=== PATIENT | male | born 1955 | race Caucasian/White ===

== ENCOUNTER → 2019-07-14 10:31 | Outpatient (BNVA) | payer BC, SELFPAY | PROVIDERS: Family Provider Nurse Practitioner Family; PCP Nurse Practitioner Family; Visit Provider Nurse Practitioner Family | DX: E11.9 Type 2 diabetes mellitus without complications (principal); Z79.4 Long term (current) use of insulin; E78.5 Hyperlipidemia, unspecified; Z78.9 Other specified health status; R22.43 Localized swelling, mass and lump, lower limb, bilateral; H61.23 Impacted cerumen, bilateral; J44.9 Chronic obstructive pulmonary disease, unspecified; K21.0 Gastro-esophageal reflux disease with esophagitis; F17.200 Nicotine dependence, unspecified, uncomplicated | CPT/HCPCS: 80053; 80061; 81003; 83036; 84443; 85025 ==

== ENCOUNTER → 2019-10-09 09:22 | Outpatient (BNVA) | payer BC, SELFPAY | PROVIDERS: Family Provider Nurse Practitioner Family; PCP Nurse Practitioner Family; Visit Provider Nurse Practitioner | DX: E11.9 Type 2 diabetes mellitus without complications (principal); Z79.4 Long term (current) use of insulin; E78.5 Hyperlipidemia, unspecified; I25.10 Atherosclerotic heart disease of native coronary artery without angina pectoris; Z78.9 Other specified health status; K21.9 Gastro-esophageal reflux disease without esophagitis; M79.2 Neuralgia and neuritis, unspecified; J44.9 Chronic obstructive pulmonary disease, unspecified; I10 Essential (primary) hypertension | CPT/HCPCS: 80053; 80061; 81000; 82044; 83036; 85025 ==

== ENCOUNTER → 2020-02-06 13:11 | Outpatient (BNVA) | payer BC, SELFPAY | PROVIDERS: Family Provider Nurse Practitioner Family; PCP Nurse Practitioner Family; Visit Provider Urology | DX: N40.1 Benign prostatic hyperplasia with lower urinary tract symptoms (principal); N13.8 Other obstructive and reflux uropathy | CPT/HCPCS: 81001 ==

== ENCOUNTER 2020-02-13 15:35 | Emergency (ER) | payer BC, SELFPAY ==
[2020-02-13 15:48] VITALS: BP 134/76; PULSE 109; RESP 18; O2SAT 95; BMI 21.2
--- NOTE | 2020-02-13 15:54 | XRR_ITS ---
PROCEDURE INFORMATION: Exam: XR Chest, 1 View Exam date and time: 02/13/2020 4:12 PM Age: 64 years old Clinical indication: Cough; Prior surgery; Surgery type: Stimulator; Patient HX: Covid precautions TECHNIQUE: Imaging protocol: XR of the chest Views: 1 view. COMPARISON: CT chest w con* [id number] 07/12/2018 3:42 PM FINDINGS: Lungs: Unchanged mild fibrosis. The pulmonary vascularity is within normal limits. No consolidation. The lungs are hyperinflated compatible severe COPD. Calcified granuloma right lung base is unchanged. There is also an unchanged 8 mm ground-glass nodule right lower lobe. Pleural space: Unremarkable. No pleural effusion. No pneumothorax. Heart/Mediastinum: Unremarkable. No cardiomegaly. Bones/joints: No acute abnormality. Neurostimulator wires are noted. XR/XR chest 1V portable [id number] IMPRESSION: No acute findings.
--- NOTE | 2020-02-13 15:54 | ECG_ITS ---
[facility] Test Date: 2020-02-13 Pat Name: Lawrence Carreon Department: Room: Gender: Male Installations Inspector: : 1955 Requested By: Lilia Velazquez Order Number: [id number] Walters MD: Radha Palomo M.D. Measurements Intervals [place] Rate: 95 P: 81 ND: 163 QRS: 83 QRSD: 96 T: 70 QT: 370 QTc: 465 Interpretive Statements SINUS RHYTHM No previous ECG available for comparison Electronically Signed On 02-13-2020 16:55:52 CDT by Radha Palomo M.D. [id number]
[2020-02-13 16:19] LABS: Arterial Blood Gas Hematocrit 43.8 % (42-52); Base Excess ABG -0.1 mmol/L (-2.0-2.0); Blood Gas Allen Test Pos; Blood Gas Operator Identificat CAK; Blood Gas Sample Site Radial, left; Blood Gas Sample Type Arterial; HCO3 ABG 24.7 mmol/L (22-26); Oxygen Device ROOM AIR; PO2 ABG 60.2 mmHg (80.0-100.0)
--- NOTE | 2020-02-13 16:36 | W.ED.SOB ---
HPI - SOB/Dyspnea General: Chief Complaint: Shortness of Breath/Dyspnea Stated Complaint: needs covid eval Time Seen by Provider: 02/13/20 15:49 Source: patient Mode of arrival: ambulatory Limitations: no limitations History of Present Illness: HPI Narrative: Mr. Apple is a nice 64-year-old male who comes in complaining of increased shortness of breath and a sore throat. His symptoms lasted approximately 2 hours but have now resolved. He is concerned about possible COVID-19 infection. He denies any loss of sense of taste or loss of smell. His cough has not changed from baseline. He has not had a fever. Patient denies any chest pain syncope or near syncope type symptoms. The patient did not try thing for this at home prior to coming in but states his symptoms have resolved on their own over time. Associated symptoms: Deny abdominal pain, chest congestion, chest pain, diaphoresis, dizziness, extremity pain, fever(s), hemoptysis, lightheadedness, nausea, orthopnea, palpitations, syncope or vomiting Review of Systems Const: Denies: fever(s), chills, body aches, fatigue, malaise or diaphoresis Eyes: Denies: change in vision, blurry vision, photophobia, eye discomfort, eye discharge or eye redness ENMT: Reports: throat pain; Denies: odynophagia, hoarseness, swelling of lips/tongue, ear or mastoid pain, ear discharge, change in hearing or nasal discharge Card: Denies: chest pain, palpitations, irregular heart rhythm, edema, lightheadedness, syncope, pre-syncope, dyspnea on exertion or orthopnea Resp: Reports: dyspnea; Denies: productive cough, non-productive cough, wheezing, hemoptysis or chest congestion GI: Denies: abdominal pain, nausea, vomiting, hematemesis, coffee ground emesis, heartburn, diarrhea, constipation, GI cramping, hematochezia or melena : Denies: flank pain, dysuria, urinary frequency, urinary urgency or hematuria Musc: Denies: neck pain, back pain, extremity pain, extremity swelling, joint pain, joint swelling, joint redness, joint warmth or joint stiffness Skin/Breast: Denies: rash, pruritus, erythema or skin tenderness Neuro: Denies: headache(s), numbness in extremities, weakness in extremities, sensory changes, lack of coordination, difficulty walking, dizziness, vertigo, confusion, Slurred speech present or seizure-like activity Arsenio/Lymph: Denies: easy bruising, easy bleeding, petechiae, purpura or enlarged lymph nodes All/Imm: Denies: urticaria, throat swelling, tongue swelling, facial swelling or acute wheezing PFSH ED PFSH: Medical History ASHD (arteriosclerotic heart disease) Chronic peripheral neuropathic pain Controlled diabetes mellitus with hyperglycemia, without long-term current use of insulin COPD (chronic obstructive pulmonary disease) Detrusor dysfunction Dyslipidemia GERD (gastroesophageal reflux disease) Incomplete bladder emptying Intermittent self-catheterization of bladder Localized swelling of both lower legs Low testosterone Lower urinary tract symptoms (LUTS) Osteoarthritis Personal history of nicotine dependence Sleep apnea Surgical History History of arthroscopy of both knees History of colon resection Due to cancer History of laminectomy Dr. Easton January 23, 2019. With thoracic spinal cord stimulator placement History of lumbar fusion Dr. Easton February 15, 2017 L4-S1 History of umbilical hernia repair History of vasectomy Family History Mother Diabetes Father Diabetes CAD (coronary artery disease) Hypertension Myocardial infarction Brother Cancer Gastroesophageal cancer Social History Smoking and tobacco status: current every day smoker cigarettes Packs smoked per day: 2 Years cigarettes smoked: 46 Second hand smoke exposure: Yes Smoking risk assessment/counseling performed?: Yes Alcohol intake: never Desire information about alcohol rehabilitation?: No Counseling given: No Desire information about substance/drug rehabilitation?: No Counseling given: No Lives independently: Yes Household members: spouse Housing: House Marital status: service: Yes branch: [employer] Current occupational status: employed Current occupational exposures/hazards: No History of recent travel: No Current gender identity: Male Special syeda needs: No Physical Exam Const: COMMON NORMALS: no acute distress, patient oriented x3, no limitations, healthy appearing and well nourished GENERAL APPEARANCE: cooperative, well kempt and well developed HENMT: COMMON NORMALS: normocephalic, atraumatic, external ears normal, EAC's normal and Normal external nose present HEAD & SCALP: normal to inspection, normocephalic and atraumatic FACE & SINUS: normal facial exam and face symmetric NOSE: Normal external nose present and Normal nares present EXTERNAL EAR: Yes external ears normal EXTERNAL AUDITORY CANAL: EAC's normal MOUTH: Normal oral and palatal mucosa present, lip normal and tongue normal Eye: COMMON NORMALS: Equal, round and reactive pupils present and conjunctivae normal GENERAL EYE: appearance normal, both eyes and all related structures ALIGNMENT: Yes alignment normal PERIORBITAL: periorbital findings normal EYELID: eyelids normal CONJUNCTIVA: Yes conjunctivae normal SCLERA: sclerae normal PUPIL: Yes Equal, round and reactive pupils present Neck/C-Spine: COMMON NORMALS: full ROM, no lymphadenopathy, supple, no meningeal signs and no JVD GENERAL: Yes normal visual inspection and Yes trachea midline Chest: COMMONS NORMALS: normal inspection of the chest and normal palpation of entire chest wall Resp: COMMON NORMALS: normal respiratory effort, No retractions, No use of accessory muscles and clear to auscultation bilaterally EFFORT & INSPECTION: Yes able to speak in complete sentences and Yes symmetric chest movement AUSCULTATION: clear to auscultation bilaterally, no crackles, no rales, no rhonchi and no wheezes Cardio: COMMON NORMALS: no JVD, regular rate, regular rhythm, S1 normal heart sound present and S2 normal heart sound present RATE: regular rate RHYTHM: regular rhythm HEART SOUNDS: S1 normal heart sound present, S2 normal heart sound present, no click, no gallops, no murmurs, no rubs and abnormal split S2 GI: COMMON NORMALS: Soft to palpation and No hepatosplenomegaly present PALPATION: Yes Soft to palpation, No Tenderness to palpation present (GI), No Guarding due to palpation present (GI), No Rigid due to palpation, Yes No hepatosplenomegaly present, No Hernia present, No Palpable mass present and No Pulsatile mass present : COMMON NORMALS: Yes no CVA tenderness BLADDER/KIDNEY EXAM: Yes no CVA tenderness Back/Pelvis: COMMON NORMALS: no CVA tenderness, thoracic and lumbar spine normal to inspection, no thoracic nor lumbar tenderness and thoraco-lumbar ROM normal Extremity: COMMON NORMALS: normal to inspection, full ROM, capillary refill normal, no joint enlargement, no clubbing, cyanosis or edema and no calf tenderness Neuro: COMMON NORMALS: patient oriented x3, CN's II-XII intact bilaterally, moves all extremities, no focal motor deficits and no sensory deficits noted MENINGEAL SIGNS: Yes no meningeal signs SPEECH: speech normal Psych: COMMON NORMALS: mental status grossly normal, Normal thought process present, cooperative, normal affect, speech normal and activity/motor behavior normal APPEARANCE: Yes well kempt SPEECH: Yes normal speech THOUGHT PROCESS: Normal thought process present Skin: COMMON NORMALS: no rashes or lesions noted, turgor normal, no jaundice, no petechiae and no mottling GENERAL SKIN EXAM: no rashes or lesions noted and turgor normal Course Vital Signs: Vital signs: Vital Signs Pulse Rate 107 H 02/13/20 16:43 Respiratory Rate 20 H 02/13/20 16:43 Blood Pressure 129/78 02/13/20 16:43 Pulse Oximetry 92 02/13/20 16:43 MDM - SOB/Dyspnea MDM Narrative: Medical decision making narrative: Mr. Fonseca is a nice 64-year-old male who comes in complaining of generalized weakness, shortness of breath and sore throat. He had no chest pain. He had no syncope or near syncopal type symptoms. Patient ultimately this time is feeling better wants to go home. Self to code infection or focal pneumonia. He does have some faint wheezing present. This is cleared with a breathing treatment. I will discharge him home on steroids, doxycycline and he agrees to follow-up with his regular doctor. Lab Data: Attestation: I reviewed the patient's lab results. Labs: Lab Results 02/13/20 02/13/20 02/13/20 Range/Units 16:08 16:31 16:32 WBC (4.0-10.0) 10^3/ uL RBC (4.1-5.3) 10^6/u L Hgb (11.7-16.6) g/dL Hct (42.0-52.0) % MCV (80-94) fL MCH (28.0-34.0) pg MCHC (30.0-36.0) g/dL RDW (12.1-15.1) % Plt Count (130-400) 10^3/c mm MPV (7.4-10.4) fL Neut % (Auto) % Lymph % (Auto) % Esmeralda % (Auto) % Eos % (Auto) % Baso % (Auto) % Neut # (Auto) (1.8-7.7) 10^3/u L Lymph # (Auto) (0.8-4.8) 10^3/u L Esmeralda # (Auto) (0.2-0.9) 10^3/u L Eos # (Auto) (0.0-0.8) 10^3/u L Baso # (Auto) (0.0-0.1) 10^3/u L Nucleated RBC % (a uto) % Nucleated RBCs # /100WBC PT (12.1-14.9) SECO NDS INR (0.8-1.2) Specimen Type Arterial Sample Site Radial, left ABG pH 7.40 (7.35-7.45) ABG pCO2 40.0 (35-45) mmHg ABG pO2 60.2 L (80.0-100.0) mmH g ABG HCO3 24.7 (22-26) mmol/L ABG Base Excess -0.1 (-2.0-2.0) mmol/ L Christopher Test Pos Hematocrit 43.8 (42-52) % O2 Delivery Device Room air FiO2 21.0 % Campground Caretaker ID Cak Sodium (136-145) mmol/L Potassium (3.5-5.1) mmol/L Chloride (98-107) mmol/L Carbon Dioxide (22-29) mmol/L Anion Gap (5-19) BUN (8-23) mg/dL Creatinine (0.7-1.2) mg/dL GFR Calculation (90-130) mL/min Glucose (65-115) mg/dL Calculated Osmolal ity (285-295) mOsm/k g Lactic Acid (0.5-2.2) mmol/L Calcium (8.5-10.5) mg/dL Magnesium (1.7-2.3) mg/dL Total Bilirubin (0.15-1.2) mg/dL AST (0-40) U/L ALT (0-41) U/L Alkaline Phosphata se (40-130) IU/L Troponin T Gen 5 n g/L 10 (0-15) ng/L Total Protein (6.6-8.7) g/dL Albumin (3.5-5.2) g/dL Globulin (1.3-4.6) g/dL Urine Color (Yellow) Urine Appearance (CLEAR) Urine pH (5-7) Ur Specific Gravit y (1.005-1.030) Urine Protein (Negative) Urine Glucose (UA) (Normal) Urine Ketones (Negative) Urine Blood (Negative) Urine Nitrate (Negative) Urine Bilirubin (NEGATIVE) Urine Urobilinogen (Negative) mg/dL Ur Leukocyte Tran ase (Negative) Influenza Type A A g Negative (Negative) Influenza Type B A g Negative (Negative) SARS-CoV-2 Ag (Rap id) (Negative) 02/13/20 02/13/20 02/13/20 Range/Units 16:32 16:32 16:32 WBC 9.0 (4.0-10.0) 10^3/ uL RBC 4.59 (4.1-5.3) 10^6/u L Hgb 14.5 (11.7-16.6) g/dL Hct 44.9 (42.0-52.0) % MCV 97.8 H (80-94) fL MCH 31.6 (28.0-34.0) pg MCHC 32.3 (30.0-36.0) g/dL RDW 12.7 (12.1-15.1) % Plt Count 210 (130-400) 10^3/c mm MPV 10.0 (7.4-10.4) fL Neut % (Auto) 78.9 % Lymph % (Auto) 10.3 % Esmeralda % (Auto) 9.7 % Eos % (Auto) 0.7 % Baso % (Auto) 0.2 % Neut # (Auto) 7.13 (1.8-7.7) 10^3/u L Lymph # (Auto) 0.9 (0.8-4.8) 10^3/u L Esmeralda # (Auto) 0.9 (0.2-0.9) 10^3/u L Eos # (Auto) 0.1 (0.0-0.8) 10^3/u L Baso # (Auto) 0.0 (0.0-0.1) 10^3/u L Nucleated RBC % (a uto) 0 % Nucleated RBCs # 0.0 /100WBC PT 12.40 (12.1-14.9) SECO NDS INR 0.90 (0.8-1.2) Specimen Type Sample Site ABG pH (7.35-7.45) ABG pCO2 (35-45) mmHg ABG pO2 (80.0-100.0) mmH g ABG HCO3 (22-26) mmol/L ABG Base Excess (-2.0-2.0) mmol/ L Christopher Test Hematocrit (42-52) % O2 Delivery Device FiO2 % Campground Caretaker ID Sodium 132 L (136-145) mmol/L Potassium 4.0 (3.5-5.1) mmol/L Chloride 93 L (98-107) mmol/L Carbon Dioxide 27 (22-29) mmol/L Anion Gap 16.0 (5-19) BUN 6 L (8-23) mg/dL Creatinine 0.7 (0.7-1.2) mg/dL GFR Calculation 112.8 (90-130) mL/min Glucose 82 (65-115) mg/dL Calculated Osmolal ity 269 L (285-295) mOsm/k g Lactic Acid (0.5-2.2) mmol/L Calcium 9.9 (8.5-10.5) mg/dL Magnesium 2.2 (1.7-2.3) mg/dL Total Bilirubin 0.5 (0.15-1.2) mg/dL AST 15 (0-40) U/L ALT 14 (0-41) U/L Alkaline Phosphata se 74 (40-130) IU/L Troponin T Gen 5 n g/L (0-15) ng/L Total Protein 7.6 (6.6-8.7) g/dL Albumin 4.5 (3.5-5.2) g/dL Globulin 3.1 (1.3-4.6) g/dL Urine Color (Yellow) Urine Appearance (CLEAR) Urine pH (5-7) Ur Specific Gravit y (1.005-1.030) Urine Protein (Negative) Urine Glucose (UA) (Normal) Urine Ketones (Negative) Urine Blood (Negative) Urine Nitrate (Negative) Urine Bilirubin (NEGATIVE) Urine Urobilinogen (Negative) mg/dL Ur Leukocyte Tran ase (Negative) Influenza Type A A g (Negative) Influenza Type B A g (Negative) SARS-CoV-2 Ag (Rap id) (Negative) 02/13/20 02/13/20 02/13/20 Range/Units 16:32 16:32 16:32 WBC (4.0-10.0) 10^3/ uL RBC (4.1-5.3) 10^6/u L Hgb (11.7-16.6) g/dL Hct (42.0-52.0) % MCV (80-94) fL MCH (28.0-34.0) pg MCHC (30.0-36.0) g/dL RDW (12.1-15.1) % Plt Count (130-400) 10^3/c mm MPV (7.4-10.4) fL Neut % (Auto) % Lymph % (Auto) % Esmeralda % (Auto) % Eos % (Auto) % Baso % (Auto) % Neut # (Auto) (1.8-7.7) 10^3/u L Lymph # (Auto) (0.8-4.8) 10^3/u L Esmeralda # (Auto) (0.2-0.9) 10^3/u L Eos # (Auto) (0.0-0.8) 10^3/u L Baso # (Auto) (0.0-0.1) 10^3/u L Nucleated RBC % (a uto) % Nucleated RBCs # /100WBC PT (12.1-14.9) SECO NDS INR (0.8-1.2) Specimen Type Sample Site ABG pH (7.35-7.45) ABG pCO2 (35-45) mmHg ABG pO2 (80.0-100.0) mmH g ABG HCO3 (22-26) mmol/L ABG Base Excess (-2.0-2.0) mmol/ L Christopher Test Hematocrit (42-52) % O2 Delivery Device FiO2 % Campground Caretaker ID Sodium (136-145) mmol/L Potassium (3.5-5.1) mmol/L Chloride (98-107) mmol/L Carbon Dioxide (22-29) mmol/L Anion Gap (5-19) BUN (8-23) mg/dL Creatinine (0.7-1.2) mg/dL GFR Calculation (90-130) mL/min Glucose (65-115) mg/dL Calculated Osmolal ity (285-295) mOsm/k g Lactic Acid 1.0 (0.5-2.2) mmol/L Calcium (8.5-10.5) mg/dL Magnesium (1.7-2.3) mg/dL Total Bilirubin (0.15-1.2) mg/dL AST (0-40) U/L ALT (0-41) U/L Alkaline Phosphata se (40-130) IU/L Troponin T Gen 5 n g/L (0-15) ng/L Total Protein (6.6-8.7) g/dL Albumin (3.5-5.2) g/dL Globulin (1.3-4.6) g/dL Urine Color Yellow (Yellow) Urine Appearance Clear (CLEAR) Urine pH 6.5 (5-7) Ur Specific Gravit y 1.005 (1.005-1.030) Urine Protein Neg (Negative) Urine Glucose (UA) Norm (Normal) Urine Ketones Negative (Negative) Urine Blood Neg (Negative) Urine Nitrate Negative (Negative) Urine Bilirubin Neg (NEGATIVE) Urine Urobilinogen Norm (Negative) mg/dL Ur Leukocyte Tran ase Negative (Negative) Influenza Type A A g (Negative) Influenza Type B A g (Negative) SARS-CoV-2 Ag (Rap id) Negative (Negative) Imaging Data^: CXR: Attestation: I personally reviewed and interpreted this imaging study as follows: My impression: COPD changes but no acute cardiopulmonary findings. EKG Data^: EKG 1: Attestation: I personally reviewed and interpreted this EKG as follows: EKG Interpretation Date: 02/13/20 EKG interpretation time: 16:21 Interpretation: Normal sinus rhythm at 95 beats a minute, no acute ST or T wave changes. No blocks, normal intervals. Discharge Plan Discharge Patient Disposition: Home Clinical Impression: Acute exacerbation of chronic obstructive airways disease Condition: Stable Prescriptions: New albuterol sulfate 90 mcg/actuation HFA aerosol inhaler 2 inh INHALATION Q4H PRN (Reason: shortness of breath or wheezing) Qty: 6.7 RF: 0 benzonatate [Tessalon Perles] 100 mg capsule 200 mg PO TID PRN (Reason: cough) Qty: 60 RF: 0 doxycycline hyclate 100 mg capsule 100 mg PO BID 10 Days Qty: 20 RF: 0 prednisone 10 mg tablet 20 mg PO BID 5 Days Qty: 10 RF: 0 No Action gabapentin 300 mg capsule 600 mg PO .FIVE TIMES A DAY RF: 0 tamsulosin 0.4 mg capsule 0.4 mg PO BEDTIME RF: 0 hydrocodone-acetaminophen 10-325 mg tablet 1 - 2 tab PO Q4H MDD 9 tabs PRN (Reason: Pain) RF: 0 duloxetine 60 mg capsule,delayed release(DR/EC) 60 mg PO DAILY RF: 0 testosterone cypionate [Depo-Testosterone] 200 mg/mL oil 200 mg IM .EVERY 10 DAYS RF: 0 cholecalciferol (vitamin D3) 125 mcg (5,000 unit) capsule 125 mcg PO QPM RF: 0 aspirin [Adult Low Dose Aspirin] 81 mg tablet,delayed release (DR/EC) 81 mg PO DAILY RF: 0 Caltrate 600 plus D 600 mg (1,500 mg)-800 unit tablet,chewable 1 tab PO DAILY RF: 0 carisoprodol 350 mg tablet 350 mg PO QID PRN (Reason: Spasms) RF: 0 cetirizine 10 mg tablet 10 mg PO DAILY RF: 0 metformin 500 mg tablet extended release 24 hr 500 mg PO BID Qty: 180 RF: 1 pantoprazole 40 mg tablet,delayed release (DR/EC) 40 mg PO BID Qty: 180 RF: 1 Incruse Ellipta 62.5 mcg/actuation blister with device 1 inh INHALATION DAILY Qty: 90 RF: 1 levofloxacin 500 mg tablet 500 mg PO DAILY Qty: 5 RF: 0 prednisone 20 mg tablet 40 mg PO DAILY Qty: 10 RF: 0 rosuvastatin 20 mg tablet 20 mg PO DAILY 90 Days Qty: 90 RF: 1 potassium chloride 10 mEq capsule, extended release 10 meq PO DAILY 90 Days Qty: 90 RF: 1 morphine 15 mg tablet 15 mg PO BID RF: 0 magnesium oxide 400 mg magnesium Tablet 400 mg PO DAILY RF: 0 hydrochlorothiazide 25 mg tablet 25 mg PO DAILY PRN (Reason: Edema) RF: 0 Discharge Orders: Discharge Order (Routine); Ordered 02/13/20 Ordered By: Lilia Vázquez Referrals: Deyanira Perdomo FNP-C [Primary Care Provider] - 1-3 days Discharge Diet: Advance as tolerated Discharge Activity: Increase activity as tolerated Patient Instructions: Chronic Obstructive Pulmonary Disease (ED) Activity Restrictions/Additional Instructions: Please return to the ER immediately for any of the signs or symptoms listed on your discharge instruction sheets, worsening/changing of your symptoms, you are not getting better as quickly as expected, or for ANY other cause or concerns. Coding Level of Care Code ED Smokehouse Operator for Chg Fwd Exam Comprehensive
[2020-02-13 16:43] VITALS: BP 129/78; PULSE 107; RESP 20; O2SAT 92
[2020-02-13 16:54] LABS: Add Urine Microscopic? NO
[2020-02-13 17:08] LABS: Basophils % 0.2 %; Eosinophils # 0.1 10^3/uL (0.0-0.8); Eosinophils % 0.7 %; Hematocrit 44.9 % (42.0-52.0); Hemoglobin 14.5 g/dL (11.7-16.6); Lymphocytes # 0.9 10^3/uL (0.8-4.8); Lymphocytes % 10.3 %; Mean Corpuscular HGB Conc 32.3 g/dL (30.0-36.0); Mean Corpuscular Hemoglobin 31.6 pg (28.0-34.0); Mean Corpuscular Volume 97.8 fL (80-94); Monocytes # 0.9 10^3/uL (0.2-0.9); Monocytes % 9.7 %; Neutrophils # 7.13 10^3/uL (1.8-7.7); Neutrophils % 78.9 %; Nucleated Red Blood Cells % 0 %; Platelet Count 210 10^3/cmm (130-400); Red Blood Count 4.59 10^6/uL (4.1-5.3); Red Cell Distribution Width 12.7 % (12.1-15.1)
[2020-02-13 17:10] LABS: Bilirubin Urine Neg (NEGATIVE); Blood Urine Neg (Negative); Glucose Urine UA Norm (Normal); Ketones Urine Negative (Negative); Leukocyte Esterase Urine Negative (Negative); Nitrate Urine Negative (Negative); Protein Urine Neg (Negative); Specific Gravity, Urine 1.005 (1.005-1.030); Urine Appearance Clear (CLEAR); Urine Color Yellow (Yellow); Urobilinogen Urine Norm (Negative); pH Urine 6.5 (5-7)
[2020-02-13 17:13] LABS: SARS Covid-2 Antigen Negative (Negative)
[2020-02-13 17:13] LABS: Influenza A by IFA Negative (Negative); Influenza B by IFA Negative (Negative)
[2020-02-13 17:17] LABS: Alanine Aminotransferase 14 U/L (0-41); Albumin Level 4.5 g/dL (3.5-5.2); Alkaline Phosphatase 74 IU/L (40-130); Aspartate Amino Transferase 15 U/L (0-40); Blood Urea Nitrogen 6 mg/dL (8-23); Calcium 9.9 mg/dL (8.5-10.5); Carbon Dioxide 27 mmol/L (22-29); Chloride 93 mmol/L (98-107); Creatinine Clr Calc Pharmacy 96.4128; Globulin 3.1 g/dL (1.3-4.6); Glomerular Filtration Rate 112.8 mL/min (90-130); Glucose 82 mg/dL (65-115); Magnesium 2.2 mg/dL (1.7-2.3); Osmolality Calculated 269 mOsm/kg (285-295); Sodium 132 mmol/L (136-145); Total Bilirubin 0.5 mg/dL (0.15-1.2); Total Protein 7.6 g/dL (6.6-8.7)
[2020-02-13 17:20] LABS: Troponin T (5th) Once 10 ng/L (0-15)
[2020-02-13] MEDS: sodium chloride 0.9% 1,000 ML 999 ML IV (17:27)
[2020-02-13 18:00] VITALS: BP 138/77; PULSE 108; RESP 20; O2SAT 92
--- NOTE | 2020-02-13 18:02 | PC.NURSE ---
Addendum entered by Cristi Thomson RN 02/13/20 18:17: pt also refused to wait for breathing tx. Original Note: pt offered to complete fluids verbalized that he wanted to leave. pt then assisted to wc and taken to pv.
--- NOTE | 2020-02-13 18:04 | PC.NURSE ---
informed dr. howe of 108 bpm and rr of 20 rr/min vo to to complete fluids and dc.
== END 2020-02-13 18:16 | disposition home or self-care (01) ==
PROVIDERS: Emergency Provider Emergency Medicine; PCP Nurse Practitioner Family
DX: J44.1 Chronic obstructive pulmonary disease with (acute) exacerbation (principal); Z79.82 Long term (current) use of aspirin; Z79.84 Long term (current) use of oral hypoglycemic drugs; E11.9 Type 2 diabetes mellitus without complications; J44.9 Chronic obstructive pulmonary disease, unspecified; E78.5 Hyperlipidemia, unspecified; F17.210 Nicotine dependence, cigarettes, uncomplicated
CPT/HCPCS: 12345; 36600; 71045; 80053; 81003; 82803; 83605; 83735; 84484; 85025; 85610; 87426; 87804; 93005; 96360; 99283; 99284; J7030

== ENCOUNTER → 2020-02-28 09:27 | Outpatient (BNVA) | payer BC, SELFPAY | PROVIDERS: PCP Nurse Practitioner Family; Visit Provider Nurse Practitioner Family | DX: E11.65 Type 2 diabetes mellitus with hyperglycemia (principal) | CPT/HCPCS: 80053; 80061; 83036; 84443; 85025 ==

== ENCOUNTER → 2020-03-05 12:33 | Outpatient (BNVA) | payer BC, SELFPAY | PROVIDERS: PCP Nurse Practitioner Family; Referring Provider Dermatology; Visit Provider Dermatology | DX: Z12.83 Encounter for screening for malignant neoplasm of skin (principal); L21.9 Seborrheic dermatitis, unspecified; R23.8 Other skin changes; L82.1 Other seborrheic keratosis; D18.01 Hemangioma of skin and subcutaneous tissue; L57.0 Actinic keratosis | CPT/HCPCS: 17000; 17003; 87635; 99203; 99204 ==

== ENCOUNTER → 2020-03-18 10:23 | Outpatient (BNVA) | payer BC, SELFPAY | PROVIDERS: PCP Nurse Practitioner Family; Visit Provider Internal Medicine Cardiovascular Disease | DX: Z11.59 Encounter for screening for other viral diseases (principal); Z20.828 Contact with and (suspected) exposure to other viral communicable diseases; Z01.812 Encounter for preprocedural laboratory examination | CPT/HCPCS: 87635 ==

== ENCOUNTER 2020-03-21 09:20 | Outpatient (CLI) | payer BC, SELFPAY ==
--- NOTE | 2020-03-21 09:29 | CT_ITS ---
WS: [id number] CT CHEST TECHNIQUE: Contrast enhanced CT of the chest with coronal and sagittal reformatted images. CLINICAL INFORMATION: RIGHT PULMONARY NODULE COMPARISON: CT 2 DLP: 741.[address] scans at [facility] use at least one of these dose optimization techniques: automat ed exposure control; mA and/or kV adjustment per patient size (includes targeted exams where dose is matched to clinical indication); or iterative reconstruction. FINDINGS: Moderate chronic emphysematous changes. Hazy ground glass pulmonary nodule in the left lower lobe kylah sures 6 mm unchanged and slightly less dense from previous. Additional hazy groundglass nodular opaci ty right lower lobe measures 10 x 9 mm is slightly more prominent today. Tiny subpleural nodule left lower lobe new from previous. No other suspicious pulmonary parenchymal opacities. Aortic calcification. Proximal main pulmonary ar teries are normal. Calcified granulomas. Thyroid gland is normal. No axillary lymphadenopathy. Adrenal glands are normal. Splenic granulomas. Normal thoracic spine. Dorsal spinal stimulator. CT/CT chest w con* [id number] IMPRESSION: 1. Stable left lower lobe hazy groundglass opacity measuring 5 mm unchanged in size and slightly less dense today. 2. Lobulated right lower lobe groundglass nodular density measuring 11 x 9 mm slightly increased in size from 2019. Recommend 6 month follow-up. 3. Tiny subpleural nodule left lower lobe measuring 3 mm. 4. No mediastinal or hilar lymphadenopathy. 5. Moderate chronic emphysematous changes. 6. Dorsal spinal stimulator.
[2020-03-21] MEDS: iohexol 300 mg/mL 100 mL Btl IV (09:55)
== END 2020-03-21 09:21 | disposition home or self-care (01) ==
LOC: RADWPI 09:26
PROVIDERS: Family Provider Nurse Practitioner Family; PCP Nurse Practitioner Family; Visit Provider Thoracic Surgery (Cardiothoracic Vascular Surgery)
DX: R91.8 Other nonspecific abnormal finding of lung field (principal); Z96.82 Presence of neurostimulator
CPT/HCPCS: 71260; Q9967

== ENCOUNTER 2020-03-21 10:18 | Outpatient (CLI) | payer BC, SELFPAY ==
--- NOTE | 2020-03-21 14:07 | PFTS_ITS ---
Date of Study:03/21/20 Date of Dictation: MECHANICS: Forced vital capacity (FVC) is reduced. Forced expiratory volume in one second (FEV1) is reduced. FEV1/FVC is reduced. FLOW VOLUME LOOP: Reduced flow at all lung volumes with significant. LUNG VOLUMES: Total lung capacity (TLC) is normal. Residual volume (RV) is increased. DIFFUSING CAPACITY FOR CARBON MONOXIDE: Moderately reduced. INTERPRETATION: The pulmonary function tests are consistent with severe obstruction. Lung volumes are consistent with air trapping. Gas exchange (DLCO) is moderately reduced. MTDD
== END 2020-03-21 10:19 | disposition home or self-care (01) ==
LOC: RT 10:22
PROVIDERS: PCP Nurse Practitioner Family; Visit Provider Internal Medicine Pulmonary Disease
DX: J44.9 Chronic obstructive pulmonary disease, unspecified (principal)
CPT/HCPCS: 94010; 94726; 94729

== ENCOUNTER 2020-04-11 16:05 | Outpatient (RCR) | payer BC, SELFPAY | END 2020-05-06 23:59 | disposition home or self-care (01) | LOC: PULRHB 16:05 | PROVIDERS: PCP Nurse Practitioner Family; Visit Provider Internal Medicine Pulmonary Disease | DX: J44.9 Chronic obstructive pulmonary disease, unspecified (principal) | CPT/HCPCS: 94618; G0424 ==

== ENCOUNTER 2020-05-07 06:00 | Outpatient (RCR) | payer BC, SELFPAY | END 2020-06-06 23:59 | disposition home or self-care (01) | LOC: PULRHB 06:00 | PROVIDERS: PCP Nurse Practitioner Family; Visit Provider Internal Medicine Pulmonary Disease | DX: J44.9 Chronic obstructive pulmonary disease, unspecified (principal) | CPT/HCPCS: G0424 ==

== ENCOUNTER → 2020-05-09 10:35 | Outpatient (BNVA) | payer BC, SELFPAY | PROVIDERS: PCP Nurse Practitioner Family; Visit Provider Family Medicine | DX: E11.65 Type 2 diabetes mellitus with hyperglycemia (principal) | CPT/HCPCS: 80053; 80061; 83036; 84443; 85025 ==

== ENCOUNTER 2020-07-08 06:00 | Outpatient (RCR) | payer BC, SELFPAY | END 2020-08-04 23:59 | disposition home or self-care (01) | LOC: PULRHB 06:00 | PROVIDERS: PCP Nurse Practitioner Family; Visit Provider Internal Medicine Pulmonary Disease | DX: J44.9 Chronic obstructive pulmonary disease, unspecified (principal) | CPT/HCPCS: G0424 ==

== ENCOUNTER 2020-08-05 06:00 | Outpatient (RCR) | payer BC, SELFPAY | END 2020-09-04 23:59 | disposition home or self-care (01) | LOC: PULRHB 06:00 | PROVIDERS: PCP Family Medicine; Visit Provider Internal Medicine Pulmonary Disease | DX: J44.9 Chronic obstructive pulmonary disease, unspecified (principal) | CPT/HCPCS: G0424 ==

== ENCOUNTER → 2020-08-06 14:19 | Outpatient (BNVA) | payer BC, SELFPAY | PROVIDERS: PCP Family Medicine; Visit Provider Nurse Practitioner Family | DX: R33.9 Retention of urine, unspecified (principal); R39.9 Unspecified symptoms and signs involving the genitourinary system; R82.81 Pyuria | CPT/HCPCS: 81003; 87077; 87086; 87184 ==

== ENCOUNTER → 2020-08-07 09:19 | Outpatient (BNVA) | payer BC, SELFPAY | PROVIDERS: PCP Family Medicine; Visit Provider Family Medicine | DX: E11.65 Type 2 diabetes mellitus with hyperglycemia (principal); E78.5 Hyperlipidemia, unspecified | CPT/HCPCS: 80053; 80061; 83036; 84443; 85025 ==

== ENCOUNTER → 2020-08-21 08:25 | Outpatient (BNVA) | payer BC, SELFPAY | PROVIDERS: PCP Family Medicine; Visit Provider Internal Medicine | DX: Z01.812 Encounter for preprocedural laboratory examination (principal); Z11.52 Encounter for screening for COVID-19 | CPT/HCPCS: 87635 ==

== ENCOUNTER → 2020-08-28 15:40 | Outpatient (BNVA) | payer BC, SELFPAY | PROVIDERS: PCP Family Medicine; Visit Provider Nurse Practitioner Family | DX: R82.81 Pyuria (principal) | CPT/HCPCS: 81003; 87077; 87086; 87184 ==

== ENCOUNTER 2020-09-23 08:15 | Outpatient (CLI) | payer BC, SELFPAY ==
--- NOTE | 2020-09-23 08:30 | FL_ITS ---
WS: [id number] ESOPHAGRAM WITH FLUOROSCOPY HISTORY: K44.9 - Diaphragmatic hernia without obstruction or gangrene COMPARISON: None available. FLUOROSCOPY TIME: 1.4 minutes. Esophagus and swallowing function: After the first few initial swallows of the barium patient started coughing. Lateral projection was performed and the patient was noted to have a least moderate aspira tion of the barium. Barium tablet was swallowed with minimal delay at the piriform sinuses. Esophagram was terminated due to the aspiration. Unable to evaluate hiatal hernia as the study was terminated due to moderate aspiration. No hernia wa s evident during the upright portion of this examination. FL/FL barium swallow 16921 IMPRESSION: 1. Study terminated due to moderate aspiration with the barium mixture. Consid er follow-up modified barium swallowing examination. 2. Although study was limited no hernia was identified on the upright portion of this examination.
== END 2020-09-23 08:16 | disposition home or self-care (01) ==
LOC: RADWPI 08:21
PROVIDERS: PCP Family Medicine; Visit Provider Surgery
DX: K44.9 Diaphragmatic hernia without obstruction or gangrene (principal)
CPT/HCPCS: 74220; 81003; 87086

== ENCOUNTER 2020-10-01 11:17 | Outpatient (CLI) | payer BC, SELFPAY ==
--- NOTE | 2020-10-01 11:30 | FL_ITS ---
WS: [id number] MODIFIED BARIUM SWALLOW HISTORY: K44.9 - Diaphragmatic hernia without obstruction or gangrene FLUOROSCOPY TIME: 2 minutes. Modified barium swallow was performed by the speech pathologist. Fluoroscopy was provided with the pa tient in a lateral projection. Multiple food consistencies were provided. No aspiration or laryngeal penetration. Food products collected at the vallecula. Additional liquids were necessary to clear the food products from the vallecula. Barium tablet was swallowed without dif ficulty. FL/FL barium swallow modifd 10301 IMPRESSION: 1. No aspiration or laryngeal penetration. 2. Food products were delayed at the vallecula. Additional liquids were necess brian to clear the food products. Please see speech therapist report also for recommendations.
== END 2020-10-01 11:18 | disposition home or self-care (01) ==
LOC: RAD 11:19
PROVIDERS: PCP Family Medicine; Visit Provider Surgery
DX: K44.9 Diaphragmatic hernia without obstruction or gangrene (principal)
CPT/HCPCS: 74230; 92611

== ENCOUNTER 2020-10-04 10:14 | Outpatient (CLI) | payer BC, SELFPAY ==
--- NOTE | 2020-10-04 10:15 | USCV_ITS ---
Lawrence Carreon Age: 64 Gender: M : 1955 Exam Date: 10/04/2020 10:45 Ordering Phys: Jeannie Polk MD ([email or web address]) Technologist: Kelley Rodriguez [place]am [place] [facility] [place]: SCREENING AAA HISTORY: Diameter (cm) AP x Transverse x Length Velocity (cm/s) Waveform Prox Aorta: 1.39 x 1.64 x 1.85 34.00 Mid Aorta: 2.06 x 1.56 x 2.15 40.20 Distal Aorta: 2.18 x 2.54 x 2.28 48.30 Right Iliac Prox: 0.85 x 0.85 x 0.66 56.60 Left Iliac Prox: 0.99 x 1.07 x 1.00 35.90 Stent Prox Landing x x Aneurysmal Sac Max x x Lt Lat Sac Dim Rt Lat Sac Dim Stent Dist Landing x x Right Iliac Stent x x Left Iliac Stent x x Right Renal Art Left Renal Art FINDINGS: Mild to moderate diffuse plaques in the abdominal aorta Normal abdominal aortic and proximal common iliac artery dimensions Normal Doppler flow velocities CONCLUSIONS Mild to moderate diffuse plaques in the abdominal aorta. Normal abdominal aortic and proximal common iliac artery dimensions, with no evidence of aneurysm Dr Jeannie Polk MD [facility] (Electronically Signed) Final Date: 07 Oct 2020 10:38 S
--- NOTE | 2020-10-04 10:34 | USCV_ITS ---
Lawrence Carreon Age: 64 Gender: M : 1955 Exam Date: 10/04/2020 11:02 Ordering Phys: Jeannie Polk MD ([email or web address]) Technologist: Kelley Rodriguez [place] [facility] [place]ication: NONISCHEMIC CM BP: / HR: 72 Rhythm: Sinus Technical Quality: Technically difficult study MEASUREMENTS (Male / Female) Normal Values 2D ECHO LV Diastolic Diameter PLAX 4.6 cm 4.2 - 5.9 / 3.9 - 5.3 cm LV Systolic Diameter PLAX 3.4 cm IVS Diastolic Thickness 0.8 cm 0.6 - 1.0 / 0.6 - 0.9 cm IVS Systolic Thickness 1.1 cm LVPW Diastolic Thickness 0.8 cm 0.6 - 1.0 / 0.6 - 0.9 cm LVPW Systolic Thickness 1.4 cm LVOT Diameter 2.1 cm LV Ejection Fraction 2D Teich 50.8 % LA Diameter 2.2 cm LA Width 3.0 cm LA Height 2.3 cm RA Width 2.4 cm RA Height 2.6 cm M-MODE LV Diastolic Diameter MM 5.4 cm 4.2 - 5.9 / 3.9 - 5.3 cm LV Systolic Diameter MM 4.1 cm LV Ejection Fraction MM Teich 47.0 % IVS Diastolic Thickness MM 0.6 cm 0.6 - 1.0 / 0.6 - 0.9 cm IVS Systolic Thickness MM 0.7 cm LVPW Diastolic Thickness MM 0.9 cm 0.6 - 1.0 / 0.6 - 0.9 cm LVPW Systolic Thickness MM 1.6 cm Aortic Annulus Diameter 3.2 cm LA Ao Ratio MM 0.8 MV E Point Septal Separation 1.7 cm DOPPLER AV Peak Velocity 84.0 cm/s LVOT Peak Velocity 68.0 cm/s AV Area Cont Eq vti 2.7 cm squared AV Area Cont Eq pk 2.9 cm squared MV Peak Velocity 84.0 cm/s MV Area PHT 4.2 cm squared Mitral E to A Ratio 0.7 MV E' Velocity 27.0 cm/s Mitral E to MV E' Ratio 7.5 Mitral E to LV E' Lateral Ratio 5.6 Mitral E to LV E' Septal Ratio 11.7 TR Peak Velocity 220.7 cm/s TR Peak Gradient 19.5 mmHg Right Atrial Pressure 3.0 mmHg Pulmonary Artery Systolic Pressu 22.5 mmHg PV Peak Velocity 81.0 cm/s RV Acceleration Time 0.2 s RV Ejection Time 0.4 s RV AcT/ET 0.5 FINDINGS Left Ventricle LV size with a slightly diminished ejection fraction of 50%.Grade I/IV diastolic dysfunction (abnormal relaxation filling pattern), normal to mildly elevated filling pressures. Mild diffuse hypokinesia of the septum Right Ventricle The right ventricle is normal in size and function. Right Atrium The right atrium is normal in size. Left Atrium The left atrium is normal in size. Mitral Valve Structurally normal mitral valve without significant stenosis or prolapse. There is no mitral regurgitation. Aortic Valve No gross abnormalities noted Tricuspid Valve No gross abnormalities noted.trace tricuspid valve regurgitation. Pulmonic Valve Trace pulmonary valve regurgitation. Pericardium Normal pericardium without effusion. Aorta Normal ascending aorta dimension. CONCLUSIONS LV size with a slightly diminished ejection fraction of 50%.Grade I/IV diastolic dysfunction (abnormal relaxation filling pattern), normal to mildly elevated filling pressures. Mild diffuse hypokinesia of the septum. Trace of tricuspid and pulmonic regurgitation. There is no pericardial effusion. There are no intracardiac masses. Compared to the study from 04/20/2018, there is improvement in the LV ejection fraction Dr Jeannie Polk MD [facility] (Electronically Signed) Final Date: 07 Oct 2020 10:06 S
--- NOTE | 2020-10-04 11:39 | CT_ITS ---
WS: [id number] CT CHEST WITH INTRAVENOUS CONTRAST HISTORY: PULMONARY NODULE TECHNIQUE: Contiguous 5 mm axial imaging performed on the thorax. Coronal and sagittal reformats are submitted. All CT scans at [facility] use at least one of these dose optimization techniq ues: automated exposure control; mA and/or kV adjustment per patient size (includes targeted exams wh ere dose is matched to clinical indication); or iterative reconstruction. CONTRAST: Omnipaque 300; 95 mL IV. DLP: 430.59 mGy.cm COMPARISON: 03/21/2020 and 07/12/2018 Lungs and central airway: Chronic emphysematous changes. Previously described subsolid nodule in the LEFT lower lobe is now more solid nodule measuring 6.7 mm, image 52 of series 3. There are smaller ad ditional satellite nodules which are better seen today. Additional pleural 4 mm nodule image 59 of se eve 3 LEFT lower lobe. The groundglass opacification in the periphery of the RIGHT lower lobe is act ually increasing consolidation in size since the prior study now measuring 21 x 8 mm. Previously desc ribed subpleural nodule measuring 3 mm in the posterior LEFT lower lobe is not identified today. Pleura: Normal. No pleural effusion. Heart and pericardium: Normal size heart with no pericardial effusion. Mediastinum and lulu: No mediastinum or hilar adenopathy. Vessels: Mild atherosclerosis of aorta. Normal size pulmonary artery. Chest wall and lower neck: No soft tissue masses. Upper abdomen: Negative. Osseous structures: Dorsal column stimulator electrodes in the midthoracic region. CT/CT chest w con* [id number] IMPRESSION: 1. Increase in size and consolidation of the previously described nodule in th e LEFT lower lobe suspicious for developing neoplasm. Nodule now measures 5 mm. Recommend follow-up chest CT in 3 months. 2. Increasing consolidation in the periphery of the RIGHT lower lobe since the prior study. Area of groundglass opacification now measures 21 x 8 mm. Possibi lity of adenocarcinoma variant should be considered. Follow-up chest CT in 3 mo nths. 3. Chronic emphysema. 4. No new or additional increasing nodules.
[2020-10-04 12:17] LABS: Blood Urea Nitrogen 8 mg/dL (8-23); Glomerular Filtration Rate 134.8 mL/min (90-130)
[2020-10-04] MEDS: iohexol 300 mg/mL 100 mL Btl IV (12:47)
== END 2020-10-04 10:15 | disposition home or self-care (01) ==
LOC: US 10:18
PROVIDERS: PCP Family Medicine; Visit Provider Internal Medicine Cardiovascular Disease
DX: I71.4 Abdominal aortic aneurysm, without rupture (principal); R91.1 Solitary pulmonary nodule; I42.8 Other cardiomyopathies; I07.1 Rheumatic tricuspid insufficiency; I37.1 Nonrheumatic pulmonary valve insufficiency; J43.9 Emphysema, unspecified
CPT/HCPCS: 36415; 71260; 82565; 84520; 93306; 93978

== ENCOUNTER → 2020-10-08 15:06 | Outpatient (BNVA) | payer BC, SELFPAY | PROVIDERS: PCP Family Medicine; Visit Provider Urology | DX: N39.0 Urinary tract infection, site not specified (principal); R79.89 Other specified abnormal findings of blood chemistry; Z12.5 Encounter for screening for malignant neoplasm of prostate; R33.9 Retention of urine, unspecified; F17.210 Nicotine dependence, cigarettes, uncomplicated | CPT/HCPCS: 84403; G0103 ==

== ENCOUNTER 2020-10-10 06:29 | Inpatient (IN) | payer BC, SELFPAY ==
[2020-10-10] VITALS (23 sets, daily range): BP systolic 99–141; BP diastolic 55–79; PULSE 91–138; RESP 7–20; TEMP 36.7–38.7; O2SAT 91–98; BMI 19.0
--- NOTE | 2020-10-10 06:34 | W.ED.GENADLT ---
HPI - General Adult General: Chief complaint: Fever Stated complaint: SEPTIC Time Seen by Provider: 10/10/20 06:34 History of Present Illness: HPI narrative: 64-year-old male [facility] emergency room via EMS with complaints of altered mental status. Additionally he has a fever and is tachycardic. He states has not felt well for the last couple of days he has had some intermittent flank pain below is not specific will but difficulty getting to answer some questions he just gets confused and is unable to provide an answer although he is aware that he is struggling with this. He states his blood pressure at home has been low. The family has been sick the last couple days he tells me he is seeing Dr. Tucker yesterday for BPH symptoms.According the old records he seen Dr. Tucker and Dr. Barragan 2 days ago. Fever documented at that time. Looking to the chart he has a history of abdominal aortic aneurysm COPD. Coronary artery disease.Recent echo done within the last week showed an EF of 50% with grade 1/6 diastolic dysfunction. Patient denies any abdominal pain he does have a little bit of a cough he usually uses 5 L at night of oxygen now he is requiring 1/2 to 2 L to maintain sats in the mid 90s. He denies any productive cough. He does states he has been having difficulty urinating and having flank pain. Patient states he is diabetic he is on Metformin. He states he previously lost a substantial amount of weight. He had weighed over 230 pounds. Onset (ago): day(s) Severity: moderate Relieving factors: none Exacerbating factors: none Associated symptoms: Reports confusion, cough, decreased appetite, dyspnea, fevers/chills, malaise, short of breath and weakness; Deny chest pain, diaphoresis, headache(s), nausea, rash, palpitations, seizures, syncope or vomiting Treatments prior to arrival: none Review of Systems Const: Reports: malaise; Denies: diaphoresis ENMT: Denies: throat pain, ear or mastoid pain, nasal discharge or nasal congestion Card: Denies: chest pain, palpitations or syncope Resp: Reports: dyspnea GI: Denies: nausea or vomiting : Denies: flank pain, dysuria, urinary frequency or urinary urgency Skin/Breast: Denies: rash Neuro: Reports: confusion; Denies: headache(s) PFS ED PFSH: Medical History (Updated 10/10/20 @ 09:36 by Long Morales DO) AAA (abdominal aortic aneurysm) without rupture ASHD (arteriosclerotic heart disease) Chronic back pain Chronic peripheral neuropathic pain Controlled diabetes mellitus with hyperglycemia, without long-term current use of insulin COPD (chronic obstructive pulmonary disease) Detrusor dysfunction Dyslipidemia Erectile dysfunction of organic origin GERD (gastroesophageal reflux disease) Hypertension Hyponatremia Incomplete bladder emptying Intermittent self-catheterization of bladder Intervertebral disc disorders with radiculopathy, lumbosacral region Lower urinary tract symptoms (LUTS) Non-ischemic cardiomyopathy Osteoarthritis Pulmonary nodule 1 cm or greater in diameter Recurrent UTI Sleep apnea Surgical History History of arthroscopy of both knees History of colon resection Due to cancer History of laminectomy Dr. Easton January 23, 2019. With thoracic spinal cord stimulator placement History of lumbar fusion Dr. Easton February 15, 2017 L4-S1 History of umbilical hernia repair History of vasectomy Family History Mother Diabetes Father Diabetes CAD (coronary artery disease) Hypertension Myocardial infarction Cancer Brother Cancer Gastroesophageal cancer CAD (coronary artery disease) Diabetes Sister Diabetes Denies family history of Clotting disorder Dementia Chronic kidney disease (CKD) Suicide Anesthesia complication Bleeding disorder Lung disease Stroke Social History Smoking and tobacco status: current every day smoker cigarettes Packs smoked per day: 2.0 Years cigarettes smoked: 46 Quit status (tobacco): considering quitting Second hand smoke exposure: Yes Smoking risk assessment/counseling performed?: Yes Alcohol intake: never Desire information about alcohol rehabilitation?: No Counseling given: No Desire information about substance/drug rehabilitation?: No Counseling given: No Lives independently: Yes Household members: spouse Housing: House Marital status: service: Yes branch: [employer] Current occupational status: employed Current occupational exposures/hazards: No Pets and animals: Yes History of recent travel: No Current gender identity: Male Special syeda needs: No Physical Exam Const: COMMON NORMALS: no acute distress GENERAL APPEARANCE: cooperative and comfortable ORIENTATION/CONSCIOUSNESS: Yes awake, Yes oriented to person, Yes oriented to place and Yes oriented to time HENMT: COMMON NORMALS: normocephalic, atraumatic and hearing grossly normal bilaterally HEAD & SCALP: normocephalic and atraumatic Eye: COMMON NORMALS: Equal, round and reactive pupils present, EOMs intact bilaterally, conjunctivae normal and no scleral icterus CONJUNCTIVA: Yes conjunctivae normal PUPIL: Yes Equal, round and reactive pupils present Neck/C-Spine: COMMON NORMALS: full ROM, no lymphadenopathy, supple and no JVD Lymph: LYMPHATIC: no lymphadenopathy noted and no lymphedema noted Resp: COMMON NORMALS: normal respiratory effort, No retractions, No use of accessory muscles and clear to auscultation bilaterally AUSCULTATION: clear to auscultation bilaterally Cardio: COMMON NORMALS: no JVD, regular rate, regular rhythm and No murmurs present (Cardio) RATE: regular rate RHYTHM: regular rhythm GI: COMMON NORMALS: Soft to palpation and No hepatosplenomegaly present AUSCULTATION: Yes normoactive bowel sounds PALPATION: Yes Soft to palpation, No Tenderness to palpation present (GI), No Guarding due to palpation present (GI) and Yes No hepatosplenomegaly present Extremity: COMMON NORMALS: normal to inspection, capillary refill normal, no clubbing, cyanosis or edema, no calf tenderness and no pedal edema Neuro: SENSORIUM/ORIENTATION: Yes oriented to person, Yes oriented to place and Yes oriented to time Skin: COMMON NORMALS: no rashes or lesions noted GENERAL SKIN EXAM: no rashes or lesions noted Course Vital Signs: Vital signs: Vital Signs Temperature 101.6 F H 10/10/20 06:32 Pulse Rate 108 H 10/10/20 09:18 Respiratory Rate 14 10/10/20 09:18 Blood Pressure 110/57 10/10/20 09:18 Pulse Oximetry 94 10/10/20 09:18 MDM - General Adult MDM Narrative: Medical decision making narrative: Patient self caths it appears he has a UTI driving his. Additionally he has hyponatremia. He was tested for Covid the rapid was negative he has had them in during a vaccine got his second vaccination approximately 2 months ago. I think at this point it is safe to remove him from isolation. He was initially tested because he had not increased oxygen need along with his fever and tachycardia. Tachycardia has responded well to fluids. He has been cultured and started on antibiotics will admit with hospitalist. Lab Data: Labs: Lab Results 10/10/20 10/10/20 10/10/20 Range/Units 06:45 06:45 06:45 WBC 9.8 (4.0-10.0) 10^3/ uL RBC 3.85 L (4.1-5.3) 10^6/u L Hgb 12.4 (11.7-16.6) g/dL Hct 37.4 L (42.0-52.0) % MCV 97.1 H (80-94) fL MCH 32.2 (28.0-34.0) pg MCHC 33.2 (30.0-36.0) g/dL RDW 14.4 (12.1-15.1) % Plt Count 90 L (130-400) 10^3/c mm MPV 11.7 H (7.4-10.4) fL Neut % (Auto) 90.2 % Lymph % (Auto) 1.7 % [place] % (Auto) 7.4 % Eos % (Auto) 0.0 % Baso % (Auto) 0.4 % Neut # (Auto) 8.80 H (1.8-7.7) 10^3/u L Lymph # (Auto) 0.2 L (0.8-4.8) 10^3/u L [place] # (Auto) 0.7 (0.2-0.9) 10^3/u L Eos # (Auto) 0.0 (0.0-0.8) 10^3/u L Baso # (Auto) 0.0 (0.0-0.1) 10^3/u L Nucleated RBC % (a uto) 0 % Nucleated RBCs # 0.0 /100WBC Sodium 125 L (136-145) mmol/L Potassium 4.4 (3.5-5.1) mmol/L Chloride 94 L (98-107) mmol/L Carbon Dioxide 20 L (22-29) mmol/L Anion Gap 15.4 (5-19) BUN 18 (8-23) mg/dL Creatinine 1.1 (0.7-1.2) mg/dL GFR Calculation 67.0 L (90-130) mL/min Glucose 112 (65-115) mg/dL Calculated Osmolal ity 263 L (285-295) mOsm/k g Lactic Acid 1.4 (0.5-2.2) mmol/L Calcium 8.0 L (8.5-10.5) mg/dL Total Bilirubin 0.4 (0.15-1.2) mg/dL AST 23 (0-40) U/L ALT 22 (0-41) U/L Alkaline Phosphata se 106 (40-130) IU/L Troponin T Baselin e (0-15) ng/L NT-Pro-B Natriuret Pep 2106 H (0-125) pg/mL Total Protein 6.2 L (6.6-8.7) g/dL Albumin 3.1 L (3.5-5.2) g/dL Globulin 3.1 (1.3-4.6) g/dL Procalcitonin 6.14 H (0-0.5) ng/mL Urine Color (Yellow) Urine Appearance (CLEAR) Urine pH (5-7) Ur Specific Gravit y (1.005-1.030) Urine Protein (Negative) Urine Glucose (UA) (Normal) Urine Ketones (Negative) Urine Blood (Negative) Urine Nitrate (Negative) Urine Bilirubin (Negative) Urine Urobilinogen (Negative) mg/dL Ur Leukocyte Tran ase (Negative) Urine RBC (0-2) /hpf Urine WBC (0-5) /hpf Ur Squamous Epith Cells (0-5) /hpf Amorphous Sediment Urine Bacteria (NONE) /hpf SARS-CoV-2 Ag (Rap id) (Negative) 10/10/20 10/10/20 10/10/20 Range/Units 06:45 07:11 07:14 WBC (4.0-10.0) 10^3/ uL RBC (4.1-5.3) 10^6/u L Hgb (11.7-16.6) g/dL Hct (42.0-52.0) % MCV (80-94) fL MCH (28.0-34.0) pg MCHC (30.0-36.0) g/dL RDW (12.1-15.1) % Plt Count (130-400) 10^3/c mm MPV (7.4-10.4) fL Neut % (Auto) % Lymph % (Auto) % [place] % (Auto) % Eos % (Auto) % Baso % (Auto) % Neut # (Auto) (1.8-7.7) 10^3/u L Lymph # (Auto) (0.8-4.8) 10^3/u L [place] # (Auto) (0.2-0.9) 10^3/u L Eos # (Auto) (0.0-0.8) 10^3/u L Baso # (Auto) (0.0-0.1) 10^3/u L Nucleated RBC % (a uto) % Nucleated RBCs # /100WBC Sodium (136-145) mmol/L Potassium (3.5-5.1) mmol/L Chloride (98-107) mmol/L Carbon Dioxide (22-29) mmol/L Anion Gap (5-19) BUN (8-23) mg/dL Creatinine (0.7-1.2) mg/dL GFR Calculation (90-130) mL/min Glucose (65-115) mg/dL Calculated Osmolal ity (285-295) mOsm/k g Lactic Acid (0.5-2.2) mmol/L Calcium (8.5-10.5) mg/dL Total Bilirubin (0.15-1.2) mg/dL AST (0-40) U/L ALT (0-41) U/L Alkaline Phosphata se (40-130) IU/L Troponin T Baselin e 28 H (0-15) ng/L NT-Pro-B Natriuret Pep (0-125) pg/mL Total Protein (6.6-8.7) g/dL Albumin (3.5-5.2) g/dL Globulin (1.3-4.6) g/dL Procalcitonin (0-0.5) ng/mL Urine Color Yellow (Yellow) Urine Appearance Clear (CLEAR) Urine pH 5 (5-7) Ur Specific Gravit y 1.000 L (1.005-1.030) Urine Protein 1+ H (Negative) Urine Glucose (UA) Norm (Normal) Urine Ketones Negative (Negative) Urine Blood 3+ H (Negative) Urine Nitrate Positive H (Negative) Urine Bilirubin Neg (Negative) Urine Urobilinogen Norm (Negative) mg/dL Ur Leukocyte Tran ase 2+ H (Negative) Urine RBC 5-10 H (0-2) /hpf Urine WBC 55-80 H (0-5) /hpf Ur Squamous Epith Cells 0-4 H (0-5) /hpf Amorphous Sediment Not Reportable Urine Bacteria 3+ H (NONE) /hpf SARS-CoV-2 Ag (Rap id) Negative (Negative) EKG Data^: EKG 1: EKG interpretation date: 10/10/20 EKG interpretation time: 06:40 Prior EKG tracings: available for review Interpretation: And his tachycardia with a rate of [address] changes. No significant changes from previous EKG. Normal NV interval. Computer generated interpretation: Chest X-Ray 10/10/20 06:42 IMPRESSION: 1. Pulmonary emphysema and fibrosis. 2. No acute chest abnormality. Abdomen/Pelvis CT 10/10/20 08:09 IMPRESSION: 1. Hepatomegaly with mild splenomegaly. 2. Mild intrahepatic biliary ductal dilatation. Fluid distended gallbladder. No visualized cholelithiasis. This could be followed up with ultrasound. 3. No hydronephrosis in either kidney. 4. Sigmoid diverticulosis. 5. No evidence of small or large bowel obstruction. Prior right hemicolectomy with ileocolic anastomosis. 6. Egan catheter. 7. Stable pulmonary nodule right lower lobe measuring 11 mm unchanged since the recent PET/CT. Recommend continued surveillance with 6-12 month month follow-up. Notified Long Morales DO at 10/10/2020 9:11 AM. Discharge Plan Discharge Patient Disposition: Admitted As Inpatient Admit Provider: Wander Burris Clinical Impression: Cystitis, Hyponatremia, Sepsis Condition: Stable Coding Level of Care Code ED Research And Evaluation Analyst for Chg Fwd Exam Comprehensive
--- NOTE | 2020-10-10 06:42 | XRR_ITS ---
PROCEDURE INFORMATION: Exam: XR Chest Exam date and time: 10/10/2020 6:46 AM Age: 64 years old Clinical indication: Cough and dyspnea; Additional info: Cough dyspnea TECHNIQUE: Imaging protocol: XR of the chest. Views: 1 view. COMPARISON: CT chest w con* [id number] 10/04/2020 12:55 PM FINDINGS: Tubes, catheters and devices: Neurostimulator wires project on the midthoracic spine. Lungs: There are pulmonary emphysematous changes with scattered fibrosis. No pneumonia is seen. Pleural spaces: Unremarkable. No pleural effusion. No pneumothorax. Heart/Mediastinum: Unremarkable. No cardiomegaly. Bones/joints: Unremarkable. XR/XR chest 1V portable [id number] IMPRESSION: 1. Pulmonary emphysema and fibrosis. 2. No acute chest abnormality.
--- NOTE | 2020-10-10 06:43 | ECG_ITS ---
[facility] Test Date: 2020-10-10 Pat Name: Lawrence Carreon Department: Room: [facility] Gender: Male Calciner Feeder: : 1955 Requested By: Long Tang Order Number: [id number] Selena MD: Jeannie Polk M.D. Measurements Intervals [place] Rate: 134 P: 83 RI: 136 QRS: 84 QRSD: 91 T: 73 QT: 278 QTc: 415 Interpretive Statements SINUS TACHYCARDIA ABNORMAL RHYTHM ECG Compared to ECG 02/13/2020 16:21:44 Sinus rhythm no longer present Electronically Signed On 10-10-2020 20:47:59 CDT by Jeannie Polk M.D. [id number] f
[2020-10-10] MEDS: cefTRIAXone 2,000 MG in sodium chloride 0.9% (plus) 50 ML 100 MG IV (06:57)
[2020-10-10 07:06] LABS: Basophils % 0.4 %; Hematocrit 37.4 % (42.0-52.0); Hemoglobin 12.4 g/dL (11.7-16.6); Lymphocytes # 0.2 10^3/uL (0.8-4.8); Lymphocytes % 1.7 %; Mean Corpuscular HGB Conc 33.2 g/dL (30.0-36.0); Mean Corpuscular Hemoglobin 32.2 pg (28.0-34.0); Mean Corpuscular Volume 97.1 fL (80-94); Mean Platelet Volume 11.7 fL (7.4-10.4); Monocytes # 0.7 10^3/uL (0.2-0.9); Monocytes % 7.4 %; Neutrophils % 90.2 %; Nucleated Red Blood Cells % 0 %; Platelet Count 90 10^3/cmm (130-400); Red Blood Count 3.85 10^6/uL (4.1-5.3); Red Cell Distribution Width 14.4 % (12.1-15.1); White Blood Count 9.8 10^3/uL (4.0-10.0)
[2020-10-10] MEDS: sodium chloride 0.9% 1,905.09 ML 1905.1 ML IV (07:08)
[2020-10-10 07:20] LABS: Lactic Sepsis W/Reflex 1.4 mmol/L (0.5-2.2); Troponin(5th) Baseline 28 ng/L (0-15)
[2020-10-10 07:24] LABS: Urine Color Yellow (Yellow)
[2020-10-10 07:25] LABS: Add Urine Microscopic? YES; Bilirubin Urine Neg (Negative); Blood Urine 3+ (Negative); Glucose Urine UA Norm (Normal); Ketones Urine Negative (Negative); Leukocyte Esterase Urine 2+ (Negative); Nitrate Urine Positive (Negative); Protein Urine 1+ (Negative); Urine Appearance Clear (CLEAR); Urobilinogen Urine Norm (Negative); pH Urine 5 (5-7)
[2020-10-10 07:28] LABS: NT Pro B Type Natriuretic Pept 2106 pg/mL (0-125); Procalcitonin 6.14 ng/mL (0-0.5)
[2020-10-10] MEDS: acetaminophen 325 mg Tablet 650 MG PO (07:33)
[2020-10-10 07:39] LABS: Alanine Aminotransferase 22 U/L (0-41); Albumin Level 3.1 g/dL (3.5-5.2); Alkaline Phosphatase 106 IU/L (40-130); Aspartate Amino Transferase 23 U/L (0-40); Blood Urea Nitrogen 18 mg/dL (8-23); Carbon Dioxide 20 mmol/L (22-29); Chloride 94 mmol/L (98-107); Globulin 3.1 g/dL (1.3-4.6); Glucose 112 mg/dL (65-115); Osmolality Calculated 263 mOsm/kg (285-295); Sodium 125 mmol/L (136-145); Total Bilirubin 0.4 mg/dL (0.15-1.2); Total Protein 6.2 g/dL (6.6-8.7)
[2020-10-10 07:40] LABS: Anion Gap 15.4 (5-19); Potassium 4.4 mmol/L (3.5-5.1)
[2020-10-10 07:51] LABS: Add Urine Culture? Yes; Bacteria Urine 3+ /hpf; Squamous Epithelial Cell Urine 0-4 /hpf (0-5); WBC Urine 55-80 /hpf (0-5)
[2020-10-10 08:07] LABS: SARS Covid-2 Antigen Negative (Negative)
--- NOTE | 2020-10-10 08:09 | CT_ITS ---
WS: [id number] CT ABDOMEN PELVIS TECHNIQUE: Contrast-enhanced CT of the abdomen and pelvis with coronal and sagittal reformatted image s. CLINICAL INFORMATION: abd pain COMPARISON: CT , PET/CT August 10, 2020 DLP: 1075.[address] scans at [facility] use at least one of these dose optimization techniques: automat ed exposure control; mA and/or kV adjustment per patient size (includes targeted exams where dose is matched to clinical indication); or iterative reconstruction. FINDINGS: Prior postoperative changes right hemicolectomy with ileocolic anastomosis. Slight atelectasis in the lung bases. Noncalcified pulmonary nodule right lower lobe measuring 11 mm is unchanged from the rec ent PET/CT. Hepatomegaly. Mild intrahepatic biliary ductal dilatation. Small hemangioma near the falciform ligame nt is unchanged. Normal gallbladder. Mild splenomegaly. Egan catheter. Sigmoid constipation. Diverticulosis. No evidence of acute diverticulitis. Adrenal glands are normal bilaterally. Normal renal parenchymal enhancement. No hydronephrosis. Prior postoperative changes ped icle screw fixation L4-5. Normal caliber abdominal aorta. Aortic calcification. Right renal cyst anat uring 3.[address]/CT abdomen pelvis w con* [id number] IMPRESSION: 1. Hepatomegaly with mild splenomegaly. 2. Mild intrahepatic biliary ductal dilatation. Fluid distended gallbladder. N o visualized cholelithiasis. This could be followed up with ultrasound. 3. No hydronephrosis in either kidney. 4. Sigmoid diverticulosis. 5. No evidence of small or large bowel obstruction. Prior right hemicolectomy with ileocolic anastomosis. 6. Egan catheter. 7. Stable pulmonary nodule right lower lobe measuring 11 mm unchanged since e recent PET/CT. Recommend continued surveillance with 6-12 month month follow- up. Notified Long Morales DO at 10/10/2020 9:11 AM.
[2020-10-10] MEDS: iohexol 300 mg/mL 100 mL Btl IV (08:28)
--- NOTE | 2020-10-10 08:43 | ECG_ITS ---
[facility] Test Date: 2020-10-10 Pat Name: Lawrence Carreon Department: Room: Gender: Male Coater Hand: : 1955 Requested By: Long Tang Order Number: [id number] Selena MD: Jeannie Polk M.D. Measurements Intervals [place] Rate: 108 P: 76 GA: 124 QRS: 77 QRSD: 92 T: 71 QT: 342 QTc: 460 Interpretive Statements SINUS TACHYCARDIA ABNORMAL RHYTHM ECG Compared to ECG 02/13/2020 16:21:44 Sinus rhythm no longer present Electronically Signed On 10-10-2020 20:52:00 CDT by Jeannie Polk M.D. [id number]
--- NOTE | 2020-10-10 08:53 | P.HP_ITS ---
Providers/Chief Complaint Primary Care Provider: Carolyn Ireland DO Chief Complaint: SEPTIC History of Present Illness Lawrence Carreon is a 64 year old male who presents to the emergency department with complaints of altered mental status. He reports he went to the bathroom early in the morning at an unknown time, and was very weak and may have passed out on the stool. His family found him on the stool, with hands on the ground. It did not appear that he had fallen. It was apparent he had been sitting there for quite a while. Patient remembers having difficulty urinating prior to this happening. He had felt some chills earlier in the day but no fever. He had had one episode of vomiting. He typically self caths but, but also urinates some on his own. He denies any shortness of breath, chest discomfort. He reports no nausea currently. He has a history of frequent UTIs, urinary retention. No Covid exposure. Was vaccinated with maternal with last shot on August 25. Review of Systems General: Reports: 10 or more systems reviewed and unremarkable except in HPI and below Const: Reports: chills and malaise; Denies: fever(s) Eyes: Denies: change in vision ENMT: Denies: throat pain Card: Denies: chest pain Resp: Denies: dyspnea GI: Reports: nausea and vomiting; Denies: abdominal pain, hematochezia or melena : Denies: flank pain Musc: Denies: neck pain Skin/Breast: Denies: rash Neuro: Denies: headache(s) Psych: Denies: anxiety or depression Endo: Denies: polyuria Arsenio/Lymph: Denies: easy bruising All/Imm: Denies: urticaria Medications/Allergies Home Medications Medication Instructions Recorded Confirmed Last Taken Type aspirin 81 mg tablet,delayed 81 mg PO DAILY 07/14/19 10/08/20 02/13/20 History release calcium carbonate 600 mg(1,500 1 tab PO DAILY 07/14/19 10/08/20 02/13/20 History mg)-vitamin D3 800 unit chewable tablet carisoprodol 350 mg tablet 350 mg PO QID PRN 07/14/19 10/08/20 02/13/20 History cholecalciferol (vitamin D3) 125 125 mcg PO QPM 02/06/20 10/08/20 02/12/20 Hi story mcg (5,000 unit) capsule hydrocodone 10 mg-acetaminophen 1 - 2 tab PO Q4H PRN MDD 9 tabs 02/06/20 10/08/20 02/13/20 13:00 History 325 mg tablet 1/2 tab morphine 15 mg PO BID 02/13/20 10/08/20 02/13/20 10:00 History albuterol sulfate 90 mcg/actuation 2 inh INHALATION Q4H PRN 90 Days 02/28/20 10/08/20 Unknown Rx aerosol inhaler #3 each duloxetine 60 mg capsule,delayed 60 mg PO DAILY 90 Days #90 cap 02/28/20 10/08/20 Unknown Rx release hydrochlorothiazide 25 mg tablet 25 mg PO DAILY PRN 90 Days #90 tab 02/28/20 10/08/20 Unknown Rx magnesium oxide 400 mg PO DAILY 90 Days #90 tab 02/28/20 10/08/20 Unknown Rx metformin 500 mg tablet,extended 500 mg PO BID 90 Days #180 tab 02/28/20 10/08/20 Unknown Rx release 24 hr pantoprazole 40 mg tablet,delayed 40 mg PO BID 90 Days #180 tab 02/28/20 10/08/20 Unknown Rx release potassium chloride 10 mEq 10 meq PO DAILY 90 Days #90 cap 02/28/20 10/08/20 Unknown Rx capsule,extended release rosuvastatin 20 mg tablet 20 mg PO DAILY 90 Days #90 tab 02/28/20 10/08/20 Unknown Rx testosterone cypionate 200 mg/mL 200 mg IM .EVERY 10 DAYS #5 ml 04/02/20 10/08/20 Unknown Rx intramuscular oil umeclidinium 62.5 mcg-vilanterol 1 inh INHALATION DAILY #60 each 04/11/20 10/08/20 Unknown Rx 25 mcg/actuation powdr for inhalation gabapentin 300 mg capsule 600 mg PO .FIVE TIMES A DAY #180 05/30/20 10/08/20 Unknown Rx cap guaifenesin 600 mg tablet, 600 mg PO BID 07/29/20 10/08/20 Unknown History extended release 12 hr methenamine hippurate 1 gram tablet 1 g PO BID #60 tab 10/01/20 10/08/20 Unknown Rx phenazopyridine 95 mg tablet 95 mg PO TID PRN 10/08/20 10/08/20 Unknown History silodosin 8 mg capsule 8 mg PO DAILY #30 cap 10/08/20 10/08/20 Unknown Rx Allergies Allergy/AdvReac Type Severity Reaction Status Date / Time adhesive Allergy ALGY-Bliste Verified 10/08/20 15:00 r azithromycin Allergy Unknown Verified 10/08/20 15:00 PFSH Acute PFSH: Medical History (Updated 10/10/20 @ 09:17 by Wander Burris MD) AAA (abdominal aortic aneurysm) without rupture ASHD (arteriosclerotic heart disease) Chronic back pain Chronic peripheral neuropathic pain Controlled diabetes mellitus with hyperglycemia, without long-term current use of insulin COPD (chronic obstructive pulmonary disease) Detrusor dysfunction Dyslipidemia Erectile dysfunction of organic origin GERD (gastroesophageal reflux disease) Hypertension Hyponatremia Incomplete bladder emptying Intermittent self-catheterization of bladder Intervertebral disc disorders with radiculopathy, lumbosacral region Lower urinary tract symptoms (LUTS) Non-ischemic cardiomyopathy Osteoarthritis Pulmonary nodule 1 cm or greater in diameter Recurrent UTI Sleep apnea Surgical History History of arthroscopy of both knees History of colon resection Due to cancer History of laminectomy Dr. Easton January 23, 2019. With thoracic spinal cord stimulator placement History of lumbar fusion Dr. Easton February 15, 2017 L4-S1 History of umbilical hernia repair History of vasectomy Family History Mother Diabetes Father Diabetes CAD (coronary artery disease) Hypertension Myocardial infarction Cancer Brother Cancer Gastroesophageal cancer CAD (coronary artery disease) Diabetes Sister Diabetes Denies family history of Clotting disorder Dementia Chronic kidney disease (CKD) Suicide Anesthesia complication Bleeding disorder Lung disease Stroke Social History Smoking and tobacco status: current every day smoker cigarettes Packs smoked per day: 2.0 Years cigarettes smoked: 46 Quit status (tobacco): considering quitting Second hand smoke exposure: Yes Smoking risk assessment/counseling performed?: Yes Alcohol intake: never Desire information about alcohol rehabilitation?: No Counseling given: No Desire information about substance/drug rehabilitation?: No Counseling given: No Lives independently: Yes Household members: spouse Housing: House Marital status: service: Yes branch: [employer] Current occupational status: employed Current occupational exposures/hazards: No Pets and animals: Yes History of recent travel: No Current gender identity: Male Special syeda needs: No Vitals/I&O/Wt Last Vital Signs Temp 101.6 F H 10/10/20 06:32 Pulse 124 H 10/10/20 07:25 Resp 17 10/10/20 07:25 BP 125/62 10/10/20 07:25 Pulse Ox 92 10/10/20 07:25 10/09/20 10/10/20 10/10/20 22:59 06:59 14:59 Intake Total Balance Weight last 48 hrs Weight 63.503 kg Physical Exam Narrative: EXAM NARRATIVE: General exam is a conversant white male in no appa rent distress. From my understanding he had some confusion when presenting. HEENT: Atraumatic, normocephalic. Pupils equally round. Oropharynx clear. Neck is supple no lymphadenopathy or thyromegaly Cardiovascular tachycardic, no murmur, regular rhythm Lungs clear, no wheezing or crackles Abdomen is soft with positive bowel sounds. No obvious organomegaly was deferred Extremities no cyanosis clubbing or edema, cap refill brisk Skin rash present back of both legs, likely from sitting on toilet for prolonged time. Some petechiae are noted there. Neuro no obvious focal deficits Urinary Catheter Management^: Egan: Cath Placed During This Visit: yes Urinary Catheter Date of Insertion: 10/10/20 Urinary Catheter Time of Insertion: 08:13 Sepsis: Is patient septic: Yes Focused sepsis exam performed: Yes Date exam was performed: 10/10/20 Time exam was performed: 09:31 Data : 10/10/20 06:45 10/10/20 06:45 Micro: Microbiology 10/10/20 06:45 Blood Culture - Preliminary Blood SPECIMEN COLLECTED 10/10/20 06:45 Blood Culture - Preliminary Blood SPECIMEN COLLECTED Other data: Lactic acid 1.4, calcium 8.0, bilirubin 0.4, AST ALT and alk phos normal Troponin XX 8, repeat pending BNP 2105 Albumin 3.1 Procalcitonin 6.1 Urinalysis 55-80 whites, 5-10 reds, positive leukocyte Estrace and positive bacteria Chest x-ray pulmonary emphysema and fibrosis, no acute infiltrate Previous echocardiogram September 2020 demonstrated EF of 50%, 1/4 diastolic dysfunction, diffuse hypokinesis Rapid Covid negative EKG demonstrated sinus tachycardia, normal axis, no acute changes A&P Assessment and plan (1) Sepsis: Appears to have severe sepsis. Heart rate greater than 90, temperature greater than 100.9, thrombocytopenia. Other systemic effects such as encephalopathy which is resolving and acute kidney injury demonstrated by crea tinine of 1.1 as his baseline is 0.6 Cultures IV antibiotics consisting of vancomycin and ceftriaxone Does not have septic shock, and large volumes of fluid are not needed considering he has history of nonischemic cardiomyopathy with slightly reduced EF. This could lead to significant volume overload. Further boluses only indicated if he becomes hypotensive. Status: Acute (2) Hyponatremia: Some element of chronic hyponatremia. Recheck BMP later this afternoon as he is receiving fluids. Will check TSH, cortisol level. Status: Acute (3) Acute encephalopathy: Resolving, secondary to sepsis Status: Acute (4) Acute kidney injury: Continue hydration. Secondary to sepsis Status: Acute (5) Thrombocytopenia: Secondary to sepsis. Continue to monitor. As platelet count greater than 50,000 not a contraindication to anticoagulation Status: Acute (6) Elevated brain natriuretic peptide (BNP) level: Secondary to sepsis. No clinical symptomatology for heart failure Status: Acute (7) UTI (urinary tract infection): Source of sepsis is UTI. Rocephin given in the emergency department. Add vancomycin. Past history of Enterococcus, E. coli. Will have to await cultures to narrow spectrum. Has had some resistant organisms in the past. Status: Acute Additional A&P Information COPD. Continue oxygen as needed. DuoNeb as needed. History of diabetes. Sliding scale insulin Neuropathy Chronic low back pain Hyperlipidemia Lung nodule, followed by PET/CT per pulmonary Multiple other medical problems as outlined in past medical history Full code Lovenox for DVT prophylaxis Attestations Medical Necessity Statement*: Will require greater than 2 midnight stay for evaluation and treatment of sepsis Time Spent in Patient Care: Greater than 35 minutes Coding Level of Care Code Acute Search Analyst for [facility] Fwd Diagnoses Sepsis A41.9 Hyponatremia E87.1 Acute encephalopathy G93.40 Acute kidney injury N17.9 Thrombocytopenia D69.6 Elevated brain natriuretic peptide (BNP) level R79.89 UTI (urinary tract infection) N39.0
[2020-10-10 09:39] LABS: Troponin 5 2HR 30.52 ng/L (0-15); Troponin 5 2HR Delta 2.52 ABS# (0-10)
[2020-10-10 10:05] LABS: Thyroid Stimulating Hormone 2.23 uIU/mL (0.27-4.20)
[2020-10-10] MEDS: sodium chloride 0.9% 1,000 ML 100 ML IV (10:20)
[2020-10-10] MEDS: enoxaparin 40 mg/0.4 mL Syringe SUBCUT (10:32)
[2020-10-10] MEDS: vancomycin 1,000 MG in sodium chloride 0.9% 250 ML 250 MG IV (10:36)
[2020-10-10 10:46] LABS: Cortisol Random 23.67 ug/dL (2.47-19.5)
--- NOTE | 2020-10-10 10:48 | PC.NURSE ---
ED TRANSFER TO ICU Patient transfer by ER nurse via stretcher to ICU room 2, this nurse at bedside. Pt denies pain, SOB, and N&V and is A&OX4 at this time. Skin appears to be normal, warm and dry. No edema noted to upper and lower extremities. Patient placed on bedside heart monitor, vital signs listed below. Pt lungs sound clear to accusation, pt noted to be on 3L NC- baseline per patient. Bowel sounds active, last bowel movement 10/07/2020 per patient. Pt stomach noted to be tender to the right upper quadrant. Egan placed in ER urine appears clear pale yellow, tubing free of kinks. Pt belongings placed at bedside, see pt belonging documentation. Current IV medications running listed below. VITAL SIGNS TEMP: 99.6 ORAL HR: 99 NSR BP:106/61 O2:96 ON 3LNC(BASELINE) RR:11 CURRENT IV MEDICATIONS NS@100ML/HR Vancomycin @ 250ML/HR
[2020-10-10 11:07] LABS: Glucose Point of Care 113 mg/dL (70-110)
[2020-10-10 13:14] LABS: Troponin 5 6HR 26.51 ng/L (0-15)
[2020-10-10 13:21] LABS: Troponin 5 6HR Delta -1.49 ng/L (0-12)
[2020-10-10 14:10] LABS: Anion Gap 10.9 (5-19); Blood Urea Nitrogen 16 mg/dL (8-23); Calcium 7.5 mg/dL (8.5-10.5); Carbon Dioxide 23 mmol/L (22-29); Chloride 103 mmol/L (98-107); Glomerular Filtration Rate 74.8 mL/min (90-130); Glucose 139 mg/dL (65-115); Osmolality Calculated 279 mOsm/kg (285-295); Potassium 3.9 mmol/L (3.5-5.1); Sodium 133 mmol/L (136-145)
[2020-10-10] MEDS: gabapentin 300 mg Capsule 600 MG PO ×3 (14:14→21:11)
[2020-10-10 15:11] LABS: Coronavirus Test Green County Not Detected
--- NOTE | 2020-10-10 15:28 | PC.PHAR ---
I TRIED 3 TIMES TODAY TO SPEAK WITH THIS PT. ONCE IN THE ER, ONCE THIS AM IN ICU, AND THIS AFTERNOON IN ICU. HE JUST COULD NOT STAY AWAKE TO TALK TO ME. I CALLED HIS TO SEE IF SHE HELPS HIM WITH HIS MEDICATION, BUT SHE SAID HE DID IT ALL HIMSELF AND SHE DIDN'T KNOW ANYTHING ABOUT IT. I FINALLY USED HIS MEDICATION HISTORY AND HIS PHARMACY LIST. SOME OF THEM HAVE NOT BEEN FILLED RECENTLY.
[2020-10-10 16:36] LABS: Glucose Point of Care 109 mg/dL (70-110)
--- NOTE | 2020-10-10 16:45 | PC.NURSE ---
Pt complaining of chills at this time requesting temperature taken, warm blanket, and fresh ice water. Pt temperature reading 98.1, patient appears to be shaking at this time and feeling cold. Mckeon catheter bag 3/4 full and patient's legs up in bed, making bladder difficult to drain into mckeon bag. Mckeon emptied, please see I&O documentation. Patient's legs lowered and mckeon noted to be draining properly into catheter bag. Pt reports feeling slightly better, Pt educated on mckeon care and monitoring.
[2020-10-10] MEDS: pantoprazole DR 40 mg Tablet PO (17:18)
[2020-10-10] MEDS: morphine IR 15 mg Tablet PO (17:18)
[2020-10-10] MEDS: sodium chloride 0.9% 1,000 ML 75 ML IV (21:12)
[2020-10-10] MEDS: HYDROcodone-acetaminophen 10-325 mg Tablet 1 TAB PO (21:12)
[2020-10-10 21:31] LABS: Glucose Point of Care 101 mg/dL (70-110)
[2020-10-11] VITALS (16 sets, daily range): BP systolic 110–130; BP diastolic 53–66; PULSE 82–101; RESP 11–23; TEMP 36.9–37.8; O2SAT 90–96
[2020-10-11] MEDS: vancomycin 1,000 MG in sodium chloride 0.9% 250 ML 250 MG IV (05:06)
[2020-10-11] MEDS: HYDROcodone-acetaminophen 10-325 mg Tablet 1 TAB PO ×2 (05:13→20:18)
[2020-10-11 05:46] LABS: Basophils % 0.3 %; Eosinophils % 0.2 %; Hematocrit 34.2 % (42.0-52.0); Lymphocytes # 0.3 10^3/uL (0.8-4.8); Lymphocytes % 4.7 %; Mean Corpuscular HGB Conc 32.2 g/dL (30.0-36.0); Mean Corpuscular Hemoglobin 31.5 pg (28.0-34.0); Mean Platelet Volume 10.7 fL (7.4-10.4); Monocytes # 0.6 10^3/uL (0.2-0.9); Monocytes % 9.5 %; Neutrophils # 5.38 10^3/uL (1.8-7.7); Neutrophils % 84.8 %; Nucleated Red Blood Cells % 0 %; Platelet Count 81 10^3/cmm (130-400); Red Blood Count 3.49 10^6/uL (4.1-5.3); Red Cell Distribution Width 15.3 % (12.1-15.1); White Blood Count 6.3 10^3/uL (4.0-10.0)
[2020-10-11 05:57] LABS: Alanine Aminotransferase 29 U/L (0-41); Albumin Level 2.4 g/dL (3.5-5.2); Alkaline Phosphatase 91 IU/L (40-130); Anion Gap 14.5 (5-19); Aspartate Amino Transferase 48 U/L (0-40); Blood Urea Nitrogen 14 mg/dL (8-23); Calcium 7.7 mg/dL (8.5-10.5); Carbon Dioxide 23 mmol/L (22-29); Chloride 103 mmol/L (98-107); Globulin 2.6 g/dL (1.3-4.6); Glomerular Filtration Rate 74.8 mL/min (90-130); Glucose 82 mg/dL (65-115); Osmolality Calculated 284 mOsm/kg (285-295); Potassium 3.5 mmol/L (3.5-5.1); Sodium 137 mmol/L (136-145); Total Bilirubin 0.3 mg/dL (0.15-1.2)
[2020-10-11 06:04] LABS: Slide Review Slide Review Perform
[2020-10-11] MEDS: cefTRIAXone 2,000 MG in sodium chloride 0.9% (plus) 50 ML 100 MG IV (06:21)
[2020-10-11 08:07] LABS: Glucose Point of Care 97 mg/dL (70-110)
[2020-10-11] MEDS: atorvastatin 40 mg Tablet 80 MG PO (08:54)
[2020-10-11] MEDS: duloxetine 60 mg Capsule PO (08:54)
[2020-10-11] MEDS: aspirin 81 mg EC Tablet PO (08:55)
[2020-10-11] MEDS: gabapentin 300 mg Capsule 600 MG PO ×2 (08:55→15:06)
[2020-10-11] MEDS: pantoprazole DR 40 mg Tablet PO ×2 (08:55→18:31)
[2020-10-11] MEDS: morphine IR 15 mg Tablet PO ×2 (08:55→18:31)
--- NOTE | 2020-10-11 10:25 | PM.PN ---
Subjective Subjective: Interval history: Lawrence reports he ffeels better today. Eating well. No chest or abdominal pain. Reports he is not short of breath. Normally uses 5 L of oxygen at night, none during day. Medications: Reviewed: Yes Vitals/I&O/Wt Last Vital Signs Temp 98.8 F 10/11/20 03:41 Pulse 82 10/11/20 08:00 Resp 13 10/11/20 08:00 BP 116/53 10/11/20 08:00 Pulse Ox 90 10/11/20 08:00 10/10/20 10/11/20 10/11/20 22:59 06:59 14:59 Intake Total 992.917 / 3318.007 250 / 3568.007 300 / 300 Output Total 2500 / 2500 800 / 3300 Balance -1507.083 / 818.007 -550 / 268.007 300 / 300 Weight last 48 hrs Weight 65.862 kg Weight 63.503 kg Physical Exam Narrative: EXAM NARRATIVE: General exam no apparent distress, alert and oriented Neck is supple no lymphadenopathy or thyromegaly Cardiovascular tachycardic, no murmur, regular rhythm Lungs clear, no wheezing or crackles Abdomen is soft with positive bowel sounds. No obvious organomegaly with Egan Extremities no cyanosis clubbing or edema, cap refill brisk Skin rash present back of both legs, likely from sitting on toilet for prolonged time. Some petechiae are noted there. Urinary Catheter Management^: Egan: Cath Placed During This Visit: yes Reason for Continuing Indwelling Catheter: Accurate Measurement of Urinary Output in Critically Ill Patients Urinary Catheter Date of Insertion: 10/10/20 Urinary Catheter Time of Insertion: 08:13 Data : 10/11/20 04:09 10/11/20 04:09 Micro: Microbiology 10/10/20 06:45 Blood Culture - Preliminary Blood Gram Negative Rods 10/10/20 06:45 Blood Culture - Preliminary Blood Gram Negative Rods A&P Assessment and plan (1) Sepsis: Appears to have severe sepsis. Heart rate greater than 90, temperature greater than 100.9, thrombocytopenia. Other systemic effects such as encephalopathy which is resolving and acute kidney injury demonstrated by creatinine of 1.1 as his baseline is 0.6 Today 10/11 all parameters are improving Blood cultures are growing gram-negative rods, urine culture pending Currently on vancomycin and ceftriaxone Discontinue IV fluids. He has been successfully resuscitated Status: Acute (2) Hyponatremia: Some element of chronic hyponatremia. This resolved with hydration Cortisol and TSH normal. Status: Acute (3) Acute encephalopathy: Resolved, secondary to sepsis Status: Acute (4) Acute kidney injury: Continue hydration. Secondary to sepsis Status: Acute (5) Thrombocytopenia: Still present. Secondary to sepsis. Continue to monitor. As platelet count greater than 50,000 not a contraindication to anticoagulation Status: Acute (6) Elevated brain natriuretic peptide (BNP) level: Secondary to sepsis. No clinical symptomatology for heart failure Status: Acute (7) UTI (urinary tract infection): Source of sepsis is UTI. Rocephin given in the emergency department. Add vancomycin. Past history of Enterococcus, E. coli. Awaiting urine culture. Status: Acute Additional A&P Information Some mild biliary duct dilation. Will order an ultrasound to correlate. COPD. Continue oxygen as needed. DuoNeb as needed. History of diabetes. Sliding scale insulin Neuropathy Chronic low back pain Hyperlipidemia Lung nodule, followed by PET/CT per pulmonary Multiple other medical problems as outlined in past medical history Full code Lovenox for DVT prophylaxis Attestations Medical Necessity Statement*: Needs continued hospital stay for IV antibiotics secondary to sepsis Coding Level of Care Code Acute Policy Service Coordinator for g Fwd Diagnoses Sepsis A41.9 Hyponatremia E87.1 Acute encephalopathy G93.40 Acute kidney injury N17.9 Thrombocytopenia D69.6 Elevated brain natriuretic peptide (BNP) level R79.89 UTI (urinary tract infection) N39.0
--- NOTE | 2020-10-11 10:31 | US_ITS ---
WS: [id number] RIGHT UPPER QUADRANT ULTRASOUND HISTORY: Evaluate gallbladder. Bile duct dilatation seen on recent CT. COMPARISON: 10/10/2020. Liver: 17.7 cm in length. Liver is enlarged. No intrahepatic mass. There is very mild central bile du ct dilatation. Gallbladder: Mildly hydropic gallbladder. The wall of the gallbladder is thin. No pericholecystic flu id. Common bile duct is mildly dilated measuring up to 9 mm. No mass at the pancreatic head. CBD: 0.9 cm Pancreas: Normal size pancreas. Pancreatic duct is dilated 3 mm. Right kidney: 12.3 cm in length. Normal size kidney. There is a cyst from the lower pole measuring 3. 3 x 3.6 x 3.3 cm. No solid mass or obstruction. Aorta and IVC: Unremarkable abdominal aorta and IVC. No ascites. US/US gall bladder 49299 IMPRESSION: 1. Mildly hydropic gallbladder with no wall thickening or evidence for choleli thiasis. May be dilated due to prolonged fasting state. 2. Mild diffuse common bile duct obstructing and minimal central bile duct dil atation. No stone in the distal CBD or pancreatic mass identified.
[2020-10-11 11:37] LABS: Glucose Point of Care 112 mg/dL (70-110)
[2020-10-11] MEDS: enoxaparin 40 mg/0.4 mL Syringe SUBCUT (11:41)
--- NOTE | 2020-10-11 12:25 | PC.RESP ---
SMOKING CESSATION AND PULMONARY REHAB INFORMATION SENT TO PATIENT.
--- NOTE | 2020-10-11 13:17 | PC.NURSE ---
for tranfer to floor at this time up in bed resting quietly
--- NOTE | 2020-10-11 13:45 | PC.NURSE ---
transfer to room 254 bed 1
[2020-10-11 20:26] LABS: Glucose Point of Care 130 mg/dL (70-110)
[2020-10-11 22:44] LABS: Vancomycin Trough 7.6 ug/mL (10-15)
[2020-10-12] VITALS (13 sets, daily range): BP systolic 108–138; BP diastolic 57–72; PULSE 71–98; RESP 16–20; TEMP 36.4–37.7; O2SAT 94–98
[2020-10-12] MEDS: vancomycin 1,000 MG in sodium chloride 0.9% 250 ML 250 MG IV ×2 (00:08→12:56)
[2020-10-12] MEDS: HYDROcodone-acetaminophen 10-325 mg Tablet 1 TAB PO ×3 (02:54→23:46)
[2020-10-12 05:54] LABS: Basophils % 0.2 %; Eosinophils % 0.3 %; Hematocrit 31.1 % (42.0-52.0); Hemoglobin 10.2 g/dL (11.7-16.6); Lymphocytes # 0.4 10^3/uL (0.8-4.8); Lymphocytes % 6.3 %; Mean Corpuscular HGB Conc 32.8 g/dL (30.0-36.0); Mean Corpuscular Hemoglobin 32.1 pg (28.0-34.0); Mean Corpuscular Volume 97.8 fL (80-94); Mean Platelet Volume 10.6 fL (7.4-10.4); Monocytes # 0.6 10^3/uL (0.2-0.9); Monocytes % 9.1 %; Neutrophils # 5.35 10^3/uL (1.8-7.7); Neutrophils % 83.8 %; Nucleated Red Blood Cells % 0 %; Platelet Count 104 10^3/cmm (130-400); Red Blood Count 3.18 10^6/uL (4.1-5.3); Red Cell Distribution Width 15.6 % (12.1-15.1); White Blood Count 6.4 10^3/uL (4.0-10.0)
[2020-10-12 06:14] LABS: Alanine Aminotransferase 28 U/L (0-41); Albumin Level 2.2 g/dL (3.5-5.2); Alkaline Phosphatase 107 IU/L (40-130); Anion Gap 11.2 (5-19); Aspartate Amino Transferase 45 U/L (0-40); Blood Urea Nitrogen 12 mg/dL (8-23); Calcium 7.4 mg/dL (8.5-10.5); Carbon Dioxide 23 mmol/L (22-29); Chloride 104 mmol/L (98-107); Globulin 2.5 g/dL (1.3-4.6); Glomerular Filtration Rate 96.7 mL/min (90-130); Glucose 101 mg/dL (65-115); Osmolality Calculated 280 mOsm/kg (285-295); Potassium 3.2 mmol/L (3.5-5.1); Sodium 135 mmol/L (136-145); Total Bilirubin 0.4 mg/dL (0.15-1.2); Total Protein 4.7 g/dL (6.6-8.7)
[2020-10-12 06:18] LABS: Glucose Point of Care 111 mg/dL (70-110)
[2020-10-12] MEDS: cefTRIAXone 2,000 MG in sodium chloride 0.9% (plus) 50 ML 100 MG IV (06:31)
[2020-10-12] MEDS: atorvastatin 40 mg Tablet 80 MG PO (09:48)
[2020-10-12] MEDS: duloxetine 60 mg Capsule PO (09:48)
[2020-10-12] MEDS: morphine IR 15 mg Tablet PO ×2 (09:48→18:19)
[2020-10-12] MEDS: aspirin 81 mg EC Tablet PO (09:48)
[2020-10-12] MEDS: pantoprazole DR 40 mg Tablet PO ×2 (09:48→18:20)
[2020-10-12] MEDS: enoxaparin 40 mg/0.4 mL Syringe SUBCUT ×2 (09:49→09:52)
[2020-10-12] MEDS: gabapentin 300 mg Capsule 600 MG PO ×3 (09:49→21:19)
--- NOTE | 2020-10-12 10:32 | PC.CHAP ---
Pastoral Care Encounter/Spiritual Assessment Type of Contact [] Declined political organizer visit [] Patient/Family/Request visit [] Outpatient visit [] Follow-up visit [] Physician referral [] Code/Alert [XX] Routine visit [] Staff referral [] Actively dying [] Patient sleeping [] Family support [] [] Out of room [] Palliative care [] [XX] Receiving care in room [] Pre-surgical visit [] Trauma [] Long length of stay [] ICU visit [XX] Other: on phone Relational/Emotional Strength [] Patient feels connected with others/family/visitors/staff [] Distress [] Loneliness/isolation [] Abandonment Spirituality of Patient [] Person of [place] [] Attends [facility] of their [place] [] Believes in Prayer [] Reads Bible or Rastafari materials [] There are Spiritual issues to be addressed Manager Human Capital Interventions [] Prayer [] Active listening [] Non-anxious presence [] Spiritual/emotional support [] Crisis/trauma care [] Spiritual counseling [] Bereavement support [] Provided bereavement packet [] Provided Bible/devotional materials [] Provided toy/stuffed animal, coloring book to patient or family member [] Provided Communion [] Anointing/[place] [] Salvation [] Completed spiritual assessment [] Other: Impact on Illness or Injury [] Angry [] Fearful [] Anxious [] Often cries [] Exhaustion [] Unable to work [] Unable to attend buddhism [] Unable to walk/stand [] Unable to read [] Unable to drive [] Unable to eat/drink [] Unable to sleep [] Unable to be with family [] Patient intubated [] Other: Summary: Two attempts were made to visit with patient but neither attempt was successful. Time spent with patient
[2020-10-12 11:56] LABS: Glucose Point of Care 106 mg/dL (70-110)
--- NOTE | 2020-10-12 16:15 | PM.PN ---
Subjective Subjective: Interval history: Blood culture positive for gram-negative rods pending identification, complains of cramping pain in bilateral lower extremities for which he usually takes Soma at home. Afebrile, hemodynamically stable Medications: Reviewed: Yes Vitals/I&O/Wt Last Vital Signs Temp 97.7 F 10/12/20 15:52 Pulse 73 10/12/20 15:52 Resp 20 H 10/12/20 15:52 BP 108/57 10/12/20 15:52 Pulse Ox 97 10/12/20 15:52 10/12/20 10/12/20 10/12/20 06:59 14:59 22:59 Intake Total 250 / 1910 500 / 500 Output Total 800 / 2000 900 / 900 Balance -550 / -90 -400 / -400 Weight last 48 hrs Weight 70.392 kg Weight 65.862 kg Physical Exam Narrative: EXAM NARRATIVE: GEN: Awake, alert and oriented, no acute distress CVS: S1S2 N RS: CTA B/L Abd: Soft, nt/nd , bs+ GAMBLING MONITOR: no focal neuro deficits Urinary Catheter Management^: Egan: Cath Placed During This Visit: yes Reason for Continuing Indwelling Catheter: Other Urinary Catheter Date of Insertion: 10/10/20 Urinary Catheter Time of Insertion: 08:13 Data : 10/12/20 05:12 10/12/20 05:12 Micro: Microbiology 10/10/20 07:14 Urine Culture - Final Urine,Clean Catch Escherichia coli 10/11/20 16:16 Blood Culture - Preliminary Blood SPECIMEN COLLECTED 10/11/20 16:11 Blood Culture - Preliminary Blood SPECIMEN COLLECTED 10/10/20 06:45 Blood Culture - Preliminary Blood Gram Negative Rods 10/10/20 06:45 Blood Culture - Preliminary Blood Gram Negative Rods A&P Assessment and plan (1) Sepsis: present on admission, now resolved. Blood cultures are growing gram-negative rods, pending idntification urine culture with E coli Currently on vancomycin and ceftriaxone, d/c vancomycin today encourage po inatake Status: Acute (2) Hyponatremia: Some element of chronic hyponatremia. This resolved with hydration Cortisol and TSH normal. Status: Acute (3) Acute encephalopathy: Resolved, secondary to sepsis Status: Acute (4) Acute kidney injury: Continue hydration. Secondary to sepsis Status: Acute (5) Thrombocytopenia: Still present. Secondary to sepsis. Continue to monitor. As platelet count greater than 50,000 not a contraindication to anticoagulation Status: Acute (6) Elevated brain natriuretic peptide (BNP) level: Secondary to sepsis. No clinical symptomatology for heart failure Status: Acute (7) UTI (urinary tract infection): Source of sepsis is UTI. Rocephin given in the emergency department. Add vancomycin. Past history of Enterococcus, E. coli. Awaiting urine culture. Status: Acute Additional A&P Information Some mild biliary duct dilation. no signs of cholecytsitis COPD. Continue oxygen as needed. DuoNeb as needed. History of diabetes. Sliding scale insulin Neuropathy Chronic low back pain, resume Soma from home medication s Hyperlipidemia Lung nodule, followed by PET/CT per pulmonary Multiple other medical problems as outlined in past medical history Full code Lovenox for DVT prophylaxis Attestations Medical Necessity Statement*: GNR on blood cx pending idenification, will determine final plan and duration of abx Coding Level of Care Code Acute Manager Business Systems for g Fwd Diagnoses Sepsis A41.9 Hyponatremia E87.1 Acute encephalopathy G93.40 Acute kidney injury N17.9 Thrombocytopenia D69.6 Elevated brain natriuretic peptide (BNP) level R79.89 UTI (urinary tract infection) N39.0
[2020-10-12 17:18] LABS: Glucose Point of Care 119 mg/dL (70-110)
[2020-10-12 20:47] LABS: Glucose Point of Care 118 mg/dL (70-110)
[2020-10-12] MEDS: polyethylene glycol 3350 Pkt 17 gm PO (23:46)
[2020-10-13] VITALS (11 sets, daily range): BP systolic 111–150; BP diastolic 62–71; PULSE 74–96; RESP 16–18; TEMP 36.4–37.2; O2SAT 94–98
[2020-10-13] MEDS: cefTRIAXone 2,000 MG in sodium chloride 0.9% (plus) 50 ML 100 MG IV (06:13)
[2020-10-13 06:35] LABS: Glucose Point of Care 104 mg/dL (70-110)
[2020-10-13] MEDS: gabapentin 300 mg Capsule 600 MG PO ×2 (08:25→15:55)
[2020-10-13] MEDS: aspirin 81 mg EC Tablet PO (08:25)
[2020-10-13] MEDS: pantoprazole DR 40 mg Tablet PO (08:25)
[2020-10-13] MEDS: duloxetine 60 mg Capsule PO (08:25)
[2020-10-13] MEDS: polyethylene glycol 3350 Pkt 17 gm PO (08:25)
[2020-10-13] MEDS: atorvastatin 40 mg Tablet 80 MG PO (08:25)
[2020-10-13] MEDS: morphine IR 15 mg Tablet PO (08:25)
[2020-10-13] MEDS: sennosides-docusate Tablet 1 TAB PO (08:25)
[2020-10-13 09:41] LABS: Vancomycin Trough 8.2 ug/mL (10-15)
[2020-10-13] MEDS: enoxaparin 40 mg/0.4 mL Syringe SUBCUT (10:45)
[2020-10-13] MEDS: HYDROcodone-acetaminophen 10-325 mg Tablet 1 TAB PO (10:47)
[2020-10-13 11:25] LABS: Glucose Point of Care 135 mg/dL (70-110)
[2020-10-13] MEDS: glycerin adult supp 1 EACH PR (11:46)
--- NOTE | 2020-10-13 15:55 | P.DS_ITS ---
Discharge Providers Date of Admission: 10/10/20 08:25 Date of Discharge: October 13, 2020 Attending Provider at Admission: Wander Burris MD Attending Provider at Discharge: Aracelis Mortensen MD Primary Care Provider: Carolyn Ireland DO Diagnoses at Discharge Discharge Diagnosis (1) Sepsis: Status: Acute (2) Hyponatremia: Status: Acute (3) Acute encephalopathy: Status: Acute (4) Acute kidney injury: Status: Acute (5) Thrombocytopenia: Status: Acute (6) Elevated brain natriuretic peptide (BNP) level: Status: Acute (7) UTI (urinary tract infection): Status: Acute Reason for Visit Reason for Visit: SEPTIC Hospital Course Hospital Course 64-year-old gentleman that came in to the emergency department with complaints of altered mental status. Patient remembers having difficulty urinating prior to this happening. He had felt some chills earlier in the day but no fever. He had had one episode of vomiting. He typically self caths but, but also urinates some on his own.He has a history of frequent UTIs, urinary retention. Work up was consitent with sepsis from a urinary source. Blood and urine culture resulted with growth of Growing gram-negative rods, identified as E.coli. Treated with Rocephin as an inpatient, changed to oral ciprofloxacin at discharge. Recommend total 14 days of abx from clearance of blood culture. Has history of significant urinary retention , had over a liter in his bladder on admission, this was relieved with placement of a Egan catheter. At discharge, encouraged to continue intermittent self cathterization. Thrombocytopenia, presumably secondary to sepsis, improving at discharge. Physical Exam Narrative: EXAM NARRATIVE: GEN: Awake, alert and oriented, no acute distress CVS: S1S2 N RS: CTA B/L Abd: Soft, nt/nd , bs+ [employer]: no focal neuro deficits Urinary Catheter Management^: Egan: Cath Placed During This Visit: yes, but has since been removed by the nurse Reason for Continuing Indwelling Catheter: Decision to DC Catheter Urinary Catheter Date of Insertion: 10/10/20 Urinary Catheter Time of Insertion: 08:13 Date Urinary Catheter Removed: 10/13/20 Time Urinary Catheter Discontinued: 14:41 Discharge Data Data Completed and Pending: Completed Studies During Hospitalization Category Date Time Status CT abdomen pelvis w con* [id number] Stat Cat Scan 10/10/20 08:09 Completed XR chest 1V keila ble [id number] Stat Exams 10/10/20 06:42 Completed US gall bladder 7 [id number] Routine Ultrasound 10/11/20 10:31 Completed Pending at discharge Category Date Time Status Blood Culture Sta t Lab 10/10/20 06:45 Results Blood Culture Sta t Lab 10/11/20 16:16 Results Labs from last 24 hours 10/13/20 10/13/20 10/13/20 11:08 09:15 06:30 POC Glucose 135 H 104 Vancomycin Trough 8.2 L 10/12/20 10/12/20 20:36 15:49 POC Glucose 118 H 119 H Vancomycin Trough Vitals: Last Vital Signs Temp 98.6 F 10/13/20 14:18 Pulse 84 10/13/20 14:18 Resp 17 10/13/20 14:18 BP 111/63 10/13/20 14:18 Pulse Ox 96 10/13/20 14:18 Discharge Plan Discharge Patient Disposition: Home Condition: Stable Prescriptions: New Cipro 500 mg tablet 500 mg PO BID 11 Days Qty: 22 RF: 0 Continued hydrocodone-acetaminophen 10-325 mg tablet 1 - 2 tab PO Q4H MDD 9 tabs PRN (Reason: Pain) RF: 0 cholecalciferol (vitamin D3) 125 mcg (5,000 unit) capsule 125 mcg PO BEDTIME RF: 0 aspirin [Adult Low Dose Aspirin] 81 mg tablet,delayed release (DR/EC) 81 mg PO DAILY RF: 0 Caltrate 600 plus D 600 mg (1,500 mg)-800 unit tablet,chewable 1 tab PO DAILY RF: 0 carisoprodol 350 mg tablet 350 mg PO QID PRN (Reason: Spasms) RF: 0 guaifenesin [Mucinex] 600 mg tablet extended release 12hr 600 mg PO BID RF: 0 metformin 500 mg tablet extended release 24 hr 500 mg PO BID 90 Days Qty: 180 RF: 1 potassium chloride 10 mEq capsule, extended release 10 meq PO DAILY 90 Days Qty: 90 RF: 1 magnesium oxide 400 mg magnesium tablet 400 mg PO DAILY 90 Days Qty: 90 RF: 0 hydrochlorothiazide 25 mg tablet 25 mg PO DAILY PRN (Reason: Edema) 90 Days Qty: 90 RF: 1 albuterol sulfate 90 mcg/actuation HFA aerosol inhaler 2 inh INHALATION Q4H PRN (Reason: shortness of breath or wheezing) 90 Days Qty: 3 RF: 1 Anoro Ellipta 62.5-25 mcg/actuation blister with device 1 inh INHALATION DAILY Qty: 60 RF: 3 phenazopyridine 95 mg tablet 95 mg PO TID PRN (Reason: UNKNOWN) RF: 0 gabapentin 300 mg capsule 600 mg PO .FIVE TIMES A DAY Qty: 180 RF: 0 morphine 15 mg tablet 15 mg PO BID RF: 0 tizanidine 4 mg tablet 4 mg PO TID PRN (Reason: MUSCLE SPASMS) RF: 0 pantoprazole 40 mg tablet,delayed release (DR/EC) 40 mg PO DAILY RF: 0 rosuvastatin 20 mg tablet 20 mg PO DAILY RF: 0 duloxetine 60 mg capsule,delayed release(DR/EC) 60 mg PO DAILY RF: 0 silodosin 8 mg capsule 8 mg PO DAILY RF: 0 Depo-Testosterone 200 mg/mL oil 200 mg IM Q10D RF: 0 Held methenamine hippurate 1 gram tablet 1 g PO BID Qty: 60 RF: 12 Hold Instructions: resume after completing course of ciprofloxacin Discharge Orders: Discharge Order (Routine); Ordered 10/13/20 Ordered By: Aracelis Mortensen Referrals: Carolyn Ireland DO [Primary Care Provider] - 4-7 days (CALL FIRST THING IN THE MORNING TO SCHEDULE A FOLLOW UP ) Trae Tucker MD [Physician] - 2 weeks Discharge Diet: Usual diet Discharge Activity: Resume usual activity Patient Instructions: Ciprofloxacin (By mouth), Urinary Tract Infection in Men (DC), Opioid Safety Discharge Attestations Time Spent in Discharge Care*: greater than 30 min Quality Metrics Clinical Quality Measures During this hospital stay, did patient experience: None Coding Level of Care Code Acute Chg FW DC note Diagnoses Sepsis A41.9 Hyponatremia E87.1 Acute encephalopathy G93.40 Acute kidney injury N17.9 Thrombocytopenia D69.6 Elevated brain natriuretic peptide (BNP) level R79.89 UTI (urinary tract infection) N39.0
== END 2020-10-13 16:15 | disposition home health service (06) | DRG 871 ==
LOC: ER 08:25 → ICU 09:27 → MEDSURG 10-11 13:26
PROVIDERS: Admitting Provider Internal Medicine; Emergency Provider Family Medicine; PCP Family Medicine; Visit Provider Student in an Organized Health Care Education/Training Program
DX: A41.51 Sepsis due to Escherichia coli [E. coli] (principal); G93.41 Metabolic encephalopathy; E87.1 Hypo-osmolality and hyponatremia; N17.9 Acute kidney failure, unspecified; N39.0 Urinary tract infection, site not specified; I42.8 Other cardiomyopathies; R65.20 Severe sepsis without septic shock; B96.20 Unspecified Escherichia coli [E. coli] as the cause of diseases classified elsewhere; I25.10 Atherosclerotic heart disease of native coronary artery without angina pectoris; I71.4 Abdominal aortic aneurysm, without rupture; E11.42 Type 2 diabetes mellitus with diabetic polyneuropathy; J44.9 Chronic obstructive pulmonary disease, unspecified; E78.5 Hyperlipidemia, unspecified; K21.9 Gastro-esophageal reflux disease without esophagitis; I10 Essential (primary) hypertension; M19.90 Unspecified osteoarthritis, unspecified site; G47.30 Sleep apnea, unspecified; R33.9 Retention of urine, unspecified; F17.210 Nicotine dependence, cigarettes, uncomplicated; G89.29 Other chronic pain; M54.5 Low back pain; Z87.440 Personal history of urinary (tract) infections; Z79.891 Long term (current) use of opiate analgesic; Z79.82 Long term (current) use of aspirin; Z79.84 Long term (current) use of oral hypoglycemic drugs
CPT/HCPCS: 36415; 36416; 51702; 71045; 74177; 76705; 80048; 80053; 80202; 81001; 82533; 82962; 83605; 83880; 84145; 84443; 84484; 85025; 87040; 87077; 87086; 87186; 87205; 87426; 87635; 93005; 96365; 96372; 99285; J0696; J1650; J3370; J7030; J7050; Q9967

== ENCOUNTER 2020-11-15 17:54 | Emergency (ER) | payer BC, SELFPAY ==
[2020-11-15 18:04] VITALS: BP 150/72; PULSE 101; RESP 20; TEMP 36.8; O2SAT 92; BMI 18.0
--- NOTE | 2020-11-15 18:08 | XRR_ITS ---
PROCEDURE INFORMATION: Exam: XR Chest Exam date and time: 11/15/2020 6:08 PM Age: 64 years old Clinical indication: Shortness of breath; Prior surgery; Surgery type: Spinal stem; Patient HX: HX of copd and chf; Additional info: Dyspnea TECHNIQUE: Imaging protocol: XR of the chest. Views: 1 view. Total images: 2 COMPARISON: CR XR chest 1V portable [id number] 10/10/2020 6:52 AM FINDINGS: Tubes, catheters and devices: Midline electronic stimulating device potential epidural TENS unit. Lungs: Right upper lobe subsegmental ground-glass interstitial lung disease with early consolidation of suspected active pneumonitis/pneumonia. Hyperinflation of COPD/chronic bronchitis. Pleural spaces: Unremarkable. No pleural effusion. No pneumothorax. Heart/Mediastinum: Evaluation of the cardiac structures and configuration with microcardia period Bones/joints: Unremarkable. XR/XR chest 1V portable [id number] IMPRESSION: Right upper lobe pneumonitis/pneumonia.
--- NOTE | 2020-11-15 18:14 | ECG_ITS ---
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 Measurements Intervals [place] Rate: 100 P: 83 PA: 132 QRS: 81 QRSD: 94 T: 54 QT: 369 QTc: 476 Interpretive Statements SINUS TACHYCARDIA WITH OCCASIONAL SUPRAVENTRICULAR PREMATURE COMPLEXES POSSIBLE LEFT ATRIAL ENLARGEMENT [-0.1mV P WAVE IN V1/V2] NONSPECIFIC ST & T-WAVE ABNORMALITY ABNORMAL RHYTHM ECG Compared to ECG 10/10/2020 09:14:59 T-wave abnormality now present Electronically Signed On 11-16-2020 22:59:31 CDT by Radha Palomo M.D. [id number]
[2020-11-15 18:27] LABS: Basophils % 0.1 %; Hematocrit 37.8 % (42.0-52.0); Hemoglobin 12.6 g/dL (11.7-16.6); Lymphocytes # 0.6 10^3/uL (0.8-4.8); Lymphocytes % 4.5 %; Mean Corpuscular HGB Conc 33.3 g/dL (30.0-36.0); Mean Corpuscular Hemoglobin 31.7 pg (28.0-34.0); Mean Corpuscular Volume 95.2 fL (80-94); Monocytes # 0.6 10^3/uL (0.2-0.9); Monocytes % 4.6 %; Neutrophils # 12.14 10^3/uL (1.8-7.7); Neutrophils % 90.5 %; Nucleated Red Blood Cells % 0 %; Platelet Count 134 10^3/cmm (130-400); Red Blood Count 3.97 10^6/uL (4.1-5.3); Red Cell Distribution Width 12.5 % (12.1-15.1); White Blood Count 13.4 10^3/uL (4.0-10.0)
--- NOTE | 2020-11-15 18:38 | W.ED.SOB ---
HPI - SOB/Dyspnea General: Chief Complaint: Shortness of Breath/Dyspnea Stated Complaint: SOB Time Seen by Provider: 11/15/20 17:57 History of Present Illness: HPI Narrative: The patient is a 64-year-old male with past medical history COPD, CHF, diabetes, hypertension who comes to the ER complaining of increasing shortness of breath for 1 week. He has had a increasing cough as well. He was seen by his primary care physician a few days ago and given a steroid pack and he says daily over the past 3 days he has slightly worsened. He checked his pulse ox at home and was getting 88% at the lowest.. EMS arrived and gave him a DuoNeb and Solu-Medrol with improvement of his shortness of breath. He wears oxygen at night to sleep. He is satting 92% on 2 L in the ED. MD elicited complaint: shortness of breath Pertinent past history: COPD Context: recent illness Severity: moderate Exacerbating factors: exertion Relieving factors: oxygen and bronchodilators Known history of: COPD Associated symptoms: Reports no associated symptoms; Deny abdominal pain, chest pain, dizziness, extremity pain, orthopnea, palpitations or polyuria Treatment prior to arrival: oxygen and bronchodilator Review of Systems General: Reports: 10 or more systems reviewed and unremarkable except in HPI and below Const: Denies: fatigue Eyes: Denies: change in vision, blurry vision or eye redness ENMT: Denies: throat pain, swelling of lips/tongue, ear or mastoid pain or nasal congestion Card: Denies: chest pain, palpitations, irregular heart rhythm, edema, dyspnea on exertion or orthopnea Resp: Reports: dyspnea; Denies: productive cough or non-productive cough GI: Denies: abdominal pain, diarrhea or GI cramping : Denies: flank pain, urinary frequency or urinary urgency Musc: Denies: neck pain, back pain, extremity pain, joint pain, joint redness, limited range of motion or muscle weakness Skin/Breast: Denies: rash, pruritus, erythema, skin pain or skin tenderness Neuro: Denies: headache(s), numbness in extremities, weakness in extremities, sensory changes, difficulty walking, dizziness, confusion or Slurred speech present Psych: Denies: anxiety or depression Endo: Denies: polyuria All/Imm: Denies: urticaria, throat swelling or tongue swelling PFSH ED PFSH: Medical History (Updated 11/15/20 @ 22:34 by Sherif Austin MD) AAA (abdominal aortic aneurysm) without rupture ASHD (arteriosclerotic heart disease) Chronic back pain Chronic peripheral neuropathic pain Controlled diabetes mellitus with hyperglycemia, without long-term current use of insulin COPD (chronic obstructive pulmonary disease) Detrusor dysfunction Dyslipidemia Elevated brain natriuretic peptide (BNP) level Erectile dysfunction of organic origin GERD (gastroesophageal reflux disease) Hypertension Hyponatremia Incomplete bladder emptying Intermittent self-catheterization of bladder Intervertebral disc disorders with radiculopathy, lumbosacral region Lower urinary tract symptoms (LUTS) Non-ischemic cardiomyopathy Osteoarthritis Pulmonary nodule 1 cm or greater in diameter Recurrent UTI Sleep apnea Surgical History History of arthroscopy of both knees History of colon resection Due to cancer History of laminectomy Dr. Easton January 23, 2019. With thoracic spinal cord stimulator placement History of lumbar fusion Dr. Easton February 15, 2017 L4-S1 History of umbilical hernia repair History of vasectomy Family History Mother Diabetes Father Diabetes CAD (coronary artery disease) Hypertension Myocardial infarction Cancer Brother Cancer Gastroesophageal cancer CAD (coronary artery disease) Diabetes Sister Diabetes Denies family history of Clotting disorder Dementia Chronic kidney disease (CKD) Suicide Anesthesia complication Bleeding disorder Lung disease Stroke Social History Smoking and tobacco status: current every day smoker cigarettes Packs smoked per day: 2.0 Years cigarettes smoked: 46 Quit status (tobacco): considering quitting Second hand smoke exposure: Yes Smoking risk assessment/counseling performed?: Yes Alcohol intake: never Desire information about alcohol rehabilitation?: No Counseling given: No Desire information about substance/drug rehabilitation?: No Counseling given: No Lives independently: Yes Household members: spouse Housing: House Marital status: service: Yes branch: [employer] Current occupational status: employed Current occupational exposures/hazards: No Pets and animals: Yes History of recent travel: No Current gender identity: Male Special syeda needs: No Physical Exam Const: COMMON NORMALS: no acute distress, average body habitus, patient oriented x3, no limitations, healthy appearing, alert and well nourished GENERAL APPEARANCE: cooperative, comfortable, well kempt and well developed ORIENTATION/CONSCIOUSNESS: Yes awake, Yes oriented to person, Yes oriented to place and Yes oriented to time HENMT: COMMON NORMALS: normocephalic, external ears normal and Normal external nose present HEAD & SCALP: normal to inspection and normocephalic NOSE: Normal external nose present EXTERNAL EAR: Yes external ears normal MOUTH: Normal oral and palatal mucosa present THROAT: posterior oropharynx normal Eye: COMMON NORMALS: Equal, round and reactive pupils present and EOMs intact bilaterally GENERAL EYE: appearance normal, both eyes and all related structures PUPIL: Yes Equal, round and reactive pupils present Neck/C-Spine: COMMON NORMALS: full ROM, no lymphadenopathy, no meningeal signs and no JVD GENERAL: Yes normal visual inspection Lymph: LYMPHATIC: no lymphadenopathy noted Chest: COMMONS NORMALS: normal inspection of the chest and normal palpation of entire chest wall Resp: COMMON NORMALS: normal respiratory effort, No retractions, No use of accessory muscles and percussion normal EFFORT & INSPECTION: Yes able to speak in complete sentences AUSCULTATION: wheezes expiratory wheezes and lower bilaterally PERCUSSION: percussion normal Cardio: COMMON NORMALS: no JVD, regular rate, regular rhythm, S1 normal heart sound present, S2 normal heart sound present and Peripheral pulses 2+ throughout RATE: regular rate RHYTHM: regular rhythm HEART SOUNDS: S1 normal heart sound present and S2 normal heart sound present PERIPHERAL PULSES: Peripheral pulses 2+ throughout GI: COMMON NORMALS: Normal to inspection, nondistended, normoactive bowel sounds present, Soft to palpation, non-tender and no masses INSPECTION: Yes normal to inspection PALPATION: Yes Soft to palpation : COMMON NORMALS: Yes no CVA tenderness BLADDER/KIDNEY EXAM: Yes no CVA tenderness Back/Pelvis: COMMON NORMALS: no CVA tenderness, thoracic and lumbar spine normal to inspection, no thoracic nor lumbar tenderness and thoraco-lumbar ROM normal Extremity: COMMON NORMALS: normal to inspection, full ROM, capillary refill normal, no joint enlargement and no pedal edema GENERAL: Yes normal exam except as noted Neuro: COMMON NORMALS: patient oriented x3, CN's II-XII intact bilaterally, moves all extremities, no focal motor deficits, no sensory deficits noted and gait normal SENSORIUM/ORIENTATION: Yes alert, Yes oriented to person, Yes oriented to place and Yes oriented to time MENINGEAL SIGNS: Yes no meningeal signs Psych: COMMON NORMALS: mental status grossly normal, Normal thought process present, cooperative, normal affect and speech normal APPEARANCE: Yes well kempt ATTITUDE: Yes calm SPEECH: Yes normal speech THOUGHT PROCESS: Normal thought process present Skin: COMMON NORMALS: no rashes or lesions noted GENERAL SKIN EXAM: no rashes or lesions noted Course Vital Signs: Vital signs: Vital Signs Temperature 97.9 F 11/15/20 21:18 Pulse Rate 96 11/15/20 21:31 Respiratory Rate 18 11/15/20 21:31 Blood Pressure 143/72 11/15/20 21:18 Pulse Oximetry 91 11/15/20 21:28 MDM - SOB/Dyspnea MDM Narrative: Medical decision making narrative: Patient came in for increasing shortness of breath over the past week. He had been on prednisone. Imaging reveals he has developed pneumonia. White count 13.4. Not in respiratory distress. Given IV levofloxacin, and albuterol with improvement of his shortness of breath. I recommended he take the antibiotics, Medrol Dosepak, and use albuterol to help with his shortness of breath at home and if he gets worsening shortness of breath to return to the ER at any time. Wear his oxygen [id number] until he feels better from his illness. Also discussed with him the possibility of lung cancer in his lower lobes on both sides. Placed a case management referral with pulmonology to help him get a possible biopsy in the future. Also follow-up with primary care physician in a few days to monitor improvement of his pneumonia and directed the referrals for potential biopsy. ER with worsening symptoms at any time Lab Data: Labs: Lab Results 11/15/20 11/15/20 11/15/20 Range/Units 18:18 18:18 18:18 WBC 13.4 H (4.0-10.0) 10^3/ uL RBC 3.97 L (4.1-5.3) 10^6/u L Hgb 12.6 (11.7-16.6) g/dL Hct 37.8 L (42.0-52.0) % MCV 95.2 H (80-94) fL MCH 31.7 (28.0-34.0) pg MCHC 33.3 (30.0-36.0) g/dL RDW 12.5 (12.1-15.1) % Plt Count 134 (130-400) 10^3/c mm MPV 11.0 H (7.4-10.4) fL Neut % (Auto) 90.5 % Lymph % (Auto) 4.5 % [place] % (Auto) 4.6 % Eos % (Auto) 0.0 % Baso % (Auto) 0.1 % Neut # (Auto) 12.14 H (1.8-7.7) 10^3/u L Lymph # (Auto) 0.6 L (0.8-4.8) 10^3/u L [place] # (Auto) 0.6 (0.2-0.9) 10^3/u L Eos # (Auto) 0.0 (0.0-0.8) 10^3/u L Baso # (Auto) 0.0 (0.0-0.1) 10^3/u L Nucleated RBC % (a uto) 0 % Nucleated RBCs # 0.0 /100WBC D-Dimer (0-0.59) ug/mIFE U Specimen Type Sample Site ABG pH (7.35-7.45) ABG pCO2 (35-45) mmHg ABG pO2 (80.0-100.0) mmH g ABG HCO3 (22-26) mmol/L ABG O2 Saturation ABG Base Excess (-2.0-2.0) mmol/ L Christopher Test A-a O2 Gradient (5-10) mmHg Hematocrit (42-52) % Hgb O2 Saturation (95-100) % Carboxyhemoglobin (0.4-20.1) %THgb Methemoglobin (0.4-1.5) % Total Hemoglobin (14-18) g/dL Ionized Calcium (1.1-1.4) mmol/L O2 Delivery Device FiO2 % Refrigeration Brazer/[place]derer ID Sodium 133 L (136-145) mmol/L Potassium 3.3 L (3.5-5.1) mmol/L Chloride 96 L (98-107) mmol/L Carbon Dioxide 26 (22-29) mmol/L Anion Gap 14.3 (5-19) BUN 7 L (8-23) mg/dL Creatinine 0.4 L (0.7-1.2) mg/dL GFR Calculation 215.2 H (90-130) mL/min Glucose 132 H (65-115) mg/dL Calculated Osmolal ity 276 L (285-295) mOsm/k g Lactate 0.9 (0.5-2.2) mmol/L Calcium 8.1 L (8.5-10.5) mg/dL Total Bilirubin 0.4 (0.15-1.2) mg/dL AST 10 (0-40) U/L ALT 13 (0-41) U/L Alkaline Phosphata se 70 (40-130) IU/L Troponin T Baselin e (0-15) ng/L Troponin T 120 Min [place] (0-15) ng/L Delta Troponin T (0-10) ABS# NT-Pro-B Natriuret Pep 572 H (0-125) pg/mL Total Protein 5.9 L (6.6-8.7) g/dL Albumin 3.7 (3.5-5.2) g/dL Globulin 2.2 (1.3-4.6) g/dL Urine Color (Yellow) Urine Appearance (CLEAR) Urine pH (5-7) Ur Specific Gravit y (1.005-1.030) Urine Protein (Negative) Urine Glucose (UA) (Normal) Urine Ketones (Negative) Urine Blood (Negative) Urine Nitrate (Negative) Urine Bilirubin (Negative) Urine Urobilinogen (Negative) mg/dL Ur Leukocyte Tran ase (Negative) Urine RBC (0-2) /hpf Urine WBC (0-5) /hpf Ur Squamous Epith Cells (0-5) /hpf Amorphous Sediment Urine Bacteria (NONE) /hpf 11/15/20 11/15/20 11/15/20 Range/Units 18:18 18:48 20:09 WBC (4.0-10.0) 10^3/ uL RBC (4.1-5.3) 10^6/u L Hgb (11.7-16.6) g/dL Hct (42.0-52.0) % MCV (80-94) fL MCH (28.0-34.0) pg MCHC (30.0-36.0) g/dL RDW (12.1-15.1) % Plt Count (130-400) 10^3/c mm MPV (7.4-10.4) fL Neut % (Auto) % Lymph % (Auto) % [place] % (Auto) % Eos % (Auto) % Baso % (Auto) % Neut # (Auto) (1.8-7.7) 10^3/u L Lymph # (Auto) (0.8-4.8) 10^3/u L [place] # (Auto) (0.2-0.9) 10^3/u L Eos # (Auto) (0.0-0.8) 10^3/u L Baso # (Auto) (0.0-0.1) 10^3/u L Nucleated RBC % (a uto) % Nucleated RBCs # /100WBC D-Dimer 0.92 H (0-0.59) ug/mIFE U Specimen Type Sample Site ABG pH (7.35-7.45) ABG pCO2 (35-45) mmHg ABG pO2 (80.0-100.0) mmH g ABG HCO3 (22-26) mmol/L ABG O2 Saturation ABG Base Excess (-2.0-2.0) mmol/ L Christopher Test A-a O2 Gradient (5-10) mmHg Hematocrit (42-52) % Hgb O2 Saturation (95-100) % Carboxyhemoglobin (0.4-20.1) %THgb Methemoglobin (0.4-1.5) % Total Hemoglobin (14-18) g/dL Ionized Calcium (1.1-1.4) mmol/L O2 Delivery Device FiO2 % Refrigeration [place]er/[place]derer ID Sodium (136-145) mmol/L Potassium (3.5-5.1) mmol/L Chloride (98-107) mmol/L Carbon Dioxide (22-29) mmol/L Anion Gap (5-19) BUN (8-23) mg/dL Creatinine (0.7-1.2) mg/dL GFR Calculation (90-130) mL/min Glucose (65-115) mg/dL Calculated Osmolal ity (285-295) mOsm/k g Lactate (0.5-2.2) mmol/L Calcium (8.5-10.5) mg/dL Total Bilirubin (0.15-1.2) mg/dL AST (0-40) U/L ALT (0-41) U/L Alkaline Phosphata se (40-130) IU/L Troponin T Baselin e 12 (0-15) ng/L Troponin T 120 Min [place] 11.34 (0-15) ng/L Delta Troponin T -0.66 L (0-10) ABS# NT-Pro-B Natriuret Pep (0-125) pg/mL Total Protein (6.6-8.7) g/dL Albumin (3.5-5.2) g/dL Globulin (1.3-4.6) g/dL Urine Color (Yellow) Urine Appearance (CLEAR) Urine pH (5-7) Ur Specific Gravit y (1.005-1.030) Urine Protein (Negative) Urine Glucose (UA) (Normal) Urine Ketones (Negative) Urine Blood (Negative) Urine Nitrate (Negative) Urine Bilirubin (Negative) Urine Urobilinogen (Negative) mg/dL Ur Leukocyte Tran ase (Negative) Urine RBC (0-2) /hpf Urine WBC (0-5) /hpf Ur Squamous Epith Cells (0-5) /hpf Amorphous Sediment Urine Bacteria (NONE) /hpf 11/15/20 11/15/20 Range/Units 20:17 21:15 WBC (4.0-10.0) 10^3/ uL RBC (4.1-5.3) 10^6/u L Hgb (11.7-16.6) g/dL Hct (42.0-52.0) % MCV (80-94) fL MCH (28.0-34.0) pg MCHC (30.0-36.0) g/dL RDW (12.1-15.1) % Plt Count (130-400) 10^3/c mm MPV (7.4-10.4) fL Neut % (Auto) % Lymph % (Auto) % [place] % (Auto) % Eos % (Auto) % Baso % (Auto) % Neut # (Auto) (1.8-7.7) 10^3/u L Lymph # (Auto) (0.8-4.8) 10^3/u L [place] # (Auto) (0.2-0.9) 10^3/u L Eos # (Auto) (0.0-0.8) 10^3/u L Baso # (Auto) (0.0-0.1) 10^3/u L Nucleated RBC % (a uto) % Nucleated RBCs # /100WBC D-Dimer (0-0.59) ug/mIFE U Specimen Type Arterial Sample Site Brachial, right ABG pH 7.47 H (7.35-7.45) ABG pCO2 36.6 (35-45) mmHg ABG pO2 58.9 L (80.0-100.0) mmH g ABG HCO3 26.5 H (22-26) mmol/L ABG O2 Saturation 90.6 ABG Base Excess 2.8 H (-2.0-2.0) mmol/ L Christopher Test N/a A-a O2 Gradient 5.8 (5-10) mmHg Hematocrit 40.3 L (42-52) % Hgb O2 Saturation 89.2 L (95-100) % Carboxyhemoglobin 0.7 (0.4-20.1) %THgb Methemoglobin 0.8 (0.4-1.5) % Total Hemoglobin 13.2 L (14-18) g/dL Ionized Calcium 1.2 (1.1-1.4) mmol/L O2 Delivery Device Room air FiO2 21.0 % Refrigeration [place]razer/[place]derer ID Amh Sodium 136.0 (136-145) mmol/L Potassium 3.4 L (3.5-5.1) mmol/L Chloride (98-107) mmol/L Carbon Dioxide (22-29) mmol/L Anion Gap (5-19) BUN (8-23) mg/dL Creatinine (0.7-1.2) mg/dL GFR Calculation (90-130) mL/min Glucose 152.0 H (65-115) mg/dL Calculated Osmolal ity (285-295) mOsm/k g Lactate (0.5-2.2) mmol/L Calcium (8.5-10.5) mg/dL Total Bilirubin (0.15-1.2) mg/dL AST (0-40) U/L ALT (0-41) U/L Alkaline Phosphata se (40-130) IU/L Troponin T Baselin e (0-15) ng/L Troponin T 120 Min [place] (0-15) ng/L Delta Troponin T (0-10) ABS# NT-Pro-B Natriuret Pep (0-125) pg/mL Total Protein (6.6-8.7) g/dL Albumin (3.5-5.2) g/dL Globulin (1.3-4.6) g/dL Urine Color Yellow (Yellow) Urine Appearance Clear (CLEAR) Urine pH 7 (5-7) Ur Specific Gravit y 1.005 (1.005-1.030) Urine Protein Trace (Negative) Urine Glucose (UA) Norm (Normal) Urine Ketones Trace H (Negative) Urine Blood Neg (Negative) Urine Nitrate Negative (Negative) Urine Bilirubin Neg (Negative) Urine Urobilinogen Norm (Negative) mg/dL Ur Leukocyte Tran ase Negative (Negative) Urine RBC 0-4 H (0-2) /hpf Urine WBC 0-4 H (0-5) /hpf Ur Squamous Epith Cells 0-4 H (0-5) /hpf Amorphous Sediment Not Reportable Urine Bacteria Trace (NONE) /hpf Discharge Plan Discharge Patient Disposition: Home Clinical Impression: Community acquired pneumonia, Lung mass Condition: Stable Prescriptions: New levofloxacin 750 mg tablet 750 mg PO DAILY 10 Days RF: 0 Medrol (Richard) 4 mg tablets,dose pack See Rx Instructions .ROUTE .COMPLEX Qty: 21 RF: 0 albuterol sulfate 90 mcg/actuation HFA aerosol inhaler 2 inh inhalation Q6H PRN (Reason: shortness of breath or wheezing) 30 Days RF: 0 No Action hydrocodone-acetaminophen 10-325 mg tablet 1 - 2 tab PO Q4H MDD 9 tabs PRN (Reason: Pain) RF: 0 cholecalciferol (vitamin D3) 125 mcg (5,000 unit) capsule 125 mcg PO BEDTIME RF: 0 aspirin [Adult Low Dose Aspirin] 81 mg tablet,delayed release (DR/EC) 81 mg PO DAILY RF: 0 Caltrate 600 plus D 600 mg (1,500 mg)-800 unit tablet,chewable 1 tab PO DAILY RF: 0 carisoprodol 350 mg tablet 350 mg PO QID PRN (Reason: Spasms) RF: 0 guaifenesin [Mucinex] 600 mg tablet extended release 12hr 600 mg PO BID RF: 0 metformin 500 mg tablet extended release 24 hr 500 mg PO BID 90 Days Qty: 180 RF: 1 potassium chloride 10 mEq capsule, extended release 10 meq PO DAILY 90 Days Qty: 90 RF: 1 magnesium oxide 400 mg magnesium tablet 400 mg PO DAILY 90 Days Qty: 90 RF: 0 hydrochlorothiazide 25 mg tablet 25 mg PO DAILY PRN (Reason: Edema) 90 Days Qty: 90 RF: 1 albuterol sulfate 90 mcg/actuation HFA aerosol inhaler 2 inh INHALATION Q4H PRN (Reason: shortness of breath or wheezing) 90 Days Qty: 3 RF: 1 Anoro Ellipta 62.5-25 mcg/actuation blister with device 1 inh INHALATION DAILY Qty: 60 RF: 3 phenazopyridine 95 mg tablet 95 mg PO TID PRN (Reason: UNKNOWN) RF: 0 gabapentin 300 mg capsule 600 mg PO .FIVE TIMES A DAY Qty: 180 RF: 0 cefuroxime axetil 500 mg tablet 500 mg PO BID Qty: 60 RF: 2 morphine 15 mg tablet 15 mg PO BID RF: 0 tizanidine 4 mg tablet 4 mg PO TID PRN (Reason: MUSCLE SPASMS) RF: 0 pantoprazole 40 mg tablet,delayed release (DR/EC) 40 mg PO DAILY RF: 0 rosuvastatin 20 mg tablet 20 mg PO DAILY RF: 0 duloxetine 60 mg capsule,delayed release(DR/EC) 60 mg PO DAILY RF: 0 silodosin 8 mg capsule 8 mg PO DAILY RF: 0 Depo-Testosterone 200 mg/mL oil 200 mg IM Q10D RF: 0 Discharge Orders: Discharge ED (Routine); Ordered 11/15/20 Ordered By: Sherif Austin Referrals: Carolyn Ireland DO [Primary Care Provider] - Patient Instructions: Opioid Safety Activity Restrictions/Additional Instructions: 1. You have an area of pneumonia in your right lung. Please take the antibiotics and use the steroids and albuterol inhaler to help with your symptoms as well. Stop quipil-uasm-ycz steroids and start with the new ones tomorrow. Return to the ER at anytime with worsening shortness of breath and wear your oxygen around the house until you feel better. Follow-up with your primary care physician in a few days to monitor improvement of your symptoms. 2. Also you have a concerning finding in your CAT scan of your chest. It reads enlarging area of consolidated alveolar airspace disease lateral basal segment right lower lobe with concern for potential neoplastic disease.Enlarging and new pulmonary nodules left lower lobe. Concern for potential hematogenous metastasis. I have placed a case management referral to help you get into a director of grants to discuss this further. It is important that you take the antibiotics and get better from your pneumonia before this can be addressed. Please be aware there is a possibility this could be a cancer and earlier diagnosis leads to better treatment and prognosis. Coding Level of Care Code ED Wood Stock Blank Handler for Chg Fwd Exam Comprehensive
[2020-11-15 18:55] LABS: Lactate (Lactic Acid level) 0.9 mmol/L (0.5-2.2)
[2020-11-15 18:58] LABS: Troponin(5th) Baseline 12 ng/L (0-15)
[2020-11-15 19:08] LABS: Alanine Aminotransferase 13 U/L (0-41); Albumin Level 3.7 g/dL (3.5-5.2); Alkaline Phosphatase 70 IU/L (40-130); Aspartate Amino Transferase 10 U/L (0-40); Blood Urea Nitrogen 7 mg/dL (8-23); Calcium 8.1 mg/dL (8.5-10.5); Carbon Dioxide 26 mmol/L (22-29); Chloride 96 mmol/L (98-107); Globulin 2.2 g/dL (1.3-4.6); Glomerular Filtration Rate 215.2 mL/min (90-130); Glucose 132 mg/dL (65-115); NT Pro B Type Natriuretic Pept 572 pg/mL (0-125); Osmolality Calculated 276 mOsm/kg (285-295); Sodium 133 mmol/L (136-145); Total Bilirubin 0.4 mg/dL (0.15-1.2); Total Protein 5.9 g/dL (6.6-8.7)
[2020-11-15 19:10] LABS: D Dimer 0.92 ug/mIFEU (0-0.59)
--- NOTE | 2020-11-15 19:11 | CTR_ITS ---
PROCEDURE INFORMATION: Exam: CTA Chest With Contrast Exam date and time: 11/15/2020 7:11 PM Age: 64 years old Clinical indication: Shortness of breath; Prior surgery; Surgery type: Stimulator; Patient HX: HX of colon cancer; Additional info: Dyspnea x 1 week with cough TECHNIQUE: Imaging protocol: Computed tomographic angiography of the chest with contrast. 3D rendering (Not supervised by radiologist): MIP and/or 3D reconstructed images were created by the technologist. Total images: [id number] Radiation optimization: All CT scans at this facility use at least one of these dose optimization techniques: automated exposure control; mA and/or kV adjustment per patient size (includes targeted exams where dose is matched to clinical indication); or iterative reconstruction. Contrast material: OMNI 350; Contrast volume: 86 ml; Contrast route: INTRAVENOUS (IV); COMPARISON: CT chest w con* [id number] 10/04/2020 12:55 PM RADIATION DOSE METRICS: Total DLP (mGy-cm): 518.5 FINDINGS: Pulmonary arteries: No visible evidence of pulmonary embolism/pulmonary arterial thrombus. Aorta: The thoracic aorta is nonaneurysmal. Mild arteriosclerosis. No visible intimal flap or dissection. Lungs: Advanced centrilobular emphysema. Posterior segment right upper lobe pneumonia. Evidence of new foci of tree in bud bronchiolar disease lateral segment right middle lobe, left lower lobe, and right lower lobe of active bronchiolar disease/bronchiolitis. Increased consolidation of a subpleural consolidated alveolar airspace disease process since 10/04/2020 lateral basal segment right lower lobe. This area measures 22 mm x 9 mm x 16 mm. Irregular margins. Concern for potential neoplasia. Several small pulmonary nodules are again identified left lower lobe that have demonstrated slight increase in size since last study of 10/04/2020 the largest measuring approximately 6 mm (series 3, image 51). Interval development of new pulmonary nodules left lower lobe all under 4 mm. Concern would be for metastatic lung carcinoma. Pleural spaces: No pneumothorax. No pleural effusion. Heart: Assessment of the cardiac structures with microcardia. Left ventricular prominence. No visible pericardial effusion. Moderate coronary artery disease. Lymph nodes: No visible evidence of active mediastinal or hilar lymphadenopathy. No significant overall change since 10/04/2020. Calcified complexes of antecedent granulomatous disease. Bones/joints: No visible active or acute osseous pathology. Soft tissues: Cachexia. Other findings: Epidural TENS unit. Calcified granulomas of antecedent disease. CT/CT angio chest PE protcl [id number] IMPRESSION: 1. No visible evidence of pulmonary embolism/pulmonary arterial thrombus. 2. Posterior segment right upper lobe pneumonia. 3. Evidence of new foci of bronchiolar disease/bronchiolitis as detailed in text. 4. Advanced centrilobular emphysema. 5. Enlarging area of consolidated alveolar airspace disease lateral basal segment right lower lobe with concern for potential neoplastic disease. 6. Enlarging and new pulmonary nodules left lower lobe. Concern for potential hematogenous metastasis. For patients at low risk (minimal or absent history of smoking and of other known risk factors), recommend CT Chest at 3-6 months, then consider CT Chest at 18-24 months. For patients at high risk (history of smoking or of other known risk factors), recommend CT Chest at 3-6 months, then CT Chest at 18-24 months. (Reference: Sandi). 7. Other nonurgent, nonemergent, chronic, and age related findings as detailed in text above. REFERENCES: Sandi Licea, et al. Guidelines for Management of Incidental Pulmonary Nodules Detected on CT Images: From the Fleischner Society 2017. Radiology. 2017;284(1):228-243. Radiation Dose CTDIVOL = (mGy): DLP = 518.5 (mGy-cm)
[2020-11-15 19:12] VITALS: BP 144/66; PULSE 95; RESP 15; TEMP 36.4; O2SAT 92
[2020-11-15 19:14] LABS: Potassium 3.3 mmol/L (3.5-5.1)
[2020-11-15 19:16] LABS: Anion Gap 14.3 (5-19)
[2020-11-15] MEDS: iohexol 350 mg/mL 100 mL Btl IV (19:35)
[2020-11-15 20:34] LABS: Troponin 5 2HR 11.34 ng/L (0-15)
[2020-11-15 20:35] LABS: Troponin 5 2HR Delta -0.66 ABS# (0-10)
[2020-11-15] MEDS: ipratropium-albuterol 3 mL Neb INHALATION (21:15)
[2020-11-15 21:18] VITALS: BP 143/72; PULSE 92; RESP 16; TEMP 36.6; O2SAT 92
[2020-11-15] MEDS: potassium chloride ER 20 mEq Tablet PO (21:21)
[2020-11-15] MEDS: levofloxacin-dextrose 5 % 750 MG/150 ML PREMIX 100 MG IV (21:21)
[2020-11-15 21:27] LABS: ABG PCO2 36.6 mmHg (35-45); ABG PH Result 7.47 (7.35-7.45); Alveolar-Arterial Oxygen Gradi 5.8 mmHg (5-10); Arterial Blood Gas Hematocrit 40.3 % (42-52); Base Excess ABG 2.8 mmol/L (-2.0-2.0); Blood Gas Operator Identificat AMH; Blood Gas Sample Site Brachial, right; Blood Gas Sample Type Arterial; Carboxyhemoglobin 0.7 %THgb (0.4-20.1); HCO3 ABG 26.5 mmol/L (22-26); HGB O2 Sat 89.2 % (95-100); Ionized Calcium Level - ABG 1.2 mmol/L (1.1-1.4); Methemoglobin 0.8 % (0.4-1.5); Oxygen Device ROOM AIR; Oxygen Saturation ABG 90.6; PO2 ABG 58.9 mmHg (80.0-100.0); Potassium Level - ABG 3.4 mmol/L (3.5-5.0); Total Hemoglobin 13.2 g/dL (14-18)
[2020-11-15 21:28] VITALS: PULSE 95; RESP 18; O2SAT 91
[2020-11-15 21:31] VITALS: PULSE 96; RESP 18
[2020-11-15 22:08] LABS: Add Urine Culture? No; Add Urine Microscopic? YES; Bacteria Urine TRACE /hpf; Bilirubin Urine Neg (Negative); Blood Urine Neg (Negative); Glucose Urine UA Norm (Normal); Ketones Urine Trace (Negative); Leukocyte Esterase Urine Negative (Negative); Nitrate Urine Negative (Negative); Protein Urine Trace (Negative); RBC Urine 0-4 /hpf (0-2); Specific Gravity, Urine 1.005 (1.005-1.030); Squamous Epithelial Cell Urine 0-4 /hpf (0-5); Urine Appearance Clear (CLEAR); Urine Color Yellow (Yellow); Urobilinogen Urine Norm (Negative); WBC Urine 0-4 /hpf (0-5); pH Urine 7 (5-7)
[2020-11-15 22:52] VITALS: BP 144/71; PULSE 92; RESP 18; O2SAT 95
--- NOTE | 2020-11-18 12:47 | DCPLANNER ---
lead generation marketing manager had message to schedule a follow up appointment for patient with pulmonolgy. lead generation marketing manager called [facility], spoke with Odette, gave clinic patients information. A follow up appointment was scheduled for , November 21, 2020 at 1:[address] Frazier. lead generation marketing manager called patient and gave patient the appointment information.
--- NOTE | 2020-12-30 07:39 | DCPLANNER ---
Patient had a follow up appointment scheduled with [facility] with Dr. Frazier, pulmonology - patient did attend appointment.
== END 2020-11-15 22:54 | disposition home or self-care (01) ==
PROVIDERS: Emergency Provider Family Medicine; PCP Family Medicine
DX: J18.8 Other pneumonia, unspecified organism (principal); R91.8 Other nonspecific abnormal finding of lung field; Z79.82 Long term (current) use of aspirin; E11.9 Type 2 diabetes mellitus without complications; J44.9 Chronic obstructive pulmonary disease, unspecified; E78.5 Hyperlipidemia, unspecified; I10 Essential (primary) hypertension; Z85.038 Personal history of other malignant neoplasm of large intestine; F17.210 Nicotine dependence, cigarettes, uncomplicated
CPT/HCPCS: 36415; 36600; 71045; 71275; 80051; 80053; 81001; 82330; 82805; 83605; 83880; 84484; 85025; 85378; 93005; 94640; 96365; 99284; J1956

== ENCOUNTER 2020-12-02 15:50 | Outpatient (CLI) | payer BC, SELFPAY ==
--- NOTE | 2020-12-02 16:10 | XRR_ITS ---
PROCEDURE INFORMATION: Exam: XR Chest Exam date and time: 12/02/2020 4:10 PM Age: 65 years old Clinical indication: Condition or disease; Lung condition and disease; Pneumonia; Additional info: Resolution of pneumonia TECHNIQUE: Imaging protocol: XR of the chest. Views: 2 views. COMPARISON: CR XR chest 1V portable [id number] 11/15/2020 6:16 PM FINDINGS: Tubes, catheters and devices: Stable stimulator lead over the midthoracic spine. Lungs: The previous opacity in the right upper lobe has improved significantly with a small residual opacity in the superior right upper lobe. Calcified granuloma in the right lung base. The lungs are otherwise clear. Hyperinflation of the lungs, most likely COPD. Pleural spaces: Unremarkable. No pleural effusion. No pneumothorax. Heart/Mediastinum: Unremarkable. No cardiomegaly. Bones/joints: Unremarkable. XR/XR chest 2V* [id number] IMPRESSION: 1. Significantly improved right upper lobe pneumonia. There is a focus of residual pneumonia versus developing fibrosis.
== END 2020-12-02 15:51 | disposition home or self-care (01) ==
PROVIDERS: PCP Family Medicine; Visit Provider Internal Medicine Pulmonary Disease
DX: J18.9 Pneumonia, unspecified organism (principal)
CPT/HCPCS: 71046

== ENCOUNTER → 2020-12-16 14:08 | Outpatient (BNVA) | payer BC, SELFPAY | PROVIDERS: PCP Family Medicine; Visit Provider Nurse Practitioner Family | DX: N39.0 Urinary tract infection, site not specified (principal); R33.9 Retention of urine, unspecified | CPT/HCPCS: 81003 ==

== ENCOUNTER → 2021-01-29 15:50 | Outpatient (BNVA) | payer BC, SELFPAY | PROVIDERS: PCP Family Medicine; Visit Provider Urology | DX: N39.0 Urinary tract infection, site not specified (principal); R79.89 Other specified abnormal findings of blood chemistry; R33.9 Retention of urine, unspecified; N31.8 Other neuromuscular dysfunction of bladder | CPT/HCPCS: 81003; 84403 ==

== ENCOUNTER 2021-01-30 07:06 | Outpatient (CLI) | payer BC, SELFPAY ==
--- NOTE | 2021-01-30 07:14 | US_ITS ---
WS: [id number] Complete ABDOMINAL ULTRASOUND HISTORY: ABNORMAL GALLBLADDER US COMPARISON: 10/11/2020 Liver: 18.8 cm in length. Liver is moderately enlarged. No mass or intrahepatic dilatation. No bile d uct dilatation. Gallbladder: Mildly hydropic gallbladder. No stones or wall thickening. Negative [place] sign. Gallbladder wall thickness: 0.2 cm. Pancreas: Normal size and echogenicity. CBD: 0.6 cm. Right kidney: 11.2 cm x 6.0 cm x 4.8 cm. Normal size kidney. Minimally complex cyst associated with the lower pole of the RIGHT kidney. Cyst measures 3.3 x 2.2 x 3.4 cm. Left kidney: 9.7 cm x 6.4 cm x 4.6 cm. LEFT kidney is difficult to visualize. There may be a cyst on the posterior cortex with a maximum diameter 1.9 cm. Spleen: Normal size spleen with granulomata. Abdominal aorta and IVC are within normal limits. No ascites. US/US abdomen complete* [id number] IMPRESSION: 1. Mildly hydropic gallbladder with no evidence for acute cholecystitis. No Mu rphy's sign or stones identified. 2. No bile duct dilatation. 3. Mildly complex stable LEFT renal cyst. Indeterminate for possible cyst LEFT kidney. LEFT kidney is not well visualized.
== END 2021-01-30 07:07 | disposition home or self-care (01) ==
LOC: RAD 07:10
PROVIDERS: PCP Family Medicine; Visit Provider Family Medicine
DX: R93.2 Abnormal findings on diagnostic imaging of liver and biliary tract (principal); N28.1 Cyst of kidney, acquired
CPT/HCPCS: 76700

== ENCOUNTER → 2021-02-07 08:06 | Outpatient (BNVA) | payer BC, SELFPAY | PROVIDERS: PCP Family Medicine; Visit Provider Family Medicine | DX: E11.65 Type 2 diabetes mellitus with hyperglycemia (principal) | CPT/HCPCS: 80053; 80061; 83036; 84443; 85025 ==

== ENCOUNTER 2021-04-21 11:45 | Outpatient (CLI) | payer BC, SELFPAY ==
--- NOTE | 2021-04-21 11:50 | USCV_ITS ---
Velma Lawrence Age: 65 Gender: M : 1955 Exam Date: 04/21/2021 12:40 Ordering Phys: Carolyn Ireland DO Technologist: Anni Mckinley Exam Location: [facility] [place] Indication: SCREENING FOR AAA HISTORY: SEE PREVIOUS Diameter (cm) AP x Transverse x Length Velocity (cm/s) Waveform Prox Aorta: 2.06 x 2.06 x 84.90 Mid Aorta: 2.40 x 2.62 x 51.20 Distal Aorta: 2.43 x 2.65 x 64.50 Right Iliac Prox: 0.91 x 1.08 x 65.30 Left Iliac Prox: 0.90 x 0.94 x 61.55 Stent Prox Landing x x Aneurysmal Sac Max x x Lt Lat Sac Dim Rt Lat Sac Dim Stent Dist Landing x x Right Iliac Stent x x Left Iliac Stent x x Right Renal Art Left Renal Art FINDINGS: Comparison 10/25 CONCLUSIONS No evidence of abdominal aortic or bilateral iliac aneurysm. Maximum Aorta diameter in distal aorta measures 2.4 x 2.6cm AP x Trans. Moderate atheromatous plaque within the abdominal aorta. Edwin Macias MD (Electronically Signed) Final Date: 21 April 2021 16:45 S
== END 2021-04-21 11:46 | disposition home or self-care (01) ==
LOC: RAD 11:47
PROVIDERS: PCP Family Medicine; Visit Provider Family Medicine
DX: I71.4 Abdominal aortic aneurysm, without rupture (principal)
CPT/HCPCS: 93978

== ENCOUNTER → 2021-04-25 12:17 | Outpatient (BNVA) | payer BC, SELFPAY | PROVIDERS: PCP Family Medicine; Visit Provider Nurse Practitioner Family | DX: N39.0 Urinary tract infection, site not specified (principal) | CPT/HCPCS: 81003; 87077; 87086; 87184 ==

== ENCOUNTER → 2021-07-15 16:24 | Outpatient (BNVA) | payer BC, SELFPAY | PROVIDERS: PCP Family Medicine; Visit Provider Nurse Practitioner Family | DX: N39.0 Urinary tract infection, site not specified (principal) | CPT/HCPCS: 81003; 87077; 87086; 87184 ==

== ENCOUNTER → 2021-08-08 10:41 | Outpatient (BNVA) | payer BC, SELFPAY | PROVIDERS: PCP Family Medicine; Visit Provider Family Medicine | DX: E11.65 Type 2 diabetes mellitus with hyperglycemia (principal); N40.1 Benign prostatic hyperplasia with lower urinary tract symptoms | CPT/HCPCS: 80053; 80061; 83036; 84153; 84443; 85025 ==

== ENCOUNTER 2021-12-04 14:36 | Outpatient (CLI) | payer BC, SELFPAY ==
[2021-12-04 18:43] LABS: Prostate Specific AG Urology 0.57 ng/mL (0-4)
== END 2021-12-04 14:37 | disposition home or self-care (01) ==
LOC: LAB 14:38
PROVIDERS: PCP Family Medicine; Visit Provider Urology
DX: Z12.5 Encounter for screening for malignant neoplasm of prostate (principal); R79.89 Other specified abnormal findings of blood chemistry
CPT/HCPCS: 84153; 84403

== ENCOUNTER → 2022-03-13 11:27 | Outpatient (BNVA) | payer BC, SELFPAY | PROVIDERS: Absent Provider Nurse Practitioner Family; PCP Family Medicine; Visit Provider Nurse Practitioner Family | DX: R30.0 Dysuria (principal) | CPT/HCPCS: 81003 ==

== ENCOUNTER 2022-05-18 09:55 | Outpatient (CLI) | payer BC, SELFPAY | END 2022-05-18 09:56 | disposition home or self-care (01) | PROVIDERS: PCP Family Medicine; Visit Provider Urology | DX: R79.89 Other specified abnormal findings of blood chemistry (principal) | CPT/HCPCS: 36415; 81003; 84403 ==

== ENCOUNTER 2022-06-04 14:59 | Outpatient (CLI) | payer BC, SELFPAY ==
--- NOTE | 2022-06-04 16:00 | CT_ITS ---
WS: [id number] CT CHEST TECHNIQUE: Noncontrast CT of the chest with coronal and sagittal reformatted images. CLINICAL INFORMATION: Lung COMPARISON: PET CT January 17, 2022 DLP: 552.[address] scans at [facility] use at least one of these dose optimization techniques: automated e xposure control; mA and/or kV adjustment per patient size (includes targeted exams where dose is matc hed to clinical indication); or iterative reconstruction. FINDINGS: Advanced chronic emphysematous changes. Mild aortic calcification. Normal caliber thoracic aorta. Oscar cified subcarinal lymph nodes. No axillary lymphadenopathy. Fibrosis in the lung apices. Partially visualized spinal stimulator in the mid thoracic canal. Spicul ated pulmonary lesion RIGHT lower lobe more solid appearance today compared to the prior chest CT Nov findings suspicious for neoplasm. Today this measures approximately 1.7 x 1.8 cm AP by tra nsverse. This appears slightly progressed compared to the prior PET/CT January 17, 2022. Slightly spiculated fibrotic appearing lesion in the RIGHT upper lobe appears stable since the prior PET/CT measuring 7.5 mm. Additional satellite nodule appears new since the prior PET/CT measuring 6.7 mm. Recommend [address] follow-up of this new lesion. Noncalcified nodule LEFT lower lobe is stable measuring 5 mm. Slight nodularity LEFT lower lobe is similar to previous. CT/CT chest wo con [id number] IMPRESSION: 1. Slightly progressed spiculated solid nodule RIGHT lower lobe suspicious for neoplasm. This has a slightly more solid appearance today and progressed since 2020. 2. New fibrotic slightly spiculated nodule RIGHT upper lobe measuring 6.7 mm. Recommend [address] follow-up. Adjacent stable 7.5 mm spiculated nodule. 3. Advanced chronic emphysematous changes. 4. Stable 5 mm noncalcified nodule LEFT lower lobe. 5. No mediastinal or hilar lymphadenopathy.
== END 2022-06-04 15:00 | disposition home or self-care (01) ==
PROVIDERS: PCP Family Medicine; Visit Provider Internal Medicine Pulmonary Disease
DX: R91.1 Solitary pulmonary nodule (principal); J43.9 Emphysema, unspecified
CPT/HCPCS: 71250

== ENCOUNTER 2022-06-18 15:00 | Outpatient (CLI) | payer BC, SELFPAY ==
[2022-06-18 15:19] LABS: Miscellaneous Test See Scanned Lab Rpt
== END 2022-06-18 15:01 | disposition home or self-care (01) ==
LOC: LAB 15:03
PROVIDERS: PCP Family Medicine; Visit Provider Internal Medicine Pulmonary Disease
DX: R91.8 Other nonspecific abnormal finding of lung field (principal)
CPT/HCPCS: 36415

== ENCOUNTER 2022-08-08 07:24 | Outpatient (CLI) | payer BC, SELFPAY ==
--- NOTE | 2022-08-08 07:30 | PETR_ITS ---
PROCEDURE INFORMATION: Exam: PET/CT Skull Base to Mid-thigh Exam date and time: 08/08/2022 8:13 AM Age: 66 years old Clinical indication: Abnormal findings; Non specific abnormal finding; Additional info: Spiculated solid nodule right lower lobe suspicious, 05/26/22 CT chest: LABS AND CLINICAL REPORTS: Glucose: 101 mg/dl Treatment strategy for malignancy (PET staging): Restaging (PS) TECHNIQUE: Imaging protocol: Following at least four-hour fasting and following the injection of F-18-FDG, low dose CT images were obtained. Then, PET images were obtained. Attenuation corrected images were constructed using the CT scan. Fused images of PET and CT were reviewed. The standardized uptake values (SUV) reported below are maximum values within a region of interest, expressed in gm/ml. Exam includes orbital meatal line to mid-thigh. Radiopharmaceutical: 12.76 mCi F-18 FDG (Fluorodeoxyglucose), IV. Time of imaging post radiopharmaceutical administration: 1 hour Injection site: Right antecubital COMPARISON: CT chest 06/04/2022, PT PET Scan 01/17/2022 7:56 AM FINDINGS: Tubes, catheters and devices: There is a nerve stimulator device in the subcutaneous fat of the posterior left flank region with leads extending along the dorsum of the thoracic canal. Brain: Visualized brain has normal physiologic uptake. Paranasal sinuses: Non radiotracer avid mild mucosal thickening of the right maxillary sinus is present consistent with benign chronic sinus disease. Pharynx: No abnormal uptake. Larynx: No abnormal uptake. Lungs, pleura and trachea: An ovoid spiculated solid appearing nodular density in the right lower lobe measuring 1.7 x 1.4 cm on series 3, image 83 is slightly increased in size since the prior PET-CT with new slightly irregular margins, SUV max 1.3 (previous SUV max 2.2). This nodule appears similar to slightly decreased in size compared with the CT chest of 06/04/2022 however assessment is limited by differences in slice thickness between the two exams. An ovoid region of ill-defined nodular density in the left lower lobe measuring 2.2 x 0.7 cm on series 3, image 82 is increased in prominence since the prior PET-CT and the CT chest of 06/04/2022 and is not radiotracer avid, SUV max 0.8 with new sub solid components. Mild biapical pleural scarring is present. Moderate bilateral centrilobular and paraseptal emphysematous changes are noted. A similar in size solid spiculated nodule in the right upper lobe compared to the prior PET-CT currently measures 7 mm on series 3, image 45 without elevated uptake, SUV max 1.0. An adjacent solid appearing nodule located more laterally measuring 4 mm on series 3, image 45 is similar to the CT chest of 06/04/2022 and appears new since the prior PET-CT without elevated uptake, SUV max 0.9. Heart: Normal physiologic uptake. Mediastinal space: No abnormal uptake. Liver: No abnormal uptake. Gallbladder and bile ducts: No abnormal uptake. Gallbladder is moderately distended. Pancreas: No abnormal uptake. Spleen: No abnormal uptake. Calcified granulomas in the spleen are present. Adrenal glands: No abnormal uptake. Kidneys and ureters: Normal physiologic uptake. A non radiotracer avid simple appearing cyst in the right kidney measures 4.2 x 3.1 cm. Stomach and bowel: No abnormal uptake. Urinary bladder: The urinary bladder is markedly distended. Vasculature: No abnormal uptake. There are diffuse atherosclerotic changes. Lymph nodes: No abnormal uptake. No lymphadenopathy in the head, neck, chest, abdomen, pelvis, and extremities. Non radiotracer avid calcified subcarinal lymph nodes are present. Bones/joints: No abnormal uptake in the visualized axial and appendicular skeleton. Degenerative spondylosis in the spine is noted. Posterior metallic fusion from L4 through S1 on the left is noted. Soft tissues: No abnormal uptake in the visualized head, neck, chest, abdomen, pelvis, and extremities. METRICS: Mediastinal blood pool: SUV max 1.6 [facility] SUB[facility] [id number] IMPRESSION: 1. No evidence of radiotracer avid malignancy. 2. A solid right lower lobe nodule appears increased in size compared with the prior PET-CT and may be slightly decreased in size compared with the CT chest of 06/04/2022. Assessment of changes in the size of the nodules limited by differences in slice thickness between the current and prior examinations. Uptake within this nodule has decreased and is is currently less than mediastinal blood pool uptake (SUV max 1.3, previously 2.2). 3. Small solid nodules in the right upper lobe are similar in size without elevated uptake. A previously noted region of nodularity in the left lower lobe is more prominent, now containing sub solid components without elevated uptake. While lack of uptake in these regions favors a benign etiology, assessment of small nodules and subsolid nodules is limited by PET-CT. 4. Old granulomatous changes. 5. Simple appearing right renal cyst. 6. Additional nonurgent fin. graf as detailed above
== END 2022-08-08 07:25 | disposition home or self-care (01) ==
LOC: RAD 08-10 06:12
PROVIDERS: PCP Family Medicine; Visit Provider Internal Medicine Pulmonary Disease
DX: R91.8 Other nonspecific abnormal finding of lung field (principal)
CPT/HCPCS: 78815; A9552

== ENCOUNTER → 2023-06-15 16:48 | Outpatient (BNVA) | payer BC, SELFPAY | PROVIDERS: PCP Family Medicine; Visit Provider Family Medicine | DX: M10.9 Gout, unspecified (principal) | CPT/HCPCS: 84550 ==

== ENCOUNTER → 2023-06-25 16:05 | Outpatient (BNVA) | payer BC, SELFPAY | PROVIDERS: PCP Family Medicine; Visit Provider Family Medicine | DX: M79.672 Pain in left foot (principal) | CPT/HCPCS: 73630 ==

== ENCOUNTER 2023-06-29 12:28 | Emergency (ER) | payer BC, SELFPAY ==
[2023-06-29 12:34] VITALS: BP 111/62; PULSE 92; RESP 16; TEMP 36.4; O2SAT 96; BMI 16.9
--- NOTE | 2023-06-29 12:43 | XRR_ITS ---
PROCEDURE INFORMATION: Exam: XR Left Foot Exam date and time: 06/29/2023 1:15 PM Age: 67 years old Clinical indication: Pain; Foot; Left; Patient HX: RT big toe red swollen TECHNIQUE: Imaging protocol: Radiologic exam of the left foot. Views: 1 or 2 views. COMPARISON: CR XR foot LT min 3V* [id number] 06/25/2023 4:09 PM FINDINGS: Bones/joints: Grossly similar juxta-articular erosion on the medial aspect base of the distal phalanx great toe with overlying nodular soft tissue swelling with intermixed densities/calcifications. No evidence of progression. Soft tissues: As above. XR/XR foot LT 2V [id number] IMPRESSION: No significant change from 4 days prior with differential considerations as previously discussed.
[2023-06-29 12:56] LABS: Basophils % 0.3 %; Eosinophils # 0.1 10^3/uL (0.0-0.8); Eosinophils % 0.6 %; Hematocrit 46.4 % (37-53); Lymphocytes # 1.5 10^3/uL (0.8-4.8); Lymphocytes % 14.9 %; Mean Corpuscular HGB Conc 32.5 g/dL (30-55); Mean Corpuscular Hemoglobin 32.3 pg (27-33); Mean Corpuscular Volume 99.4 fl (82-101); Mean Platelet Volume 9.8 fL (7.4-10.4); Monocytes # 0.8 10^3/uL (0.2-0.9); Monocytes % 7.6 %; Neutrophils # 7.64 10^3/uL (1.8-7.7); Neutrophils % 76.3 %; Nucleated Red Blood Cells % 0 %; Platelet Count 196 10^3/cmm (157-399); Red Blood Count 4.67 10^6/uL (3.85-5.65); Red Cell Distribution Width 13.6 % (12.1-15.1); White Blood Count 10.01 10^3/uL (3.29-11.43)
[2023-06-29 13:16] LABS: Alanine Aminotransferase 11 U/L (0-41); Alkaline Phosphatase 68 U/L (40-130); Anion Gap 13.8 (5-19); Aspartate Amino Transferase 14 U/L (0-40); Blood Urea Nitrogen 9 mg/dL (8-23); C Reactive Protein 5.8 mg/L (0.0-4.9); Carbon Dioxide 27 mmol/L (22-29); Chloride 97 mmol/L (98-107); Globulin 2.7 g/dL (1.3-4.6); Glomerular Filtration Rate 133.6 mL/min (90-130); Glucose 164 mg/dL (65-115); Osmolality Calculated 280 mOsm/kg (285-295); Potassium 3.8 mmol/L (3.5-5.1); Sodium 134 mmol/L (136-145); Total Bilirubin 0.3 mg/dL (0.15-1.2); Total Protein 6.7 g/dL (6.6-8.7)
--- NOTE | 2023-06-29 13:57 | ED_ITS ---
HPI - Extremity Problem 2 General: Chief complaint: Extremity Injury, Lower Stated complaint: sent by , left toe pain, swollen Time Seen by Provider: 06/29/23 13:49 Source: patient Mode of arrival: ambulatory History of Present Illness: 67-year-old male presents emergency room with a nodule on the left great toe medially that initially presented is red and inflamed broke open overnight she x-ray at her primary care doctor diverted her to the emergency room. He started on antibiotics yesterday. He has not had any fever sweats or chills. He is a smoker. No injury that he can recall. MD Complaint: extremity pain and extremity swelling Onset (ago): day(s) Pain Consistency: constant Location: left and toe Quality: sharp Radiation: none Relieving factors: nothing Exacerbating factors: range of motion, weight bearing, walking and palpation Associated symptoms: Deny no associated symptoms, arthralgias, chest pain, fever(s), myalgias, rash, short of breath or other Review of Systems 2 Const: Denies: fever(s) Card: Denies: chest pain Resp: Denies: dyspnea GI: Denies: abdominal pain : Denies: dysuria, urinary frequency or urinary urgency Musc: Denies: neck pain or back pain Skin/Breast: Denies: rash PFSH ED 2 PFSH: Medical History AAA (abdominal aortic aneurysm) without rupture ASHD (arteriosclerotic heart disease) Chronic back pain Chronic peripheral neuropathic pain Controlled diabetes mellitus with hyperglycemia, without long-term current use of insulin COPD (chronic obstructive pulmonary disease) Detrusor dysfunction Dyslipidemia Elevated brain natriuretic peptide (BNP) level Erectile dysfunction of organic origin GERD (gastroesophageal reflux disease) History of nonmelanoma skin cancer Hx MRSA infection Hypertension Hyponatremia Incomplete bladder emptying Intermittent self-catheterization of bladder Intervertebral disc disorders with radiculopathy, lumbosacral region Lower urinary tract symptoms (LUTS) Non-ischemic cardiomyopathy Osteoarthritis Pulmonary nodule 1 cm or greater in diameter Recurrent UTI Sleep apnea Surgical History History of arthroscopy of both knees History of colon resection Due to cancer History of laminectomy Dr. Easton January 23, 2019. With thoracic spinal cord stimulator placement History of lumbar fusion Dr. Easton February 15, 2017 L4-S1 History of umbilical hernia repair History of vasectomy Family History Mother Diabetes Father , AT AGE 87 Diabetes CAD (coronary artery disease) Hypertension Myocardial infarction Cancer Brother Cancer Gastroesophageal cancer CAD (coronary artery disease) Diabetes Sister Diabetes Denies family history of Clotting disorder Dementia Chronic kidney disease (CKD) Suicide Anesthesia complication Bleeding disorder Lung disease Stroke Social History Smoking and tobacco/nicotine status: current every day tobacco/nicotine user cigarettes Packs smoked per day: 2 Years cigarettes smoked: 53 [ Other cigarette details: Started 1969] Quit status (tobacco/nicotine): considering quitting Second hand smoke exposure: Yes Alcohol intake: never Substance/Drug Use: never Lives independently: Yes Household members: spouse Housing: House Marital status: service: Yes branch: [employer] Current occupational status: employed Current occupational exposures/hazards: No Pets and animals: Yes Do you think of yourself as: Straight/Heterosexual Current gender identity: Male Special syeda needs: No Physical Exam 2 Const: GENERAL APPEARANCE: cooperative and comfortable O RIENTATION/CONSCIOUSNESS: Yes awake, Yes oriented to person, Yes oriented to place and Yes oriented to time HENMT: COMMON NORMALS: normocephalic, atraumatic and hearing grossly normal bilaterally; not EAC's normal HEAD & SCALP: normocephalic and atraumatic EXTERNAL AUDITORY CANAL: EAC(s) not normal Resp: COMMON NORMALS: normal respiratory effort, No retractions, No use of accessory muscles and clear to auscultation bilaterally AUSCULTATION: clear to auscultation bilaterally Cardio: COMMON NORMALS: regular rate, regular rhythm and No murmurs present (Cardio) RATE: regular rate RHYTHM: regular rhythm GI: COMMON NORMALS: Soft to palpation and No hepatosplenomegaly present A USCULTATION: Yes normoactive bowel sounds PALPATION: Yes Soft to palpation, No Tenderness to palpation present (GI), No Guarding due to palpation present (GI) and Yes No hepatosplenomegaly present Extremity: NARRATIVE EXTREMITY EXAM: Left great toe medially there is a nodule with interrupted top with a wet mucousy eschar no active drainage no drainage with manipulation. Area is red and erythematous slight induration very tender to the touch Neuro: SENSORIUM/ORIENTATION: Yes oriented to person, Yes oriented to place and Yes oriented to time Course 2 Vital Signs: Vital signs: Vital Signs Temperature 97.5 F L 06/29/23 12:34 Pulse Rate 87 06/29/23 14:27 Respiratory Rate 18 06/29/23 14:27 Blood Pressure 111/62 06/29/23 12:34 Pulse Oximetry 98 06/29/23 14:27 Oxygen Delivery Me thod Room Air 06/29/23 12:34 MDM - Extremity (Nontraumatic) Medical Decision Making X-ray reviewed. Will start on steroid and oral antibiotics Good peripheral pulses normal sensation follow-up with podiatry tomorrow at this point does not require hospitalization or IV antibiotics may require further imaging and debridement Medical Records I reviewed the patient's medical records. Lab Data I reviewed the patient's lab results. 06/29/23 12:51 06/29/23 12:51 Radiology Impressions Foot X-Ray 06/29/23 12:43 IMPRESSION: No significant change from 4 days prior with differential considerations as previously discussed. Laboratory Results WBC 10.01 10^3/uL (3.29-11.43) 06/29/23 12:51 RBC 4.67 10^6/uL (3.85-5.65) 06/29/23 12:51 Hgb 15.10 g/dL (11.27-16.99) 06/29/23 12:51 Hct 46.4 % (37-53) 06/29/23 12:51 MCV 99.4 fl (82-101) 06/29/23 12:51 MCH 32.3 pg (27-33) 06/29/23 12:51 MCHC 32.5 g/dL (30-55) 06/29/23 12:51 RDW 13.6 % (12.1-15.1) 06/29/23 12:51 Plt Count 196 10^3/cmm (157-399) 06/29/23 12:51 MPV 9.8 fL (7.4-10.4) 06/29/23 12:51 Neut % (Auto) 76.3 % 06/29/23 12:51 Lymph % (Auto) 14.9 % 06/29/23 12:51 [place] % (Auto) 7.6 % 06/29/23 12:51 Eos % (Auto) 0.6 % 06/29/23 12:51 Baso % (Auto) 0.3 % 06/29/23 12:51 Neut # (Auto) 7.64 10^3/uL (1.8-7.7) 06/29/23 12:51 Lymph # (Auto) 1.5 10^3/uL (0.8-4.8) 06/29/23 12:51 [place] # (Auto) 0.8 10^3/uL (0.2-0.9) 06/29/23 12:51 Eos # (Auto) 0.1 10^3/uL (0.0-0.8) 06/29/23 12:51 Baso # (Auto) 0.0 10^3/uL (0.0-0.1) 06/29/23 12:51 Nucleated RBC % (auto) 0 % 06/29/23 12:51 Nucleated RBCs # 0.0 /100WBC 06/29/23 12:51 Sodium 134 mmol/L (136-145) L 06/29/23 12:51 Potassium 3.8 mmol/L (3.5-5.1) 06/29/23 12:51 Chloride 97 mmol/L (98-107) L 06/29/23 12:51 Carbon Dioxide 27 mmol/L (22-29) 06/29/23 12:51 Anion Gap 13.8 (5-19) 06/29/23 12:51 BUN 9 mg/dL (8-23) 06/29/23 12:51 Creatinine 0.6 mg/dL (0.7-1.2) L 06/29/23 12:51 GFR Calculation 133.6 mL/min (90-130) H 06/29/23 12:51 Glucose 164 mg/dL (65-115) H 06/29/23 12:51 Calculated Osmolality 280 mOsm/kg (285-295) L 06/29/23 12:51 Calcium 9.0 mg/dL (8.5-10.5) 06/29/23 12:51 Total Bilirubin 0.3 mg/dL (0.15-1.2) 06/29/23 12:51 AST 14 U/L (0-40) 06/29/23 12:51 ALT 11 U/L (0-41) 06/29/23 12:51 Alkaline Phosphatase 68 U/L (40-130) 06/29/23 12:51 C-Reactive Protein 5.8 mg/L (0.0-4.9) H 06/29/23 12:51 Total Protein 6.7 g/dL (6.6-8.7) 06/29/23 12:51 Albumin 4.0 g/dL (3.5-5.2) 06/29/23 12:51 Globulin 2.7 g/dL (1.3-4.6) 06/29/23 12:51 All radiology interpretation(s) finalized by discharge Discharge Plan Discharge Patient Disposition: Home Clinical Impression: Cellulitis, Gouty tophus of digit Gout Qualifiers: Gout site: toe Gout etiology: unspecified cause Chronicity: acute Laterality: l eft Qualified Code(s): M10.9 - Gout, unspecified Condition: Stable Prescriptions: New doxycycline hyclate 100 mg capsule 100 mg PO BID 10 Days Qty: 20 0RF prednisone 20 mg tablet 20 mg PO TID Qty: 15 0RF Rx Instructions: 1 p.o. 3 times daily x3 days, 1 p.o. twice daily x2 days, 1 p.o. daily x2 days No Action hydrocodone-acetaminophen 10-325 mg tablet 1 - 2 tab PO Q4H MDD 9 tabs PRN (Reason: Pain) cholecalciferol (vitamin D3) 125 mcg (5,000 unit) capsule 125 mcg PO BEDTIME aspirin [Adult Low Dose Aspirin] 81 mg tablet,delayed release (DR/EC) 81 mg PO DAILY Caltrate 600 plus D 600 mg (1,500 mg)-800 unit tablet,chewable 1 tab PO DAILY carisoprodol 350 mg tablet 350 mg PO QID PRN (Reason: Spasms) guaifenesin [Mucinex] 600 mg tablet extended release 12hr 1,200 mg PO BID potassium chloride 10 mEq capsule, extended release 10 meq PO DAILY 90 Days Qty: 90 1RF Rx Instructions: with Lasix magnesium oxide 400 mg magnesium tablet 400 mg PO DAILY 90 Days Qty: 90 0RF albuterol sulfate 90 mcg/actuation HFA aerosol inhaler 2 inh INHALATION Q4H PRN (Reason: shortness of breath or wheezing) 90 Days Qty: 3 1RF gabapentin 300 mg capsule 600 mg PO TID Rx Instructions: Need apt furosemide 20 mg tablet 20 mg PO DAILY Qty: 30 4RF ascorbic acid (vitamin C) 1,000 mg tablet 1 g PO BID testosterone cypionate [Depo-Testosterone] 200 mg/mL oil 200 mg IM .every 10 days Patient Comments: taking every 3 weeks nystatin-triamcinolone Ointment topical ketoconazole 2 % shampoo 1 applic topical .2 x weekly Qty: 120 3RF Rx Instructions: Lather into scalp 2 times weekly. Allow to sit on scalp for 5 minutes before rinsing. ketoconazole 2 % cream 1 applic topical BID Qty: 30 6RF Rx Instructions: Apply to red, scaly areas on face 1-2 times daily methenamine hippurate 1 gram tablet See Rx Instructions .ROUTE .COMPLEX Qty: 180 3RF Dose Instruction: TAKE ONE TABLET BY MOUTH TWICE DAILY - TAKE 1000 MG OF VITAMIN C WITH EACH DOSE OF METHENAMINE Rx Instructions: TAKE ONE TABLET BY MOUTH TWICE DAILY - TAKE 1000 MG OF VITAMIN C WITH EACH DOSE OF METHENAMINE Trelegy Ellipta 100-62.5-25 mcg blister with device 1 inh inhalation DAILY Qty: 60 6RF methylprednisolone [Medrol (Richard)] 4 mg tablets,dose pack See Rx Instructions PO PER PKG DIR Qty: 21 0RF Rx Instructions: PO PER PKG DIR indomethacin 75 mg capsule, extended release 75 mg PO DAILY Qty: 20 0RF morphine 15 mg tablet 15 mg PO BID rosuvastatin 20 mg tablet 20 mg PO DAILY duloxetine 60 mg capsule,delayed release(DR/EC) 60 mg PO DAILY pantoprazole 40 mg tablet,delayed release (DR/EC) 40 mg PO BID Discharge Orders: Discharge ED (Routine); Ordered 06/29/23 Ordered By: Long Morales Referrals: Susanne Brock MD [Primary Care Provider] - Discharge Diet: Usual diet Discharge Activity: Increase activity as tolerated Patient Instructions: Opioid Safety, Pain Management Activity Restrictions/Additional Instructions: Thank you for choosing [facility] for your healthcare needs today. Please realize this is an emergency room and that we are providing you with a medical screening exam and this may not be complete and all inclusive of all the testing and or work up that you may need to determine your ailment or severity of your illness. It is very important that you follow up as instructed or that you return to the Emergency Department should you have concerns or if your condition changes or worsens in any way. You were seen today for a lesion on the left great toe. It appears to be a gouty tophi that has erupted is also possibly a cellulitis although your white count is normal. Will start you on an oral antibiotic and additionally start you on prednisone taper will set up follow-up through case management with podiatry. 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
[2023-06-29 14:27] VITALS: PULSE 87; RESP 18; O2SAT 98
== END 2023-06-29 14:28 | disposition home or self-care (01) ==
PROVIDERS: Emergency Medicine; Emergency Provider Family Medicine; PCP Family Medicine
DX: M1A.9XX1 Chronic gout, unspecified, with tophus (tophi) (principal); L03.032 Cellulitis of left toe; Z79.82 Long term (current) use of aspirin; F17.210 Nicotine dependence, cigarettes, uncomplicated; J44.9 Chronic obstructive pulmonary disease, unspecified; E78.5 Hyperlipidemia, unspecified; I10 Essential (primary) hypertension; I42.8 Other cardiomyopathies
CPT/HCPCS: 36415; 73620; 80053; 85025; 86140; 99284

== ENCOUNTER → 2023-07-05 14:52 | Outpatient (BNVA) | payer BC, SELFPAY | PROVIDERS: PCP Family Medicine; Visit Provider Internal Medicine Cardiovascular Disease | DX: I42.8 Other cardiomyopathies (principal); E78.5 Hyperlipidemia, unspecified | CPT/HCPCS: 80048; 83880 ==

== ENCOUNTER → 2023-08-25 14:40 | Outpatient (BNVA) | payer BC, SELFPAY | PROVIDERS: PCP Family Medicine; Visit Provider Podiatrist Foot & Ankle Surgery | DX: M10.9 Gout, unspecified (principal) | CPT/HCPCS: 87070; 87075; 87205 ==

== ENCOUNTER → 2023-10-19 15:26 | Outpatient (BNVA) | payer BC, SELFPAY | PROVIDERS: PCP Family Medicine; Visit Provider Internal Medicine Cardiovascular Disease | DX: R06.02 Shortness of breath (principal); I10 Essential (primary) hypertension | CPT/HCPCS: 36415; 80048; 83880 ==

== ENCOUNTER 2023-10-29 15:30 | Outpatient (CLI) | payer BC, SELFPAY ==
[2023-10-29 16:19] LABS: Anion Gap 13.4 (5-19); Blood Urea Nitrogen 18 mg/dL (8-23); Calcium 8.3 mg/dL (8.5-10.5); Carbon Dioxide 27 mmol/L (22-29); Chloride 96 mmol/L (98-107); Glomerular Filtration Rate 111.8 mL/min (90-130); Glucose 132 mg/dL (65-115); NT Pro B Type Natriuretic Pept 175 pg/mL (0-125); Osmolality Calculated 278 mOsm/kg (285-295); Potassium 4.4 mmol/L (3.5-5.1); Sodium 132 mmol/L (136-145)
== END 2023-10-29 15:31 | disposition home or self-care (01) ==
LOC: LAB 15:34
PROVIDERS: Absent Provider Internal Medicine Pulmonary Disease; PCP Family Medicine; Visit Provider Internal Medicine Cardiovascular Disease
DX: R60.0 Localized edema (principal); J44.9 Chronic obstructive pulmonary disease, unspecified; I42.8 Other cardiomyopathies
CPT/HCPCS: 80048; 83880

== ENCOUNTER 2023-11-04 05:59 | Day surgery (SDC) | payer BC, SELFPAY ==
[2023-11-04] VITALS (7 sets, daily range): BP systolic 105–133; BP diastolic 60–76; PULSE 80–106; RESP 18–20; TEMP 36.2–36.7; O2SAT 93–100; BMI 16.2
--- NOTE | 2023-11-04 06:20 | W.PM.OPSUD ---
Surgery/Procedure H&P Update DATE OF PROCEDURE: November 04, 2023 DATE H&P PERFORMED: 10/26/23 H&P UPDATE INFORMATION: I have reviewed H&P completed within last 30 days, I have examined patient prior to procedure, No changes to prior documentation and H&P is in [facility] EMR on date indicated PREOP DIAGNOSIS: Soft tissue mass left great toe. Arthritis left great toe. PLANNED PROCEDURE: Operation Date: 11/04/23 07:00 Proposed Procedures p Excision Mass/Lesion/ excision of soft tissue mass left great toe(Left) - Moises Plata DPM s arthroplasty vs. Hallux Interphalangeal Joint Fusion(Left) - Moises Plata DPM
--- NOTE | 2023-11-04 06:21 | PM.OP ---
Operative Report Date of procedure: November 04, 2023 Pre-op diagnosis: Diagnosis with ICD10 code:Foot abscess, left L02.612 Hallux rigidus, left foot. M20.22 Post-op diagnosis: Diagnosis with ICD10 code:Foot abscess, left L02.612 Hallux rigidus, left foot. M20.22 Procedure done: 1) excision of soft tissue mass left great toe. CPT code 79730 Implants: 4-0 nylon Surgeon: Moises Plata DPM
[2023-11-04] MEDS: sodium chloride 0.9% 1,000 ML 30 ML IV (06:29)
--- NOTE | 2023-11-04 06:35 | ECG_ITS ---
[facility] Test Date: 2023-11-04 Pat Name: Lawrence Carreon Department: Room: Gender: Male Etl Analyst: : 1955 Requested By: Bethany Gutierrez Order Number: [id number] Selena MD: Greysno Mon M.D. Measurements Intervals [place] Rate: 93 P: 88 NE: 144 QRS: 89 QRSD: 97 T: 87 QT: 377 QTc: 470 Interpretive Statements SINUS RHYTHM Compared to ECG 11/15/2020 18:30:04 Sinus tachycardia no longer present T-wave abnormality no longer present Electronically Signed On 11-04-2023 15:53:45 CDT by Greyson Mon M.D. [id number]
--- NOTE | 2023-11-04 06:51 | ANES.PREANE2 ---
Pre-Anesthetic Assessment Height/Weight: Height 1.83 m Weight 54.431 kg Temp Pulse Resp BP Pulse Ox O2 Del Method 97.3 F L 106 H 18 105/67 96 Room Air 11/04/23 06:17 11/04/23 06:17 11/04/23 06:17 11/04/23 06:17 11/04/23 06:17 11/04/23 06:17 Preop Diagnosis: Soft tissue mass left great toe. Arthritis left great toe. Operation Date: 11/04/23 07:00 Proposed Procedures p Excision Mass/Lesion/ excision of soft tissue mass left great toe(Left) - Moises Plata DPM s arthroplasty vs. Hallux Interphalangeal Joint Fusion(Left) - Moises Plata DPM Familial anesthetic complications: None Was Beta Oral taken within 24 hours: N/A Was Clonidine taken within 24 hours: N/A Last intake: Intake Last Liquid Date 11/03/23 Last Liquid Time 23:45 Last Solid Date 11/03/23 Last Solid Time 23:45 Social No alcohol and No tobacco formers moker Exam alert, oriented x 3, clear to auscultation bilaterally and regular rate & rhythm Pulmonary Chronic Obstructive Pulmonary Disease and Sleep Apnea CV/HEM Hypertension NICM. AAA Metabolic Diabetes Mellitus and Hyperlipidemia Anesthetic Plan ASA status: 3 Anesthesia: MAC Risk of > 500 ml blood loss (7ml/kg in children): No Medications/Allergies Home Medications Medication Instructions Recorded Confirmed Last Taken Type aspirin 81 mg tablet,delayed 81 mg PO DAILY 07/14/19 11/03/23 11/03/23 History release (Adult Low Dose Aspirin) calcium carbonate 600 mg-vitamin 1 tab PO DAILY 07/14/19 11/03/23 11/03/23 History D3 20 mcg (800 unit) chewable tablet (Caltrate 600 plus D) carisoprodol 350 mg tablet 350 mg PO QID PRN Spasms 07/14/19 11/03/23 11/04/23 History cholecalciferol (vitamin D3) 125 125 mcg PO BEDTIME 02/06/20 11/03/23 11/03/23 History mcg (5,000 unit) capsule hydrocodone 10 mg-acetaminophen 1 - 2 tab PO Q4H PRN Pain 02/06/20 11/03/23 11/04/23 History 325 mg tablet morphine 15 mg immediate release 15 mg PO BID 02/13/20 11/03/23 11/03/23 History tablet albuterol sulfate 90 mcg/actuation 2 inh inhalation Q4H PRN shortness 02/28/20 11/03/23 11/03/23 Rx aerosol inhaler of breath or wheezing 90 days #3 ea magnesium oxide 400 mg PO DAILY 90 days #90 tabs 02/28/20 11/03/23 11/03/23 Rx potassium chloride 10 mEq 10 meq PO DAILY 90 days #90 caps 02/28/20 11/03/23 11/03/23 Rx capsule,extended release duloxetine 60 mg capsule,delayed 60 mg PO DAILY 10/10/20 11/03/23 11/03/23 History release rosuvastatin 20 mg tablet 20 mg PO DAILY 10/10/20 11/03/23 11/03/23 History pantoprazole 40 mg tablet,delayed 40 mg PO BID 03/20/21 11/03/23 11/03/23 History release guaifenesin 600 mg tablet, 1,200 mg PO BID 12/04/21 11/03/23 11/03/23 History extended release 12 hr (Mucinex) ascorbic acid (vitamin C) 1,000 mg 1 g PO BID 12/29/21 11/03/23 11/03/23 History tablet ketoconazole 2 % shampoo 1 applic topical .2 x weekly #120 02/13/22 11/03/23 11/03/23 Rx mL ketoconazole 2 % topical cream 1 applic topical BID #30 grams 02/20/22 11/03/23 11/03/23 Rx methenamine hippurate 1 gram tablet See Rx Instructions .Route 04/01/22 11/03/23 11/03/23 Rx .COMPLEX #180 tabs testosterone cypionate 200 mg/mL 200 mg IM .every 10 days 04/28/22 11/04/23 2 Months Ago History intramuscular oil ~09/04/23 (Depo-Testosterone) gabapentin 300 mg capsule 600 mg PO TID elbow neuralgia 04/19/23 11/03/23 11/03/23 History furosemide 20 mg tablet 20 mg PO DAILY #90 tabs 08/12/23 11/03/23 11/03/23 Rx mupirocin 2 % topical ointment 1 applic topical BID #15 grams 08/25/23 11/03/2324 Rx sucralfate 1 gram tablet 1 g PO QID 09/01/23 11/03/23 11/03/23 History fluticasone fur. 100 mcg-umeclid 1 inh inhalation DAILY #60 ea 10/05/23 11/03/23 11/03/23 Rx 62.5 mcg-vilant 25 mcg inhalat.powder (Trelegy Ellipta) sulfamethoxazole 800 1 tab PO BID 10 days #20 tabs 10/26/23 11/03/23 11/03/23 Rx mg-trimethoprim 160 mg tablet (Bactrim DS) Allergies Allergy/AdvReac Type Severity Reaction Status Date / Time adhesive Allergy ALGY-Bliste Verified 11/04/23 06:15 r azithromycin Allergy Unknown Verified 11/04/23 06:15 Current Medications Generic Name Dose Route Start Last Admin Trade Name Freq PRN Reason Stop Dose Admin Sodium Chloride 1,000 mls @ 30 mls/hr 11/04/23 06:15 11/04/23 06:29 Sodium Chloride 0.9% IV 11/05/23 06:14 30 mls/hr .Q24H TIAGO Administration PFSH Anesthesia Medical History History of nonmelanoma skin cancer Hx MRSA infection Elevated brain natriuretic peptide (BNP) level Chronic back pain Hypertension Hyponatremia Recurrent UTI AAA (abdominal aortic aneurysm) without rupture Non-ischemic cardiomyopathy Pulmonary nodule 1 cm or greater in diameter Intervertebral disc disorders with radiculopathy, 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 Easton January 23, 2019. With thoracic spinal cord stimulator placement History of lumbar fusion Dr. Easton February 15, 2017 L4-S1 History of umbilical hernia repair History of colon resection Due to cancer History of arthroscopy of both knees Family History Mother Diabetes Father , AT AGE 87 Diabetes CAD (coronary artery disease) Hypertension Myocardial infarction Cancer Brother Cancer Gastroesophageal cancer CAD (coronary artery disease) Diabetes Sister Diabetes Denies family history of Clotting disorder Dementia Chronic kidney disease (CKD) Suicide Anesthesia complication Bleeding disorder Lung disease Stroke Social History Smoking and tobacco/nicotine status: current every day tobacco/nicotine user cigarettes Packs smoked per day: 2 Years cigarettes smoked: 53 [ Other cigarette details: Started 1969] Quit status (tobacco/nicotine): considering quitting Second hand smoke exposure: Yes Alcohol intake: never Substance/Drug Use: never Lives independently: Yes Household members: spouse Housing: House Marital status: service: Yes branch: [employer] Current occupational status: employed Current occupational exposures/hazards: No Pets and animals: Yes Do you think of yourself as: Straight/Heterosexual Current gender identity: Male Special syeda needs: No Data Anesthesia Cardiac Studies: Echocardiogram Ultrasound 10/04/20
[2023-11-04] MEDS: ceFAZolin 2,000 MG in sodium chloride 0.9% (plus) 50 ML 100 MG IV (07:01)
[2023-11-04] MEDS: BUPivacaine 0.5% INJ 10 mL INJECTION (07:10)
[2023-11-04] MEDS: lidocaine 1% INJ 10 mL (per mL) XX (07:10)
--- NOTE | 2023-11-04 07:53 | W.PM.BPON ---
Date of Procedure: 08/20/23 Surgeon: Moises Plata DPM Spraying Machine Operator(s): Mervin Procedure(s) performed: Excision of soft tissue mass left great toe. Arthroplasty left hallux interphalangeal joint. Findings of the procedure(s): Soft tissue mass left great toe and arthrosis left hallux interphalangeal joint Estimated blood loss: 2 mL Specimen(s) removed: Soft tissue mass excised from left great toe at myofascial layer sent to pathology Post-operative diagnosis: Soft tissue mass left great toe. Arthritis left hallux interphalangeal joint Local MAC anesthesia, tourniquet time 18 minutes. No complications with surgery or anesthesia
--- NOTE | 2023-11-05 08:35 | ANE.PACU2 ---
Inpatient post-anesthesia follow up: Airway intact: Yes Vital signs: Temperature 97.2 F Pulse Rate 80 Respiratory Rate 18 Blood Pressure 133/70 Pulse Oximetry 93 Oxygen Delivery Me thod Room Air Oxygen Flow Rate Fraction of Inspir ed Oxygen Hydration adequate: Yes Nausea and vomiting: No Pain level: 1 Mental status: Baseline
== END 2023-11-04 08:37 | disposition home or self-care (01) ==
PROVIDERS: PCP Family Medicine; Visit Provider Podiatrist Foot & Ankle Surgery
PROC: (CPT 28150; principal; 2023-11-04 07:00)
PROC: (CPT 28755; 2023-11-04 07:00)
DX: L02.612 Cutaneous abscess of left foot (principal); M20.22 Hallux rigidus, left foot; I10 Essential (primary) hypertension; G47.30 Sleep apnea, unspecified; E11.9 Type 2 diabetes mellitus without complications; Z79.82 Long term (current) use of aspirin; Z86.14 Personal history of Methicillin resistant Staphylococcus aureus infection; M19.90 Unspecified osteoarthritis, unspecified site; F17.210 Nicotine dependence, cigarettes, uncomplicated
CPT/HCPCS: 28150; 88307; 93005; J0690; J2704; J3010; J3490; J7030

== ENCOUNTER 2023-11-12 13:28 | Outpatient (CLI) | payer BC, SELFPAY ==
--- NOTE | 2023-11-12 14:00 | USCV_ITS ---
Velma Lawrence Age: 67 Gender: M : 1955 Exam Date: 11/12/2023 13:46 Ordering Phys: Jeannie Polk MD ([email or web address]) Technologist: TRINIDAD Exam Location: [facility] [place] Indication: SHORTNESS OF BREATH BP: 138 / 65 HR: 92 Rhythm: Sinus Technical Quality: Poor secondary to COPD MEASUREMENTS (Male / Female) Normal Values 2D ECHO LV Diastolic Diameter PLAX 4.1 cm 4.2 - 5.9 / 3.9 - 5.3 cm IVS Diastolic Thickness 1.0 cm 0.6 - 1.0 / 0.6 - 0.9 cm IVS Systolic Thickness 1.0 cm LVPW Diastolic Thickness 1.3 cm 0.6 - 1.0 / 0.6 - 0.9 cm LVPW Systolic Thickness 1.9 cm LVOT Diameter 2.0 cm LV Ejection Fraction 2D Teich 59.6 % LV Ejection Fraction MOD 2C 50.9 % LV Ejection Fraction 2C AL 50.9 % LA Diameter 2.0 cm RA Systolic Volume 4C AL 8.4 ml RA Systolic Volume 4C MOD 7.3 ml Aorta at Sinotubular Diameter 1.7 cm IVC Diameter 1.2 cm M-MODE LA Ao Ratio MM 0.5 AV Cusp Separation MM 1.4 cm DOPPLER AV Peak Velocity 78.0 cm/s AV Area Cont Eq vti 2.8 cm squared AV Area Cont Eq pk 2.1 cm squared MV Peak Velocity 78.0 cm/s MV Area PHT 3.1 cm squared Mitral E to A Ratio 0.8 TR Peak Velocity 141.0 cm/s TR Peak Gradient 8.0 mmHg TR Mean Velocity 106.0 cm/s TR Mean Gradient 5.3 mmHg TR Velocity Time Integral 35.8 cm TV Peak E Velocity 52.0 cm/s Right Atrial Pressure 3.0 mmHg Pulmonary Artery Systolic Pressu 11.0 mmHg FINDINGS Left Ventricle Normal LV size with borderline low ejection fraction of 51%. Mild diffuse hypokinesia of the septum Right Ventricle The right ventricle is normal in size and function. Right Atrium The right atrium is normal in size. Left Atrium The left atrium is normal in size. Mitral Valve No gross abnormalities noted Aortic Valve No gross abnormalities noted Tricuspid Valve Trace to mild tricuspid valve regurgitation. Pulmonic Valve No gross abnormalities noted Pericardium Normal pericardium without effusion. Aorta Normal ascending aorta dimension. IVC Normal inferior vena cava. CONCLUSIONS Normal LV size with borderline low ejection fraction of 51%. Segmental wall motion analysis revealed mild diffuse hypokinesia of the septum. Trace to mild tricuspid valve regurgitation. Estimated pulmonary artery peak systolic pressure probably within normal limits There is no pericardial effusion. There are no intracardiac masses. Compared to the study from 10/04/2020, there may not be significant change. Dr Jeannie Polk MD [facility] (Electronically Signed) Final Date: 15 November 2023 09:38 S
== END 2023-11-12 13:29 | disposition home or self-care (01) ==
LOC: RAD 13:29
PROVIDERS: PCP Family Medicine; Visit Provider Internal Medicine Cardiovascular Disease
DX: R06.09 Other forms of dyspnea (principal); I07.1 Rheumatic tricuspid insufficiency
CPT/HCPCS: 93306

== ENCOUNTER 2023-12-14 07:28 | Inpatient (IN) | payer BC, MEDICARE, SELFPAY ==
[2023-12-14] VITALS (18 sets, daily range): BP systolic 108–120; BP diastolic 55–72; PULSE 20–123; RESP 16–98; TEMP 36.7–37; O2SAT 89–99; BMI 16.0
--- NOTE | 2023-12-14 07:30 | ECG_ITS ---
[facility] Test Date: 2023-12-14 Pat Name: Lawrence Carreon Department: Room: Gender: Male Minister Helper: : 1955 Requested By: Long Tang Order Number: [id number] Reading MD: Jeannie Polk M.D. Measurements Intervals [place] Rate: 123 P: 84 UT: 149 QRS: 91 QRSD: 89 T: 60 QT: 337 QTc: 482 Interpretive Statements Sinus tachycardia with a heart rate of 123 bpm with occasional supraventricular ectopics Diffuse nonspecific T wave changes Nonspecific ST changes in the inferior leads Possible left atrial enlargement Electronically Signed On 12-14-2023 23:29:15 CDT by Jeannie Polk M.D. [id number]
--- NOTE | 2023-12-14 07:30 | XRR_ITS ---
PROCEDURE INFORMATION: Exam: XR Chest Exam date and time: 12/14/2023 7:36 AM Age: 68 years old Clinical indication: Cough and dyspnea; Additional info: Dyspnea/cough TECHNIQUE: Imaging protocol: Radiologic exam of the chest. Views: 1 view. COMPARISON: CT chest con [id number] 06/04/2022 3:59 PM FINDINGS: Tubes, catheters and devices: Spinal stimulator leads overlie the midthoracic vertebral column. Lungs: The lungs are hyperinflated. There is linear scarring or atelectasis at the medial left lung base. No focal consolidation is appreciated. Pleural spaces: Unremarkable. No pleural effusion. No pneumothorax. Heart/Mediastinum: Heart size is normal. There is calcified plaque involving the aorta. Bones/joints: Unremarkable. XR/XR chest 1V portable [id number] IMPRESSION: 1. COPD/emphysema.
--- NOTE | 2023-12-14 07:31 | ED_ITS ---
HPI - SOB/Dyspnea 2 General: Chief Complaint: Shortness of Breath/Dyspnea Stated Complaint: SOB Time Seen by Provider: 12/14/23 07:29 Source: patient Mode of arrival: ambulatory History of Present Illness: HPI Narrative: 68-year-old male presents emergency room complaining of shortness of breath. He states that began over the last week he is chronically short of breath particularly last week its gotten worse he is not typically on oxygen except occasionally at night. He denies any chest pain any fevers sweats chills or productive cough he has orthopnea but this has been chronic and not changed recently. He denies any chest pain at this time he is not having productive cough or fever MD elicited complaint: shortness of breath and cough Pertinent past history: COPD Exacerbating factors: nothing Relieving factors: nothing Known history of: COPD Associated symptoms: Reports cough; Deny abdominal pain, chest congestion, chest pain, diaphoresis, dizziness, extremity pain, fever(s), hemoptysis, lightheadedness, myalgias, nausea, orthopnea, palpitations, paresthesias, polydipsia, polyuria, rash, sense of impending doom, syncope or vomiting Treatment prior to arrival: oxygen and bronchodilator Review of Systems 2 Const: Denies: fever(s), chills or diaphoresis Card: Denies: chest pain, palpitations, lightheadedness, syncope or orthopnea Resp: Reports: dyspnea, non-productive cough and wheezing; Denies: hemoptysis or chest congestion GI: Denies: abdominal pain, nausea or vomiting : Denies: dysuria, urinary frequency or urinary urgency Musc: Denies: neck pain, back pain or extremity pain Skin/Breast: Denies: rash Neuro: Denies: dizziness Endo: Denies: polyuria or polydipsia PFS ED 2 PFSH: Medical History History of nonmelanoma skin cancer Hx MRSA infection Elevated brain natriuretic peptide (BNP) level Chronic back pain Hypertension Hyponatremia Recurrent UTI AAA (abdominal aortic aneurysm) without rupture Non-ischemic cardiomyopathy Pulmonary nodule 1 cm or greater in diameter Intervertebral disc disorders with radiculopathy, 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 Easton January 23, 2019. With thoracic spinal cord stimulator placement History of lumbar fusion Dr. Easton February 15, 2017 L4-S1 History of umbilical hernia repair History of colon resection Due to cancer History of arthroscopy of both knees Family History Mother Diabetes Father , AT AGE 87 Diabetes CAD (coronary artery disease) Hypertension Myocardial infarction Cancer Brother Cancer Gastroesophageal cancer CAD (coronary artery disease) Diabetes Sister Diabetes Denies family history of Clotting disorder Dementia Chronic kidney disease (CKD) Suicide Anesthesia complication Bleeding disorder Lung disease Stroke Social History Smoking and tobacco/nicotine status: current every day tobacco/nicotine user cigarettes Packs smoked per day: 2 Years cigarettes smoked: 53 [ Other cigarette details: Started 1969] Quit status (tobacco/nicotine): considering quitting Second hand smoke exposure: Yes Alcohol intake: never Substance/Drug Use: never Lives independently: Yes Household members: spouse Housing: House Marital status: service: Yes branch: [employer] Current occupational status: employed Current occupational exposures/hazards: No Pets and animals: Yes Do you think of yourself as: Straight/Heterosexual Current gender identity: Male Special syeda needs: No Physical Exam 2 Const: COMMON NORMALS: no acute distress GENERAL APPEARANCE: cooperative and comfortable ORIENTATION/CONSCIOUSNESS: Yes awake, Yes oriented to person, Yes oriented to place and Yes oriented to time HENMT: COMMON NORMALS: normocephalic, atraumatic and hearing grossly normal bilaterally HEAD & SCALP: normocephalic and atraumatic Resp: COMMON NORMALS: normal respiratory effort, No retractions and No use of accessory muscles AUSCULTATION: wheezes Cardio: COMMON NORMALS: regular rate, regular rhythm and No murmurs present (Cardio) RATE: regular rate RHYTHM: regular rhythm GI: COMMON NORMALS: Soft to palpation and No hepatosplenomegaly present A USCULTATION: Yes normoactive bowel sounds PALPATION: Yes Soft to palpation, No Tenderness to palpation present (GI), No Guarding due to palpation present (GI) and Yes No hepatosplenomegaly present Extremity: COMMON NORMALS: normal to inspection, capillary refill normal, no clubbing, cyanosis or edema, no calf tenderness and no pedal edema Neuro: SENSORIUM/ORIENTATION: Yes oriented to person, Yes oriented to place and Yes oriented to time Skin: COMMON NORMALS: no rashes or lesions noted GENERAL SKIN EXAM: no rashes or lesions noted Course 2 Vital Signs: Vital signs: Vital Signs Temperature 98.6 F 12/14/23 07:35 Pulse Rate 109 H 12/14/23 11:29 Respiratory Rate 22 H 12/14/23 11:23 Blood Pressure 108/72 12/14/23 11:29 Pulse Oximetry 94 12/14/23 11:29 Oxygen Delivery Me thod Oxymask 12/14/23 11:29 Oxygen Flow Rate 8 12/14/23 08:13 MDM - SOB/Dyspnea Medical Decision Making COVID-positive. Patient did improve with steroids and nebulizers. We have titrated him down to 4 L from the 80 was on initially. His work of breathing is improved. Discussed with hospitalist orders written will admit for acute exacerbation COPD. After discussion with hospitalist respiratory panel came back positive for COVID Dr. Burris has started remdesivir. Medical Records I reviewed the patient's medical records. Lab Data I reviewed the patient's lab results. 12/14/23 07:54 12/14/23 07:54 Labs/Radiology: Radiology Impressions Chest X-Ray 12/14/23 07:30 IMPRESSION: 1. COPD/emphysema. Laboratory Results WBC 20.18 10^3/uL (3.29-11.43) H 12/14/23 07:54 RBC 5.06 10^6/uL (3.85-5.65) 12/14/23 07:54 Hgb 16.20 g/dL (11.27-16.99) 12/14/23 07:54 Hct 48.9 % (37-53) 12/14/23 07:54 MCV 96.6 fl (82-101) 12/14/23 07:54 MCH 32.0 pg (27-33) 12/14/23 07:54 MCHC 33.1 g/dL (30-55) 12/14/23 07:54 RDW 14.7 % (12.1-15.1) 12/14/23 07:54 Plt Count 231 10^3/cmm (157-399) 12/14/23 07:54 MPV 10.1 fL (7.4-10.4) 12/14/23 07:54 Neut % (Auto) 89.4 % 12/14/23 07:54 Lymph % (Auto) 4.1 % 12/14/23 07:54 Ponce % (Auto) 5.8 % 12/14/23 07:54 Eos % (Auto) 0.1 % 12/14/23 07:54 Baso % (Auto) 0.3 % 12/14/23 07:54 Neut # (Auto) 18.03 10^3/uL (1.8-7.7) H 12/14/23 07:54 Lymph # (Auto) 0.8 10^3/uL (0.8-4.8) 12/14/23 07:54 Ponce # (Auto) 1.2 10^3/uL (0.2-0.9) H 12/14/23 07:54 Eos # (Auto) 0.0 10^3/uL (0.0-0.8) 12/14/23 07:54 Baso # (Auto) 0.1 10^3/uL (0.0-0.1) 12/14/23 07:54 Nucleated RBC % (auto) 0 % 12/14/23 07:54 Nucleated RBCs # 0.0 /100WBC 12/14/23 07:54 D-Dimer 0.42 ug/mLFEU (0-0.59) 12/14/23 07:54 Specimen Type Arterial 12/14/23 07:35 Sample Site Radial, left 12/14/23 07:35 ABG pH 7.40 (7.35-7.45) 12/14/23 07:35 ABG pCO2 45.5 mmHg (35-45) H 12/14/23 07:35 ABG pO2 98.7 mmHg (80.0-100.0) 12/14/23 07:35 ABG HCO3 28.4 mmol/L (22-26) H 12/14/23 07:35 ABG O2 Saturation 96.3 12/14/23 07:35 ABG Base Excess 2.9 mmol/L (-2.0-2.0) H 12/14/23 07:35 Christopher Test Pos 12/14/23 07:35 A-a O2 Gradient Not Reportable 12/14/23 07:35 Hematocrit 47.3 % (42-52) 12/14/23 07:35 Hgb O2 Saturation 91.6 % (95-100) L 12/14/23 07:35 Carboxyhemoglobin 4.4 %THgb (0.4-20.1) 12/14/23 07:35 Methemoglobin 0.5 % (0.4-1.5) 12/14/23 07:35 Total Hemoglobin 15.4 g/dL (14-18) 12/14/23 07:35 Sodium 137.0 mmol/L (131-143) 12/14/23 07:35 Potassium 3.9 mmol/L (3.5-5.0) 12/14/23 07:35 Glucose 115.0 mg/dL (70-115) 12/14/23 07:35 Ionized Calcium 1.2 mmol/L (1.1-1.4) 12/14/23 07:35 O2 Delivery Device Nrb 12/14/23 07:35 O2 Liters/Min 15.0 % 12/14/23 07:35 Automatic Casting Machine Operator ID Walci 12/14/23 07:35 Sodium 138 mmol/L (136-145) 12/14/23 07:54 Potassium 3.9 mmol/L (3.5-5.1) 12/14/23 07:54 Chloride 96 mmol/L (98-107) L 12/14/23 07:54 Carbon Dioxide 30 mmol/L (22-29) H 12/14/23 07:54 Anion Gap 15.9 (5-19) 12/14/23 07:54 BUN 15 mg/dL (8-23) 12/14/23 07:54 Creatinine 0.6 mg/dL (0.7-1.2) L 12/14/23 07:54 GFR Calculation 133.2 mL/min (90-130) H 12/14/23 07:54 Glucose 120 mg/dL (65-115) H 12/14/23 07:54 Calculated Osmolality 288 mOsm/kg (285-295) 12/14/23 07:54 Lactic Acid 1.5 mmol/L (0.5-2.2) 12/14/23 07:54 Calcium 9.6 mg/dL (8.5-10.5) 12/14/23 07:54 Total Bilirubin 0.6 mg/dL (0.15-1.2) 12/14/23 07:54 AST 19 U/L (0-40) 12/14/23 07:54 ALT 24 U/L (0-41) 12/14/23 07:54 Alkaline Phosphatase 83 U/L (40-130) 12/14/23 07:54 Troponin T Baseline 15 ng/L (0-15) 12/14/23 07:54 Troponin T 120 Minute 13.92 ng/L (0-15) 12/14/23 10:07 Delta Troponin T -1.08 ABS# (0-10) L 12/14/23 10:07 C-Reactive Protein 6.1 mg/L (0.0-4.9) H 12/14/23 07:54 NT-Pro-B Natriuret Pep 375 pg/mL (0-125) H 12/14/23 07:54 Total Protein 7.6 g/dL (6.6-8.7) 12/14/23 07:54 Albumin 4.6 g/dL (3.5-5.2) 12/14/23 07:54 Globulin 3.0 g/dL (1.3-4.6) 12/14/23 07:54 Adenovirus (PCR) Not detected (NOT DETECT) 12/14/23 09:41 C. pneumoniae DNA (PCR) Not detected (NOT DETECT) 12/14/23 09:41 Coronavirus 229E (PCR) Not detected (NOT DETECT) 12/14/23 09:41 Human Metapneumovir PCR Not detected (NOT DETECT) 12/14/23 09:41 Influenza A (H1) PCR Not detected (NOT DETECT) 12/14/23 09:41 Influ A (H1/09) PCR Not detected (NOT DETECT) 12/14/23 09:41 Influenza A (H3) PCR Not detected (NOT DETECT) 12/14/23 09:41 Influenza Type A (PCR) Not detected (NOT DETECT) 12/14/23 09:41 Influenza Type B (PCR) Not detected (NOT DETECT) 12/14/23 09:41 M. pneumoniae (PCR) Not detected (NOT DETECT) 12/14/23 09:41 Parainfluenza 1 (PCR) Not detected (NOT DETECT) 12/14/23 09:41 Parainfluenza 2 (PCR) Not detected (NOT DETECT) 12/14/23 09:41 Parainfluenza 3 (PCR) Not detected (NOT DETECT) 12/14/23 09:41 Parainfluenza 4 (PCR) Not detected (NOT DETECT) 12/14/23 09:41 RSV Type A (PCR) Not detected (NOT DETECT) 12/14/23 09:41 RSV Type B (PCR) Not detected (NOT DETECT) 12/14/23 09:41 Entero/Rhino (PCR) Not detected (NOT DETECT) 12/14/23 09:41 SARS-CoV-2 (PCR) Detected (NOT DETECT) A 12/14/23 09:41 All radiology interpretation(s) finalized by discharge Discharge Plan Discharge Patient Disposition: Admitted As Inpatient Admit Provider: Wander Burris Clinical Impression: COVID-19, Acute hypoxic respiratory failure, COPD with acute exacerbation Condition: Stable Coding Level of Care Code ED Trapper Animal for Tru Reyez
[2023-12-14 07:46] LABS: ABG PCO2 45.5 mmHg (35-45); Arterial Blood Gas Hematocrit 47.3 % (42-52); Base Excess ABG 2.9 mmol/L (-2.0-2.0); Blood Gas Allen Test Pos; Blood Gas Operator Identificat WALCI; Blood Gas Sample Site Radial, left; Blood Gas Sample Type Arterial; Carboxyhemoglobin 4.4 %THgb (0.4-20.1); HCO3 ABG 28.4 mmol/L (22-26); HGB O2 Sat 91.6 % (95-100); Ionized Calcium Level - ABG 1.2 mmol/L (1.1-1.4); Methemoglobin 0.5 % (0.4-1.5); Oxygen Device NRB; Oxygen Saturation ABG 96.3; PO2 ABG 98.7 mmHg (80.0-100.0); Potassium Level - ABG 3.9 mmol/L (3.5-5.0); Total Hemoglobin 15.4 g/dL (14-18)
[2023-12-14 08:09] LABS: Basophils # 0.1 10^3/uL (0.0-0.1); Basophils % 0.3 %; Eosinophils % 0.1 %; Hematocrit 48.9 % (37-53); Lymphocytes # 0.8 10^3/uL (0.8-4.8); Lymphocytes % 4.1 %; Mean Corpuscular HGB Conc 33.1 g/dL (30-55); Mean Corpuscular Volume 96.6 fl (82-101); Mean Platelet Volume 10.1 fL (7.4-10.4); Monocytes # 1.2 10^3/uL (0.2-0.9); Monocytes % 5.8 %; Neutrophils # 18.03 10^3/uL (1.8-7.7); Neutrophils % 89.4 %; Nucleated Red Blood Cells % 0 %; Platelet Count 231 10^3/cmm (157-399); Red Blood Count 5.06 10^6/uL (3.85-5.65); Red Cell Distribution Width 14.7 % (12.1-15.1); White Blood Count 20.18 10^3/uL (3.29-11.43)
[2023-12-14] MEDS: ipratropium-albuterol 3 mL Neb INHALATION ×4 (08:12→23:57)
[2023-12-14] MEDS: dexamethasone 10 mg/mL INJ IM (08:18)
[2023-12-14 08:29] LABS: Lactic Sepsis W/Reflex 1.5 mmol/L (0.5-2.2); Troponin(5th) Baseline 15 ng/L (0-15)
[2023-12-14 08:36] LABS: Alanine Aminotransferase 24 U/L (0-41); Albumin Level 4.6 g/dL (3.5-5.2); Alkaline Phosphatase 83 U/L (40-130); Anion Gap 15.9 (5-19); Aspartate Amino Transferase 19 U/L (0-40); Blood Urea Nitrogen 15 mg/dL (8-23); Calcium 9.6 mg/dL (8.5-10.5); Carbon Dioxide 30 mmol/L (22-29); Chloride 96 mmol/L (98-107); Creatinine Clr Calc Pharmacy 65.0465; Glomerular Filtration Rate 133.2 mL/min (90-130); Glucose 120 mg/dL (65-115); NT Pro B Type Natriuretic Pept 375 pg/mL (0-125); Osmolality Calculated 288 mOsm/kg (285-295); Potassium 3.9 mmol/L (3.5-5.1); Sodium 138 mmol/L (136-145); Total Bilirubin 0.6 mg/dL (0.15-1.2); Total Protein 7.6 g/dL (6.6-8.7)
[2023-12-14 08:47] LABS: D Dimer 0.42 ug/mLFEU (0-0.59)
[2023-12-14 10:45] LABS: Troponin 5 2HR 13.92 ng/L (0-15); Troponin 5 2HR Delta -1.08 ABS# (0-10)
[2023-12-14] MEDS: levofloxacin-dextrose 5 % 750 MG/150 ML PREMIX 100 MG IV (10:47)
--- NOTE | 2023-12-14 11:01 | P.HP_ITS ---
Providers/Chief Complaint 2 Admitting Physician: Wander Burris MD Primary Care Provider: Carolyn Ireland DO Chief Complaint: SOB History of Present Illness Lawrence Carreon is a 68 year old male presenting to the emergency department with complaints of shortness of breath, wheezing, and some coughing over the last 2-1/2 weeks. Typically he is pretty short of breath with exertion, and only uses oxygen at night but has been more short of breath lately. No chest pain, fever, chills. No hemoptysis. Reports he is hurting all over currently as he has not yet taken his morning pain medication. Denies any vomiting. Occasionally has some coughing with swallowing. No diarrhea, blood in stool. No lower extremity swelling. Still smoking cigarettes. In the emergency department he received a breathing treatment, IV fluids, Levaquin, and dexamethasone. Review of Systems 2 General: Reports: 10 or more systems reviewed and unremarkable except in HPI and below Card: Denies: chest pain Resp: Reports: dyspnea and productive cough GI: Denies: abdominal pain Medications/Allergies Home Medications Medication Instructions Recorded Confirmed Last Taken Type aspirin 81 mg tablet,delayed 81 mg PO DAILY 07/14/19 12/14/23 12/13/23 History release (Adult Low Dose Aspirin) calcium carbonate 600 mg-vitamin 1 tab PO DAILY 07/14/19 12/14/23 12/13/23 History D3 20 mcg (800 unit) chewable tablet (Caltrate 600 plus D) carisoprodol 350 mg tablet 350 mg PO QID PRN Spasms 07/14/19 12/14/23 11/04/23 History cholecalciferol (vitamin D3) 125 125 mcg PO BEDTIME 02/06/20 11/22/23 11/03/23 History mcg (5,000 unit) capsule hydrocodone 10 mg-acetaminophen 1 - 2 tab PO Q4H PRN Pain 02/06/20 11/22/23 11/04/23 History 325 mg tablet morphine 15 mg immediate release 15 mg PO BID 02/13/20 11/22/23 11/03/23 History tablet magnesium oxide 400 mg PO DAILY 90 days #90 tabs 02/28/20 11/22/23 11/03/23 Rx potassium chloride 10 mEq 10 meq PO DAILY 90 days #90 caps 02/28/20 11/22/23 11/03/23 Rx capsule,extended release duloxetine 60 mg capsule,delayed 60 mg PO DAILY 10/10/20 11/22/23 11/03/23 History release rosuvastatin 20 mg tablet 20 mg PO DAILY 10/10/20 11/22/23 11/03/23 History pantoprazole 40 mg tablet,delayed 40 mg PO BID 03/20/21 11/22/23 11/03/23 History release guaifenesin 600 mg tablet, 1,200 mg PO BID 12/04/21 11/22/23 11/03/23 History extended release 12 hr (Mucinex) ascorbic acid (vitamin C) 1,000 mg 1 g PO BID 12/29/21 12/14/23 12/13/23 History tablet ketoconazole 2 % shampoo 1 applic topical .2 x weekly #120 02/13/22 11/22/23 11/03/23 Rx mL ketoconazole 2 % topical cream 1 applic topical BID #30 grams 02/20/22 11/22/23 11/03/23 Rx methenamine hippurate 1 gram tablet See Rx Instructions .Route 04/01/22 11/22/23 11/03/23 Rx .COMPLEX #180 tabs testosterone cypionate 200 mg/mL 200 mg IM .every 10 days 04/28/22 11/22/23 2 Months Ago History intramuscular oil ~09/04/23 (Depo-Testosterone) gabapentin 300 mg capsule 600 mg PO TID elbow neuralgia 04/19/23 11/22/23 11/03/23 History mupirocin 2 % topical ointment 1 applic topical BID #15 grams 08/25/23 11/22/23 11/03/23 Rx sucralfate 1 gram tablet 1 g PO QID 09/01/23 11/22/23 11/03/23 History fluticasone fur. 100 mcg-umeclid 1 inh inhalation DAILY #60 ea 10/05/23 11/22/23 11/03/23 Rx 62.5 mcg-vilant 25 mcg inhalat.powder (Trelegy Ellipta) sulfamethoxazole 800 1 tab PO BID 10 days #20 tabs 10/26/23 11/22/23 11/03/23 Rx mg-trimethoprim 160 mg tablet (Bactrim DS) furosemide 20 mg tablet 20 mg PO BID #90 tabs 11/05/23 11/22/23 Unknown Rx Allergies Allergy/AdvReac Type Severity Reaction Status Date / Time adhesive Allergy ALGY-Bliste Verified 11/22/23 10:12 r azithromycin Allergy Unknown Verified 11/22/23 10:12 PFSH Acute 2 PFSH: Medical History History of nonmelanoma skin cancer Hx MRSA infection Elevated brain natriuretic peptide (BNP) level Chronic back pain Hypertension Hyponatremia Recurrent UTI AAA (abdominal aortic aneurysm) without rupture Non-ischemic cardiomyopathy Pulmonary nodule 1 cm or greater in diameter Intervertebral disc disorders with radiculopathy, 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 Easton January 23, 2019. With thoracic spinal cord stimulator placement History of lumbar fusion Dr. Easton February 15, 2017 L4-S1 History of umbilical hernia repair History of colon resection Due to cancer History of arthroscopy of both knees Family History Mother Diabetes Father , AT AGE 87 Diabetes CAD (coronary artery disease) Hypertension Myocardial infarction Cancer Brother Cancer Gastroesophageal cancer CAD (coronary artery disease) Diabetes Sister Diabetes Denies family history of Clotting disorder Dementia Chronic kidney disease (CKD) Suicide Anesthesia complication Bleeding disorder Lung disease Stroke Social History Smoking and tobacco/nicotine status: current every day tobacco/nicotine user cigarettes Packs smoked per day: 2 Years cigarettes smoked: 53 [ Other cigarette details: Started 1969] Quit status (tobacco/nicotine): considering quitting Second hand smoke exposure: Yes Alcohol intake: never Substance/Drug Use: never Lives independently: Yes Household members: spouse Housing: House Marital status: service: Yes branch: [employer] Current occupational status: employed Current occupational exposures/hazards: No Pets and animals: Yes Do you think of yourself as: Straight/Heterosexual Current gender identity: Male Special syeda needs: No Vitals/I&O/Wt Last Vital Signs Temp 98.6 F 12/14/23 07:35 Pulse 105 H 12/14/23 09:50 Resp 18 12/14/23 08:13 BP 108/72 12/14/23 09:50 Pulse Ox 99 12/14/23 09:50 O2 Del Method Aerosol Mask 12/14/23 08:13 O2 Flow Rate 8 12/14/23 08:13 Weight last 48 hrs Weight 53.524 kg Physical Exam 2 Narrative: General exam is a white male, no distress HEENT: Atraumatic normocephalic. Oropharynx clear. Neck is supple no lymphadenopathy thyromegaly Cardiovascular tachycardic, no murmur Lungs bilateral expiratory wheezes. Diminished breath sounds bilaterally. No crackles. Abdomen is soft nontender with positive bowel sounds. No obvious organomegaly. exams deferred Extremities no sinus clubbing edema, cap refill brisk Skin no rash Neuro no focal deficits Back demonstrates nerve stimulator easily visible under the skin. Data 12/14/23 07:54 12/14/23 07:54 Other Labs: Dimer 0.42 ABG demonstrates pH 7.4, pCO2 45, pO2 100 on a 15 L nonrebreather LFTs are normal Lactic acid 1.5 Calcium and albumin are normal Troponin 15 with repeat of 14 Respiratory panel pending Chest x-ray by my evaluation demonstrates neurostimulator, atherosclerosis, no infiltrate and significant COPD. EKG demonstrates sinus tachycardia, borderline right axis deviation, nonspecific ST-T wave changes mainly inferiorly Last echo demonstrates EF 51%, improved from previous, with hypokinesia of this septum in November 2023 Micro: Microbiology 12/14/23 07:59 Blood Culture - Preliminary Blood SPECIMEN COLLECTED 12/14/23 07:56 Blood Culture - Preliminary Blood SPECIMEN COLLECTED A&P Assessment and plan (1) Acute hypoxic respiratory failure: Patient presents with acute hypoxic respiratory failure This appears to be secondary to significant acute COPD exacerbation He typically uses 2 to more liters at home at night. I suspect he needs oxygen during the day as well. He required a nonrebreather on arrival, and is still currently on approximately 8 L Budesonide twice daily DuoNeb every 4 hours He has received dexamethasone IV. Will continue Solu-Medrol 60 mg IV every 12 hours Chest x-ray does not clearly delineate a pneumonia, but his illness over 2 weeks time with productive sputum is concerning for acute bronchitis in this patient with severe COPD. Will proceed with continuing Levaquin already started in the emergency department. (2) COPD with acute exacerbation: See above (3) Non-ischemic cardiomyopathy: No evidence of decompensation currently. Last echo demonstrates an EF of around 50%. This was done in November. Continue chronic medicines, cardiac diet (4) Tobacco dependency: Encouraged tobacco cessation (5) Chronic pain: Resume his chronic pain medication Plan Multiple other medical problems as outlined in past medical history Full code Lovenox for DVT prophylaxis Attestations 2 Medical Necessity Statement*: Will require greater than 2 midnight stay for evaluation and treatment of acute COPD exacerbation with acute hypoxic failure requiring significant amounts of FiO2. Diagnoses Acute hypoxic respiratory failure J96.01 COPD with acute exacerbation J44.1 Non-ischemic cardiomyopathy I42.8 Tobacco dependency F17.200 Chronic pain G89.29 Time Spent (min) 55
--- NOTE | 2023-12-14 11:13 | ECG_ITS ---
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 Measurements Intervals [place] Rate: 110 P: 86 MT: 153 QRS: 91 QRSD: 97 T: -19 QT: 292 QTc: 396 Interpretive Statements SINUS TACHYCARDIA POSSIBLE LEFT ATRIAL ENLARGEMENT [-0.1mV P-WAVE IN V1/V2] BORDERLINE RIGHT AXIS DEVIATION [QRS AXIS > 90] PATTERN CONSISTENT WITH PULMONARY DISEASE NONSPECIFIC ST & T-WAVE ABNORMALITY Compared to ECG 12/14/2023 08:00:32 Possible ischemia no longer present T-wave abnormality still present Electronically Signed On 12-14-2023 23:45:51 CDT by Jeannie Polk M.D. [id number]
[2023-12-14] MEDS: morphine IR 15 mg Tablet PO ×2 (11:23→18:42)
[2023-12-14 11:48] LABS: Adenovirus Not Detected (NOT DETECT); Chlamydia Pneumoniae Not Detected (NOT DETECT); Coronavirus 229E,HKU1,NL63,OC4 Not Detected (NOT DETECT); Human Metapneumovirus Not Detected (NOT DETECT); Human Rhinovirus/Enterovirus Not Detected (NOT DETECT); Influenza A Not Detected (NOT DETECT); Influenza A H1 Not Detected (NOT DETECT); Influenza A H1-2009 Not Detected (NOT DETECT); Influenza A H3 Not Detected (NOT DETECT); Influenza B Not Detected (NOT DETECT); Mycoplasma Pneumoniae Not Detected (NOT DETECT); Parainfluenza Virus Type 1 Not Detected (NOT DETECT); Parainfluenza Virus Type 2 Not Detected (NOT DETECT); Parainfluenza Virus Type 3 Not Detected (NOT DETECT); Parainfluenza Virus Type 4 Not Detected (NOT DETECT); Respiratory Syncytial Virus A Not Detected (NOT DETECT); Respiratory Syncytial Virus B Not Detected (NOT DETECT)
[2023-12-14 11:51] LABS: SARS-COV-2 Detected (NOT DETECT)
[2023-12-14 12:22] LABS: C Reactive Protein 6.1 mg/L (0.0-4.9)
[2023-12-14] MEDS: enoxaparin 40 mg/0.4 mL Syringe SUBCUT (12:27)
[2023-12-14] MEDS: HYDROcodone-acetaminophen 10-325 mg Tablet 1 TAB PO ×3 (12:27→20:25)
--- NOTE | 2023-12-14 13:30 | ECG_ITS ---
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 Measurements Intervals [place] Rate: 96 P: 81 VT: 142 QRS: 91 QRSD: 101 T: 158 QT: 340 QTc: 431 Interpretive Statements SINUS RHYTHM BORDERLINE RIGHT AXIS DEVIATION [QRS AXIS > 90] NONSPECIFIC ST & T-WAVE ABNORMALITY Compared to ECG 12/14/2023 11:13:25 Sinus tachycardia no longer present T-wave abnormality still present Electronically Signed On 12-14-2023 23:47:32 CDT by Jenanie Polk M.D. [id number]
[2023-12-14] MEDS: remdesivir 200 MG in sodium chloride 0.9% (100 ml) 60 ML 100 MG IV (14:02)
[2023-12-14 14:28] LABS: Troponin 5 6HR 12.23 ng/L (0-15)
--- NOTE | 2023-12-14 14:28 | PC.NURSE ---
PER VERBAL ORDER FROM DR. REGALADO, PATIENT MAY RECEIVE HYDROCODONE 10/325MG AT 1428
[2023-12-14 14:34] LABS: Troponin 5 6HR Delta -2.77 ng/L (0-12)
[2023-12-14] MEDS: gabapentin 300 mg Capsule 600 MG PO ×2 (14:59→20:26)
[2023-12-14] MEDS: budesonide 0.5 mg/2 mL Neb INHALATION (20:46)
[2023-12-14] MEDS: pantoprazole DR 40 mg Tablet PO (22:49)
[2023-12-14] MEDS: atorvastatin 40 mg Tablet 80 MG PO (22:49)
[2023-12-14] MEDS: acetaminophen 325 mg Tablet 650 MG PO (22:50)
[2023-12-15] VITALS (14 sets, daily range): BP systolic 95–117; BP diastolic 52–64; PULSE 80–98; RESP 16–20; TEMP 36.4–37.1; O2SAT 92–99; BMI 16.0
[2023-12-15] MEDS: HYDROcodone-acetaminophen 10-325 mg Tablet 1 TAB PO ×5 (00:14→21:34)
[2023-12-15] MEDS: ipratropium-albuterol 3 mL Neb INHALATION ×5 (03:57→20:21)
[2023-12-15 06:42] LABS: Alanine Aminotransferase 13 U/L (0-41); Albumin Level 3.4 g/dL (3.5-5.2); Alkaline Phosphatase 61 U/L (40-130); Aspartate Amino Transferase 11 U/L (0-40); Blood Urea Nitrogen 12 mg/dL (8-23); Calcium 8.6 mg/dL (8.5-10.5); Carbon Dioxide 27 mmol/L (22-29); Chloride 103 mmol/L (98-107); Creatinine Clr Calc Pharmacy 65.0465; Globulin 2.3 g/dL (1.3-4.6); Glomerular Filtration Rate 164.4 mL/min (90-130); Glucose 105 mg/dL (65-115); Magnesium 1.9 mg/dL (1.7-2.3); Osmolality Calculated 288 mOsm/kg (285-295); Sodium 139 mmol/L (136-145); Total Bilirubin 0.6 mg/dL (0.15-1.2); Total Protein 5.7 g/dL (6.6-8.7)
[2023-12-15 06:55] LABS: C Reactive Protein 155.2 mg/L (0.0-4.9)
[2023-12-15] MEDS: magnesium oxide 400 mg tablet PO (07:43)
[2023-12-15] MEDS: pantoprazole DR 40 mg Tablet PO ×2 (07:44→17:08)
[2023-12-15] MEDS: dexamethasone 10 mg/mL INJ 6 MG IVP (07:44)
[2023-12-15] MEDS: duloxetine 60 mg Capsule PO (07:44)
[2023-12-15] MEDS: aspirin 81 mg EC Tablet PO (07:44)
[2023-12-15] MEDS: morphine IR 15 mg Tablet PO ×2 (07:44→17:09)
[2023-12-15] MEDS: gabapentin 300 mg Capsule 600 MG PO ×3 (07:45→21:35)
[2023-12-15] MEDS: budesonide 0.5 mg/2 mL Neb INHALATION ×2 (08:07→20:21)
[2023-12-15 08:35] LABS: Basophils % 0.1 %; Hematocrit 39.1 % (37-53); Mean Corpuscular HGB Conc 32.7 g/dL (30-55); Mean Corpuscular Hemoglobin 31.7 pg (27-33); Mean Corpuscular Volume 96.8 fl (82-101); Mean Platelet Volume 10.8 fL (7.4-10.4); Monocytes # 0.8 10^3/uL (0.2-0.9); Monocytes % 5.3 %; Neutrophils # 12.61 10^3/uL (1.8-7.7); Neutrophils % 87.2 %; Nucleated Red Blood Cells % 0 %; Platelet Count 145 10^3/cmm (157-399); Red Blood Count 4.04 10^6/uL (3.85-5.65); Red Cell Distribution Width 14.8 % (12.1-15.1); White Blood Count 14.46 10^3/uL (3.29-11.43)
--- NOTE | 2023-12-15 09:20 | P.PN_ITS ---
Subjective 2 Subjective: Lawrence reports he feels pretty rough today. Coughing some. Is short of breath. Certainly feels better than when he first came in. No fever noted overnight. Secondary to repeated cath as needed he would like to go ahead and have Egan while he is here. Medications: Reviewed: Yes Vitals/I&O/Wt Last Vital Signs Temp 98.3 F 12/15/23 08:00 Pulse 92 12/15/23 08:09 Resp 20 H 12/15/23 08:09 BP 115/61 12/15/23 08:00 Pulse Ox 93 12/15/23 08:09 O2 Del Method Nasal Cannula 12/15/23 08:09 O2 Flow Rate 3.5 12/15/23 08:09 12/14/23 12/15/23 12/15/23 22:59 06:59 14:59 Intake Total 340 / 2095.72 240 / 2335.72 Output Total 650 / 650 350 / 1000 Balance -310 / 1445.72 -110 / 1335.72 Weight last 48 hrs Weight 53.524 kg Weight 53.524 kg Weight 53.524 kg Physical Exam 2 Narrative: General exam is a white male, no distress Neck is supple no lymphadenopathy thyromegaly Cardiovascular tachycardic, no murmur Lungs bilateral expiratory wheezes. Diminished breath sounds bilaterally. No crackles. Does have improved aeration from yesterday Abdomen is soft nontender with positive bowel sounds. No obvious organomegaly. Extremities no sinus clubbing edema, cap refill brisk Data 12/15/23 05:51 12/15/23 05:51 Micro: Microbiology 12/14/23 07:59 Blood Culture - Preliminary Blood NEGATIVE TO DATE 12/14/23 07:56 Blood Culture - Preliminary Blood NEGATIVE TO DATE A&P Assessment and plan (1) Acute hypoxic respiratory failure: Patient presents with acute hypoxic respiratory failure This appears to be secondary to significant acute COPD exacerbation He typically uses 2 to more liters at home at night. I suspect he needs oxygen during the day as well. He has now weaned down to 3.5 L Budesonide twice daily DuoNeb every 4 hours Continue dexamethasone 6 mg IV every 24 hours Chest x-ray does not clearly delineate a pneumonia, but his illness over 2 weeks time with productive sputum is concerning for acute bronchitis in this patient with severe COPD. Continue Levaquin IV for acute bronchitis (2) COPD with acute exacerbation: See above (3) Non-ischemic cardiomyopathy: No evidence of decompensation currently. Last echo demonstrates an EF of around 50%. This was done in November. Continue chronic medicines, cardiac diet Resume his Lasix Close follow-up electrolytes tomorrow. (4) Tobacco dependency: Encouraged tobacco cessation (5) Chronic pain: Continue his chronic pain medication (6) COVID-19: COVID testing positive on admission Incentive spirometry See notations under acute hypoxic respiratory failure CRP daily If oxygen requirement improving continue remdesivir and dexamethasone which I started yesterday. Mobilize CBC, CMP daily Plan Multiple other medical problems as outlined in past medical history Full code Lovenox for DVT prophylaxis Attestations 2 Medical Necessity Statement*: Needs continued hospitalization secondary Covid 19 pneumonia with hypoxemic with significant elevation in CRP requiring IV remdesivir with close follow-up of liver function tests in this patient who is acutely ill and considering his underlying severe COPD and exacerbation is at risk for decompensation. Diagnoses Acute hypoxic respiratory failure J96.01 COPD with acute exacerbation J44.1 Non-ischemic cardiomyopathy I42.8 Tobacco dependency F17.200 Chronic pain G89.29 COVID-19 U07.1 Time Spent (min) 25
[2023-12-15] MEDS: FUROsemide 20 mg Tablet PO ×2 (13:15→21:35)
[2023-12-15] MEDS: enoxaparin 40 mg/0.4 mL Syringe SUBCUT (13:15)
[2023-12-15] MEDS: potassium chloride ER 10 mEq Tablet PO (13:16)
[2023-12-15] MEDS: levofloxacin-dextrose 5 % 750 MG/150 ML PREMIX 100 MG IV (13:16)
[2023-12-15] MEDS: atorvastatin 40 mg Tablet 80 MG PO (17:08)
[2023-12-15] MEDS: remdesivir 100 MG in sodium chloride 0.9% (100 ml) 80 ML IV (18:35)
[2023-12-15] MEDS: saline nasal spray 44mL Btl 1 SPRAY NASAL (21:10)
[2023-12-16] VITALS (13 sets, daily range): BP systolic 112–127; BP diastolic 54–67; PULSE 70–96; RESP 14–18; TEMP 36.7–36.8; O2SAT 86–96
[2023-12-16] MEDS: ipratropium-albuterol 3 mL Neb INHALATION ×4 (00:20→11:29)
[2023-12-16] MEDS: HYDROcodone-acetaminophen 10-325 mg Tablet 1 TAB PO ×4 (01:46→15:07)
[2023-12-16 05:42] LABS: Basophils % 0.1 %; Eosinophils % 0.1 %; Hematocrit 37.6 % (37-53); Lymphocytes # 1.4 10^3/uL (0.8-4.8); Lymphocytes % 12.5 %; Mean Corpuscular Hemoglobin 31.5 pg (27-33); Mean Corpuscular Volume 95.4 fl (82-101); Mean Platelet Volume 10.2 fL (7.4-10.4); Monocytes # 0.6 10^3/uL (0.2-0.9); Monocytes % 5.7 %; Neutrophils # 8.86 10^3/uL (1.8-7.7); Neutrophils % 81.1 %; Nucleated Red Blood Cells % 0 %; Platelet Count 141 10^3/cmm (157-399); Red Blood Count 3.94 10^6/uL (3.85-5.65); Red Cell Distribution Width 14.6 % (12.1-15.1); White Blood Count 10.92 10^3/uL (3.29-11.43)
[2023-12-16 05:58] LABS: Alanine Aminotransferase 21 U/L (0-41); Albumin Level 3.1 g/dL (3.5-5.2); Alkaline Phosphatase 52 U/L (40-130); Anion Gap 12.7 (5-19); Aspartate Amino Transferase 14 U/L (0-40); Blood Urea Nitrogen 16 mg/dL (8-23); C Reactive Protein 109.3 mg/L (0.0-4.9); Calcium 8.4 mg/dL (8.5-10.5); Carbon Dioxide 26 mmol/L (22-29); Chloride 101 mmol/L (98-107); Creatinine Clr Calc Pharmacy 60.6363; Globulin 2.7 g/dL (1.3-4.6); Glomerular Filtration Rate 164.4 mL/min (90-130); Glucose 98 mg/dL (65-115); Osmolality Calculated 283 mOsm/kg (285-295); Potassium 3.7 mmol/L (3.5-5.1); Sodium 136 mmol/L (136-145); Total Bilirubin 0.4 mg/dL (0.15-1.2); Total Protein 5.8 g/dL (6.6-8.7)
[2023-12-16] MEDS: dexamethasone 10 mg/mL INJ 6 MG IVP (06:08)
[2023-12-16] MEDS: duloxetine 60 mg Capsule PO (08:32)
[2023-12-16] MEDS: magnesium oxide 400 mg tablet PO (08:32)
[2023-12-16] MEDS: aspirin 81 mg EC Tablet PO (08:32)
[2023-12-16] MEDS: gabapentin 300 mg Capsule 600 MG PO ×2 (08:32→15:07)
[2023-12-16] MEDS: potassium chloride ER 10 mEq Tablet PO (08:32)
[2023-12-16] MEDS: morphine IR 15 mg Tablet PO (08:32)
[2023-12-16] MEDS: FUROsemide 20 mg Tablet PO (08:32)
[2023-12-16] MEDS: pantoprazole DR 40 mg Tablet PO (08:32)
[2023-12-16] MEDS: budesonide 0.5 mg/2 mL Neb INHALATION (08:56)
--- NOTE | 2023-12-16 09:29 | P.CONIM_ITS ---
Providers/Reason For Consult 2 Consulting Physician/Specialty*: Moises Plata D.P.M./podiatry Reason for Consult*: Surgical wound evaluation status post arthroplasty of left hallux interphalangeal joint Attending Physician: Wander Burris MD Primary Care Provider: Carolyn Ireland DO History of Present Illness History of Present Illness Lawrence Carreon is a 68 year old male who is status post left hallux interphalangeal joint arthroplasty and soft tissue mass excision date of operation 11/04/2023. Patient requesting evaluation of the surgical site, has a scab and wants to know if this is okay. Denies any redness or drainage. Review of Systems 2 General: Reports: 10 or more systems reviewed and unremarkable except in HPI and below Const: Denies: fever(s) or chills Eyes: Denies: change in vision Card: Denies: chest pain or palpitations Resp: Denies: dyspnea or productive cough GI: Denies: abdominal pain, nausea or vomiting : Denies: flank pain Musc: Reports: extremity pain, extremity swelling and deformity Skin/Breast: Reports: surgical incision; Denies: rash Neuro: Denies: numbness in extremities, sensory changes or frequent falls Psych: Denies: suicidal ideation Arsenio/Lymph: Denies: easy bruising Medications/Allergies Home Medications Medication Instructions Recorded Confirmed Last Taken Type aspirin 81 mg tablet,delayed 81 mg PO DAILY 07/14/19 12/14/23 12/13/23 History release (Adult Low Dose Aspirin) calcium carbonate 600 mg-vitamin 1 tab PO DAILY 07/14/19 12/14/23 12/13/23 History D3 20 mcg (800 unit) chewable tablet (Caltrate 600 plus D) carisoprodol 350 mg tablet 350 mg PO QID PRN Spasms 07/14/19 12/14/23 11/04/23 History cholecalciferol (vitamin D3) 125 125 mcg PO BEDTIME 02/06/20 12/14/23 12/13/23 History mcg (5,000 unit) capsule hydrocodone 10 mg-acetaminophen 1 - 2 tab PO Q4H PRN Pain 02/06/20 12/14/23 12/13/23 History 325 mg tablet morphine 15 mg immediate release 15 mg PO BID 02/13/20 12/14/23 12/13/23 History tablet magnesium oxide 400 mg PO DAILY 90 days #90 tabs 02/28/20 12/14/23 12/13/23 Rx duloxetine 60 mg capsule,delayed 60 mg PO DAILY 10/10/20 12/14/23 12/13/23 History release rosuvastatin 20 mg tablet 20 mg PO QPM 10/10/20 12/14/23 12/13/23 History pantoprazole 40 mg tablet,delayed 40 mg PO BID 03/20/21 12/14/23 12/13/23 History release guaifenesin 600 mg tablet, 1,200 mg PO BID 12/04/21 12/14/23 12/13/23 History extended release 12 hr (Mucinex) ascorbic acid (vitamin C) 1,000 mg 1 g PO BID 12/29/21 12/14/23 12/13/23 History tablet ketoconazole 2 % shampoo 1 applic topical .2 x weekly #120 02/13/22 12/14/23 11/03/23 Rx mL ketoconazole 2 % topical cream 1 applic topical BID #30 grams 02/20/22 12/14/23 12/13/23 Rx methenamine hippurate 1 gram tablet See Rx Instructions .Route 04/01/22 12/14/23 12/13/23 Rx .COMPLEX #180 tabs testosterone cypionate 200 mg/mL 200 mg IM .every 10 days 04/28/22 12/14/23 2 Months Ago History intramuscular oil ~09/04/23 (Depo-Testosterone) gabapentin 300 mg capsule 600 mg PO TID elbow neuralgia 04/19/23 12/14/23 12/13/23 History furosemide 20 mg tablet 20 mg PO BID #90 tabs 11/05/23 12/14/23 12/13/23 Rx fluticasone fur. 100 mcg-umeclid 1 inh inhalation QPM 12/14/23 12/14/23 12/13/23 History 62.5 mcg-vilant 25 mcg inhalat.powder (Trelegy Ellipta) mupirocin 2 % topical ointment 1 applic topical BID PRN Skin 12/14/23 12/14/23 Unknown History Irritation potassium gluconate 600 mg (99 mg) 600 mg PO DAILY 12/14/23 12/14/23 12/13/23 History tablet Allergies Allergy/AdvReac Type Severity Reaction Status Date / Time adhesive Allergy ALGY-Bliste Verified 11/22/23 10:12 r azithromycin Allergy Unknown Verified 11/22/23 10:12 Current Medications Generic Name Dose Route Start Last Admin Trade Name Freq PRN Reason Stop Dose Admin Acetaminophen 650 mg 12/14/23 11:35 12/14/23 22:50 Acetaminophen 325 Mg Tablet PO 650 mg Q6H PRN Administration Mild/Mod Pain Or Temp >/= 101 Hydrocodone Bitart/Acetaminophen 1 tab 12/14/23 11:01 12/16/23 06:09 Hydrocodone-Acetaminophen 10-325 Mg Tablet PO 1 tab Q4H PRN Administration MODERATE PAIN Albuterol/Ipratropium 3 ml 12/14/23 16:00 12/16/23 08:56 Ipratropium-Albuterol 3 Ml Neb INHALATION 3 ml Q4H.RESPIRATORY TIAGO Administration Aspirin 81 mg 12/15/23 09:00 12/16/23 08:32 Aspirin 81 Mg Ec Tablet PO 81 mg DAILY TIAGO Administration Atorvastatin Calcium 80 mg 12/14/23 18:00 12/15/23 17:08 Atorvastatin 40 Mg Tablet PO 80 mg QPM TIAGO Administration Budesonide 0.5 mg 12/14/23 20:00 12/16/23 08:56 Budesonide 0.5 Mg/2 Ml Neb INHALATION 0.5 mg BID.RESPIRATORY TIAGO Administration Carisoprodol 350 mg 12/14/23 11:53 12/14/23 20:24 Carisoprodol 350 Mg Tablet PO 350 mg QID PRN Administration Spasms Dexamethasone 6 mg 12/15/23 07:00 12/16/23 06:08 Dexamethasone 10 Mg/Ml Inj IVP 6 mg Q24H TIAGO Administration Duloxetine HCl 60 mg 12/15/23 09:00 12/16/23 08:32 Duloxetine 60 Mg Capsule PO 60 mg DAILY TIAGO Administration Enoxaparin Sodium 40 mg 12/14/23 12:00 12/15/23 13:15 Enoxaparin 40 Mg/0.4 Ml Syringe SUBCUT 40 mg Q24H TIAGO Administration Furosemide 20 mg 12/15/23 09:25 12/16/23 08:32 Furosemide 20 Mg Tablet PO 20 mg BID TIAGO Administration Gabapentin 600 mg 12/14/23 15:00 12/16/23 08:32 Gabapentin 300 Mg Capsule PO 600 mg TID TIAGO Administration Levofloxacin/Dextrose 750 mg in 150 mls @ 100 mls/hr 12/15/23 11:00 12/15/23 20:33 Levaquin-D5w IV Infused Q24H TIAGO Infusion Protocol Remdesivir 100 mg/ Sodium 100 mls @ 100 mls/hr 12/15/23 18:00 12/15/23 20:33 Chloride IV 12/18/23 18:59 Infused Q24H TIAGO Infusion Magnesium Oxide 400 mg 12/15/23 09:00 12/16/23 08:32 Magnesium Oxide 400 Mg Tablet PO 400 mg DAILY TIAGO Administration Morphine Sulfate 15 mg 12/14/23 11:00 12/16/23 08:32 Morphine Ir 15 Mg Tablet PO 15 mg BID TIAGO Administration Pantoprazole Sodium 40 mg 12/14/23 18:00 12/16/23 08:[address] 40 Mg Tablet PO 40 mg BID TIAGO Administration Potassium Chloride 10 meq 12/15/23 09:25 12/16/23 08:32 Potassium Chloride Er 10 Meq Tablet PO 10 meq DAILY TIAGO Administration Sodium Chloride 1 spray 12/15/23 20:33 12/15/23 21:10 Saline Nasal [place] 44ml Btl NASAL 1 spray PRN PRN Administration DRYNESS PFSH Acute 2 PFSH: Medical History History of nonmelanoma skin cancer Hx MRSA infection Elevated brain natriuretic peptide (BNP) level Chronic back pain Hypertension Hyponatremia Recurrent UTI AAA (abdominal aortic aneurysm) without rupture Non-ischemic cardiomyopathy Pulmonary nodule 1 cm or greater in diameter Intervertebral disc disorders with radiculopathy, 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 Easton January 23, 2019. With thoracic spinal cord stimulator placement History of lumbar fusion Dr. Easton February 15, 2017 L4-S1 History of umbilical hernia repair History of colon resection Due to cancer History of arthroscopy of both knees Family History Mother Diabetes Father , AT AGE 87 Diabetes CAD (coronary artery disease) Hypertension Myocardial infarction Cancer Brother Cancer Gastroesophageal cancer CAD (coronary artery disease) Diabetes Sister Diabetes Denies family history of Clotting disorder Dementia Chronic kidney disease (CKD) Suicide Anesthesia complication Bleeding disorder Lung disease Stroke Social History Smoking and tobacco/nicotine status: current every day tobacco/nicotine user cigarettes Packs smoked per day: 2 Years cigarettes smoked: 53 [ Other cigarette details: Started 1969] Quit status (tobacco/nicotine): considering quitting Second hand smoke exposure: Yes Alcohol intake: never Substance/Drug Use: never Lives independently: Yes Household members: spouse Housing: House Marital status: service: Yes branch: [employer] Current occupational status: employed Current occupational exposures/hazards: No Pets and animals: Yes Do you think of yourself as: Straight/Heterosexual Current gender identity: Male Special syeda needs: No Vitals/I&O/Wt Last Vital Signs Temp 98.0 F 12/16/23 07:33 Pulse 88 12/16/23 09:15 Resp 18 12/16/23 08:59 BP 112/54 12/16/23 07:33 Pulse Ox 86 L 12/16/23 09:13 O2 Del Method Nasal Cannula 12/16/23 08:59 O2 Flow Rate 3 12/16/23 09:13 12/15/23 12/16/23 12/16/23 22:59 06:59 14:59 Intake Total 1210 / 2050 240 / 2290 240 / 240 Output Total 1900 / 2400 1000 / 3400 Balance -690 / -350 -760 / -1110 240 / 240 Weight last 48 hrs Weight 110 lb Weight 118 lb Weight 118 lb Physical Exam 2 Narrative: GENERAL: Patient is alert and oriented ?3 and in no acute distress. The following is a focused left lower extremity exam. VASCULAR: Dorsalis pedis and posterior tibial arteries palpable +2. Capillary refill time less than 3 seconds to the distal hallux bilaterally. Calf is supple and nontender proximally and distally. Mild edema at the operative site consistent with postoperative course. NEUROLOGICAL: Protective sensation intact to light touch. DERMATOLOGICAL: Incision site left great toe is well-healing. There is a scab to the dorsal aspect of the left hallux interphalangeal joint, no fluctuance or bogginess, no erythema or drainage MUSCULOSKELETAL: No pain to palpation left great toe no pain with range of motion left hallux interphalangeal joint or metatarsophalangeal joint. No pain with posterior calf squeeze. Urinary Catheter Management: Egan: Cath Placed During This Visit: no Reason for Continuing Indwelling Catheter: Acute Urinary Retention or Obstruction Data 12/16/23 05:29 12/16/23 05:29 Micro: Microbiology 12/14/23 07:59 Blood Culture - Preliminary Blood NEGATIVE TO DATE 12/14/23 07:56 Blood Culture - Preliminary Blood NEGATIVE TO DATE A&P Assessment and plan (1) Status post foot joint surgery: Plan 68-year-old male status post left hallux interphalangeal joint arthroplasty and soft tissue mass excision date of operation 11/04/2023 Surgical site is well-healing without clinical signs of infection. Scab dressed with bacitracin and Band-Aid. No restrictions with weightbearing, no bathing restrictions. Will follow-up outpatient in podiatry clinic in 2 weeks. Coding Level of Care Code Acute Code for Chg Fwd Diagnoses Status post foot joint surgery Z98.890
[2023-12-16] MEDS: levofloxacin-dextrose 5 % 750 MG/150 ML PREMIX 100 MG IV (11:35)
--- NOTE | 2023-12-16 12:10 | PM.DCS ---
Discharge Providers Date of Admission: 12/14/23 10:46 Date of Discharge: December 16, 2023 Attending Provider at Admission: Wander Burris MD Attending Provider at Discharge: Wander Burris MD Primary Care Provider: Carolyn Ireland DO Diagnoses at Discharge Discharge Diagnosis (1) Status post foot joint surgery: Status: Acute Reason for Visit Reason for Visit: SOB Hospital Course Hospital Course Lawrence is a 68-year-old white male who presented to the emergency department with complaints of shortness of breath. There was concern for pneumonia initially, and respiratory panel demonstrated COVID. He was placed on IV antibiotics, dexamethasone, pulmonary treatments, remdesivir. CRP was noted to be elevated on day 2 of hospital stay. He required a fair amount of oxygen at first with a nonrebreather but this was quickly tapered. By December 15 he was doing much better. He was less short of breath. He had tapered down on his oxygen which he was using at home for severe COPD. CRP was decreased. It was thought he could be sent home with close follow-up with his primary care physician. He was instructed to finish medicines as prescribed, follow-up with his primary care provider 3 to 5 days, return for any concerns. He was given opportunity ask questions and agreed with the plan. Home oxygen evaluation was done prior to discharge. He was instructed to stop smoking. Physical Exam Narrative: General exam no distress Neck supple Cardiovascular regular rate and rhythm Lungs diminished breath sounds bilaterally but clear Abdomen is soft Extremities no cyanosis clubbing or edema Urinary Catheter Management: Egan: Cath Placed During This Visit: no Reason for Continuing Indwelling Catheter: Acute Urinary Retention or Obstruction Discharge Data Studies Completed and Pending Completed Studies During Hospitalization Category Date Time Status XR chest 1V portable [id number] Stat Exams 12/14/23 07:30 Completed Pending at discharge Category Date Time Status Blood Culture Stat Lab 12/14/23 07:59 Results Radiology Impressions Chest X-Ray 12/14/23 07:30 IMPRESSION: 1. COPD/emphysema. Laboratory Results WBC 10.92 10^3/uL (3.29-11.43) 12/16/23 05:29 RBC 3.94 10^6/uL (3.85-5.65) 12/16/23 05:29 Hgb 12.40 g/dL (11.27-16.99) 12/16/23 05:29 Hct 37.6 % (37-53) 12/16/23 05:29 MCV 95.4 fl (82-101) 12/16/23 05:29 MCH 31.5 pg (27-33) 12/16/23 05:29 MCHC 33.0 g/dL (30-55) 12/16/23 05:29 RDW 14.6 % (12.1-15.1) 12/16/23 05:29 Plt Count 141 10^3/cmm (157-399) L 12/16/23 05:29 MPV 10.2 fL (7.4-10.4) 12/16/23 05:29 Neut % (Auto) 81.1 % 12/16/23 05:29 Lymph % (Auto) 12.5 % 12/16/23 05:29 Hettinger % (Auto) 5.7 % 12/16/23 05:29 Eos % (Auto) 0.1 % 12/16/23 05:29 Baso % (Auto) 0.1 % 12/16/23 05:29 Neut # (Auto) 8.86 10^3/uL (1.8-7.7) H 12/16/23 05:29 Lymph # (Auto) 1.4 10^3/uL (0.8-4.8) 12/16/23 05:29 Hettinger # (Auto) 0.6 10^3/uL (0.2-0.9) 12/16/23 05:29 Eos # (Auto) 0.0 10^3/uL (0.0-0.8) 12/16/23 05:29 Baso # (Auto) 0.0 10^3/uL (0.0-0.1) 12/16/23 05:29 Nucleated RBC % (auto) 0 % 12/16/23 05:29 Nucleated RBCs # 0.0 /100WBC 12/16/23 05:29 D-Dimer 0.42 ug/mLFEU (0-0.59) 12/14/23 07:54 Specimen Type Arterial 12/14/23 07:35 Sample Site Radial, left 12/14/23 07:35 ABG pH 7.40 (7.35-7.45) 12/14/23 07:35 ABG pCO2 45.5 mmHg (35-45) H 12/14/23 07:35 ABG pO2 98.7 mmHg (80.0-100.0) 12/14/23 07:35 ABG HCO3 28.4 mmol/L (22-26) H 12/14/23 07:35 ABG O2 Saturation 96.3 12/14/23 07:35 ABG Base Excess 2.9 mmol/L (-2.0-2.0) H 12/14/23 07:35 Christopher Test Pos 12/14/23 07:35 A-a O2 Gradient Not Reportable 12/14/23 07:35 Hematocrit 47.3 % (42-52) 12/14/23 07:35 Hgb O2 Saturation 91.6 % (95-100) L 12/14/23 07:35 Carboxyhemoglobin 4.4 %THgb (0.4-20.1) 12/14/23 07:35 Methemoglobin 0.5 % (0.4-1.5) 12/14/23 07:35 Total Hemoglobin 15.4 g/dL (14-18) 12/14/23 07:35 Sodium 137.0 mmol/L (131-143) 12/14/23 07:35 Potassium 3.9 mmol/L (3.5-5.0) 12/14/23 07:35 Glucose 115.0 mg/dL (70-115) 12/14/23 07:35 Ionized Calcium 1.2 mmol/L (1.1-1.4) 12/14/23 07:35 O2 Delivery Device Nrb 12/14/23 07:35 O2 Liters/Min 15.0 % 12/14/23 07:35 Folding Rules Printing Machine Operator ID [place] 12/14/23 07:35 Sodium 136 mmol/L (136-145) 12/16/23 05:29 Potassium 3.7 mmol/L (3.5-5.1) 12/16/23 05:29 Chloride 101 mmol/L (98-107) 12/16/23 05:29 Carbon Dioxide 26 mmol/L (22-29) 12/16/23 05:29 Anion Gap 12.7 (5-19) 12/16/23 05:29 BUN 16 mg/dL (8-23) 12/16/23 05:29 Creatinine 0.5 mg/dL (0.7-1.2) L 12/16/23 05:29 GFR Calculation 164.4 mL/min (90-130) H 12/16/23 05:29 Glucose 98 mg/dL (65-115) 12/16/23 05:29 Calculated Osmolality 283 mOsm/kg (285-295) L 12/16/23 05:29 Lactic Acid 1.5 mmol/L (0.5-2.2) 12/14/23 07:54 Calcium 8.4 mg/dL (8.5-10.5) L 12/16/23 05:29 Magnesium 1.9 mg/dL (1.7-2.3) 12/15/23 05:51 Total Bilirubin 0.4 mg/dL (0.15-1.2) 12/16/23 05:29 AST 14 U/L (0-40) 12/16/23 05:29 ALT 21 U/L (0-41) 12/16/23 05:29 Alkaline Phosphatase 52 U/L (40-130) 12/16/23 05:29 Troponin T Baseline 15 ng/L (0-15) 12/14/23 07:54 Troponin T 120 Minute 13.92 ng/L (0-15) 12/14/23 10:07 Delta Troponin T -1.08 ABS# (0-10) L 12/14/23 10:07 Troponin T Hi Sens 6Hr 12.23 ng/L (0-15) 12/14/23 13:58 Troponin T Hi Sens 6Hr Delta -2.77 ng/L (0-12) L 12/14/23 13:58 C-Reactive Protein 109.3 mg/L (0.0-4.9) H 12/16/23 05:29 NT-Pro-B Natriuret Pep 375 pg/mL (0-125) H 12/14/23 07:54 Total Protein 5.8 g/dL (6.6-8.7) L 12/16/23 05:29 Albumin 3.1 g/dL (3.5-5.2) L 12/16/23 05:29 Globulin 2.7 g/dL (1.3-4.6) 12/16/23 05:29 Adenovirus (PCR) Not detected (NOT DETECT) 12/14/23 09:41 C. pneumoniae DNA (PCR) Not detected (NOT DETECT) 12/14/23 09:41 Coronavirus 229E (PCR) Not detected (NOT DETECT) 12/14/23 09:41 Human Metapneumovir PCR Not detected (NOT DETECT) 12/14/23 09:41 Influenza A (H1) PCR Not detected (NOT DETECT) 12/14/23 09:41 Influ A (H1/09) PCR Not detected (NOT DETECT) 12/14/23 09:41 Influenza A (H3) PCR Not detected (NOT DETECT) 12/14/23 09:41 Influenza Type A (PCR) Not detected (NOT DETECT) 12/14/23 09:41 Influenza Type B (PCR) Not detected (NOT DETECT) 12/14/23 09:41 M. pneumoniae (PCR) Not detected (NOT DETECT) 12/14/23 09:41 Parainfluenza 1 (PCR) Not detected (NOT DETECT) 12/14/23 09:41 Parainfluenza 2 (PCR) Not detected (NOT DETECT) 12/14/23 09:41 Parainfluenza 3 (PCR) Not detected (NOT DETECT) 12/14/23 09:41 Parainfluenza 4 (PCR) Not detected (NOT DETECT) 12/14/23 09:41 RSV Type A (PCR) Not detected (NOT DETECT) 12/14/23 09:41 RSV Type B (PCR) Not detected (NOT DETECT) 12/14/23 09:41 Entero/Rhino (PCR) Not detected (NOT DETECT) 12/14/23 09:41 SARS-CoV-2 (PCR) Detected (NOT DETECT) A 12/14/23 09:41 Vitals Last Vital Signs Temp 98.0 F 12/16/23 07:33 Pulse 93 12/16/23 11:35 Resp 18 12/16/23 11:25 BP 112/54 12/16/23 07:33 Pulse Ox 95 12/16/23 11:25 O2 Del Method Nasal Cannula 12/16/23 11:25 O2 Flow Rate 3 12/16/23 11:25 Discharge Plan Discharge Patient Disposition: Home Condition: Stable Prescriptions: New dexamethasone 6 mg tablet 6 mg PO DAILY Qty: 3 0RF albuterol sulfate 1.25 mg/3 mL solution for nebulization 1.25 mg inhalation Q6H PRN (Reason: shortness of breath or wheezing) Qty: 90 0RF levofloxacin 750 mg tablet 750 mg PO DAILY 5 Days Qty: 5 0RF Continued hydrocodone-acetaminophen 10-325 mg tablet 1 - 2 tab PO Q4H MDD 9 tabs PRN (Reason: Pain) cholecalciferol (vitamin D3) 125 mcg (5,000 unit) capsule 125 mcg PO BEDTIME aspirin [Adult Low Dose Aspirin] 81 mg tablet,delayed release (DR/EC) 81 mg PO DAILY Caltrate 600 plus D 600 mg (1,500 mg)-800 unit tablet,chewable 1 tab PO DAILY carisoprodol 350 mg tablet 350 mg PO QID PRN (Reason: Spasms) guaifenesin [Mucinex] 600 mg tablet extended release 12hr 1,200 mg PO BID magnesium oxide 400 mg magnesium tablet 400 mg PO DAILY 90 Days Qty: 90 0RF gabapentin 300 mg capsule 600 mg PO TID Rx Instructions: Need apt ascorbic acid (vitamin C) 1,000 mg tablet 1 g PO BID testosterone cypionate [Depo-Testosterone] 200 mg/mL oil 200 mg IM .every 10 days Patient Comments: taking every 3 weeks ketoconazole 2 % shampoo 1 applic topical .2 x weekly Qty: 120 3RF Rx Instructions: Lather into scalp 2 times weekly. Allow to sit on scalp for 5 minutes before rinsing. ketoconazole 2 % cream 1 applic topical BID Qty: 30 6RF Rx Instructions: Apply to red, scaly areas on face 1-2 times daily methenamine hippurate 1 gram tablet See Rx Instructions .ROUTE .COMPLEX Qty: 180 3RF Dose Instruction: TAKE ONE TABLET BY MOUTH TWICE DAILY - TAKE 1000 MG OF VITAMIN C WITH EACH DOSE OF METHENAMINE Rx Instructions: TAKE ONE TABLET BY MOUTH TWICE DAILY - TAKE 1000 MG OF VITAMIN C WITH EACH DOSE OF METHENAMINE furosemide 20 mg tablet 20 mg PO BID Qty: 90 1RF morphine 15 mg tablet 15 mg PO BID rosuvastatin 20 mg tablet 20 mg PO QPM duloxetine 60 mg capsule,delayed release(DR/EC) 60 mg PO DAILY pantoprazole 40 mg tablet,delayed release (DR/EC) 40 mg PO BID potassium gluconate 600 mg (99 mg) Tablet 600 mg PO DAILY mupirocin 2 % ointment 1 applic topical BID PRN (Reason: Skin Irritation) Trelegy Ellipta 100-62.5-25 mcg blister with device 1 inh inhalation QPM Discharge Orders: Discharge Order (Routine); Ordered 12/16/23 Ordered By: Wander Burris Other Ambulatory Orders: DME: Oxygen (Order) Location: None Selected Ordered By: Wander Burris Referrals: Carolyn Ireland DO [Primary Care Provider] - 12/20/23 2:30 pm Discharge Diet: Usual diet and Cardiac Discharge Activity: Increase activity as tolerated Patient Instructions: Albuterol (By breathing) (ProAir, AccuNeb, Proventil, Proventil..., Levofloxacin (By mouth), Dexamethasone (By mouth), SARS (Severe Acute Respiratory Syndrome) (DC), Opioid Safety Activity Restrictions/Additional Instructions: Arrange for home oxygen prior to discharge Follow-up with primary care provider in 3 to 5 days Return for any concerns Take all medicine as prescribed Discharge Attestations Time Spent in Discharge Care*: greater than 30 min Quality Metrics Clinical Quality Measures [ No reported AMI, CVA or VTE this stay] Coding Level of Care Code 92826 Total time (in minutes) for Discharge: 33 Diagnoses Status post foot joint surgery Z98.890
--- NOTE | 2023-12-16 13:54 | PC.NURSE ---
D/C pending ride home. Family expected to be here within the next hour.
== END 2023-12-16 15:51 | disposition home or self-care (01) | DRG 177 ==
LOC: ER 07:51 → ER IP 10:46 → MEDSURG 16:20
PROVIDERS: Admitting Provider Internal Medicine; Emergency Provider Family Medicine; PCP Family Medicine; Visit Provider Internal Medicine
DX: U07.1 COVID-19 (principal); J96.01 Acute respiratory failure with hypoxia; J44.0 Chronic obstructive pulmonary disease with (acute) lower respiratory infection; J44.1 Chronic obstructive pulmonary disease with (acute) exacerbation; I42.8 Other cardiomyopathies; Z79.82 Long term (current) use of aspirin; Z99.81 Dependence on supplemental oxygen; G89.29 Other chronic pain; I10 Essential (primary) hypertension; E11.9 Type 2 diabetes mellitus without complications; E78.5 Hyperlipidemia, unspecified; F17.210 Nicotine dependence, cigarettes, uncomplicated; Z98.890 Other specified postprocedural states
CPT/HCPCS: 36415; 36600; 51701; 51702; 51798; 71045; 80051; 80053; 82330; 82805; 83605; 83735; 83880; 84484; 85025; 85378; 86140; 87040; 87486; 87581; 87633; 93005; 94640; 94760; 96365; 96367; 96372; 99285; J0248; J1100; J1650; J1956; J7030; J7626

== ENCOUNTER 2023-12-27 12:29 | Outpatient (CLI) | payer BC, MEDICARE, SELFPAY ==
--- NOTE | 2023-12-27 12:32 | CT_ITS ---
WS: [id number] LDCT LUNG CANCER SCREENING TECHNIQUE: Noncontrast CT of the chest with coronal and sagittal reformatted images. CLINICAL INFORMATION: pulmonary nodule COMPARISON: CT chest 06/04/2022 and PET/CT 08/08/2022 DLP: 52.09 mGy.cm DIvol: Mean CTDIvol: 0.70 (mGy) All CT scans at [facility] use at least one of these dose optimization techniques: automat ed exposure control; mA and/or kV adjustment per patient size (includes targeted exams where dose is matched to clinical indication); or iterative reconstruction. FINDINGS: Advanced chronic emphysematous changes. Chronic calcified granulomas. Parenchymal fibrosis in the elissa g apices with nodularity. Subpleural opacity RIGHT lower lobe measuring 1.3 cm. This is decreased in size since the prior chest CT. Pleural parenchymal nodularity in the LEFT lower lobe similar in appearance to the PET/CT 08/08/2022. N odularity appears slightly progressed in this area. Recommend 6-month follow-up. Normal caliber thoracic aorta. Aortic calcification. Coronary calcification. No mediastinal or hilar lymphadenopathy. No axillary lymphadenopathy. Normal GE junction. Mild thoracic curve. Mild thoracic kyphosis. Dorsal spinal stimulator. CT/CT lung screening [id number] IMPRESSION: Subpleural nodules in the LEFT lower lobe appear slightly progressed compared t o the prior studies with a cluster of nodules in the LEFT lower lobe with pleur al thickening. Recommend 6-month follow-up. LUNG-RADS: 3-Probably Benign FOLLOW UP: 6 Month LDCT
== END 2023-12-27 12:30 | disposition home or self-care (01) ==
LOC: RAD 12:29
PROVIDERS: PCP Family Medicine; Visit Provider Family Medicine
DX: Z12.2 Encounter for screening for malignant neoplasm of respiratory organs (principal); Z87.891 Personal history of nicotine dependence; J43.8 Other emphysema; J84.10 Pulmonary fibrosis, unspecified; M40.204 Unspecified kyphosis, thoracic region
CPT/HCPCS: 71271

== ENCOUNTER → 2024-04-27 14:46 | Outpatient (BNVA) | payer BC, SELFPAY | PROVIDERS: PCP Family Medicine; Visit Provider Internal Medicine Cardiovascular Disease | DX: R06.02 Shortness of breath (principal) | CPT/HCPCS: 36415; 80048; 83880 ==

== ENCOUNTER → 2024-05-17 10:56 | Outpatient (BNVA) | payer BC, SELFPAY | PROVIDERS: PCP Family Medicine; Visit Provider Clinical Nurse Specialist Adult Health | DX: R05.9 Cough, unspecified (principal) | CPT/HCPCS: 87426 ==

== ENCOUNTER 2024-10-17 09:50 | Emergency (ER) | payer BC, SELFPAY ==
[2024-10-17 09:55] VITALS: BP 164/79; PULSE 82; RESP 18; TEMP 36.6; O2SAT 98
--- NOTE | 2024-10-17 10:21 | W.ED.ABDPA2 ---
HPI - Abdominal Pain General: Chief Complaint: Abdominal Pain Stated Complaint: SOB Time Seen by Provider: 10/17/24 09:52 Source: patient Mode of arrival: EMS Limitations: no limitations History of Present Illness: Patient is a 68-year-old male presenting to the emergency department with 8 days of lower abdominal pain. He states that at that time when he was eating he would have early satiety and pain/fullness. He also reports diarrhea for the last 5 days. He denies any recent antibiotic use. He is on chronic morphine for a back injury. He reports a past history of a ascending colon resection and urinary retention which he self caths at home. No fevers. Arrives with stable vital signs. MD elicited complaint: abdominal pain Onset (ago): day(s) Pain Consistency: intermittent Location: Diffuse Severity: mild Quality: aching and fullness Radiation: none Exacerbating factors: eating Relieving factors: nothing Associated Symptoms: Reports bloating and diarrhea; Denies chills, GI cramping, fever(s), hematemesis, fecal incontinence, nausea and vomiting Related Data Home Medications ?Medication ?Instructions ?Recorded ?Confirmed aspirin 81 mg tablet,delayed 81 mg PO DAILY 07/14/19 10/17/24 release (Adult Low Dose Aspirin) carisoprodol 350 mg tablet 350 mg PO QID PRN Spasms 07/14/19 10/17/24 hydrocodone 10 mg-acetaminophen 1 - 2 tab PO Q4H PRN Pain 02/06/20 10/17/24 325 mg tablet morphine 15 mg immediate release 15 mg PO BID 02/13/20 10/17/24 tablet rosuvastatin 20 mg tablet 20 mg PO QPM 10/10/20 10/17/24 pantoprazole 40 mg tablet,delayed 40 mg PO BID 03/20/21 10/17/24 release testosterone cypionate 200 mg/mL 200 mg IM .every 10 days 04/28/22 10/17/24 intramuscular oil (Depo-Testosterone) gabapentin 300 mg capsule 600 mg PO TID elbow neuralgia 04/19/23 10/17/24 fluticasone fur. 100 mcg-umeclid 1 inh inhalation QPM 12/14/23 10/17/24 62.5 mcg-vilant 25 mcg inhalat.powder (Trelegy Ellipta) metformin 500 mg tablet 500 mg PO DAILY 04/27/24 10/17/24 potassium chloride 10 mEq 10 meq PO DAILY 10/17/24 10/17/24 tablet,extended release Previous Rx's ?Medication ?Instructions ?Recorded methenamine hippurate 1 gram tablet See Rx Instructions .Route 04/01/22 .COMPLEX #180 tabs albuterol sulfate 1.25 mg/3 mL 1.25 mg (3 mL) inhalation Q6H PRN 12/16/23 solution for nebulization shortness of breath or wheezing #90 mL furosemide 20 mg tablet 20 mg PO BID #180 tabs 09/22/24 levofloxacin 500 mg tablet 500 mg PO DAILY 7 days #7 tabs 10/17/24 Allergies Allergy/AdvReac Type Severity Reaction Status Date / Time adhesive Allergy ALGY-Bliste Verified 06/19/24 13:10 r azithromycin Allergy Unknown Verified 06/19/24 13:10 Review of Systems Const: Reports: change in appetite; Denies: fever(s), chills, body aches, change in weight or night sweats Card: Denies: chest pain or palpitations Resp: Reports: dyspnea (chronically on 4L); Denies: chest congestion GI: Reports: abdominal pain, early satiety, diarrhea and bloating; Denies: nausea, vomiting, hematemesis, dysphagia, GI cramping or fecal incontinence : Reports: difficulty urinating (chronic issue; self caths at home) and other (chronic self cath); Denies: flank pain Musc: Denies: neck pain, back pain, extremity pain, extremity swelling or joint swelling Skin/Breast: Denies: rash Neuro: Denies: headache(s), numbness in extremities, weakness in extremities, sensory changes or dizziness [facility] ED PFSH: Medical History History of nonmelanoma skin cancer Hx MRSA infection Elevated brain natriuretic peptide (BNP) level Chronic back pain Hypertension Hyponatremia Recurrent UTI AAA (abdominal aortic aneurysm) without rupture Non-ischemic cardiomyopathy Pulmonary nodule 1 cm or greater in diameter Intervertebral disc disorders with radiculopathy, 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 Easton January 23, 2019. With thoracic spinal cord stimulator placement History of lumbar fusion Dr. Easton February 15, 2017 L4-S1 History of umbilical hernia repair History of colon resection Due to cancer History of arthroscopy of both knees Family History Mother Diabetes Father , AT AGE 87 Diabetes CAD (coronary artery disease) Hypertension Myocardial infarction Cancer Brother Cancer Gastroesophageal cancer CAD (coronary artery disease) Diabetes Sister Diabetes Denies family history of Clotting disorder Dementia Chronic kidney disease (CKD) Suicide Anesthesia complication Bleeding disorder Lung disease Stroke Social History Smoking and tobacco/nicotine status: current every day tobacco/nicotine user cigarettes Packs smoked per day: 2 Years cigarettes smoked: 53 [ Other cigarette details: Started 1969] Quit status (tobacco/nicotine): considering quitting Second hand smoke exposure: Yes Alcohol intake: never Substance/Drug Use: never Lives independently: Yes Household members: spouse Housing: House Marital status: service: Yes branch: [employer] Current occupational status: employed Current occupational exposures/hazards: No Pets and animals: Yes Do you think of yourself as: Straight/Heterosexual Current gender identity: Male Special syeda needs: No Physical Exam Const: COMMON NORMALS: no acute distress, patient oriented x3, no limitations, alert and well nourished NUTRITIONAL APPEARANCE: thin ORIENTATION/CONSCIOUSNESS: Yes awake, Yes oriented to person, Yes oriented to place and Yes oriented to time HENMT: COMMON NORMALS: normocephalic, atraumatic and hearing grossly normal bilaterally HEAD & SCALP: normal to inspection, normocephalic and atraumatic Eye: COMMON NORMALS: Equal, round and reactive pupils present, EOMs intact bilaterally and conjunctivae normal CONJUNCTIVA: Yes conjunctivae normal PUPIL: Yes Equal, round and reactive pupils present Neck/C-Spine: COMMON NORMALS: full ROM, no lymphadenopathy and no JVD Chest: COMMONS NORMALS: normal inspection of the chest and normal palpation of entire chest wall Resp: COMMON NORMALS: normal respiratory effort, No retractions, No use of accessory muscles and clear to auscultation bilaterally AUSCULTATION: clear to auscultation bilaterally Cardio: COMMON NORMALS: no JVD, regular rate, regular rhythm, S1 normal heart sound present and S2 normal heart sound present RATE: regular rate RHYTHM: regular rhythm HEART SOUNDS: S1 normal heart sound present and S2 normal heart sound present GI: COMMON NORMALS: Normal to inspection, nondistended, normoactive bowel sounds present, Soft to palpation, No hepatosplenomegaly present and no masses INSPECTION: Yes normal to inspection AUSCULTATION: Yes normoactive bowel sounds PALPATION: Yes Soft to palpation, Yes Tenderness to palpation present (GI) (periumbilical/suprapubic), No Guarding due to palpation present (GI), No Rigid due to palpation and Yes No hepatosplenomegaly present : COMMON NORMALS: Yes no CVA tenderness BLADDER/KIDNEY EXAM: Yes bladder normal to palpation and Yes no CVA tenderness Back/Pelvis: COMMON NORMALS: no CVA tenderness, thoracic and lumbar spine normal to inspection and no thoracic nor lumbar tenderness Extremity: GENERAL: Yes normal exam except as noted Neuro: COMMON NORMALS: patient oriented x3, moves all extremities, no focal motor deficits, no sensory deficits noted and gait normal SENSORIUM/ORIENTATION: Yes alert, Yes oriented to person, Yes oriented to place and Yes oriented to time Course Vital Signs: Vital signs: Vital Signs Temperature 97.8 F 10/17/24 09:55 Pulse Rate 74 10/17/24 12:47 Respiratory Rate 18 10/17/24 09:55 Blood Pressure 127/55 10/17/24 12:47 Pulse Oximetry 94 10/17/24 12:47 Oxygen Delivery Me thod Room Air 10/17/24 12:47 Oxygen Flow Rate 4 10/17/24 09:55 MDM - Abdominal Pain Medical Decision Making Patient appears in no acute distress. His vital signs are stable. Blood work overall is unremarkable. UA consistent with infection with cloudy appearance, 3+ leukocyte esterase and greater than 100 WBCs, 4+ bacteria. CT scan of his abdomen and pelvis showing endobronchial pneumonia. Remainder of abdomen was nonemergent/nonsurgical. Patient will be placed on Levaquin which should provide adequate pulmonary and urinary coverage. Recommend follow-up with primary care later this week/early next week for reevaluation. Return to ED precautions discussed. Medical Records I reviewed the patient's medical records. Lab Data I reviewed the patient's lab results. 10/17/24 10:26 10/17/24 10:26 Labs/Radiology: Radiology Impressions Abdomen/Pelvis CT 10/17/24 10:32 IMPRESSION: 1. Tree-in-bud airspace disease at the LEFT lung base. Consistent with endobronchial pneumonia. New since 10/10/2020. 2. No renal obstruction. 3. Very mild central hepatobiliary dilatation. Common bile duct is not dilated. 4. No GI tract obstruction. Colonic mucosa is difficult to evaluate due to lack of fat loops of bowel. 5. No ascites. 6. Soft tissue anasarca. 7. Mildly overly distended urinary bladder. 8. Ectatic atherosclerotic abdominal aorta. 9. Grade 2 spondylolisthesis L5 with bilateral pars defects. Laboratory Results WBC 10.45 10^3/uL (3.29-11.43) 10/17/24 10: RBC 4.30 10^6/uL (3.85-5.65) 10/17/24 10:26 Hgb 14.00 g/dL (11.27-16.99) 10/17/24 10:26 Hct 42.2 % (37-53) 10/17/24 10: MCV 98.1 fl (82-101) 10/17/24 10:26 MCH 32.6 pg (27-33) 10/17/24 10: MCHC 33.2 g/dL (30-55) 10/17/24 10: RDW 13.3 % (12.1-15.1) 10/17/24 10:26 Plt Count 200 10^3/cmm (157-399) 10/17/24 10:26 MPV 9.6 fL (7.4-10.4) 10/17/24 10:26 Neut % (Auto) 79.0 % 10/17/24 10:26 Lymph % (Auto) 12.1 % 10/17/24 10:26 [place] % (Auto) 8.3 % 10/17/24 10:26 Eos % (Auto) 0.2 % 10/17/24 10:26 Baso % (Auto) 0.1 % 10/17/24 10:26 Neut # (Auto) 8.26 10^3/uL (1.8-7.7) H 10/17/24 10:26 Lymph # (Auto) 1.3 10^3/uL (0.8-4.8) 10/17/24 10:26 [place] # (Auto) 0.9 10^3/uL (0.2-0.9) 10/17/24 10:26 Eos # (Auto) 0.0 10^3/uL (0.0-0.8) 10/17/24 10:26 Baso # (Auto) 0.0 10^3/uL (0.0-0.1) 10/17/24 10:26 Nucleated RBC % (auto) 0 % 10/17/24 10: Nucleated RBCs # 0.0 /100WBC 10/17/24 10:26 Sodium 134 mmol/L (136-145) L 10/17/24 10:26 Potassium 3.8 mmol/L (3.5-5.1) 10/17/24 10:26 Chloride 97 mmol/L (98-107) L 10/17/24 10:26 Carbon Dioxide 24 mmol/L (22-29) 10/17/24 10:26 Anion Gap 16.8 (5-19) 10/17/24 10:26 BUN 4 mg/dL (8-23) L 10/17/24 10:26 Creatinine 0.4 mg/dL (0.7-1.2) L 10/17/24 10:26 GFR Calculation 212.7 mL/min (90-130) H 10/17/24 10:26 Glucose 99 mg/dL (65-115) 10/17/24 10:26 Calculated Osmolality 275 mOsm/kg (285-295) L 10/17/24 10:26 Calcium 8.6 mg/dL (8.5-10.5) 10/17/24 10:26 Total Bilirubin 0.4 mg/dL (0.15-1.2) 10/17/24 10:26 AST 22 U/L (0-40) 10/17/24 10:26 ALT 27 U/L (0-41) 10/17/24 10:26 Alkaline Phosphatase 52 U/L (40-130) 10/17/24 10:26 Total Protein 6.1 g/dL (6.6-8.7) L 10/17/24 10:26 Albumin 3.7 g/dL (3.5-5.2) 10/17/24 10: Globulin 2.4 g/dL (1.3-4.6) 10/17/24 10: Lipase 33 U/L (13-60) 10/17/24 10:26 Urine Color Yellow (Yellow) 10/17/24 10:25 Urine Appearance Cloudy (CLEAR) A 10/17/24 10:25 Urine pH 6.5 (5-7) 10/17/24 10:25 Ur Specific [place] 1.008 (1.005-1.030) 10/17/24 10:25 Urine Protein Negative (Negative) 10/17/24 10:25 Urine Glucose (UA) Negative (Normal) 10/17/24 10: Urine Ketones Trace (Negative) 10/17/24 10:25 Urine Blood Trace (Negative) A 10/17/24 10:25 Urine Nitrate Negative (Negative) 10/17/24 10:25 Urine Bilirubin Negative (Negative) 10/17/24 10:25 Urine Urobilinogen 0.2 mg/dL (Negative) 10/17/24 10:25 Ur Leukocyte Esterase 3+ (Negative) A 10/17/24 10:25 Urine RBC 0-2 /hpf (0-2) 10/17/24 10:25 Urine WBC >100 /hpf (0-5) H 10/17/24 10:25 Ur Squamous Epith Cells 0-5 /hpf (0-5) 10/17/24 10:25 Amorphous Sediment Not Reportable 10/17/24 10:25 Urine Bacteria 4+ /hpf (NONE) H 10/17/24 10:25 Hyaline Casts 1.21 /lpf 10/17/24 10:25 All radiology interpretation(s) finalized by discharge Discharge Plan Discharge Patient Disposition: Home Clinical Impression: Acute UTI Pneumonia Qualifiers: Pneumonia type: due to unspecified organism Laterality: left Lung location: unspecified part of lung Qualified Code(s): J18.9 - Pneumonia, unspecified organism Condition: Stable Prescriptions: New levofloxacin 500 mg tablet 500 mg PO DAILY 7 Days Qty: 7 0RF No Action hydrocodone-acetaminophen 10-325 mg tablet 1 - 2 tab PO Q4H MDD 9 tabs PRN (Reason: Pain) aspirin [Adult Low Dose Aspirin] 81 mg tablet,delayed release (DR/EC) 81 mg PO DAILY carisoprodol 350 mg tablet 350 mg PO QID PRN (Reason: Spasms) gabapentin 300 mg capsule 600 mg PO TID Rx Instructions: Need apt metformin 500 mg tablet 500 mg PO DAILY testosterone cypionate [Depo-Testosterone] 200 mg/mL oil 200 mg IM .every 10 days Patient Comments: taking every 3 weeks methenamine hippurate 1 gram tablet See Rx Instructions .ROUTE .COMPLEX Qty: 180 3RF Dose Instruction: TAKE ONE TABLET BY MOUTH TWICE DAILY - TAKE 1000 MG OF VITAMIN C WITH EACH DOSE OF METHENAMINE Rx Instructions: TAKE ONE TABLET BY MOUTH TWICE DAILY - TAKE 1000 MG OF VITAMIN C WITH EACH DOSE OF METHENAMINE furosemide 20 mg tablet 20 mg PO BID Qty: 180 3RF morphine 15 mg tablet 15 mg PO BID rosuvastatin 20 mg tablet 20 mg PO QPM pantoprazole 40 mg tablet,delayed release (DR/EC) 40 mg PO BID Trelegy Ellipta 100-62.5-25 mcg blister with device 1 inh inhalation QPM albuterol sulfate 1.25 mg/3 mL solution for nebulization 1.25 mg inhalation Q6H PRN (Reason: shortness of breath or wheezing) Qty: 90 0RF potassium chloride 10 mEq tablet extended release 10 meq PO DAILY Discharge Orders: Discharge ED (Routine); Ordered 10/17/24 Ordered By: Noemy Barrera Referrals: Carolyn Ireland DO [Primary Care Provider, [facility]] Patient Instructions: Urinary Tract Infection in Men (DC), Community Acquired Pneumonia (DC) Activity Restrictions/Additional Instructions: As we discussed, please follow-up with your primary care provider later this week/next week for re-evaluation. You may return to the emergency department at anytime for any further concerns you may have. Hope you begin to feel better soon. 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
--- NOTE | 2024-10-17 10:32 | CT_ITS ---
WS: [id number] CT ABDOMEN AND PELVIS WITH CONTRAST HISTORY: abdominal pain TECHNIQUE: Imaging performed of the abdomen and pelvis with IV contrast. Single phase imaging of the abdomen. Coronal and sagittal reformats are submitted. All CT scans at [facility] use at least one of these dose optimization techniques: automated exposure control; mA and/or kV adjustment per patient size (includes targeted exams where dose is matched to clinical indication); or iterative reconstruction. IV CONTRAST: Omnipaque 350; 100 mL IV. Oral contrast: No DLP: 317.11 mGy.cm COMPARISON: 10/10/2020 Lower thorax: Mild tree-in-bud airspace disease at the LEFT lung base. There are few very small micronodules also present at the lung bases. Marked pulmonary hyperinflation. Heart is normal size. No hiatal hernia. Liver/biliary system: Normal size liver. There is very mild central biliary dilatation. Normal common bile duct of 5.8 mm. Gallbladder: Normal. No gallstones or wall thickening. No pericholecystic fluid. Pancreas: Atrophic pancreas. Pancreas is being slightly displaced to the LEFT of the aorta. The common bile duct is to the LEFT of the aorta. Spleen: Normal size spleen. No mass or infarct. Adrenal glands: Poorly visualized due to lack of visceral fat. Right kidney: No renal obstruction. Bilateral cysts. Left kidney: No obstruction. Normal size kidney. Nonobstructing calcification lower pole, 3 mm. Aorta: Mild atherosclerosis with no aneurysm. Ectatic aorta with maximum diameter 2.5 cm. Ectatic bilateral iliac arteries, slightly greater on the LEFT. Lymphadenopathy: None. Free fluid: None. GI tract: No GI tract obstruction. Mucosa is difficult to evaluate as there is very little fat the loops of GI tract. Abdominal wall: No hernia identified. Pelvis: Distended urinary bladder. Urinary bladder does appear to be slightly overly distended. Soft tissue anasarca. Calcifications in soft tissues over the gluteus muscles. Bones: Posterior lumbar fusion on the LEFT only from L4-S1. CT/CT abdomen pelvis w con* [id number] IMPRESSION: 1. Tree-in-bud airspace disease at the LEFT lung base. Consistent with endobro nchial pneumonia. New since 10/10/2020. 2. No renal obstruction. 3. Very mild central hepatobiliary dilatation. Common bile duct is not dilated . 4. No GI tract obstruction. Colonic mucosa is difficult to evaluate due to lac k of fat loops of bowel. 5. No ascites. 6. Soft tissue anasarca. 7. Mildly overly distended urinary bladder. 8. Ectatic atherosclerotic abdominal aorta. 9. Grade 2 spondylolisthesis L5 with bilateral pars defects.
[2024-10-17 10:39] LABS: Basophils % 0.1 %; Eosinophils % 0.2 %; Hematocrit 42.2 % (37-53); Lymphocytes # 1.3 10^3/uL (0.8-4.8); Lymphocytes % 12.1 %; Mean Corpuscular HGB Conc 33.2 g/dL (30-55); Mean Corpuscular Hemoglobin 32.6 pg (27-33); Mean Corpuscular Volume 98.1 fl (82-101); Mean Platelet Volume 9.6 fL (7.4-10.4); Monocytes # 0.9 10^3/uL (0.2-0.9); Monocytes % 8.3 %; Neutrophils # 8.26 10^3/uL (1.8-7.7); Nucleated Red Blood Cells % 0 %; Platelet Count 200 10^3/cmm (157-399); Red Cell Distribution Width 13.3 % (12.1-15.1); White Blood Count 10.45 10^3/uL (3.29-11.43)
[2024-10-17 10:50] LABS: Bilirubin Urine Negative (Negative); Blood Urine Trace (Negative); Glucose Urine UA Negative (Normal); Ketones Urine Trace (Negative); Leukocyte Esterase Urine 3+ (Negative); Nitrate Urine Negative (Negative); Protein Urine Negative (Negative); Specific Gravity, Urine 1.008 (1.005-1.030); Urine Appearance Cloudy (CLEAR); Urine Color Yellow (Yellow); Urobilinogen Urine 0.2 mg/dL (Negative); pH Urine 6.5 (5-7)
[2024-10-17 10:54] LABS: Add Urine Microscopic? YES; Bacteria Urine 4+ /hpf; Hyaline Casts Urine 1.21 /lpf; RBC Urine 0-2 /hpf (0-2); Squamous Epithelial Cell Urine 0-5 /hpf (0-5); WBC Urine >100 /hpf (0-5)
[2024-10-17 10:56] LABS: Add Urine Culture? Yes
[2024-10-17 11:03] LABS: Alanine Aminotransferase 27 U/L (0-41); Albumin Level 3.7 g/dL (3.5-5.2); Alkaline Phosphatase 52 U/L (40-130); Aspartate Amino Transferase 22 U/L (0-40); Blood Urea Nitrogen 4 mg/dL (8-23); Calcium 8.6 mg/dL (8.5-10.5); Carbon Dioxide 24 mmol/L (22-29); Chloride 97 mmol/L (98-107); Globulin 2.4 g/dL (1.3-4.6); Glomerular Filtration Rate 212.7 mL/min (90-130); Glucose 99 mg/dL (65-115); Lipase 33 U/L (13-60); Osmolality Calculated 275 mOsm/kg (285-295); Sodium 134 mmol/L (136-145); Total Bilirubin 0.4 mg/dL (0.15-1.2); Total Protein 6.1 g/dL (6.6-8.7)
[2024-10-17 11:05] LABS: Anion Gap 16.8 (5-19); Potassium 3.8 mmol/L (3.5-5.1)
[2024-10-17] MEDS: iohexol 350 mg/mL 500 mL Btl (per mL) IV (11:20)
[2024-10-17] MEDS: sodium chloride 0.9% 500 ML IV (12:02)
[2024-10-17 12:47] VITALS: BP 127/55; PULSE 74; O2SAT 94
--- NOTE | 2024-10-17 12:58 | ECG_ITS ---
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
[2024-10-17 14:04] VITALS: BP 131/75; PULSE 73; O2SAT 98
== END 2024-10-17 14:04 | disposition home or self-care (01) ==
PROVIDERS: Emergency Provider Physician Assistant; PCP Family Medicine
DX: N39.0 Urinary tract infection, site not specified (principal); J18.9 Pneumonia, unspecified organism; Z79.82 Long term (current) use of aspirin; Z79.84 Long term (current) use of oral hypoglycemic drugs; F17.210 Nicotine dependence, cigarettes, uncomplicated; E78.5 Hyperlipidemia, unspecified; J44.9 Chronic obstructive pulmonary disease, unspecified; I10 Essential (primary) hypertension
CPT/HCPCS: 36415; 74177; 80053; 81001; 83690; 85025; 87086; 93005; 99285; J7040

== ENCOUNTER 2025-01-24 11:17 | Inpatient (IN) | payer BC, MEDICARE, SELFPAY ==
--- OUTSIDE RECORDS SUMMARY | 2017-03-14 19:00 | XMS_ITS | Continuity of Care Document ---
Author Name [facility] Organization [facility] Care Team Providers Care Penal Officer Name Role Phone [facility] Unavailable Unavailable Immunizations Combined list of available immunizations from the Department of Defense and Veterans Affairs facilities. Immunization Series Date Given Administered By Site Reaction Lot Number CVX Code Drug Tax Credit Leasing Consultant Status Comments Source INFLUENZA, UNSPECIFIED FORMULATION 2016 88 [facility] Velazquez
[2025-01-24] VITALS (44 sets, daily range): BP systolic 102–141; BP diastolic 55–79; PULSE 81–112; RESP 13–25; TEMP 36.4–36.8; O2SAT 89–100; BMI 14.2; BMI 14.9
--- NOTE | 2025-01-24 11:27 | XRR_ITS ---
PROCEDURE INFORMATION: Exam: XR Chest Exam date and time: 01/24/2025 11:31 AM Age: 69 years old Clinical indication: Shortness of breath; Additional info: SOB TECHNIQUE: Imaging protocol: Radiologic exam of the chest. Views: 1 view. COMPARISON: CT lung screening [id number] 12/27/2023 12:48 PM FINDINGS: Tubes, catheters and devices: There are neurostimulator leads overlying the midthoracic spine. Lungs: The lungs are hyperinflated with COPD changes. No acute pulmonary infiltrates identified. Pleural spaces: There is a large right pneumothorax approaching 50%. No evidence of a left pneumothorax. Heart/Mediastinum: The heart is normal in size. No mediastinal shift appreciated. Bones/joints: Unremarkable. XR/XR chest 1V portable [id number] IMPRESSION: Large right pneumothorax approaching 50% on a background of significant COPD.
--- NOTE | 2025-01-24 11:28 | ED_ITS ---
HPI - SOB/Dyspnea 2 General: Chief Complaint: Shortness of Breath/Dyspnea Stated Complaint: Resp Distr Time Seen by Provider: 01/24/25 11:18 Source: patient Mode of arrival: ambulatory Limitations: no limitations History of Present Illness: HPI Narrative: 69-year-old male has a history of COPD s tates over the last 4 to 5 days has been having some increasing productive cough with shortness of breath. States that today is feeling increased short of breath he was given albuterol along with Solu-Medrol and route states he feels much improved. He is on 5 L of oxygen chronically and is currently on 5 L. 92 oxygen sat Associated symptoms: Deny abdominal pain, chest pain, fever(s), nausea or vomiting Related Data Home Medications ?Medication ?Instructions ?Recorded ?Confirmed aspirin 81 mg tablet,delayed 81 mg PO DAILY 07/14/19 0 10/17/24 release (Adult Low Dose Aspirin) carisoprodol 350 mg tablet 350 mg PO QID PRN Spasms 01/24/25 hydrocodone 10 mg-acetaminophen 1 - 2 tab PO Q4H PRN P ain 02/06/20 01/24/25 325 mg tablet morphine 15 mg immediate release 15 mg PO BID 02/13/20 10/17/24 tablet rosuvastatin 20 mg tablet 20 mg PO QPM 10/10/20 pantoprazole 40 mg tablet,delayed 40 mg PO BID 1 10/17/24 release testosterone cypionate 200 mg/mL 200 mg IM .every 10 d ays 04/28/22 10/17/24 intramuscular oil (Depo-Testosterone) gabapentin 300 mg capsule 600 mg PO TID elbow neuralgi a 04/19/23 01/24/25 fluticasone fur. 100 mcg-umeclid 1 inh inhalation QPM 12/14/23 10/17/24 62.5 mcg-vilant 25 mcg inhalat.powder (Trelegy Ellipta) metformin 500 mg tablet 500 mg PO DAILY 04/27/24 potassium chloride 10 mEq 10 meq PO DAILY 10/17/24 tablet,extended release Previous Rx's ?Medication ?Instructions ?Recorded methenamine hippurate 1 gram tablet See Rx Instruction s .Route 04/01/22 .COMPLEX #180 tabs albuterol sulfate 1.25 mg/3 mL 1.25 mg (3 mL) inhalati on Q6H PRN 12/16/23 solution for nebulization shortness of breath or wheez ing #90 mL furosemide 20 mg tablet 20 mg PO BID #180 tabs 09/22 Allergies Allergy/AdvReac Type Severity Reaction Status Date / Time adhesive Allergy ALGY-Bliste Verified 06/19/24 13:10 r azithromycin Allergy Unknown Verified 06/19/24 13:10 Review of Systems 2 Const: Denies: fever(s), chills, body aches or change in appetite ENMT: Denies: throat pain or dental pain Card: Denies: chest pain Resp: Reports: dyspnea and non-productive cough GI: Denies: abdominal pain, nausea, vomiting or diarrhea : Denies: dysuria Musc: Denies: neck pain or back pain Skin/Breast: Denies: rash Neuro: Denies: headache(s) PFSH ED 2 PFSH: Medical History History of nonmelanoma skin cancer Hx MRSA infection Elevated brain natriuretic peptide (BNP) level Chronic back pain Hypertension Hyponatremia Recurrent UTI AAA (abdominal aortic aneurysm) without rupture Non-ischemic cardiomyopathy Pulmonary nodule 1 cm or greater in diameter Intervertebral disc disorders with radiculopathy, 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 Easton January 23, 2019. With thoracic spinal cord stimulator placement History of lumbar fusion Dr. Easton February 15, 2017 L4-S1 History of umbilical hernia repair History of colon resection Due to cancer History of arthroscopy of both knees Family History Mother Diabetes Father , AT AGE 87 Diabetes CAD (coronary artery disease) Hypertension Myocardial infarction Cancer Brother Cancer Gastroesophageal cancer CAD (coronary artery disease) Diabetes Sister Diabetes Denies family history of Clotting disorder Dementia Chronic kidney disease (CKD) Suicide Anesthesia complication Bleeding disorder Lung disease Stroke Social History Smoking and tobacco/nicotine status: current every day tobacco/nicotine user cigarettes Packs smoked per day: 2 Years cigarettes smoked: 53 [ Other cigarette details: Started 1969] Quit status (tobacco/nicotine): considering quitting Second hand smoke exposure: Yes Alcohol intake: never Substance/Drug Use: never Lives independently: Yes Household members: spouse Housing: House Marital status: service: Yes branch: [employer] Current occupational status: employed Current occupational exposures/hazards: No Pets and animals: Yes Do you think of yourself as: Straight/Heterosexual Current gender identity: Male Special syeda needs: No Physical Exam 2 Const: COMMON NORMALS: patient oriented x3 HENMT: COMMON NORMALS: normocephalic and atraumatic HEAD & SCALP: n ormocephalic and atraumatic Eye: COMMON NORMALS: conjunctivae normal CONJUNCTIVA: Yes conjunctivae normal Neck/C-Spine: COMMON NORMALS: full ROM and supple Chest: COMMONS NORMALS: normal inspection of the chest Resp: COMMON NORMALS: No retractions, No use of accessory muscles and clear to auscultation bilaterally EFFORT & INSPECTION: Yes tachypneic AUSCULTATION: clear to auscultation bilaterally Cardio: COMMON NORMALS: regular rhythm and No murmurs present (Cardio) R ATE: tachycardic RHYTHM: regular rhythm GI: COMMON NORMALS: Normal to inspection, nondistended, normoactive bowel sounds present, Soft to palpation, non-tender and no masses PALPATION: Yes Soft to palpation Extremity: COMMON NORMALS: normal to inspection and full ROM Neuro: COMMON NORMALS: patient oriented x3, moves all extremities and no focal motor deficits Psych: COMMON NORMALS: mental status grossly normal, Normal thought process present and cooperative THOUGHT PROCESS: Normal thought process present Skin: COMMON NORMALS: no rashes or lesions noted and no wounds GENERAL SKIN EXAM: no rashes or lesions noted Procedures Chest Tube Chest Tube 1: Chest Tube Location: right, mid axillary line and fifth interspace Size of Tube (cm): 29 Chest Tube Prep: Yes betadine prep and sterile drapes applied Local Anesthetic: lidocaine 1% Amount of anesthesia used (mL): 5 Incision Made With: #11 blade Post Procedure: sutured to skin Tube Drainage: none Post Procedure CXR?: Yes Patient Tolerated Procedure: Yes Progress: pigtail catheter was placed successfully Course 2 Vital Signs: Vital signs: Vital Signs Temperature 97.6 F 01/24/25 11:18 Pulse Rate 93 01/24/25 12:34 Respiratory Rate 20 H 01/24/25 12:34 Blood Pressure 123/73 01/24/25 12:34 Pulse Oximetry 95 01/24/25 12:34 Oxygen Delivery Me thod Nasal Cannula 01/24/25 11:18 Oxygen Flow Rate 5 01/24/25 11:18 MDM - SOB/Dyspnea Medical Decision Making Patient presents here with shortness of breath he is found to have a pneumothorax likely causing his shortness of breath. Did place pigtail catheter on the right side with reexpansion of the lung I spoke to the hospitalist along with strategic account director will admit at this time. No signs of pneumonia. Medical Records I reviewed the patient's medical records. Lab Data I reviewed the patient's lab results. 01/24/25 11:47 01/24/25 11:47 Labs/Radiology: Radiology Impressions Chest X-Ray 01/24/25 12:45 Impression: 1. Insertion of right chest tube with partial expansion of right pneumothorax, 10% residual pneumothorax and right upper pleural space. 2. Hyperinflation and atherosclerosis. Laboratory Results WBC 5.93 10^3/uL (3.29-11.43) 01/24/25 11:47 RBC 4.68 10^6/uL (3.85-5.65) 01/24/25 11:47 Hgb 14.80 g/dL (11.27-16.99) 01/24/25 11:47 Hct 46.7 % (37-53) 01/24/25 11:47 MCV 99.8 fl (82-101) 01/24/25 11:47 MCH 31.6 pg (27-33) 01/24/25 11:47 MCHC 31.7 g/dL (30-55) 01/24/25 11:47 RDW 12.2 % (12.1-15.1) 01/24/25 11:47 Plt Count 223 10^3/cmm (157-399) 01/24/25 11:47 MPV 10.4 fL (7.4-10.4) 01/24/25 11:47 Neut % (Auto) 84.7 % 01/24/25 11:47 Lymph % (Auto) 9.9 % 01/24/25 11:47 Schuyler % (Auto) 4.2 % 01/24/25 11:47 Eos % (Auto) 0.8 % 01/24/25 11:47 Baso % (Auto) 0.2 % 01/24/25 11:47 Neut # (Auto) 5.02 10^3/uL (1.8-7.7) 01/24/25 11:47 Lymph # (Auto) 0.6 10^3/uL (0.8-4.8) L 01/24/25 11:47 Schuyler # (Auto) 0.3 10^3/uL (0.2-0.9) 01/24/25 11:47 Eos # (Auto) 0.1 10^3/uL (0.0-0.8) 01/24/25 11:47 Baso # (Auto) 0.0 10^3/uL (0.0-0.1) 01/24/25 11:47 Nucleated RBC % (auto) 0 % 01/24/25 11:47 Nucleated RBCs # 0.0 /100WBC 01/24/25 11:47 D-Dimer 0.87 ug/mLFEU (0-0.59) H 01/24/25 11:47 Sodium 135 mmol/L (136-145) L 01/24/25 11:47 Potassium 4.0 mmol/L (3.5-5.1) 01/24/25 11:47 Chloride 91 mmol/L (98-107) L 01/24/25 11:47 Carbon Dioxide 30 mmol/L (22-29) H 01/24/25 11:47 Anion Gap 18.0 (5-19) 01/24/25 11:47 BUN 8 mg/dL (8-23) 01/24/25 11:47 Creatinine 0.4 mg/dL (0.7-1.2) L 01/24/25 11:47 GFR Calculation Not Reportable 01/24/25 11:47 Glucose 136 mg/dL (65-115) H 01/24/25 11:47 Calculated Osmolality 280 mOsm/kg (285-295) L 01/24/25 11:47 Calcium 9.3 mg/dL (8.5-10.5) 01/24/25 11:47 Total Bilirubin 0.3 mg/dL (0.15-1.2) 01/24/25 11:47 AST 22 U/L (0-40) 01/24/25 11:47 ALT 19 U/L (0-41) 01/24/25 11:47 Alkaline Phosphatase 72 U/L (40-130) 01/24/25 11:47 NT-Pro-B Natriuret Pep 769 pg/mL (0-125) H 01/24/25 11:47 Total Protein 7.4 g/dL (6.6-8.7) 01/24/25 11:47 Albumin 4.4 g/dL (3.5-5.2) 01/24/25 11:47 Globulin 3.0 g/dL (1.3-4.6) 01/24/25 11:47 Lipase 14 U/L (13-60) 01/24/25 11:47 All radiology interpretation(s) finalized by discharge Critical Care Time 2 Critical Care Time: Critical Care Time: Yes Total Critical Care Time: 45 Attestation: The high probability of a clinically significant, sudden or life threatening deterioration of the patient's pulm system(s) required my full and direct attention, intervention and personal management. The critical care time is as shown. 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
--- OUTSIDE RECORDS SUMMARY | 2025-01-24 11:42 | XMS_ITS | Encounter Summary ---
Author Organization [facility] Address [address] [place] [address] Care Team Providers Care Mining Detail Draftsperson Name Role Phone Carolyn Ireland DO Primary Care Provider [phone] Reason for Visit * Reason Comments Medication Refill Encounter Details Date Type Department Care Team (Late st Contact Info) Description 01/17/2025 Refill [facility] [place] [address] [place] [address] Carolyn Ireland DO [address] [place] [address] Chronic midline low back pain with bilateral sciatica Social History Tobacco Use Types Packs/Day Years Used Date Smoking Tobacco: Every Day Cigarettes 2 40 Passive Smoke Exposure: Current Smokeless Tobacco: Never Alcohol Use Standard Drinks/Week Comments Never 0 (1 standard drink = 0.6 oz pur e alcohol) Sex and Gender Information Value Date Recorded Sex Assigned at Male 04/21/2023 1:23 PM PAN PULLER Legal Sex Male 9:46 AM PAN PULLER Gender Identity Male 04/21/2023 1:23 PM PAN PULLER Sexual Orientation Not on file documented as of this encounter Miscellaneous Notes * Telephone Encounter - Jacqueline Pearson LPN - 01/17/2025 11:29 AM CDT 11:29 AM 01/17/2025 Date of last visit addressing condition(s) being treated: 10/04/24 LFD Hydrocodone 12/22/24 Morphine 12/21/24 Soma 12/21/24 Date of next visit in this department: 02/07/2025 Correct Pharmacy: Yes Recent Visits Date Type Provider Dept 10/04/24 Office Visit Carolyn Ireland, DO [facility] 06/14/24 Office Visit Carolyn Ireland, DO [facility] 04/11/24 Office Visit September, [facility] [place] 02/25/24 Office Visit September, [facility] 01/14/24 Office Visit September, [facility] 01/11/24 Office Visit September, [facility] Showing recent visits within past 400 days with a meds authorizing provider and meeting all other requirements Future Appointments Date Type Provider Dept 02/07/25 Appointment Carolyn Ireland, DO [facility] Showing future appointments within next 400 days with a meds authorizing provider and meeting all other requirements Check and review of the [place] PDMP performed on 01/17/2025 at 11:30 AM.. No suspicious activity found. Jacqueline STAPLETON * Telephone Encounter - Josh Chaves - 01/17/2025 11:18 AM CDT Copied from [facility] #[id number]. Topic: Medication Request >> Jan 17, 2025 11:16 AM Josh Griffiths wrote: Caller Name: Lawrence Carreon Callback Number: Telephone Information: Medication (Ask patient/caregiver to spell if possible): hydrocodone, morphine, carisoprodol Note: All medication prescriptions can be requested using one [facility] Preferred [facility]acy: [facility] Call Notes: refill Did caller contact the correct clinic for prescribing provider? Yes Ask caller if the refill is for a controlled medication. Is this for a controlled Medication? Yes Is there an encounter open? No documented in this encounter Plan of Treatment Upcoming Encounters Date Type Department Care Team (Late st Contact Info) Description 02/07/2025 4:00 PM CDT Office Visit [facility] [address] [place] [id number] Carolyn Ireland DO [address] [place] [id number] documented as of this encounter Visit Diagnoses Diagnosis Chronic midline low back pain with bilateral sciatica documented in this encounter Care Teams Mining Detail Draftsperson Relationship Specialty Start Date End Date Carolyn Ireland DO [address] [place] [address] PCP - General Family Practice 10/18/23 documented as of this encounter
--- OUTSIDE RECORDS SUMMARY | 2025-01-24 11:42 | XMS_ITS | Clinical Summary ---
Author Organization [facility] de Address [address] [place] [address] Phone Care Team Providers Care Radio Interference Expert Name Role Phone Carolyn Ireland Primary Care Provider [phone] Allergies Active Allergy Reactions Criticality Noted Date Comments Adhesive Rash Low 11/22/2023 Medications guaiFENesin (Mucinex) Tablet Extended Release 12hrIndications :Chronic obstructive pulmonary disease, unspecified COPD type (CMS/HCC) Take 1 Tablet (1,200 mg) by mouth 2 times daily. 180 Tablet 4 021 Active blood sugar diagnostic Strip Active ketoconazole (NIZORAL) 2 % Shampoo daily. Active ketoconazole (NIZORAL) 2 % Cream Apply to affected area daily. Active cholecalciferol , vitamin D3, 5,000 unit Take 400 Units by mouth daily. Active calcium as carbonate (CALTRATE) 1,500 mg (600 mg elemental) Tablet Take by mouth. Active aspirin (ECOTRIN EC) 81 mg Tablet, Delayed Release (E.C.) Take 81 mg by mouth daily. Active albuterol sulfate 90 mcg/Actuation inhalerIndicati ons:Chronic obstructive pulmonary disease, unspecified COPD type (CMS/HCC) Take 2 Puffs by inhalation every 6 hours as needed for Shortness of Breath. 020 Active nystatin (MYCOSTATIN) 100,000 unit/gram Cream Apply to affected area 2 times daily. 60 Gram 2 023 Active furosemide (LASIX) 20 mg tablet Take 20 mg by mouth daily. Given by Dr Mon with OZH 023 Active rosuvastatin (CRESTOR) 20 mg tablet take 1 tablet daily 100 Tablet 3 024 Active potassium chloride (KLOR-CON) 10 mEq Extended Release tablet Take 1 Tablet (10 mEq) by mouth daily with breakfast. 90 Tablet 4 024 Active methenamine hippurate (HIPREX) 1 gram TabletIndicatio ns:Urinary tract infection, site not specified TAKE ONE TABLET BY MOUTH TWICE DAILY - TAKE 1000 MG OF VITAMIN C WITH EACH DOSE OF METHENAMINE 180 Tablet 3 024 Active sildenafiL (VIAGRA) 100 mg tabletIndicatio ns:Erectile dysfunction, unspecified erectile dysfunction type Take 1 Tablet (100 mg) by mouth 1 time daily as needed for Erectile Dysfunction. 10 Tablet 1 024 Active portable oxygenIndicatio ns:Chronic respiratory failure with hypoxia and hypercapnia (CMS/HCC) Face to Face completed within 30 days: yes Length of Need: 99 months By: Nasal Cannula Continuously at 2 L/min. 1 Each 024 Active magnesium oxide (MAG-OX) 400 mg (241.3 mg magnesium) tablet TAKE 1 TABLET DAILY 90 Tablet 3 024 Active metFORMIN (GLUCOPHAGE XR) 500 mg Extended Release 24 hour tabletIndicatio ns:Type 2 diabetes mellitus without complication, without long-term current use of insulin (CMS/HCC) Take 1 Tablet (500 mg) by mouth 2 times daily with meals. 200 Tablet 3 024 Active gabapentin (NEURONTIN) 600 mg tablet Take 1 Tablet (600 mg) by mouth 3 times daily. 270 Tablet 4 025 Active testosterone cypionate (DEPO-TESTOSTER ONE) 200 mg/mL OilIndications: Male hypogonadism INJECT 0.6 ML TO 1 ML EVERY 10 TO 12 DAYS 3 mL 4 025 Active fluticasone propionate (FLONASE) 50 mcg/spray Merrill, Suspension nasal inhaler Administer 2 Sprays in each nostril 2 times daily. 48 Gram 3 025 Active ascorbic acid, vitamin C, (VITAMIN C) 1,000 mg Tablet Take 1,000 mg by mouth 2 times daily. Active pantoprazole (PROTONIX) 40 mg Tablet, Delayed Release (E.C.)Indicatio ns:Gastroesopha geal reflux disease without esophagitis TAKE 1 TABLET TWICE A DAY 180 Tablet 3 025 Active Nebulizers (VixOne Nebulizer-Adult Mask) Please substitute with what insurance will cover and pharmacy has available 1 Each 025 Active fluticasone-ume clidinium-vilan terol (Trelegy Ellipta) 100-62.5-25 mcg Disk with DeviceIndicatio ns:Chronic obstructive pulmonary disease, unspecified COPD type (CMS/HCC) USE 1 INHALATION DAILY 180 Each 3 025 Active albuterol (PROVENTIL,VENT BALTA) 2.5 mg /3 mL (0.083 %) Solution for NebulizationInd ications:Chroni c obstructive pulmonary disease, unspecified COPD type (CMS/HCC) NEBULIZE 1 VIAL EVERY 6 HOURS NEEDED SHORTNESS OF BREATH 300 mL 6 025 Active Nebulizer Accessories KitIndications: Chronic respiratory failure with hypoxia and hypercapnia (CMS/HCC) To use as needed. 1 Each 025 Active carisoprodoL (SOMA) 350 mg tabletIndicatio ns:Chronic midline low back pain with bilateral sciatica TAKE ONE TABLET BY MOUTH EVERY 6 HOURS NEEDED FOR SPASMS Do not fill until 01/21/25 120 Tablet 2 025 Active HYDROcodone-marilee taminophen (NORCO) 10-325 mg TabletIndicatio ns:Chronic midline low back pain with bilateral sciatica Take 1-2 tabs every 6 hours prn pain. Max 7 per day. Do not fill until 01/22/2025 210 Tablet 025 Active morphine (MS IR) 15 mg tabletIndicatio ns:Chronic midline low back pain with bilateral sciatica Take one daily at bedtime. Do not fill until 01/21/2025 30 Tablet 025 Active Nebulizer Accessories KitIndications: Chronic respiratory failure with hypoxia and hypercapnia (CMS/HCC) To use as needed. 1 Each 024 2024 Discontinued(R eorder) HYDROcodone-marilee taminophen (NORCO) 10-325 mg TabletIndicatio ns:Chronic midline low back pain with bilateral sciatica Take 2 tabs every 6 hours prn pain. Max 8 per day. Do not fill until 10/21/2024 240 Tablet 025 2024 Discontinued HYDROcodone-marilee taminophen (NORCO) 10-325 mg TabletIndicatio ns:Chronic midline low back pain with bilateral sciatica Take 2 tabs every 6 hours prn pain. Max 8 per day. Do not fill until 11/21/2024 240 Tablet 025 2024 Discontinued(R eorder) HYDROcodone-marilee taminophen (NORCO) 10-325 mg TabletIndicatio ns:Chronic midline low back pain with bilateral sciatica Take 2 tabs every 6 hours prn pain. Max 8 per day. Do not fill until 12/21/2024 240 Tablet 025 2024 Discontinued morphine (MS IR) 15 mg tabletIndicatio ns:Chronic midline low back pain with bilateral sciatica Take one daily at bedtime. Do not fill until 10/21/2024 30 Tablet 025 2024 Discontinued morphine (MS IR) 15 mg tabletIndicatio ns:Chronic midline low back pain with bilateral sciatica Take one daily at bedtime. Do not fill until 11/21/2024 30 Tablet 025 2024 Discontinued(R eorder) morphine (MS IR) 15 mg tabletIndicatio ns:Chronic midline low back pain with bilateral sciatica Take one daily at bedtime. Do not fill until 12/21/2024 30 Tablet 025 2024 Discontinued carisoprodoL (SOMA) 350 mg tabletIndicatio ns:Chronic midline low back pain with bilateral sciatica TAKE ONE TABLET BY MOUTH EVERY 6 HOURS NEEDED FOR SPASMS 120 Tablet 2 025 2024 Discontinued(R eorder) amoxicillin-cla vulanate (AUGMENTIN) 500-125 mg tablet Take 1 Tablet by mouth every 12 hours for 7 days. 14 Tablet 025 2024 Active Problems Problem Noted Date Diagnosed Date Frail elderly 10/15/2024 Chronic respiratory failure with hypoxia and hyp ercapnia 10/15/2024 Lynn's esophagus without dysplasia 07/25/2023 Polyposis of colon 11/16/2021 Gastroesophageal reflux dise ase with esophagitis without hemorrhage 11/16/2021 Abdominal aortic aneurysm (AAA) without rupture 11/16/2021 Cigarette dependence 08/17/2021 Recurrent major depressive disorder, in full rem ission 04/21/2020 Mixed hyperlipidemia 04/21/2020 Male hypogonadism 04/21/2020 Type 2 diabetes mellitus wit hout complication, without long-term current use of insulin 04/21/2020 Chronic obstructive pulmonary disease 04/21/2020 Benign prostatic hyperplasia with urinary hesita ncy 04/21/2020 Chronic midline low back pain with bilateral sci atica 04/21/2020 Essential hypertension 04/21/2020 Gastroesophageal reflux disease without esophagi tis 04/21/2020 Seasonal allergic rhinitis due to pollen 020 Encounters Date Type Department Care Team Description 01/23/2025 External Device Data STL ABSTRACTION Provider, Abstract 01/18/2025 Telephone [facility] [address] [place] [phone] Carolyn Ireland, DO Medication Assistance 01/18/2025 Refill [facility] [address] [place] [phone] Carolyn Ireland, Chronic midline low back pain with bilateral sciatica 01/17/2025 Refill [facility] [address] [place] [phone] Carolyn Ireland, Chronic midline low back pain with bilateral sciatica 01/17/2025 Refill [facility] [address] [place] [phone] Carolyn Ireland, DO Chronic respiratory failure with hypoxia and hypercapnia (CMS/HCC) 01/11/2025 Refill [facility] [address] [place] [phone] Prasad, September, CYCLE ANALYST Chronic respiratory failure with hypoxia and hypercapnia (CMS/HCC) 01/02/2025 Telephone [facility] [address] [place] [address] Carolyn Ireland, Medication Refill; Medication Assistance 01/01/2025 Refill [facility] [address] [place] [address] Carolyn Ireland, 12/21/2024 Refill [facility] [address] [place] [address] Carolyn Ireland, Chronic midline low back pain with bilateral sciatica 12/20/2024 External Device Data STL ABSTRACTION Provider, Abstract 12/19/2024 External Device Data STL ABSTRACTION Provider, Abstract 12/13/2024 Refill [facility] [address] [place] [address] Prasad, September, CYCLE ANALYST Chronic obstructive pulmonary disease, unspecified COPD type ([facility]) 11/24/2024 Refill [facility] [address] [place] [address] Carolyn Ireland, Chronic midline low back pain with bilateral sciatica 11/22/2024 Orders Only [facility] [address] [place] [phone] Provider, Abstract 11/22/2024 Telephone [facility] [address] [place] [address] Carolyn Ireland, Question; Patient Communication; Provider Call; Patient Communication 11/21/2024 External Device Data STL ABSTRACTION Provider, Abstract 11/20/2024 Telephone [facility] [address] [place] [address] Carolyn Ireland DO Provider Call 11/15/2024 Refill [facility] [address] [place] [address] Carolyn Ireland DO Chronic obstructive pulmonary disease, unspecified COPD type ([facility]) [facility] [address] [place] [address] Prasadseptember, CYCLE ANALYST Chronic obstructive pulmonary disease, unspecified COPD type ([facility]) 10/26/2024 External Device Data STL ABSTRACTION Provider, Abstract 10/25/2024 External Device Data STL ABSTRACTION Provider, Abstract 10/25/2024 External Device Data STL ABSTRACTION Provider, Abstract 10/24/2024 External Device Data STL ABSTRACTION Provider, Abstract from Last 3 Months Immunizations Immunization Administration Dates Next Due (AREXVY)(60 YR UP) RSV, HARRISON MBINANT, PROTEIN SUBUNIT RSVPREF, ADJUVANT RECONSTITUTED, 0.5 ML, PF 06/21/2024 (M-M-R II/PRIORIX)(12 MO UP) MEASLES, MUMPS AND RUBELLA VIRUS VACCINE, 0.5 ML IM/SUBCUT 10/04/2024 (PREVNAR 20)(6 WKS UP) PNEUM OCOCCAL CONJUGATE VACCINE 20-VALENT (PCV20), POLYSACCHARIDE [id number] CONJUGATE, ADJUVANT 0.5 ML (PF) IM 06/21/2024 (SHINGRIX)(50 YRS UP) ZOSTER VACCINE RECOMBINANT, 0.5 ML, IM 08/27/2020,05/29/2020 (SPIKEVAX) (12 YRS UP PRIMAR Y SERIES) COVID-19 VACCINE - MRNA-1273(PF) 100 MCG/0.5 ML IM SUSP 06/03/2023,04/03/2021,08/09/2020,07/12 (TDVAX)(7 YRS UP) TETANUS AN D DIPHTHERIA TOXOIDS, ADSORBED (2 LF OF TETANUS TOXOID AND 2 LF OF DIPHTHERIA TOXOID), 0.5ML (PF), IM 08/08/2021,02/24/2010,02/10/2005 Hepatitis A Vaccine 02/13/2019,08/04/2018 INFLUENZA VACCINE HIGH DOSE QUADRIVALENT 65 YR UP PF IM 03/27/2024,03/17/2023,02/14/2021 Influenza Seasonal Unspecifi ed Formulation IM 02/20/2020 Influenza, Unspecified Formulation 03/15/2017 PNEUMOVAX (PPSV23) pneumococ itz polysaccharide 23-valent Vaccine 08/08/2021 PREVNAR (PCV13) pneumococcal 13-valent conjugate Vaccine 02/28/2015,02/15/2000 Family History Medical History Relation Name Comments Colon Cancer Father Garrett Diabetes Father Garrett Heart Disease Father Garrett High Cholesterol Father Garrett Hypertension Father Garrett Melanoma Father Garrett Skin Cancer Father Garrett Diabetes Mother Mebyl Heart Disease Mother Denys High Cholesterol Mother Denys Hypertension Mother Denys Kidney Disease Sister Pat Relation Name Status Comments Father Garrett Mother Denys Sister Pat Social History Tobacco Use Types Packs/Day Years Used Date Smoking Tobacco: Every Day Cigarettes 2 40 Passive Smoke Exposure: Current Smokeless Tobacco: Never Tobacco Cessation:Ready to Q uit: No; Counseling Given: Yes Alcohol Use Standard Drinks/Week Comments Never 0 (1 standard drink = 0.6 oz pur e alcohol) Sex and Gender Information Value Date Recorded Sex Assigned at Male 04/21/2023 1:23 PM GALLERY OR MUSEUM TECHNICIAN Legal Sex Male 9:46 AM GALLERY OR MUSEUM TECHNICIAN Gender Identity Male 04/21/2023 1:23 PM GALLERY OR MUSEUM TECHNICIAN Sexual Orientation Not on file Last Filed Vital Signs Vital Sign Reading Time Taken Comments Blood Pressure 120/60 10/04/2024 3:25 PM CDT Pulse 80 10/04/2024 3:25 PM CDT Temperature 36.6 C (97.9 F) 10/04/2024 3:25 PM CDT Respiratory Rate 18 04/11/2024 3:03 PM GALLERY OR MUSEUM TECHNICIAN Oxygen Saturation 97% 10/04/2024 3:25 PM CDT Inhaled Oxygen Concentration - - Weight 51.8 kg (114 lb 4 oz) 10/04/2024 3:25 PM CDT Height 182.9 cm (6') 10/04/2024 3:25 PM CDT stat ed Body Mass Index 15.5 10/04/2024 3:25 PM CDT Plan of Treatment Upcoming Encounters Date Type Department Care Team (Late st Contact Info) Description 02/07/2025 4:00 PM CDT Office Visit [facility] [address] [place] [phone] Carolyn Ireland Kitty, DO [address] [place] [phone] Health Maintenance Due Date Last Done Comments FIT-DNA Q 3 years 1998 FIT/FOBT Q 1 year 1998 Flex Sig/CT Colonography Q 5 years 1998 DTAP/TDAP/TD VACCINES (1 - Tdap) 08/09/2021 08/08/2021, 02/24/2010, 02/10/2005 DIABETES ANNUAL RETINAL EXAM 03/01/2024 03/01/2023, 06/20/2021 Preventative Visit- Commercial 06/07/2024 COVID-19 Vaccine (2023-2 5 season) 2024 03/27/2024, 06/03/2023, 04/10/2022, Additional history exists DIABETES HBA1C Q 6 MONTHS 12/12/20242024, 05/30/2024, 04/11/2024, Additional history exists Lung Cancer Screening 12/26/2024 12/27/2023 INFLUENZA VACCINE (#1) 2025 4, 03/17/2023, 02/14/2021, Additional history exists DIABETES ANNUAL FOOT EXAM 04/11/2025 04/11/2024, 11/2020 DIABETES MICROALBUMIN ANNUAL SCREEN 04/11/2025 04/11/2024, 02/14/2021 DIABETES: A1C (Auto Order) 06/14/202506/14, 05/30/2024, 04/11/2024, Additional history exists LDL CHOLESTEROL ANNUAL 06/14/2025 , 10/18/2023, 07/22/2023, Additional history exists COLORECTAL SCREENING 04/24/2034 04/24/2024, 01/25/2023, 10/23/2021, Additional history exists Colorectal Cancer Screening 04/24/2034 ZOSTER VACCINE Completed 08/27/2020, 05/29/2020 Abdominal Aortic Aneurysm (A AA) Screening Completed 04/21/2021, 01/30/2021 PNEUMOCOCCAL VACCINE 50+ YEARS Completed 0 06/21/2024, 08/08/2021, 02/28/2015, Additional history exists RSV VACCINE (60+ or ) Completed 06/21/2024 Procedures Procedure Name Priority Date/Time Associated Diagnosis Comments LIPID PANEL Routine 06/14/2024 2:45 PM GALLERY OR MUSEUM TECHNICIAN Type 2 diabetes mellitus without complication, without long-term current use of insulin (CMS/[facility]) HEMOGLOBIN A1C Routine 06/14/2024 2:45 PM GALLERY OR MUSEUM TECHNICIAN Type 2 diabetes mellitus without complication, without long-term current use of insulin (CMS/[facility]) MICROALBUMIN/CREATIN INE RATIO, RANDOM UR Routine 04/11/2024 4:17 PM GALLERY OR MUSEUM TECHNICIAN Type 2 diabetes mellitus without complication, without long-term current use of insulin ([facility]) CT LUNG SCREENING (LDCT BASELINE OR ANNUAL) Routine 12/27/2023 Screening for lung cancer HM DIABETES EYE EXAM Routine 03/01/2023 12:25 PM CDT ENDOSCOPY, COLON, SCREENING Routine 01/25/2023 12:15 PM CDT US AORTA Routine 04/21/2021 Abdominal aortic aneurysm (AAA) without rupture from Last 3 Months or Most Recently Relevant to Health Maintenance Results * (ABNORMAL) HEMOGLOBIN A1C (06/14/2024 2:45 PM GALLERY OR MUSEUM TECHNICIAN) HEMOGLOBIN A1C 6.2(H) <5.7 % of total Hgb [facility] Comment: For someone without known diabetes, a hemoglobin A1c value between 5.7% and 6.4% is consistent with prediabetes and should be confirmed with a follow-up test. For someone with known diabetes, a value <7% indicates that their diabetes is well controlled. A1c targets should be individualized based on duration of diabetes, age, comorbid conditions, and other considerations. This assay result is consistent with an increased risk of diabetes. Currently, no consensus exists regarding use of hemoglobin A1c for diagnosis of diabetes for children. ESTIMATED AVERAGE GLUCOSE (MG/DL) 131 mg/dL [facility] ESTIMATED AVERAGE GLUCOSE (MMOL/L) 7.3 mmol/L [facility] Comment: FASTING:UNKNOWN FASTING: UNKNOWN Test Performed at: [facility] [address] [facility] [place] [address] Bhavik Venegas MD Blood 06/14/2024 2:45 PM GALLERY OR MUSEUM TECHNICIAN 06/14/2024 2:45 PM GALLERY OR MUSEUM TECHNICIAN Carolyn Ireland DO CHEMISTRY ORDERABLES Final Result [facility] [phone] [facility] [place] [id number] [place] [address] * LIPID PANEL (06/14/2024 2:45 PM GALLERY OR MUSEUM TECHNICIAN) CHOLESTEROL 139 <200 mg/dL [facility] HDL 51 > OR = 40 mg/dL [facility] TRIGLYCERIDE 93 <150 mg/dL [facility] LDL CALCULATED 70 mg/dL (calc) [facility] Comment: Reference range: <100 Desirable range <100 mg/dL for primary prevention; <70 mg/dL for patients with CHD or diabetic patients with > or = 2 CHD risk factors. LDL-C is now calculated using the Arpan-Younger calculation, which is a validated novel method providing better accuracy than the Friedewald equation in the estimation of LDL-C. Arpan SS et al. RAZIA. 2013;310(19): 4326-1318 (http://education.[employer].Cashsquare/faq/XHQ354) CHOL/HDL RATIO 2.7 <5.0 (calc) [facility] NON-HDL CHOLESTEROL 88 <130 mg/dL (calc) [facility] Comment: For patients with diabetes plus 1 major ASCVD risk factor, treating to a non-HDL-C goal of <100 mg/dL (LDL-C of <70 mg/dL) is considered a therapeutic option. Test Performed at: [facility] [place] [address] Bhavik Venegas MD Blood 06/14/2024 2:45 PM GALLERY OR MUSEUM TECHNICIAN 06/14/2024 2:45 PM GALLERY OR MUSEUM TECHNICIAN Carolyn Ireland DO CHEMISTRY ORDERABLES Final Result Performing Organization Address City/[facility]/ZIP Co de Phone Number [facility] [phone] [address] * MICROALBUMIN/CREATININE RATIO, RANDOM UR (04/11/2024 4:17 PM GALLERY OR MUSEUM TECHNICIAN) Creatinine, Urine 60 20 - 320 mg/dL [facility] MICROALBUMIN, URINE 0.3 See Note: mg/dL [facility] Comment: Reference Range: Reference Range Not established MICROALBUMIN/CREAT RATIO, UR 5 <30 mg/g creat [facility] Comment: The ADA defines abnormalities in albumin excretion as follows: Albuminuria Category Result (mg/g creatinine) Normal to Mildly increased <30 Moderately increased 30-299 Severely increased > OR = 300 The ADA recommends that at least two of three specimens collected within a 3-6 month period be abnormal before considering a patient to be within a diagnostic category. Test Performed at: [facility] [address] [place] [address] Bhavik Venegas MD Urine URINE SPECIMEN OBTAINED BY CLEAN CATCH PROCEDURE / Unknown 04/11/2024 4:17 PM GALLERY OR MUSEUM TECHNICIAN 04/12/2024 2:51 AM GALLERY OR MUSEUM TECHNICIAN September Prasad CYCLE ANALYST URINE ORDERABLES Final Result Performing Organization Address [facility] Co de Phone Number [facility] [phone] [facility] [employer] [address] * CT LUNG SCREENING (LDCT BASELINE OR ANNUAL) (12/27/2023) Anatomical Region Laterality Modality Chest Computed Tomogra phy Carolyn Ireland DO CT ORDERABLES Final Resul t * HM DIABETES EYE EXAM (03/01/2023 12:25 PM CDT) Abstract Provider HEALTH MAINTENANCE Final Resul t * ENDOSCOPY, COLON, SCREENING (01/25/2023 12:15 PM CDT) us Abstract Provider GI PROCEDURE ORDERABLES Final Result * US AORTA (04/21/2021) Anatomical Region Laterality Modality Abdomen Ultrasound us Carolyn Ireland DO US ORDERABLES Final Resul t from Last 3 Months or Most Recently Relevant to Health Maintenance Insurance [employer] BLUE ACCESS CHOICE Care Teams Radio Interference Expert Relationship Specialty Start Date End Date Carolyn Ireland DO [address] [facility] [place] [address] PCP - General Family Practice 10/18/23
--- OUTSIDE RECORDS SUMMARY | 2025-01-24 11:42 | XMS_ITS | Encounter Summary ---
Author Organization [facility] Address [address] [place] [address] Care Team Providers Care Sql Server Architect Name Role Phone Carolyn Ireland DO Primary Care Provider [phone] Reason for Visit * Reason Comments Medication Assistance Encounter Details Date Type Department Care Team (Late st Contact Info) Description 01/18/2025 Telephone [facility] Medicine [place] [address] [place] [address] Carolyn Ireland DO [address] [place] [address] Medication Assistance Social History Tobacco Use Types Packs/Day Years Used Date Smoking Tobacco: Every Day Cigarettes 2 40 Passive Smoke Exposure: Current Smokeless Tobacco: Never Alcohol Use Standard Drinks/Week Comments Never 0 (1 standard drink = 0.6 oz pur e alcohol) Sex and Gender Information Value Date Recorded Sex Assigned at Male 04/21/2023 1:23 PM TUBE BUFFER Legal Sex Male 9:46 AM TUBE BUFFER Gender Identity Male 04/21/2023 1:23 PM TUBE BUFFER Sexual Orientation Not on file documented as of this encounter Miscellaneous Notes * Telephone Encounter - Carolyn Ireland DO - 01/18/2025 4:27 PM CDT She faxed a form for me to fill out. * Telephone Encounter - Renetta Tavarez RN - 01/18/2025 2:50 PM CDT 01/18/2025 2:50 PM I returned a call to [facility] pharmacist but they said they need to have a direct conversation with the physician due to medications that she is on. They said that her Sherburn had been reduced but then the Soma was added on. She also stated that with hydrocodone, Soma and then having a prescription for gabapentin that this poses for some increased negative effects. The pharmacist needs to hav e a direct conversation with Dr. Ireland in order to dispense medications. Renetta RN * Telephone Encounter - Cynthia Humphreys - 01/18/2025 1:16 PM CDT Copied from [facility] #[id number]. Topic: Medication Request >> Jan 18, 2025 1:14 PM Cynthia Bridges wrote: Pharmacy Calling: [facility] - [address] Pharmacy Contact Name: David [facility]acy Number: [phone] Medication: 1) HYDROcodone-acetaminophen (NORCO) 10-325 mg Tablet 2) morphine (MS IR) 15 mg tablet Call Notes: they have some clinical concerns about these medications - reference [id number] Is the patient there at the pharmacy waiting to fill a prescription? No Is there an encounter open? No documented in this encounter Plan of Treatment Upcoming Encounters Date Type Department Care Team (Late st Contact Info) Description 02/07/2025 4:00 PM CDT Office Visit [facility] Medicine [place] [address] [place] [facility] [place] [address] Carolyn Ireland DO [address] [place] [facility] [facility] [place] [phone] documented as of this encounter Visit Diagnoses Not on filedocumented in this encounter Care Teams Sql Server Architect Relationship Specialty Start Date End Date Carolyn Ireland DO [address] [place] [address] PCP - General Family Practice 10/18/23 documented as of this encounter
--- OUTSIDE RECORDS SUMMARY | 2025-01-24 11:42 | XMS_ITS | Encounter Summary ---
Author Organization [facility] Address [address] [place] [address] Care Team Providers Care Enrolled Nurse Name Role Phone Carolyn Ireland DO Primary Care Provider [phone] Reason for Visit * Reason Comments Med Refill Medication Refill Encounter Details Date Type Department Care Team (Late st Contact Info) Description 01/18/2025 Refill [facility] Family Medicine [place] [address] [place] [address] Carolyn Ireland DO [address] [place] [address] Chronic midline low back pain with bilateral sciatica Social History Tobacco Use Types Packs/Day Years Used Date Smoking Tobacco: Every Day Cigarettes 2 40 Passive Smoke Exposure: Current Smokeless Tobacco: Never Alcohol Use Standard Drinks/Week Comments Never 0 (1 standard drink = 0.6 oz pur e alcohol) Sex and Gender Information Value Date Recorded Sex Assigned at Male 04/21/2023 1:23 PM CREDIT CHARGE AUTHORIZER Legal Sex Male 9:46 AM CREDIT CHARGE AUTHORIZER Gender Identity Male 04/21/2023 1:23 PM CREDIT CHARGE AUTHORIZER Sexual Orientation Not on file documented as of this encounter Miscellaneous Notes * Telephone Encounter - Renetta Tavarez RN - 01/19/2025 11:15 AM CDT 01/19/2025 11:15 AM Returned call and spoke with patient. Discussed his medications were sent into [facility] instead of to his local pharmacy. He is asking that the start dates get corrected as he says that these are not correct as he needs to pick these up on January 20. Renetta RN * Telephone Encounter - Nikia Vergara - 01/19/2025 9:45 AM CDT Copied from [facility] #[id number]. Topic: Medication Request >> Jan 19, 2025 9:39 AM Nikia Montes wrote: Caller Name: Lawrence Carreon Callback Number: Telephone Information: Medication (Ask patient/caregiver to spell if possible): HYDROcodone-acetaminophen (NORCO) 10-325 mg Tablet carisoprodoL (SOMA) 350 mg tablet morphine (MS IR) 15 mg tablet Note: All medication prescriptions can be requested using one [facility] Preferred Pharmacy: [facility] - [facility] [address] Call Notes: Patient is needing the above medication sent to the pharmacy to be refilled. He states he is needing this refilled tomorrow and they get messed up with his visit frequency and only being able to get 3 refills on these at a time. His is asking to speak to a nurse to get this lined out asit gets messed up. Did caller contact the correct clinic for prescribing provider? Yes Ask caller if the refill is for a controlled medication. Is this for a controlled Medication? Yes Is there an encounter open? Yes documented in this encounter Plan of Treatment Upcoming Encounters Date Type Department Care Team (Late st Contact Info) Description 02/07/2025 4:00 PM CDT Office Visit [facility] [place] [address] [facility] [phone] Carolyn Ireland DO [address] [place] [phone] documented as of this encounter Visit Diagnoses Diagnosis Chronic midline low back pain with bilateral sciatica documented in this encounter Care Teams Enrolled Nurse Relationship Specialty Start Date End Date Carolyn Ireland DO [address] [place] [address] PCP - General Family Practice 10/18/23 documented as of this encounter
--- OUTSIDE RECORDS SUMMARY | 2025-01-24 11:42 | XMS_ITS | Encounter Summary ---
Author Organization [facility] Address [address] [place] [address] Care Team Providers Care Ocular Care Aide Name Role Phone Carolyn Ireland DO Primary Care Provider [phone] Reason for Visit * Reason Comments Medication Refill Encounter Details Date Type Department Care Team (Late st Contact Info) Description 01/17/2025 Refill [facility] Medicine [place] [address] [place] [address] Carolyn Ireland DO [address] [place] [address] Chronic respiratory failure with hypoxia and hypercapnia (CMS/HCC) Social History Tobacco Use Types Packs/Day Years Used Date Smoking Tobacco: Every Day Cigarettes 2 40 Passive Smoke Exposure: Current Smokeless Tobacco: Never Alcohol Use Standard Drinks/Week Comments Never 0 (1 standard drink = 0.6 oz pur e alcohol) Sex and Gender Information Value Date Recorded Sex Assigned at Male 04/21/2023 1:23 PM VASCULAR RADIOLOGIST Legal Sex Male 9:46 AM VASCULAR RADIOLOGIST Gender Identity Male 04/21/2023 1:23 PM VASCULAR RADIOLOGIST Sexual Orientation Not on file documented as of this encounter Miscellaneous Notes * Telephone Encounter - Jacqueline Pearson LPN - 01/17/2025 9:50 AM CDT Refill for nebulizer kit sent in to preferred pharmacy. Jacqueline Pearson LPN, 01/17/2025 9:50 AM * Telephone Encounter - Carter Radford - 01/17/2025 9:35 AM CDT Copied from [facility] #[id number]. Topic: Medication Request >> Jan 17, 2025 9:33 AM Carter Prasad wrote: Caller Name: Namita from [employer] Callback Number: [phone] Medication (Ask patient/caregiver to spell if possible): Nebulizer Accessories Kit Note: All medication prescriptions can be requested using one [facility] Preferred Pharmacy: [facility] - [facility] [address] Call Notes: Patient is needing more supplies Did caller contact the correct clinic for prescribing provider? Yes Ask caller if the refill is for a controlled medication. Is this for a controlled Medication? Unsure Is there an encounter open? No documented in this encounter Plan of Treatment Upcoming Encounters Date Type Department Care Team (Late st Contact Info) Description 02/07/2025 4:00 PM CDT Office Visit [facility] [place] [address] [place] [facility] [place] [phone] Carolyn Ireland DO [address] [facility] [place] [phone] documented as of this encounter Visit Diagnoses Diagnosis Chronic respiratory failure with hypoxia and hypercapnia (CMS/HCC) documented in this encounter Care Teams Ocular Care Aide Relationship Specialty Start Date End Date Carolyn Ireland DO [address] [facility] [place] [phone] PCP - General Family Practice 10/18/23 documented as of this encounter
--- OUTSIDE RECORDS SUMMARY | 2025-01-24 11:42 | XMS_ITS | Encounter Summary ---
Author Organization [facility] Address [address] [place] [address] Care Team Providers Care Residential Installer Name Role Phone Carolyn Ireland DO Primary Care Provider Encounter Details Date Type Department Care Team (Late st Contact Info) Description 01/23/2025 External Device Data [place] ABSTRACTION Provider, Abstract NO ADDRESS ON FILE Social History Tobacco Use Types Packs/Day Years Used Date Smoking Tobacco: Every Day Cigarettes 2 40 Passive Smoke Exposure: Current Smokeless Tobacco: Never Alcohol Use Standard Drinks/Week Comments Never 0 (1 standard drink = 0.6 oz pur e alcohol) Sex and Gender Information Value Date Recorded Sex Assigned at Male 04/21/2023 1:23 PM TELECOMMUNICATIONS ADMINISTRATOR Legal Sex Male 9:46 AM TELECOMMUNICATIONS ADMINISTRATOR Gender Identity Male 04/21/2023 1:23 PM TELECOMMUNICATIONS ADMINISTRATOR Sexual Orientation Not on file documented as of this encounter Plan of Treatment Upcoming Encounters Date Type Department Care Team (Late st Contact Info) Description 02/07/2025 4:00 PM CDT Office Visit [facility] Medicine [place] [address] [place] [address] Carolyn Ireland DO [address] [place] [address] documented as of this encounter Visit Diagnoses Not on filedocumented in this encounter Care Teams Residential Installer Relationship Specialty Start Date End Date Carolyn Ireland DO [address] [place] [address] PCP - General Family Practice 10/18/23 documented as of this encounter
--- OUTSIDE RECORDS SUMMARY | 2025-01-24 11:42 | XMS_ITS | Clinical Summary ---
Author Organization [facility] Address [address] [place] [address] Phone Care Team Providers Care Pharmacy Picking Tech Name Role Phone Unavailable Primary Care Provider Unavailabl e Allergies No known active allergies Medications hydroCHLOROthiazid e 25 mg tabletIndications: Essential hypertension Take 25 mg by mouth daily. Active rosuvastatin (CRESTOR) 20 mg tabletIndications: Mixed hyperlipidemia Take 20 mg by mouth daily. Active albuterol HFA 90 mcg inhalerIndications :Chronic obstructive pulmonary disease, unspecified COPD type (CMS/HCC) Take 2 Puffs by inhalation every 6 hours as needed for Shortness of Breath. Active testosterone cypionate (DEPO-TESTOSTERONE ) 200 mg/mL OilIndications:Mal e hypogonadism Inject 200 mg by intramuscular injection one time only. EVERY 10-12 DAYS Active aspirin (ECOTRIN EC) 81 mg Tablet, Delayed Release (E.C.) Take 81 mg by mouth daily. Active calcium as carbonate (CALTRATE) 1,500 mg (600 mg elemental) Tablet Take by mouth. Active cetirizine (ZyrTEC) 10 mg tabletIndications: Seasonal allergic rhinitis due to pollen Take 10 mg by mouth daily. Active Cholecalciferol, Vitamin D3, (Vitamin D3) 50 mcg (2,000 unit) Capsule Take by mouth. Activ e umeclidinium-vilan teroL (Anoro Ellipta) 62.5-25 mcg/actuation Disk with DeviceIndications: Chronic obstructive pulmonary disease, unspecified COPD type (CMS/HCC) Take 1 Puff by inhalation daily. 90 Each 05/13/20 20 Active potassium chloride (KLOR-CON) 10 mEq Extended Release tablet Take 1 Tablet (10 mEq) by mouth daily. 90 Tablet 3 05/13/20 20 Active magnesium oxide (MAG-OX) 400 mg (241.3 mg magnesium) tablet Take 1 Tablet (400 mg) by mouth daily. 90 Tablet 3 05/13/20 20 Active propranoloL (INDERAL) 10 mg tablet Take 1 Tablet (10 mg) by mouth 3 times daily. 30 Tablet 3 05/17/20 20 Active gabapentin (NEURONTIN) 300 mg capsuleIndications :Chronic midline low back pain with bilateral sciatica Take 2 Capsules (600 mg) by mouth 5 times daily. TWO TABS FIVE TIMES DAILY 300 Capsule 6 07/10/19 21 Active carisoprodoL (SOMA) 350 mg tabletIndications: Chronic midline low back pain with bilateral sciatica Take 1 Tablet (350 mg) by mouth 4 times daily. 120 Tablet 3 08/13/19 21 Active metFORMIN (GLUCOPHAGE XR) 500 mg Extended Release 24 hour tablet Take 2 Tablets (1,000 mg) by mouth daily with breakfast. 180 Tablet 4 08/16/19 21 Active promethazine (PHENERGAN) 25 mg tablet TAKE ONE TABLET BY MOUTH THREE TIMES DAILY NEEDED FOR NAUSEA/EMESIS 30 Tablet 2 08/29/19 21 Active tiZANidine (ZANAFLEX) 4 mg Tablet TAKE ONE TABLET BY MOUTH THREE TIMES DAILY NEEDED FOR SPASM 90 Tablet 2 10/24/19 21 Active guaiFENesin (Mucinex) Tablet Extended Release 12hrIndications:Ch ronic obstructive pulmonary disease, unspecified COPD type (CMS/HCC) Take 1 Tablet (1,200 mg) by mouth 2 times daily. 180 Tablet 4 11/13/19 21 Active morphine (MS IR) 15 mg tabletIndications: Chronic midline low back pain with bilateral sciatica Take 1 Tablet (15 mg) by mouth 2 times daily as needed for Pain. Max Daily Amount: 30 mg 60 Tablet 11/13/19 21 Active morphine (MS IR) 15 mg tabletIndications: Chronic midline low back pain with bilateral sciatica Take 1 Tablet (15 mg) by mouth 2 times daily as needed for Pain. Do not fill until 12/12/2020 Max Daily Amount: 30 mg 60 Tablet 11/13/19 21 Active morphine (MS IR) 15 mg tabletIndications: Chronic midline low back pain with bilateral sciatica Take 1 Tablet (15 mg) by mouth 2 times daily as needed for Pain. Do not fill until 01/12/2021 Max Daily Amount: 30 mg 60 Tablet 11/13/19 21 Active HYDROcodone-acetam inophen (NORCO) 10-325 mg TabletIndications: Chronic midline low back pain with bilateral sciatica Take 1-2 Tablets by mouth every 4 hours as needed for Pain, Moderate. Max 9 per day. Max Daily Amount: 9 Tablets 270 Tablet 11/13/19 21 Active HYDROcodone-acetam inophen (NORCO) 10-325 mg TabletIndications: Chronic midline low back pain with bilateral sciatica Take 1-2 Tablets by mouth every 4 hours as needed for Pain, Moderate. Max 9 per day. Do not fill until 12/12/2020 Max Daily Amount: 9 Tablets 270 Tablet 11/13/19 21 Active HYDROcodone-acetam inophen (NORCO) 10-325 mg TabletIndications: Chronic midline low back pain with bilateral sciatica Take 1-2 Tablets by mouth every 4 hours as needed for Pain, Moderate. Max 9 per day. Do not fill until 01/12/2021 Max Daily Amount: 9 Tablets 270 Tablet 11/13/19 21 Active predniSONE (DELTASONE) 10 mg tabletIndications: Chronic obstructive pulmonary disease, unspecified COPD type (CMS/[facility]) Clarify: take 3 tabs daily for 3 days, then 2 tabs daily for 3 days then 1 tab daily for 3 days then DC 18 Tablet 11/13/19 21 Active pantoprazole (PROTONIX) 40 mg Tablet, Delayed Release (E.C.)Indications: Gastroesophageal reflux disease without esophagitis Take 1 Tablet (40 mg) by mouth 2 times daily. 180 Tablet 4 11/24/19 21 Active DULoxetine (CYMBALTA) 60 mg Capsule, Delayed Release(E.C.) Take 1 Capsule (60 mg) by mouth daily. 90 Capsule 4 11/24/19 21 Active Active Problems Problem Noted Date Diagnosed Date Chronic midline low back pain with bilateral sci atica 04/21/2020 Type 2 diabetes mellitus wit hout complication, without long-term current use of insulin 04/21/2020 Recurrent major depressive disorder, in full rem ission 04/21/2020 Essential hypertension 04/21/2020 Chronic obstructive pulmonary disease 04/21/2020 Mixed hyperlipidemia 04/21/2020 Gastroesophageal reflux disease without esophagi tis 04/21/2020 Benign prostatic hyperplasia with urinary hesita ncy 04/21/2020 Male hypogonadism 04/21/2020 Seasonal allergic rhinitis due to pollen 020 Immunizations Immunization Administration Dates Next Due (SPIKEVAX) (12 YRS UP PRIMAR Y SERIES) COVID-19 VACCINE - MRNA-1273(PF) 100 MCG/0.5 ML IM SUSP 08/09/2020,07/12/2020 Influenza Seasonal Unspecified Formulation IM Social History Tobacco Use Types Packs/Day Years Used Date Smoking Tobacco: Every Day Smokeless Tobacco: Never Alcohol Use Standard Drinks/Week Comments Never 0 (1 standard drink = 0.6 oz pur e alcohol) Sex and Gender Information Value Date Recorded Sex Assigned at Not on file Legal Sex Male 10:23 AM CDT Gender Identity Not on file Sexual Orientation Not on file Last Filed Vital Signs Vital Sign Reading Time Taken Comments Blood Pressure 138/68 11/12/2020 4:15 PM CDT Pulse 113 11/12/2020 4:15 PM CDT Temperature 36.7 C (98.1 F) 11/12/2020 4:15 PM CDT Respiratory Rate 20 11/12/2020 4:15 PM CDT Oxygen Saturation 90% 11/12/2020 4:15 PM CDT Inhaled Oxygen Concentration - - Weight 60.3 kg (133 lb) 11/12/2020 4:15 PM CDT Height 182.9 cm (6') 11/12/2020 4:15 PM CDT Body Mass Index 18.04 11/12/2020 4:15 PM CDT Plan of Treatment Health Maintenance Due Date Last Done Comments DIABETES ANNUAL FOOT EXAM 11/27/1971 DIABETES ANNUAL RETINAL EXAM 11/27/1971 DIABETES MICROALBUMIN ANNUAL SCREEN 11/27/1971 DTAP/TDAP/TD VACCINES (1 - Tdap) 1972 PNEUMOCOCCAL VACCINE 50+ YEA RS (1 of 2 - PCV) 1972 FIT-DNA Q 3 years 1998 FIT/FOBT Q 1 year 1998 Flex Sig/CT Colonography Q 5 years 1998 ZOSTER VACCINE (1 of 2) 11/27/2003 RSV VACCINE (60+ or ) (1 - Risk 60-74 years 1-dose series) 2013 DIABETES HBA1C Q 6 MONTHS 02/07/2021 08/07/2020 LDL CHOLESTEROL ANNUAL 08/07/2021 , 05/09/2020, 10/09/2019, Additional history exists COVID-19 Vaccine (2023-2 5 season) 2024 08/09/2020, 07/12/2020 INFLUENZA VACCINE (#1) 2025 02/20/2020 COLORECTAL SCREENING 08/26/2030 08/26/2020, 07/10/19 20 Colorectal Cancer Screening 08/26/2030 Procedures Procedure Name Priority Date/Time Associated Diagnosis Comments ENDOSCOPY, COLON, SCREENING Routine 08/26/2020 History of colon polyps LIPID PANEL Routine 08/07/2020 9:19 AM AUTOMOTIVE LOT ATTENDANT Type 2 diabetes mellitus without complication, without long-term current use of insulin ([facility]) from Last 3 Months or Most Recently Relevant to Health Maintenance Results * ENDOSCOPY, COLON, SCREENING (08/26/2020) Carolyn Ireland DO GI PROCEDURE ORDERABLES Fin al Result * LIPID PANEL (08/07/2020 9:19 AM AUTOMOTIVE LOT ATTENDANT) ABSTRACTED CHOLESTEROL 81 EXTERNAL LAB ABSTRACTED TRIGLYCERIDE 60 EXTERNAL LAB ABSTRACTED HDL 33 EXTERNAL LAB ABSTRACTED LDL CALCULATED 36 EXTERNAL LAB CHOLESTEROL EXTERNAL LAB TRIGLYCERIDE EXTERNAL LAB HDL EXTERNAL LAB LDL CALCULATED EXTERNAL LAB Blood 08/07/2020 9:19 AM AUTOMOTIVE LOT ATTENDANT Carolyn Ireland DO CHEMISTRY ORDERABLES Final Result EXTERNAL LAB from Last 3 Months or Most Recently Relevant to Health Maintenance Insurance [facility]
--- NOTE | 2025-01-24 12:01 | ECG_ITS ---
[employer] Test Date: 2025-01-24 Pat Name: Lawrence Carreon Department: Room: Gender: Male Chief Analytics Officer: : 1955 Requested By: Gabriel Garner Order Number: [id number] Selena MD: Patrick Cueva M.D. Measurements Intervals [place] Rate: 96 P: 99 NV: 146 QRS: 97 QRSD: 93 T: 110 QT: 367 QTc: 464 Interpretive Statements SINUS RHYTHM ARM LEADS REVERSED [INVERTED P AND QRS IN I] Compared to ECG 10/17/2024 09:52:35 No significant changes Electronically Signed On 01-27-2025 08:53:01 CDT by Patrick Cueva M.D. [email or web address]
[2025-01-24 12:06] LABS: Hematocrit 46.7 % (37-53); Hemoglobin 14.80 g/dL (11.27-16.99); Mean Corpuscular HGB Conc 31.7 g/dL (30-55); Mean Corpuscular Hemoglobin 31.6 pg (27-33); Mean Corpuscular Volume 99.8 fl (82-101); Nucleated Red Blood Cells % 0 %; Platelet Count 223 10^3/cmm (157-399); Red Blood Count 4.68 10^6/uL (3.85-5.65); White Blood Count 5.93 10^3/uL (3.29-11.43)
[2025-01-24 12:35] LABS: Alanine Aminotransferase 19 U/L (0-41); Albumin Level 4.4 g/dL (3.5-5.2); Alkaline Phosphatase 72 U/L (40-130); Anion Gap 18.0 (5-19); Aspartate Amino Transferase 22 U/L (0-40); Blood Urea Nitrogen 8 mg/dL (8-23); Calcium 9.3 mg/dL (8.5-10.5); Carbon Dioxide 30 mmol/L (22-29); Chloride 91 mmol/L (98-107); Creatinine Clr Calc Pharmacy 57.0532; Globulin 3.0 g/dL (1.3-4.6); Glucose 136 mg/dL (65-115); Lipase 14 U/L (13-60); NT Pro B Type Natriuretic Pept 769 pg/mL (0-125); Osmolality Calculated 280 mOsm/kg (285-295); Potassium 4.0 mmol/L (3.5-5.1); Slide Review Slide Review Perform; Sodium 135 mmol/L (136-145); Total Protein 7.4 g/dL (6.6-8.7)
--- NOTE | 2025-01-24 12:45 | XR_ITS ---
WS: [id number] Portable AP semiupright chest, 01/24/2025, 1254 hours Clinical Data: post chest tube Comparison: Portable chest, 01/24/2025, 11:32 hours Findings: There is a small right chest tube in the right midlung. The pneumothorax has partly reexpanded. There is a 10% residual pneumothorax in the right upper pleural space. No nodules, masses or effusions are seen. The heart is normal. The pulmonary vascularity is not increased. No pneumonia or pne umothorax is seen. The diaphragms are flattened. The aortic arch shows mild tortuosity. Epidural stimulator leads end in the mid thoracic region. Monitor leads are on the chest wall. XR/XR chest 1V portable [id number] Impression: 1. Insertion of right chest tube with partial expansion of right pneumothorax, 10% residual pneumothorax and right upper pleural space. 2. Hyperinflation and atherosclerosis.
[2025-01-24] MEDS: ondansetron 2 mg/ML SDV 2 mL 4 MG IVP (13:07)
[2025-01-24] MEDS: morphine 4 mg/mL SDV 1 mL IVP (13:13)
--- NOTE | 2025-01-24 14:24 | XR_ITS ---
WS: [id number] Portable AP upright chest, 01/24/2025, 1427 hours Clinical Data: sob Comparison: Portable chest, 01/24/2025, 1254 hours Findings: The small right chest tube in the right midlung remains the same position. Again the apical right pneumothorax is still visible, perhaps 10% residual. The remainder of the chest shows no change. XR/XR chest 1V portable [id number] Impression: Right chest tube partially reexpanding right lung with 10% apical residual pneu mothorax.
--- NOTE | 2025-01-24 15:13 | PM.HP ---
Providers/Chief Complaint Admitting Physician: Aracelis Mortensen MD Primary Care Provider: Carolyn Ireland DO Chief Complaint: Resp Distr History of Present Illness Lawrence Carreon is a 69 year old male with past medical history of COPD, chronically on home oxygen 5 L/min via high flow nasal cannula, systolic CHF, peripheral neuropathy, diabetes mellitus, GERD, dyslipidemia who presented to the emergency room today with worsening shortness of breath over the past 3 weeks. Patient states that dyspnea has been worsening progressively to the point where he was unable to carry on his ADLs within the house yesterday. He was unable to walk even a short distance in his house. He denies any chest pain. states he has been bringing up more phlegm than usual, however states chronic cough is about the same.. Subjective fever reported over the past 3 to 4 weeks. He denies any trauma to the chest wall. Chest x-ray was taken in the ER which showed right-sided pneumothorax approaching 50% and background changes of significant COPD. No acute pulmonary infiltrates were encountered. No mediastinal shift was noted.. A pigtail catheter has been placed on the right side by the ER physician with noted reexpansion of the lung. Post chest tube insertion images are showing partially reexpanded lung with 10% apical residual pneumothorax. At this time patient is on 6 L/min high flow nasal cannula, has pain at the chest tube insertion site. Review of Systems General: Reports: 10 or more systems reviewed and unremarkable except in HPI and below Const: Denies: fever(s), chills or body aches Eyes: Denies: change in vision, blurry vision or photophobia ENMT: Reports: hoarseness; Denies: throat pain, enlarged tonsils, odynophagia or nasal congestion Card: Denies: chest pain, palpitations, irregular heart rhythm, edema, swelling of feet/ankles, lightheadedness, pre-syncope, dyspnea on exertion or orthopnea Resp: Denies: dyspnea, productive cough, non-productive cough, wheezing, stridor, pain on inspiration, change in phlegm color, hemoptysis or chest congestion GI: Denies: abdominal pain, nausea, vomiting, hematemesis, coffee ground emesis, dysphagia, heartburn, diarrhea, constipation, GI cramping, change in stool character, hematochezia or melena : Denies: flank pain, dysuria, urinary frequency, urinary urgency, urinary hesitancy or hematuria Musc: Denies: neck pain, back pain, extremity pain, joint swelling, joint warmth or deformity Neuro: Denies: headache(s), numbness in extremities, weakness in extremities, sensory changes, difficulty walking, frequent falls, dizziness, vertigo, behavioral changes, Slurred speech present or seizure-like activity Psych: Denies: anxiety, depression, suicidal ideation or homicidal ideation Endo: Denies: polyuria, polydipsia, tired all the time, cold intolerance or hot flashes Arsenio/Lymph: Denies: easy bruising or easy bleeding Medications/Allergies Home Medications ?Medication ?Instructions ?Recorded ?Confirmed ?Last Taken ?Type aspirin 81 mg tablet,delayed 81 mg PO DAILY 07/14/19 01/24/25 01/23/25 20:00 History release (Adult Low Dose Aspirin) carisoprodol 350 mg tablet 350 mg PO QID PRN Spasms 07/14/19 01/24/25 10/13/24 History hydrocodone 10 mg-acetaminophen 1 - 2 tab PO Q4H PRN Pain 02/06/20 01/24/25 01/24/25 10:00 History 325 mg tablet morphine 15 mg immediate release 15 mg PO BID 02/13/20 01/24/25 01/23/25 History tablet rosuvastatin 20 mg tablet 20 mg PO QPM 10/10/20 01/24/25 01/23/25 History pantoprazole 40 mg tablet,delayed 40 mg PO BID 03/20/21 01/24/25 01/22/25 History release methenamine hippurate 1 gram tablet See Rx Instructions .Route 04/01/22 01/24/25 01/22/25 Rx .COMPLEX #180 tabs testosterone cypionate 200 mg/mL 200 mg IM .every 10 days 04/28/22 01/24/25 2 Months Ago History intramuscular oil ~09/04/23 (Depo-Testosterone) gabapentin 300 mg capsule 600 mg PO TID elbow neuralgia 04/19/23 01/24/25 01/22/25 History fluticasone fur. 100 mcg-umeclid 1 inh inhalation QPM 12/14/23 01/24/25 01/22/25 History 62.5 mcg-vilant 25 mcg inhalat.powder (Trelegy Ellipta) albuterol sulfate 1.25 mg/3 mL 1.25 mg (3 mL) inhalation Q6H PRN 12/16/23 01/24/25 01/24/25 Rx solution for nebulization shortness of breath or wheezing #90 mL metformin 500 mg tablet 500 mg PO DAILY 04/27/24 01/24/25 01/22/25 History furosemide 20 mg tablet 20 mg PO BID #180 tabs 09/22/24 01/24/25 01/22/25 Rx potassium chloride 10 mEq 10 meq PO DAILY 10/17/24 01/24/25 01/22/25 History tablet,extended release ascorbic acid (vitamin C) 1,000 mg 1,000 mg PO BID 01/24/25 01/24/25 01/22/25 History tablet (Vitamin C) calcium 600 mg (as carbonate)-vit 1 tab PO DAILY 01/24/25 01/24/25 01/22/25 History D3 20 mcg (800 unit) chewable tablet (Caltrate plus D) cholecalciferol (vitamin D3) 125 125 mcg PO DAILY 01/24/25 01/24/25 01/22/25 History mcg (5,000 unit) tablet (Vitamin D3) fluticasone propionate 50 50 mcg intranasal DAILY PRN 01/24/25 01/24/25 Unknown History mcg/actuation nasal allergies spray,suspension guaifenesin 1,200 mg tablet, 1,200 - 2,400 mg PO Q12H 01/24/25 01/24/25 01/22/25 History extended release 12 hr (Mucinex) ketoconazole 2 % shampoo See Rx Instructions .Route .COMPLEX 01/24/25 01/24/25 Unknown History sodium chloride 0.65 % nasal spray 2 spray intranasal Q4H PRN 01/24/25 01/24/25 Unknown History aerosol (Saline Nasal) allergies Allergies Allergy/AdvReac Type Severity Reaction Status Date / Time adhesive Allergy ALGY-Bliste Verified 06/19/24 13:10 r azithromycin Allergy Unknown Verified 06/19/24 13:10 PFSH Acute PFSH: Medical History History of nonmelanoma skin cancer Hx MRSA infection Elevated brain natriuretic peptide (BNP) level Chronic back pain Hypertension Hyponatremia Recurrent UTI AAA (abdominal aortic aneurysm) without rupture Non-ischemic cardiomyopathy Pulmonary nodule 1 cm or greater in diameter Intervertebral disc disorders with radiculopathy, 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 Easton January 23, 2019. With thoracic spinal cord stimulator placement History of lumbar fusion Dr. Easton February 15, 2017 L4-S1 History of umbilical hernia repair History of colon resection Due to cancer History of arthroscopy of both knees Family History Mother Diabetes Father , AT AGE 87 Diabetes CAD (coronary artery disease) Hypertension Myocardial infarction Cancer Brother Cancer Gastroesophageal cancer CAD (coronary artery disease) Diabetes Sister Diabetes Denies family history of Clotting disorder Dementia Chronic kidney disease (CKD) Suicide Anesthesia complication Bleeding disorder Lung disease Stroke Social History Smoking and tobacco/nicotine status: current every day tobacco/nicotine user cigarettes Packs smoked per day: 2 Years cigarettes smoked: 53 [ Other cigarette details: Started 1969] Quit status (tobacco/nicotine): considering quitting Second hand smoke exposure: Yes Alcohol intake: never Substance/Drug Use: never Lives independently: Yes Household members: spouse Housing: House Marital status: service: Yes branch: [employer] Current occupational status: employed Current occupational exposures/hazards: No Pets and animals: Yes Do you think of yourself as: Straight/Heterosexual Current gender identity: Male Special syeda needs: No Vitals/I&O/Wt Last Vital Signs Temp 97.6 F 01/24/25 11:18 Pulse 89 01/24/25 15:00 Resp 16 01/24/25 15:00 BP 120/62 01/24/25 15:00 Pulse Ox 89 L 01/24/25 15:00 O2 Del Method Nasal Cannula 01/24/25 15:00 O2 Flow Rate 6 01/24/25 15:00 01/24/25 01/24/25 01/24/25 06:59 14:59 22:59 Intake Total 0 / 0 Balance 0 / 0 Weight last 48 hrs Weight 47.627 kg Physical Exam Narrative: General: Chronically ill-appearing male, BMI 14 HEENT: PERRLA, pupils bilaterally equal and reactive, pallors not present Chest: Bilateral coarse breath sounds, no wheezing or crackles CVS: S1-S2 regular, no murmurs, no tachycardia, no gallops, no rubs Abdomen: Soft, nontender, no organomegaly, bowel sounds present Neuro: No focal deficits, no facial deformity, AO x3, power 5/5 in all limbs Extremities: No edema or cyanosis Data 01/25/25 04:04 01/25/25 04:04 Other data: Radiology Impressions Chest X-Ray 01/24/25 14:24 Impression: Right chest tube partially reexpanding right lung with 10% apical residual pneumothorax. Date of Service: 01/24/25 Procedure(s): XR chest 1V portable [id number] XR/XR chest 1V portable [id number] IMPRESSION: Large right pneumothorax approaching 50% on a background of significant COPD. Laboratory Results WBC 5.93 10^3/uL (3.29-11.43) 01/24/25 11:47 RBC 4.68 10^6/uL (3.85-5.65) 01/24/25 11:47 Hgb 14.80 g/dL (11.27-16.99) 01/24/25 11:47 Hct 46.7 % (37-53) 01/24/25 11:47 MCV 99.8 fl (82-101) 01/24/25 11:47 MCH 31.6 pg (27-33) 01/24/25 11:47 MCHC 31.7 g/dL (30-55) 01/24/25 11:47 RDW 12.2 % (12.1-15.1) 01/24/25 11:47 Plt Count 223 10^3/cmm (157-399) 01/24/25 11:47 MPV 10.4 fL (7.4-10.4) 01/24/25 11:47 Neut % (Auto) 84.7 % 01/24/25 11:47 Lymph % (Auto) 9.9 % 01/24/25 11:47 Pike % (Auto) 4.2 % 01/24/25 11:47 Eos % (Auto) 0.8 % 01/24/25 11:47 Baso % (Auto) 0.2 % 01/24/25 11:47 Neut # (Auto) 5.02 10^3/uL (1.8-7.7) 01/24/25 11:47 Lymph # (Auto) 0.6 10^3/uL (0.8-4.8) L 01/24/25 11:47 Pike # (Auto) 0.3 10^3/uL (0.2-0.9) 01/24/25 11:47 Eos # (Auto) 0.1 10^3/uL (0.0-0.8) 01/24/25 11:47 Baso # (Auto) 0.0 10^3/uL (0.0-0.1) 01/24/25 11:47 Nucleated RBC % (auto) 0 % 01/24/25 11:47 Nucleated RBCs # 0.0 /100WBC 01/24/25 11:47 D-Dimer 0.87 ug/mLFEU (0-0.59) H 01/24/25 11:47 Specimen Type Arterial 01/24/25 15:27 Sample Site Brachial, right 01/24/25 15:27 ABG pH 7.37 (7.35-7.45) 01/24/25 15:27 ABG pCO2 61.9 mmHg (35-45) H* 01/24/25 15:27 ABG pO2 95.6 mmHg (80.0-100.0) 01/24/25 15:27 ABG HCO3 35.6 mmol/L (22-26) H 01/24/25 15:27 ABG Base Excess 8.1 mmol/L (-2.0-2.0) H 01/24/25 15:27 Christopher Test N/a 01/24/25 15:27 Hematocrit 41.3 % (42-52) L 01/24/25 15:27 O2 Delivery Device Nc 01/24/25 15:27 O2 Liters/Min 7.0 % 01/24/25 15:27 Pants Closer ID Amh 01/24/25 15:27 Sodium 135 mmol/L (136-145) L 01/24/25 11:47 Potassium 4.0 mmol/L (3.5-5.1) 01/24/25 11:47 Chloride 91 mmol/L (98-107) L 01/24/25 11:47 Carbon Dioxide 30 mmol/L (22-29) H 01/24/25 11:47 Anion Gap 18.0 (5-19) 01/24/25 11:47 BUN 8 mg/dL (8-23) 01/24/25 11:47 Creatinine 0.4 mg/dL (0.7-1.2) L 01/24/25 11:47 GFR Calculation Not Reportable 01/24/25 11:47 Glucose 136 mg/dL (65-115) H 01/24/25 11:47 Calculated Osmolality 280 mOsm/kg (285-295) L 01/24/25 11:47 Calcium 9.3 mg/dL (8.5-10.5) 01/24/25 11:47 Total Bilirubin 0.3 mg/dL (0.15-1.2) 01/24/25 11:47 AST 22 U/L (0-40) 01/24/25 11:47 ALT 19 U/L (0-41) 01/24/25 11:47 Alkaline Phosphatase 72 U/L (40-130) 01/24/25 11:47 NT-Pro-B Natriuret Pep 769 pg/mL (0-125) H 01/24/25 11:47 Total Protein 7.4 g/dL (6.6-8.7) 01/24/25 11:47 Albumin 4.4 g/dL (3.5-5.2) 01/24/25 11:47 Globulin 3.0 g/dL (1.3-4.6) 01/24/25 11:47 Lipase 14 U/L (13-60) 01/24/25 11:47 A&P Assessment and plan 1. Spontaneous pneumothorax: 69M with COPD chronically on home 02 presenting with weeks of worsening dyspnea, found to have a right spontaneous pneumothorax. S/p placement of a right pigtail in ER with re expansion of lung. residual PTX at 10% pulmonology service has been consulted from the ER for pigtail management repeat CXR in am 2. COPD (chronic obstructive pulmonary disease): Scheduled nebulization with Duoneb q6h and budesonide 0.5 mg BID to continue during hospital stay no current indication for systemic steroids supplemental 02 to keep sat 88-92% 3. Non-ischemic cardiomyopathy: last known EF 51% from 2023 Currently clinically euvolemic 4. Chronic respiratory failure with hypoxia and hypercapnia: related to COPD ABG reveiwed with compensated resp acidosis 01/24/25 15:27 ABG pH 7.37 ABG pCO2 61.9 H* ABG pO2 95.6 ABG HCO3 35.6 H ABG Base Excess 8.1 H 5. Epistaxis: patient reports one episode of epistaxis this morning no active bleeding dried crusted blood noted around B/L nares L > R prn Afrin and saline nasal spray Plan: dvt ppx: SCDs only, no a/c today given epistaxis DNR/DNI. States he would want comfort measures if clinically deteriorates. PDMP PDMP Reviewed: Not Reviewed Attestations Medical Necessity Statement*: > 2 midnight stay is anticipated Coding Level of Care Code Acute Code for Chg Fwd Diagnoses Spontaneous pneumothorax J93.83 COPD (chronic obstructive pulmonary disease) J44.9 Non-ischemic cardiomyopathy I42.8 Chronic respiratory failure with hypoxia and hypercapnia J96.11; J96.12 Epistaxis R04.0
[2025-01-24 15:38] LABS: ABG PH Result 7.37 (7.35-7.45); Arterial Blood Gas Hematocrit 41.3 % (42-52); Blood Gas LPM 7.0 %; Blood Gas Operator Identificat AMH; Blood Gas Sample Site Brachial, right; Blood Gas Sample Type Arterial; HCO3 ABG 35.6 mmol/L (22-26); PO2 ABG 95.6 mmHg (80.0-100.0)
[2025-01-24 15:39] LABS: ABG PCO2 61.9 mmHg (35-45)
--- NOTE | 2025-01-24 16:57 | PC.NURSE ---
!630: Pt arrives from [facility] with Chest tube in chest lateral chest clamped for transport. Chest tube to low wall suction. Pt reports pain. NO orders available. Dr Mortensen notified pt has arrived to ICU.
--- NOTE | 2025-01-24 17:00 | PC.NURSE ---
Chest tube to water seal only as ordered by DR Gonzalez.
--- NOTE | 2025-01-24 18:00 | CTR_ITS ---
PROCEDURE INFORMATION: Exam: CT Chest Without Contrast; Diagnostic Exam date and time: 01/24/2025 7:40 PM Age: 69 years old Clinical indication: Shortness of breath and other: Pneumothorax; Additional info: Pneumothorax and chest tube TECHNIQUE: Imaging protocol: Diagnostic computed tomography of the chest without contrast. Radiation optimization: All CT scans at this facility use at least one of these dose optimization techniques: automated exposure control; mA and/or kV adjustment per patient size (includes targeted exams where dose is matched to clinical indication); or iterative reconstruction. COMPARISON: CT lung screening [id number] 12/27/2023 12:48 PM RADIATION DOSE METRICS: Total DLP (mGy-cm): 249.14 FINDINGS: Tubes, catheters and devices: Midthoracic spinal stimulator. Lungs: Profound underlying emphysematous change. Profound diffuse emphysema. Profound areas of mid to lower lung scarring. Hazy areas of bilateral mid to lower lung reticulonodular opacity. Pleural spaces: Small right pneumothorax. Right anterior chest tube is in place. Small residual right apical pneumothorax. Bilateral apical scarring. Trace right pleural effusion. No left pleural effusion. Heart: The heart is normal size. No pericardial effusion. Coronary arteries: Advanced coronary atherosclerotic calcifications are present. Lymph nodes: No bulky mediastinal or hilar lymphadenopathy noted. Vasculature: The abdominal aorta measures up to about 27 mm. Advanced diffuse vascular calcification noted. Bones/joints: No acute fracture. Soft tissues: No acute finding. CT/CT chest wo con [id number] IMPRESSION: 1. Right-sided chest tube is in place with small residual right pneumothorax. 2. Profound emphysematous change. Areas of lung scarring and reticulonodular infiltrate. Follow with pulmonology. For these nodular densities, recommend 3 to 6-month reassessment. 3. A few other chronic/incidental findings above. Overall, similar to the same-day chest x-ray. COMMENTS: The presence of pulmonary emphysema on CT is an independent risk factor for lung cancer. In the absence of a history or active diagnosis of lung cancer, it is recommended that this patient with emphysema be evaluated for enrollment in a low dose CT lung cancer screening program.
[2025-01-24] MEDS: acetaminophen 1,000 MG/100 ML PIGGYBACK 400 MG IV (18:01)
[2025-01-24] MEDS: ATORVASTATIN 10 MG TABLET 20 MG PO (18:01)
[2025-01-24] MEDS: HYDROmorphone 0.5 MG/0.5 ML INJ 1 MG IVP (19:02)
--- NOTE | 2025-01-24 19:10 | PC.NURSE ---
Pt resting in bed. Pt remains medsurg admit. He is utilizing 7lp/HFNC at tis time,no changes. Sinus rhythm with PAC noted on monitor. Pt afebrile. He does report pain in right chest. Chest tube patent with no bleeding or air leak at site [place] to water seal as ordered. Still waiting on follow up CT. He is guarding some. Acetaminophen IV admin, He said it provided some relief took the edge off. He has been up to [facility], clear yellow urine noted, 300ml.
--- NOTE | 2025-01-24 19:49 | PM.CONSULT ---
Providers/Reason For Consult Consulting Physician/Specialty*: Emergency department Reason for Consult*: Right pneumothorax Attending Physician: Aracelis Mortensen MD Primary Care Provider: Carolyn Ireland DO History of Present Illness History of Present Illness Lawrence Carreon is a 69-year-old gentleman with chronic hypoxemic respiratory failure on 5 L of oxygen, end-stage COPD, congestive heart failure, diabetes mellitus, GERD, dyslipidemia, chronic peripheral neuropathy, and active smoking. He presented to the emergency department today with shortness of breath and was found to have a secondary right pneumothorax. A 14 Czech pigtail catheter was placed by the ED team with subsequent resolution of the pneumothorax. He was admitted to the hospitalist service for further management. I evaluated the patient in the ICU in the presence of his son and daughter. He reported that he continued smoking until yesterday, with a cumulative history of 90?100 pack-years. He has not undergone a CT scan during this admission. He stated that his baseline had been relatively stable until 2?3 weeks ago, when he developed worsening dyspnea limiting ambulation and ADLs. On interview, he was receiving 5?6 L oxygen by nasal cannula, and the chest tube was on suction without evidence of air leak. Review of Systems General: Reports: 10 or more systems reviewed and unremarkable except in HPI and below Medications/Allergies Home Medications ?Medication ?Instructions ?Recorded ?Confirmed ?Last Taken ?Type aspirin 81 mg tablet,delayed 81 mg PO DAILY 07/14/19 01/24/25 01/23/25 20:00 History release (Adult Low Dose Aspirin) carisoprodol 350 mg tablet 350 mg PO QID PRN Spasms 07/14/19 01/24/25 10/13/24 History hydrocodone 10 mg-acetaminophen 1 - 2 tab PO Q4H PRN Pain 02/06/20 01/24/25 01/24/25 10:00 History 325 mg tablet morphine 15 mg immediate release 15 mg PO BID 02/13/20 01/24/25 01/23/25 History tablet rosuvastatin 20 mg tablet 20 mg PO QPM 10/10/20 01/24/25 01/23/25 History pantoprazole 40 mg tablet,delayed 40 mg PO BID 03/20/21 01/24/25 01/22/25 History release methenamine hippurate 1 gram tablet See Rx Instructions .Route 1001/24/25 01/22/25 Rx .COMPLEX #180 tabs testosterone cypionate 200 mg/mL 200 mg IM .every 10 days 04/28/22 01/24/25 2 Months Ago History intramuscular oil ~09/04/23 (Depo-Testosterone) gabapentin 300 mg capsule 600 mg PO TID elbow neuralgia 04/19/23 01/24/25 01/22/25 History fluticasone fur. 100 mcg-umeclid 1 inh inhalation QPM 12/14/23 01/24/25 01/22/25 History 62.5 mcg-vilant 25 mcg inhalat.powder (Trelegy Ellipta) albuterol sulfate 1.25 mg/3 mL 1.25 mg (3 mL) inhalation Q6H PRN 12/16/23 01/24/25 01/24/25 Rx solution for nebulization shortness of breath or wheezing #90 mL metformin 500 mg tablet 500 mg PO DAILY 04/27/24 01/24/25 01/22/25 History furosemide 20 mg tablet 20 mg PO BID #180 tabs 09/22/24 01/24/25 01/22/25 Rx potassium chloride 10 mEq 10 meq PO DAILY 10/17/24 01/24/25 01/22/25 History tablet,extended release ascorbic acid (vitamin C) 1,000 mg 1,000 mg PO BID 01/24/25 01/24/25 01/22/25 History tablet (Vitamin C) calcium 600 mg (as carbonate)-vit 1 tab PO DAILY 01/24/25 01/24/25 01/22/25 History D3 20 mcg (800 unit) chewable tablet (Caltrate plus D) cholecalciferol (vitamin D3) 125 125 mcg PO DAILY 01/24/25 01/24/25 01/22/25 History mcg (5,000 unit) tablet (Vitamin D3) fluticasone propionate 50 50 mcg intranasal DAILY PRN 01/24/25 01/24/25 Unknown History mcg/actuation nasal allergies spray,suspension guaifenesin 1,200 mg tablet, 1,200 - 2,400 mg PO Q12H 01/24/25 01/24/25 01/22/25 History extended release 12 hr (Mucinex) ketoconazole 2 % shampoo See Rx Instructions .Route .COMPLEX 01/24/25 01/24/25 Unknown History sodium chloride 0.65 % nasal spray 2 spray intranasal Q4H PRN 01/24/25 01/24/25 Unknown History aerosol (Saline Nasal) allergies Allergies Allergy/AdvReac Type Severity Reaction Status Date / Time adhesive Allergy ALGY-Bliste Verified 06/19/24 13:10 r azithromycin Allergy Unknown Verified 06/19/24 13:10 Current Medications Generic Name Dose Route Start Last Admin Trade Name Freq PRN Reason Stop Dose Admin Albuterol Sulfate 2.5 mg 01/24/25 17:18 01/24/25 17:57 Albuterol 2.5 Mg/0.5 Ml Neb INHALATION 2.5 mg Q4H.RESPIRATORY PRN Administration WHEEZING Atorvastatin Calcium 20 mg 01/24/25 18:00 01/24/25 18:01 Atorvastatin 10 Mg Tablet PO 20 mg QPM TIAGO Administration Hydromorphone HCl 1 mg 01/24/25 17:22 01/24/25 19:02 Hydromorphone 0.5 Mg/0.5 Ml Inj IVP 1 mg Q6H PRN Administration PAIN Acetaminophen 1,000 mg in 100 mls @ 400 mls/hr 01/24/25 17:30 01/24/25 18:49 Acetaminophen IV 01/25/25 09:44 Infused Q8H TIAGO Infusion Pantoprazole Sodium 40 mg 01/24/25 18:00 01/24/25 18:[address] 40 Mg Tablet PO 40 mg BID TIAGO Administration PFSH Acute PFSH: Medical History (Updated 01/24/25 @ 19:53 by Huey Gonzalez MD) History of nonmelanoma skin cancer Hx MRSA infection Elevated brain natriuretic peptide (BNP) level Chronic back pain Hypertension Hyponatremia Recurrent UTI AAA (abdominal aortic aneurysm) without rupture Non-ischemic cardiomyopathy Pulmonary nodule 1 cm or greater in diameter Intervertebral disc disorders with radiculopathy, 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 Easton January 23, 2019. With thoracic spinal cord stimulator placement History of lumbar fusion Dr. Easton February 15, 2017 L4-S1 History of umbilical hernia repair History of colon resection Due to cancer History of arthroscopy of both knees Family History Mother Diabetes Father , AT AGE 87 Diabetes CAD (coronary artery disease) Hypertension Myocardial infarction Cancer Brother Cancer Gastroesophageal cancer CAD (coronary artery disease) Diabetes Sister Diabetes Denies family history of Clotting disorder Dementia Chronic kidney disease (CKD) Suicide Anesthesia complication Bleeding disorder Lung disease Stroke Social History Smoking and tobacco/nicotine status: current every day tobacco/nicotine user cigarettes Packs smoked per day: 2 Years cigarettes smoked: 53 [ Other cigarette details: Started 1969] Quit status (tobacco/nicotine): considering quitting Second hand smoke exposure: Yes Alcohol intake: never Substance/Drug Use: never Lives independently: Yes Household members: spouse Housing: House Marital status: service: Yes branch: [employer] Current occupational status: employed Current occupational exposures/hazards: No Pets and animals: Yes Do you think of yourself as: Straight/Heterosexual Current gender identity: Male Special syeda needs: No Vitals/I&O/Wt Last Vital Signs Temp 98.3 F 01/24/25 17:00 Pulse 99 01/24/25 19:00 Resp 13 01/24/25 19:00 BP 139/70 01/24/25 19:00 Pulse Ox 93 01/24/25 18:30 O2 Del Method High Flow Nasal Cannula 01/24/25 19:00 O2 Flow Rate 7 01/24/25 18:45 01/24/25 01/24/25 01/24/25 06:59 14:59 22:59 Intake Total 0 / 0 100 / 100 Output Total 300 / 300 Balance 0 / 0 -200 / -200 Weight last 48 hrs Weight 110 lb 3.698 oz Weight 105 lb Physical Exam Narrative: General: Alert, oriented, and in mild acute distress. Appears well-nourished and well-developed. Head: Normocephalic and atraumatic. Eyes: Pupils equal, round, and reactive to light. Ears/Nose/Throat: Nasal mucosa is moist without discharge. Oropharynx is clear without erythema or exudate. Dentition intact. No lesions or thrush. Neck: Supple. Cardiovascular: Regular rate and rhythm. Normal S1 and S2. No peripheral edema. Respiratory: Severely decreased air entry bilaterally. Scattered expiratory wheezes. Minimal use of accessory muscles. Abdomen: Soft, non-tender, non-distended. Normoactive bowel sounds. Extremities: No cyanosis, clubbing, or edema. Full range of motion. Peripheral pulses palpable and symmetric. Skin: Warm and dry. No rashes, lesions, or ulcers. Neurology: Alert and oriented to person, place, and time. Grossly intact with no focal deficit. Psychiatry: Good mood with Appropriate affect. Data 01/24/25 11:47 01/24/25 11:47 A&P Assessment and plan 1. Chronic hypoxemic respiratory failure: 2. COPD (chronic obstructive pulmonary disease): 3. Tobacco dependency: 4. Pneumothorax, right: Plan: 69-year-old man with end-stage COPD, chronic hypoxemic respiratory failure on 5 L oxygen, CHF, diabetes, GERD, dyslipidemia, neuropathy, and active smoking (~90?100 pack-years) who presented with a secondary right pneumothorax. He underwent successful placement of a 14F pigtail catheter with resolution. He is currently admitted under the hospitalist service, on 5?6 L oxygen via nasal cannula, chest tube to suction without evidence of air leak, reporting progressive dyspnea over the past 2?3 weeks limiting ADLs. 1. Right secondary spontaneous pneumothorax ? Likely related to severe emphysema and end-stage COPD in the setting of active smoking. No active air leak noted. Plan to transition chest tube to water seal and obtain chest imaging in 1?2 hours. If no recurrent or significant pneumothorax, continue on water seal overnight with repeat chest X-ray in the morning. If imaging is favorable, proceed with clamp trial and consider chest tube removal. 2. Chronic hypoxemic respiratory failure ? On 5?[address] chest without contrast to evaluate for additional interstitial or parenchymal disease. 3. End-stage COPD ? Last PFTs (2019) showed FEV1 34%, RV 147%, TLC 99%, DLCO 40%. Recommend scheduled Duoneb every 6 hours and budesonide nebulizer 0.5 mg BID while inpatient. On discharge, continue Trelegy Ellipta daily, albuterol inhaler PRN, and Duoneb PRN. Patient would benefit from outpatient pulmonary referral for optimization of COPD and pulmonary rehabilitation. If he achieves smoking cessation, repeat PFTs and evaluate for candidacy for endobronchial valves for bronchoscopic lung volume reduction. 4. Active smoking ? Counseled extensively (>15 minutes) on smoking cessation. Patient expressed interest. Recommend nicotine patch, gum, or lozenges as needed, with primary care follow-up for cessation support. 5. Congestive heart failure ? Last echocardiogram (November 2023) showed EF 51%. Management per primary hospitalist team. I also discussed the patient?s clinical status and management plan with his family at the bedside. Huey Gonzalez MD, FACP, FASN Interventional Pulmonary PDMP PDMP Reviewed: Not Reviewed Coding Level of Care Code Acute Code for Chg Fwd Diagnoses Chronic hypoxemic respiratory failure J96.11 COPD (chronic obstructive pulmonary disease) J44.9 Tobacco dependency F17.200 Pneumothorax, right J93.9 Time Spent (min) 65
[2025-01-24] MEDS: HYDROcodone-acetaminophen 10-325 mg Tablet 1 TAB PO (21:55)
[2025-01-25] VITALS (42 sets, daily range): BP systolic 101–140; BP diastolic 63–84; PULSE 68–116; RESP 13–26; TEMP 36.4–36.7; O2SAT 88–97
[2025-01-25] MEDS: HYDROmorphone 0.5 MG/0.5 ML INJ 1 MG IVP ×4 (01:35→22:35)
[2025-01-25] MEDS: HYDROcodone-acetaminophen 10-325 mg Tablet 1 TAB PO ×3 (04:22→14:12)
[2025-01-25 04:52] LABS: Hematocrit 42.3 % (37-53); Hemoglobin 13.80 g/dL (11.27-16.99); Mean Corpuscular HGB Conc 32.6 g/dL (30-55); Mean Corpuscular Hemoglobin 32.0 pg (27-33); Mean Corpuscular Volume 98.1 fl (82-101); Nucleated Red Blood Cells % 0 %; Platelet Count 249 10^3/cmm (157-399); Red Blood Count 4.31 10^6/uL (3.85-5.65); White Blood Count 11.44 10^3/uL (3.29-11.43)
[2025-01-25 05:20] LABS: Alanine Aminotransferase 15 U/L (0-41); Albumin Level 4.0 g/dL (3.5-5.2); Alkaline Phosphatase 62 U/L (40-130); Anion Gap 13.0 (5-19); Aspartate Amino Transferase 17 U/L (0-40); Blood Urea Nitrogen 8 mg/dL (8-23); Calcium 9.0 mg/dL (8.5-10.5); Carbon Dioxide 33 mmol/L (22-29); Chloride 94 mmol/L (98-107); Creatinine Clr Calc Pharmacy 59.8958; Globulin 2.3 g/dL (1.3-4.6); Glucose 85 mg/dL (65-115); Magnesium 2.1 mg/dL (1.7-2.3); Osmolality Calculated 280 mOsm/kg (285-295); Potassium 4.0 mmol/L (3.5-5.1); Sodium 136 mmol/L (136-145); Total Protein 6.3 g/dL (6.6-8.7)
--- NOTE | 2025-01-25 06:00 | XR_ITS ---
WS: [id number] Exam: XR chest 1V portable [id number] Date/Time of Exam: 01/25/2025 7:01 AM Reason For Exam: follow up pneumothorax Comparison 01/24/2025. Increasing pneumothorax of the RIGHT upper and lower lobes since prior study. Pneumothorax estimated at 20%. No midline shift or tension. Small bore RIGHT chest tube unchanged in location. Pulmonary hyperinflation. LEFT lung is clear. Normal cardiomediastinal silhouette. Bony structures are intact. IMPRESSION1. Increasing pneumothorax of the RIGHT upper and lower lobes estimated at 20%. No tension. 2. Pulmonary hyperinflation probably indicating obstructive lung disease. 3. Small bore RIGHT chest tube unchanged in location.
[2025-01-25 06:17] LABS: Coronavirus 229E,HKU1,NL63,OC4 Not Detected (NOT DETECT); Parainfluenza Virus Type 1 Not Detected (NOT DETECT); Parainfluenza Virus Type 2 Not Detected (NOT DETECT); Parainfluenza Virus Type 3 Not Detected (NOT DETECT); Parainfluenza Virus Type 4 Not Detected (NOT DETECT); SARS-COV-2 Not Detected (NOT DETECT)
[2025-01-25] MEDS: acetaminophen 1,000 MG/100 ML PIGGYBACK 400 MG IV (10:02)
--- NOTE | 2025-01-25 11:50 | P.PN_ITS ---
Subjective 2 Subjective: The patient was seen and examined this morning. He was noted to have an air leak but is tolerating water seal. The air leak is approximately grade 1?2. He remains short of breath at rest and requires 8 L of supplemental oxygen. Otherwise, he is hemodynamically stable. Vitals/I&O/Wt Last Vital Signs Temp 97.6 F 01/25/25 14:00 Pulse 87 01/25/25 20:25 Resp 16 01/25/25 20:25 BP 140/69 01/25/25 20:00 Pulse Ox 97 01/25/25 20:25 O2 Del Method High Flow Nasal Cannula 01/25/25 20:25 O2 Flow Rate 8 01/25/25 20:25 01/25/25 01/25/25 01/25/25 06:59 14:59 22:59 Intake Total 240 / 580 1250 / 1250 300 / 1550 Output Total 750 / 1050 300 / 300 657 / 957 Balance -510 / -470 950 / 950 -357 / 593 Weight last 48 hrs Weight 106 lb Weight 110 lb 3.698 oz Weight 105 lb Physical Exam 2 Narrative: General: Alert, oriented, and in mild acute distress. Appears well-nourished and well-developed. Head: Normocephalic and atraumatic. Eyes: Pupils equal, round, and reactive to light. Ears/Nose/Throat: Nasal mucosa is moist without discharge. Oropharynx is clear without erythema or exudate. Dentition intact. No lesions or thrush. Neck: Supple. Cardiovascular: Regular rate and rhythm. Normal S1 and S2. No peripheral edema. Respiratory: Severely decreased air entry bilaterally. Scattered expiratory wheezes. Minimal use of accessory muscles. Abdomen: Soft, non-tender, non-distended. Normoactive bowel sounds. Extremities: No cyanosis, clubbing, or edema. Full range of motion. Peripheral pulses palpable and symmetric. Skin: Warm and dry. No rashes, lesions, or ulcers. Neurology: Alert and oriented to person, place, and time. Grossly intact with no focal deficit. Psychiatry: Good mood with Appropriate affect. Data 01/26/25 03:35 01/26/25 03:35 A&P Assessment and plan 1. Pneumothorax, right: 2. Chronic respiratory failure with hypoxia and hypercapnia: 3. Acute hypoxemic respiratory failure: 4. Persistent air leak: Plan: The patient was seen and examined today. He has evidence of an air leak from the Pleur-evac, approximately grade 2 (columns 1?2). He tolerated water seal this morning, and we will repeat a chest X-ray if there is any worsening of the pneumothorax. For now, we will continue on water seal and monitor closely until the air leak resolves. If the air leak disappears, we will proceed with a clamp trial. At this point, he is not a candidate for clamp trial due to a continuous air leak. I had an extensive discussion with the patient, his family, and the primary hospitalist physician regarding his condition and management options in case his leak persistent beyond 4-5 days. Unfortunately, the patient remains an active smoker, is cachectic, and has end-stage respiratory failure. He continues to require a high level of supplemental oxygen (8?9 L). Management options were reviewed: in case of PAL Thoracic surgery ? not available at this facility. Endobronchial valve placement ? would be considered if the air leak persists. Pleurodesis or autologous blood patch ? could be explored if endobronchial valve placement is unsuccessful. I explained that we will continue to monitor conservatively for now, as there is a reasonable chance the air leak may close spontaneously. If the leak does not resolve by early next week, this would be classified as a persistent air leak requiring further intervention, either by thoracic surgery or interventional pulmonology. I also explained that I am uncertain whether he would be considered a surgical candidate given his overall poor condition, but this determination would ultimately be made by a thoracic surgeon if transfer is pursued. The patient and his family expressed a preference to remain local and attempt conservative management initially. If the leak persists, they would like to consider endobronchial valve placement. If that fails, pleurodesis/blood patch or transfer for surgical evaluation would be the next steps. Both the patient and the hospitalist team voiced understanding. The patient understands that I will be out of town for the weekend but will be available by phone, and I will return on Wednesday to reassess and guide management. Huey Gonzalez MD, FACP, [facility] Interventional Pulmonary PDMP PDMP Reviewed: Not Reviewed Attestations 2 Medical Necessity Statement*: Patient needs chest tube management. Coding Level of Care Code Acute Code for Chg Fwd Diagnoses Pneumothorax, right J93.9 Chronic respiratory failure with hypoxia and hypercapnia J96.11; J96.12 Acute hypoxemic respiratory failure J96.01 Persistent air leak
--- NOTE | 2025-01-25 12:35 | XRR_ITS ---
PROCEDURE INFORMATION: Exam: XR Chest Exam date and time: 01/25/2025 12:55 PM Age: 69 years old Clinical indication: Condition or disease; Lung condition and disease; Pneumothorax; Prior surgery; Surgery date: <1 month; Surgery type: Chest tube; Additional info: Reassess ptx TECHNIQUE: Imaging protocol: Radiologic exam of the chest. Views: 1 view. Other contrast: pna; COMPARISON: CR XR chest 1V portable [id number] 01/25/2025 7:02 AM FINDINGS: Tubes, catheters and devices: Unchanged right thoracostomy tube. Stable midthoracic neural stimulator. Lungs: Emphysematous COPD. Pleural spaces: Stable small right pneumothorax. Heart/Mediastinum: Unremarkable. No cardiomegaly. Bones/joints: Unremarkable. Soft tissues: Increasing subcutaneous emphysema along the right chest wall and neck. XR/XR chest 1V portable [id number] IMPRESSION: 1. Stable pneumothorax. 2. Increasing subcutaneous emphysema.
[2025-01-25] MEDS: cefTRIAXone 1,000 mg SDV 1000 MG IVP (13:13)
[2025-01-25] MEDS: methylPREDNISolone sod succ 40 mg/mL INJ IVP (13:20)
--- NOTE | 2025-01-25 14:16 | P.PN_ITS ---
Subjective 2 Subjective: Patient noted to have air leak and subcutaneous emphysema. Complaining of uncontrolled pain with current treatment regimen. Medications: Reviewed: Yes Vitals/I&O/Wt Last Vital Signs Temp 97.6 F 01/25/25 14:00 Pulse 87 01/25/25 20:25 Resp 16 01/25/25 20:25 BP 140/69 01/25/25 20:00 Pulse Ox 97 01/25/25 20:25 O2 Del Method High Flow Nasal Cannula 01/25/25 20: O2 Flow Rate 8 01/25/25 20:25 01/25/25 01/25/25 01/26/25 14:59 22:59 06:59 Intake Total 1250 / 1250 1102 / 2352 Output Total 300 / 300 657 / 957 Balance 950 / 950 445 / 1395 Weight last 48 hrs Weight 48.081 kg Weight 50 kg Weight 47.627 kg Physical Exam 2 Narrative: General: Chronically ill-appearing male, BMI 14 cachectic HEENT: PERRLA, pupils bilaterally equal and reactive, pallors not present Chest: Bilateral coarse breath sounds, no wheezing or crackles CVS: S1-S2 regular, no murmurs, no tachycardia, no gallops, no rubs Abdomen: Soft, nontender, no organomegaly, bowel sounds present Neuro: No focal deficits, no facial deformity, AO x3, power 5/5 in all limbs Extremities: No edema or cyanosis Data 01/26/25 03:35 01/26/25 03:35 A&P Assessment and plan 1. Spontaneous pneumothorax: 69M with COPD chronically on home 02 presenting with weeks of worsening dyspnea, found to have a right spontaneous pneumothorax. S/p placement of a right pigtail in ER with re expansion of lung. residual PTX at 10% pulmonology service has been consulted from the ER for pigtail management repeat CXR in am 2. Chronic obstructive pulmonary disease, unspecified COPD type: Scheduled nebulization with Duoneb q6h and budesonide 0.5 mg BID to continue during hospital stay no current indication for systemic steroids supplemental 02 to keep sat 88-92% 3. Non-ischemic cardiomyopathy: last known EF 51% from 2023 Currently clinically euvolemic 4. Chronic respiratory failure with hypoxia and hypercapnia: related to COPD ABG reveiwed with compensated resp acidosis 01/24/25 15:27 ABG pH 7.37 ABG pCO2 61.9 H* ABG pO2 95.6 ABG HCO3 35.6 H ABG Base Excess 8.1 H 5. Epistaxis: patient reports one episode of epistaxis this morning no active bleeding dried crusted blood noted around B/L nares L > R prn Afrin and saline nasal spray Plan: dvt ppx: SCDs only, no a/c today given epistaxis DNR/DNI. States he would want comfort measures if clinically deteriorates. January 25, 2025 Noted to have air leak and interval development of subcutaneous emphysema on the right chest wall. States that pain is currently not adequately controlled. Will increase frequency of Dilaudid to 1 mg IV every 3 hours as needed. Additionally increase frequency of hydrocodone APAP to every 3 hours as needed. Patient is currently on Toradol for pain management. Additionally will add prednisone 40 mg IV every 24 hours for anti-inflammatory effect. Noted to have expectoration today. Crackles to auscultation on the right side. Favor this to be reexpansion edema. Mild lower extremity swelling, will resume home dose of Lasix 20 mg p.o. twice daily and closely monitor for improvement. Ordered for sputum culture. Chest tube management per pulmonary service, appreciate recommendations. Closely monitor for improvement of airleak. If fails to improve over the next 4 to 5 days, may need endobronchial valve placement. PDMP PDMP Reviewed: Not Reviewed Attestations 2 Medical Necessity Statement*: Continued management for right pneumothorax. Coding Level of Care Code Acute Code for Chg Fwd High MDM includes number and complexity of problems actively addressed during encounter, amount and/or complexity of data reviewed/ordered and described risk of complication, morbidity or mortality of management as documented Diagnoses Spontaneous pneumothorax J93.83 Chronic obstructive pulmonary disease, unspecified COPD type J44.9 COPD type: unspecified COPD Non-ischemic cardiomyopathy I42.8 Chronic respiratory failure with hypoxia and hypercapnia J96.11; J96.12 Epistaxis R04.0
--- NOTE | 2025-01-25 15:59 | PC.NURSE ---
Biopatch used on the chest tube site, per Dr Gonzalez preference
[2025-01-25] MEDS: ATORVASTATIN 10 MG TABLET 20 MG PO (17:52)
--- NOTE | 2025-01-25 19:41 | PC.NURSE ---
Shift summary: Pt was OOB to chair this am until about 1300. Sinus to sinus tachy rhythm noted on monitor. He has a productive cough with green sputum. ABX started today. His lung sounds remain very diminished. He utilized 8lpm/HFNC throughout shift. He was active using his [place] and IS. Chest tube patent and draining, slight air leak still noted, Scant amount of serosangiouness drainage noted. Slight drainage noted at insertion site. Pain medication times adjusted. Pt stated his pain is now better controlled. He calls frequently for Diet Cokes, room temperature, and blanket adjustments. He is trying to increase his food consumption amount. He has ate his meals meal well. He has had a boost as well as some fast food. He has been up to BSC twice this shift. Pale yellow urine noted. He tried to have Bm today but only passed flatus this far.
[2025-01-25] MEDS: saline nasal spray 44mL Btl 2 SPRAY NASAL (19:52)
--- NOTE | 2025-01-25 21:54 | PC.NURSE ---
Addendum entered by Bebe Hong RN 01/26/25 03:00: Suction increased to -[address] Gonzalez who gave order to increase suction if subcutaneous emphysema did not improve. Suction indicator expansion noted. Original Note: Suction Dr Gonzalez called to inquire about patient's status. Received order to put chest tube back to suction at -10. Chest tube placed to suction and suction regulator set to -10, confirmed that suction indicator was expanded.
--- NOTE | 2025-01-25 21:59 | XRR_ITS ---
PROCEDURE INFORMATION: Exam: XR Chest Exam date and time: 01/25/2025 10:36 PM Age: 69 years old Clinical indication: Condition or disease; Other: Emphysema; Additional info: Increasing subcutaneous emphysema TECHNIQUE: Imaging protocol: Radiologic exam of the chest. Views: 1 view. COMPARISON: CR (CHEST, ) 01/25/2025 12:55 PM FINDINGS: Lungs: Stable diffuse interstitial prominence. Pulmonary hyperinflation. Pleural spaces: Mild decreased size of small left pneumothorax. Right pleural pigtail catheter remains in place. No left pneumothorax. No pleural effusion. Heart/Mediastinum: Heart size is within normal limits. Vasculature: Atherosclerotic calcifications of the aorta are noted. Bones/joints: No acute osseous abnormalities are seen. Soft tissues: Apparent increasing subcutaneous gas in the right chest wall and newly apparent subcutaneous gas in the left supraclavicular region. XR/XR chest 1V portable [id number] IMPRESSION: 1. Mild decreased size of small left pneumothorax. Right pleural pigtail catheter remains in place. 2. Apparent increasing subcutaneous gas in the right chest wall and newly apparent subcutaneous gas in the left supraclavicular region.
[2025-01-26] VITALS (19 sets, daily range): BP systolic 110–143; BP diastolic 59–108; PULSE 75–99; RESP 16–18; O2SAT 92–98
[2025-01-26] MEDS: HYDROcodone-acetaminophen 10-325 mg Tablet 1 TAB PO ×4 (01:39→19:32)
[2025-01-26] MEDS: HYDROmorphone 0.5 MG/0.5 ML INJ 1 MG IVP ×3 (04:02→20:30)
[2025-01-26 04:05] LABS: Hematocrit 36.1 % (37-53); Hemoglobin 12.00 g/dL (11.27-16.99); Mean Corpuscular HGB Conc 33.2 g/dL (30-55); Mean Corpuscular Hemoglobin 32.7 pg (27-33); Mean Corpuscular Volume 98.4 fl (82-101); Nucleated Red Blood Cells % 0 %; Platelet Count 207 10^3/cmm (157-399); Red Blood Count 3.67 10^6/uL (3.85-5.65); White Blood Count 10.08 10^3/uL (3.29-11.43)
[2025-01-26 04:33] LABS: Alanine Aminotransferase 13 U/L (0-41); Albumin Level 3.4 g/dL (3.5-5.2); Alkaline Phosphatase 52 U/L (40-130); Anion Gap 9.7 (5-19); Aspartate Amino Transferase 15 U/L (0-40); Blood Urea Nitrogen 13 mg/dL (8-23); Calcium 8.5 mg/dL (8.5-10.5); Carbon Dioxide 34 mmol/L (22-29); Chloride 95 mmol/L (98-107); Creatinine Clr Calc Pharmacy 57.5970; Globulin 2.1 g/dL (1.3-4.6); Glucose 132 mg/dL (65-115); Osmolality Calculated 282 mOsm/kg (285-295); Potassium 3.7 mmol/L (3.5-5.1); Sodium 135 mmol/L (136-145); Total Protein 5.5 g/dL (6.6-8.7)
--- NOTE | 2025-01-26 06:00 | XRR_ITS ---
PROCEDURE INFORMATION: Exam: XR Chest Exam date and time: 01/26/2025 7:03 AM Age: 69 years old Clinical indication: Device placement; Chest tube; Additional info: Pneumothorax, chest tube TECHNIQUE: Imaging protocol: Radiologic exam of the chest. Views: 1 view. COMPARISON: CR (CHEST, ) 01/25/2025 10:36 PM FINDINGS: Lungs: Unremarkable. No consolidation. Pleural spaces: Right apical pneumothorax is not significantly changed. Previously noted small amount of pleural air at the lateral right lung base is no longer identified. Heart/Mediastinum: Unremarkable. No cardiomegaly. Bones/joints: Unremarkable. XR/XR chest 1V portable [id number] IMPRESSION: Right apical pneumothorax is not significantly changed. Previously noted small amount of pleural air at the lateral right lung base is no longer identified. Extensive subcutaneous emphysema is not significantly changed.
[2025-01-26] MEDS: cefTRIAXone 1,000 mg SDV 1000 MG IVP (12:03)
[2025-01-26] MEDS: lactulose oral liq 20 gm/30 mL UDC 10 GM PO (12:03)
[2025-01-26] MEDS: methylPREDNISolone sod succ 40 mg/mL INJ IVP ×2 (12:04→18:33)
--- NOTE | 2025-01-26 12:30 | PC.SOCIAL ---
IMM Update pg 2 of IMM Updated and reviewed w/ patient. Copy provided and copy dated, initialed and placed in chart.
[2025-01-26] MEDS: ATORVASTATIN 10 MG TABLET 20 MG PO (17:12)
--- NOTE | 2025-01-26 17:52 | P.PN_ITS ---
Subjective 2 Subjective: States pain is better controlled compared to yesterday but still not adequate. Medications: Reviewed: Yes Vitals/I&O/Wt Last Vital Signs Temp 97.6 F 01/25/25 14:00 Pulse 76 01/26/25 16:00 Resp 18 01/26/25 14:33 BP 129/66 01/26/25 16:00 Pulse Ox 97 01/26/25 16:00 O2 Del Method High Flow Nasal Cannula 01/26/25 14:33 O2 Flow Rate 10 01/26/25 14:33 01/26/25 01/26/25 01/26/25 06:59 14:59 22:59 Intake Total 444 / 2796 700 / 700 Output Total 1099 / 2056 Balance -656 / 739 700 / 700 Weight last 48 hrs Weight 50.984 kg Weight 48.081 kg Physical Exam 2 Narrative: General: Chronically ill-appearing male, BMI 14 cachectic HEENT: PERRLA, pupils bilaterally equal and reactive, pallors not present Chest: Bilateral coarse breath sounds, no wheezing or crackles CVS: S1-S2 regular, no murmurs, no tachycardia, no gallops, no rubs Abdomen: Soft, nontender, no organomegaly, bowel sounds present Neuro: No focal deficits, no facial deformity, AO x3, power 5/5 in all limbs Extremities: No edema or cyanosis Urinary Catheter Management: Egan: Cath Placed During This Visit: yes Reason for Continuing Indwelling Catheter: Accurate Measurement of Urinary Output in Critically Ill Patients Urinary Catheter Date of Insertion: 01/26/25 Urinary Catheter Time of Insertion: 01:00 Data 01/26/25 03:35 01/26/25 03:35 A&P Assessment and plan 1. Spontaneous pneumothorax: 69M with COPD chronically on home 02 presenting with weeks of worsening dyspnea, found to have a right spontaneous pneumothorax. S/p placement of a right pigtail in ER with re expansion of lung. residual PTX at 10% pulmonology service has been consulted from the ER for pigtail management repeat CXR in am 2. Chronic obstructive pulmonary disease, unspecified COPD type: Scheduled nebulization with Duoneb q6h and budesonide 0.5 mg BID to continue during hospital stay no current indication for systemic steroids supplemental 02 to keep sat 88-92% 3. Non-ischemic cardiomyopathy: last known EF 51% from 2023 Currently clinically euvolemic 4. Chronic respiratory failure with hypoxia and hypercapnia: related to COPD ABG reveiwed with compensated resp acidosis 01/24/25 15:27 ABG pH 7.37 ABG pCO2 61.9 H* ABG pO2 95.6 ABG HCO3 35.6 H ABG Base Excess 8.1 H 5. Epistaxis: patient reports one episode of epistaxis this morning no active bleeding dried crusted blood noted around B/L nares L > R prn Afrin and saline nasal spray Plan: dvt ppx: SCDs only, no a/c today given epistaxis DNR/DNI. States he would want comfort measures if clinically deteriorates. January 25, 2025 Noted to have air leak and interval development of subcutaneous emphysema on the right chest wall. States that pain is currently not adequately controlled. Will increase frequency of Dilaudid to 1 mg IV every 3 hours as needed. Additionally increase frequency of hydrocodone APAP to every 3 hours as needed. Patient is currently on Toradol for pain management. Additionally will add prednisone 40 mg IV every 24 hours for anti-inflammatory effect. Noted to have expectoration today. Crackles to auscultation on the right side. Favor this to be reexpansion edema. Mild lower extremity swelling, will resume home dose of Lasix 20 mg p.o. twice daily and closely monitor for improvement. Ordered for sputum culture. Chest tube management per pulmonary service, appreciate recommendations. Closely monitor for improvement of airleak. If fails to improve over the next 4 to 5 days, may need endobronchial valve placement. January 26, 2025 Persisting airleak noted today. Subcutaneous emphysema over the right chest wall appears to be clinically the same. States that pain is slightly better compared to yesterday however still not adequately controlled. Patient is on opiates at home including hydrocodone 20 mg up to 4-6 times a day, and morphine 15 mg p.o. twice daily. Will add fentanyl 25 mcg patch to improve pain management. Add lactulose for constipation. Continue IV steroids. Sputum culture ordered. Continue to closely monitor for persisting airleak. If does not resolve may need endobronchial valve placement. Chest tube management per pulmonary PDMP PDMP Reviewed: Not Reviewed Attestations 2 Medical Necessity Statement*: Continued admission for management of pneumothorax, persisting airleak. Needs close monitoring. Coding Level of Care Code Acute Code for Chg Fwd High MDM includes number and complexity of problems actively addressed during encounter, amount and/or complexity of data reviewed/ordered and described risk of complication, morbidity or mortality of management as documented Diagnoses Spontaneous pneumothorax J93.83 Chronic obstructive pulmonary disease, unspecified COPD type J44.9 COPD type: unspecified COPD Non-ischemic cardiomyopathy I42.8 Chronic respiratory failure with hypoxia and hypercapnia J96.11; J96.12 Epistaxis R04.0
[2025-01-26] MEDS: lactulose oral liq 20 gm/30 mL UDC PO (18:33)
--- NOTE | 2025-01-26 20:44 | PC.NURSE ---
Patient states hospitalist asked him to bring in medications from home. Bottle containing 22 methenamine 1 gram tablets and 74 vitamin C tablets placed in Pyxis under home medications.
[2025-01-27] VITALS (22 sets, daily range): BP systolic 120–138; BP diastolic 59–69; PULSE 76–100; RESP 16; TEMP 36.8–37.1; O2SAT 90–99
[2025-01-27] MEDS: HYDROmorphone 0.5 MG/0.5 ML INJ 1 MG IVP ×6 (00:07→19:49)
[2025-01-27 04:12] LABS: Hematocrit 38.7 % (37-53); Hemoglobin 12.60 g/dL (11.27-16.99); Mean Corpuscular HGB Conc 32.6 g/dL (30-55); Mean Corpuscular Hemoglobin 31.8 pg (27-33); Mean Corpuscular Volume 97.7 fl (82-101); Nucleated Red Blood Cells % 0 %; Platelet Count 212 10^3/cmm (157-399); Red Blood Count 3.96 10^6/uL (3.85-5.65); White Blood Count 11.52 10^3/uL (3.29-11.43)
[2025-01-27 04:33] LABS: Alanine Aminotransferase 20 U/L (0-41); Albumin Level 3.3 g/dL (3.5-5.2); Alkaline Phosphatase 52 U/L (40-130); Anion Gap 10.2 (5-19); Aspartate Amino Transferase 17 U/L (0-40); Blood Urea Nitrogen 9 mg/dL (8-23); Calcium 8.3 mg/dL (8.5-10.5); Carbon Dioxide 38 mmol/L (22-29); Chloride 93 mmol/L (98-107); Globulin 2.4 g/dL (1.3-4.6); Glucose 129 mg/dL (65-115); Osmolality Calculated 284 mOsm/kg (285-295); Potassium 4.2 mmol/L (3.5-5.1); Sodium 137 mmol/L (136-145); Total Protein 5.7 g/dL (6.6-8.7)
[2025-01-27 04:39] LABS: Creatinine Clr Calc Pharmacy 61.0746
[2025-01-27] MEDS: HYDROcodone-acetaminophen 10-325 mg Tablet 1 TAB PO ×5 (04:57→21:36)
[2025-01-27] MEDS: methylPREDNISolone sod succ 40 mg/mL INJ IVP ×2 (05:10→17:14)
--- NOTE | 2025-01-27 06:00 | XRR_ITS ---
PROCEDURE INFORMATION: Exam: XR Chest Exam date and time: 01/27/2025 7:39 AM Age: 69 years old Clinical indication: Device placement; Chest tube; Additional info: Pneumothorax, chest tube TECHNIQUE: Imaging protocol: Radiologic exam of the chest. Views: 1 view. COMPARISON: CR XR chest 1V portable [id number] 01/26/2025 7:03 AM FINDINGS: Tubes, catheters and devices: A right-sided chest tube is seen. Lungs: The lungs are hyperinflated. No pulmonary consolidation. Pleural spaces: Probable small persistent right apical pneumothorax; similar. Heart/Mediastinum: No gross evidence of pneumomediastinum. Bones/joints: No gross fracture. Soft tissues: Extensive soft tissue gas in the chest wall and neck, right greater than left. XR/XR chest 1V portable [id number] IMPRESSION: 1. A right-sided chest tube is seen. Probable small persistent right apical pneumothorax; similar. 2. Pulmonary hyperinflation; query COPD, asthma or other obstructive lung disease. 3. Extensive soft tissue gas in the chest wall and neck, right greater than left.
[2025-01-27] MEDS: lactulose oral liq 20 gm/30 mL UDC PO ×2 (06:13→17:15)
[2025-01-27] MEDS: cefTRIAXone 1,000 mg SDV 1000 MG IVP (11:46)
--- NOTE | 2025-01-27 12:20 | PC.NURSE ---
Chest tube to -[address] Becerra verbal order, at the time of this note.
--- NOTE | 2025-01-27 14:47 | P.PN_ITS ---
Subjective 2 Subjective: Afebrile, hemodynamically stable. Pain is better controlled. Noted to have increased subcutaneous emphysema over the right anterior chest wall. No signs of compartment syndrome currently. Additionally continues to have crepitus over the right arm which appears unchanged compared to yesterday. Medications: Reviewed: Yes Vitals/I&O/Wt Last Vital Signs Temp 98.7 F 01/27/25 06:17 Pulse 79 01/27/25 14:00 Resp 16 01/27/25 11:24 BP 138/66 01/27/25 14:00 Pulse Ox 94 01/27/25 14:00 O2 Del Method Nasal Cannula 01/27/25 14:00 O2 Flow Rate 7 01/27/25 11:24 01/26/25 01/27/25 01/27/25 22:59 06:59 14:59 Intake Total 222 / 922 222 / 1144 1000 / 1000 Output Total 666 / 666 400 / 1066 500 / 500 Balance -444 / 256 -178 / 78 500 / 500 Weight last 48 hrs Weight 52.481 kg Weight 50.984 kg Physical Exam 2 Narrative: General: Chronically ill-appearing male, BMI 14 cachectic HEENT: PERRLA, pupils bilaterally equal and reactive, pallors not present Chest: Bilateral coarse breath sounds, no wheezing or crackles CVS: S1-S2 regular, no murmurs, no tachycardia, no gallops, no rubs Abdomen: Soft, nontender, no organomegaly, bowel sounds present Neuro: No focal deficits, no facial deformity, AO x3, power 5/5 in all limbs Extremities: No edema or cyanosis Urinary Catheter Management: Egan: Cath Placed During This Visit: yes Reason for Continuing Indwelling Catheter: Accurate Measurement of Urinary Output in Critically Ill Patients Urinary Catheter Date of Insertion: 01/26/25 Urinary Catheter Time of Insertion: 01:00 Data 01/27/25 03:52 01/27/25 03:52 A&P Assessment and plan 1. Spontaneous pneumothorax: 69M with COPD chronically on home 02 presenting with weeks of worsening dyspnea, found to have a right spontaneous pneumothorax. S/p placement of a right pigtail in ER with re expansion of lung. residual PTX at 10% pulmonology service has been consulted from the ER for pigtail management repeat CXR in am 2. Chronic obstructive pulmonary disease, unspecified COPD type: Scheduled nebulization with Duoneb q6h and budesonide 0.5 mg BID to continue during hospital stay no current indication for systemic steroids supplemental 02 to keep sat 88-92% 3. Non-ischemic cardiomyopathy: last known EF 51% from 2023 Currently clinically euvolemic 4. Chronic respiratory failure with hypoxia and hypercapnia: related to COPD ABG reveiwed with compensated resp acidosis 01/24/25 15:27 ABG pH 7.37 ABG pCO2 61.9 H* ABG pO2 95.6 ABG HCO3 35.6 H ABG Base Excess 8.1 H 5. Epistaxis: patient reports one episode of epistaxis this morning no active bleeding dried crusted blood noted around B/L nares L > R prn Afrin and saline nasal spray Plan: dvt ppx: SCDs only, no a/c today given epistaxis DNR/DNI. States he would want comfort measures if clinically deteriorates. January 25, 2025 Noted to have air leak and interval development of subcutaneous emphysema on the right chest wall. States that pain is currently not adequately controlled. Will increase frequency of Dilaudid to 1 mg IV every 3 hours as needed. Additionally increase frequency of hydrocodone APAP to every 3 hours as needed. Patient is currently on Toradol for pain management. Additionally will add prednisone 40 mg IV every 24 hours for anti-inflammatory effect. Noted to have expectoration today. Crackles to auscultation on the right side. Favor this to be reexpansion edema. Mild lower extremity swelling, will resume home dose of Lasix 20 mg p.o. twice daily and closely monitor for improvement. Ordered for sputum culture. Chest tube management per pulmonary service, appreciate recommendations. Closely monitor for improvement of airleak. If fails to improve over the next 4 to 5 days, may need endobronchial valve placement. January 26, 2025 Persisting airleak noted today. Subcutaneous emphysema over the right chest wall appears to be clinically the same. States that pain is slightly better compared to yesterday however still not adequately controlled. Patient is on opiates at home including hydrocodone 20 mg up to 4-6 times a day, and morphine 15 mg p.o. twice daily. Will add fentanyl 25 mcg patch to improve pain management. Add lactulose for constipation. Continue IV steroids. Sputum culture ordered. Continue to closely monitor for persisting airleak. If does not resolve may need endobronchial valve placement. Chest tube management per pulmonary January 27, 2025 Pain is better controlled today with addition of fentanyl patch. Increased air crepitus over the right anterior chest wall. Discussed with pulmonary service. Recommended to increase suction to -20 today and closely monitor. He has now had bowel movements with addition of lactulose. Wheezing is improved today on exam. Clinically feels better. Sputum culture pending. Added azithromycin for immunomodulator effect per pulmonary recommendations. PDMP PDMP Reviewed: Not Reviewed Attestations 2 Medical Necessity Statement*: Continued admission to monitor airleak, ongoing treatment of pneumothorax Coding Level of Care Code Acute Code for Chg Fwd Diagnoses Spontaneous pneumothorax J93.83 Chronic obstructive pulmonary disease, unspecified COPD type J44.9 COPD type: unspecified COPD Non-ischemic cardiomyopathy I42.8 Chronic respiratory failure with hypoxia and hypercapnia J96.11; J96.12 Epistaxis R04.0
--- NOTE | 2025-01-27 16:41 | PC.NURSE ---
Patient stood at bedside and walked in place, did some stretching and tiptoe exercises. Patient oxygen saturation remained above 93 on 5L. Patient had 40ml of Sanguineous fluid drain upon standing. Subcutaneous emphysema still present in right chest, arm, and back, No spreading or worsening. Small air leak also still present, less frequent than at start of shift.
[2025-01-27] MEDS: VITAMIN C 1 EACH PO (17:15)
[2025-01-27] MEDS: ATORVASTATIN 10 MG TABLET 20 MG PO (17:15)
[2025-01-27] MEDS: NON-FORMULARY MEDICATION (Methenamine Hippurate 1 gram tablet) 1 EACH PO (17:15)
[2025-01-27] MEDS: ondansetron 2 mg/ML SDV 2 mL 4 MG IVP (17:23)
[2025-01-28] VITALS (23 sets, daily range): BP systolic 118–141; BP diastolic 57–80; PULSE 84–107; RESP 16–20; TEMP 36.7–36.8; O2SAT 91–98
[2025-01-28] MEDS: HYDROmorphone 0.5 MG/0.5 ML INJ 1 MG IVP ×6 (00:25→23:03)
[2025-01-28] MEDS: lactulose oral liq 20 gm/30 mL UDC PO (05:44)
[2025-01-28] MEDS: methylPREDNISolone sod succ 40 mg/mL INJ IVP (05:44)
--- NOTE | 2025-01-28 06:00 | XRR_ITS ---
PROCEDURE INFORMATION: Exam: XR Chest Exam date and time: 01/28/2025 5:58 AM Age: 69 years old Clinical indication: Condition or disease; Other: F/u pneumothorax; F/u RT pneumothorax; Additional info: Pneumothorax, chest tube TECHNIQUE: Imaging protocol: Radiologic exam of the chest. Views: 1 view. COMPARISON: CR (CHEST, ) 01/27/2025 7:39 AM FINDINGS: Tubes, catheters and devices: Right thoracostomy tube. midthoracic nerve stimulator. Lungs: Emphysematous COPD. Pleural spaces: Small right apical pneumothorax is similar to prior. Heart/Mediastinum: Unremarkable. No cardiomegaly. Bones/joints: Unremarkable. Soft tissues: Extensive subcutaneous emphysema on the right, slight on the left. XR/XR chest 1V portable [id number] IMPRESSION: No significant change.
[2025-01-28] MEDS: HYDROcodone-acetaminophen 10-325 mg Tablet 1 TAB PO ×3 (07:08→20:45)
[2025-01-28] MEDS: NON-FORMULARY MEDICATION (Methenamine Hippurate 1 gram tablet) 1 EACH PO ×2 (07:53→17:48)
[2025-01-28] MEDS: VITAMIN C 1 EACH PO ×2 (07:54→17:48)
[2025-01-28] MEDS: cefTRIAXone 1,000 mg SDV 1000 MG IVP (12:55)
--- NOTE | 2025-01-28 16:25 | P.PN_ITS ---
Subjective 2 Subjective: No new complaints today. Oxygen supplementation at 5 L/min. Pain is under control. Airleak appears to be improving. Medications: Reviewed: Yes Vitals/I&O/Wt Last Vital Signs Temp 98.1 F 01/28/25 16:15 Pulse 102 H 01/28/25 16:00 Resp 18 01/28/25 15:56 BP 125/71 01/28/25 16:00 Pulse Ox 98 01/28/25 16:00 O2 Del Method Nasal Cannula 01/28/25 16:00 O2 Flow Rate 5 01/28/25 15:56 01/28/25 01/28/25 01/28/25 06:59 14:59 22:59 Intake Total 1780 / 3180 850 / 850 Output Total 2920 / 4220 700 / 700 Balance -1140 / -1040 150 / 150 Weight last 48 hrs Weight 52.934 kg Weight 52.481 kg Physical Exam 2 Narrative: General: Chronically ill-appearing male, BMI 14 cachectic HEENT: PERRLA, pupils bilaterally equal and reactive, pallors not present Chest: Bilateral coarse breath sounds, no wheezing or crackles CVS: S1-S2 regular, no murmurs, no tachycardia, no gallops, no rubs Abdomen: Soft, nontender, no organomegaly, bowel sounds present Neuro: No focal deficits, no facial deformity, AO x3, power 5/5 in all limbs Extremities: No edema or cyanosis Urinary Catheter Management: Egan: Cath Placed During This Visit: yes Reason for Continuing Indwelling Catheter: Accurate Measurement of Urinary Output in Critically Ill Patients Urinary Catheter Date of Insertion: 01/26/25 Urinary Catheter Time of Insertion: 01:00 Data 01/27/25 03:52 01/27/25 03:52 Micro: Microbiology 01/26/25 19:36 Gram Stain - Final Sputum - Expectorated Sputum Sputum Culture - Preliminary A&P Assessment and plan 1. Spontaneous pneumothorax: 69M with COPD chronically on home 02 presenting with weeks of worsening dyspnea, found to have a right spontaneous pneumothorax. S/p placement of a right pigtail in ER with re expansion of lung. residual PTX at 10% pulmonology service has been consulted from the ER for pigtail management repeat CXR in am 2. Chronic obstructive pulmonary disease, unspecified COPD type: Scheduled nebulization with Duoneb q6h and budesonide 0.5 mg BID to continue during hospital stay no current indication for systemic steroids supplemental 02 to keep sat 88-92% 3. Non-ischemic cardiomyopathy: last known EF 51% from 2023 Currently clinically euvolemic 4. Chronic respiratory failure with hypoxia and hypercapnia: related to COPD ABG reveiwed with compensated resp acidosis 01/24/25 15:27 ABG pH 7.37 ABG pCO2 61.9 H* ABG pO2 95.6 ABG HCO3 35.6 H ABG Base Excess 8.1 H 5. Epistaxis: patient reports one episode of epistaxis this morning no active bleeding dried crusted blood noted around B/L nares L > R prn Afrin and saline nasal spray Plan: dvt ppx: SCDs only, no a/c today given epistaxis DNR/DNI. States he would want comfort measures if clinically deteriorates. January 25, 2025 Noted to have air leak and interval development of subcutaneous emphysema on the right chest wall. States that pain is currently not adequately controlled. Will increase frequency of Dilaudid to 1 mg IV every 3 hours as needed. Additionally increase frequency of hydrocodone APAP to every 3 hours as needed. Patient is currently on Toradol for pain management. Additionally will add prednisone 40 mg IV every 24 hours for anti-inflammatory effect. Noted to have expectoration today. Crackles to auscultation on the right side. Favor this to be reexpansion edema. Mild lower extremity swelling, will resume home dose of Lasix 20 mg p.o. twice daily and closely monitor for improvement. Ordered for sputum culture. Chest tube management per pulmonary service, appreciate recommendations. Closely monitor for improvement of airleak. If fails to improve over the next 4 to 5 days, may need endobronchial valve placement. January 26, 2025 Persisting airleak noted today. Subcutaneous emphysema over the right chest wall appears to be clinically the same. States that pain is slightly better compared to yesterday however still not adequately controlled. Patient is on opiates at home including hydrocodone 20 mg up to 4-6 times a day, and morphine 15 mg p.o. twice daily. Will add fentanyl 25 mcg patch to improve pain management. Add lactulose for constipation. Continue IV steroids. Sputum culture ordered. Continue to closely monitor for persisting airleak. If does not resolve may need endobronchial valve placement. Chest tube management per pulmonary January 27, 2025 Pain is better controlled today with addition of fentanyl patch. Increased air crepitus over the right anterior chest wall. Discussed with pulmonary service. Recommended to increase suction to -20 today and closely monitor. He has now had bowel movements with addition of lactulose. Wheezing is improved today on exam. Clinically feels better. Sputum culture pending. Added azithromycin for immunomodulator effect per pulmonary recommendations. January 28, 2025 Afebrile, hemodynamically stable. Airleak appears to be improving today. Subcutaneous emphysema over the anterior chest wall unchanged over yesterday's exam. Oxygen requirement down to 5 L/min today. Requiring 6 L/min with minimal exertion in the room. This appears to be close to patient's baseline. Chest x- ray showing no significant change this morning. He has no wheezing on auscultation today. Reduce steroids to Methylpred 40 mg IV daily Sputum culture with few gram-positive cocci in pairs chains and clusters which appear to be normal oropharyngeal citlalli. Continuing to hold heparin subcutaneously given recent epistaxis, blood-tinged output in the chest tube. SCDs to suffice for DVT prophylaxis for now. Chest tube to be reassessed by pulmonary service tomorrow to assess for removal versus need to proceed to endobronchial valve. PDMP PDMP Reviewed: Not Reviewed Attestations 2 Medical Necessity Statement*: Continued admission for chest tube management. Coding Level of Care Code Acute Code for Chg Fwd Diagnoses Spontaneous pneumothorax J93.83 Chronic obstructive pulmonary disease, unspecified COPD type J44.9 COPD type: unspecified COPD Non-ischemic cardiomyopathy I42.8 Chronic respiratory failure with hypoxia and hypercapnia J96.11; J96.12 Epistaxis R04.0
[2025-01-28] MEDS: ATORVASTATIN 10 MG TABLET 20 MG PO (17:48)
--- NOTE | 2025-01-28 18:22 | PC.NURSE ---
Shift note: Uneventful shift. Patient back and forth from bed to bedside commode, several bowel movements, stand by assistance for chest tube management. Patient reports pain is better controlled this shift. Air leak much improved/resolved. Subcutaneous emphysema improving from previous shift.
[2025-01-29] VITALS (24 sets, daily range): BP systolic 119–146; BP diastolic 57–78; PULSE 81–115; RESP 13–27; TEMP 36.9–37.2; O2SAT 92–98
[2025-01-29] MEDS: phenol oral Spray 177 mL 3 SPRAY MUCOUS MEM (00:38)
[2025-01-29] MEDS: HYDROcodone-acetaminophen 10-325 mg Tablet 1 TAB PO ×6 (01:38→20:42)
[2025-01-29] MEDS: HYDROmorphone 0.5 MG/0.5 ML INJ 1 MG IVP ×6 (03:37→22:43)
[2025-01-29] MEDS: methylPREDNISolone sod succ 40 mg/mL INJ IVP ×2 (03:38→11:50)
[2025-01-29 05:24] LABS: Hematocrit 37.2 % (37-53); Hemoglobin 12.30 g/dL (11.27-16.99); Mean Corpuscular HGB Conc 33.1 g/dL (30-55); Mean Corpuscular Hemoglobin 32.6 pg (27-33); Mean Corpuscular Volume 98.7 fl (82-101); Nucleated Red Blood Cells % 0 %; Platelet Count 233 10^3/cmm (157-399); Red Blood Count 3.77 10^6/uL (3.85-5.65); White Blood Count 8.24 10^3/uL (3.29-11.43)
[2025-01-29 05:52] LABS: Alanine Aminotransferase 65 U/L (0-41); Albumin Level 3.3 g/dL (3.5-5.2); Alkaline Phosphatase 54 U/L (40-130); Anion Gap 10.0 (5-19); Aspartate Amino Transferase 45 U/L (0-40); Blood Urea Nitrogen 18 mg/dL (8-23); Calcium 8.5 mg/dL (8.5-10.5); Carbon Dioxide 34 mmol/L (22-29); Chloride 93 mmol/L (98-107); Globulin 2.1 g/dL (1.3-4.6); Glucose 107 mg/dL (65-115); Magnesium 1.7 mg/dL (1.7-2.3); Osmolality Calculated 278 mOsm/kg (285-295); Potassium 4.0 mmol/L (3.5-5.1); Sodium 133 mmol/L (136-145); Total Protein 5.4 g/dL (6.6-8.7)
[2025-01-29 05:56] LABS: Creatinine Clr Calc Pharmacy 63.4105
--- NOTE | 2025-01-29 06:00 | XR_ITS ---
WS: [id number] Exam: XR chest 1V portable [id number] Date/Time of Exam: 01/29/2025 7:21 AM Reason For Exam: pneumothorax, chest tube Comparison 01/28/2025. There is pneumothorax of the RIGHT upper lobe estimated at 10%. Very little change. Small bore RIGHT chest tube unchanged in position in the RIGHT lower pleural cavity. Extensive subcu emphysema along the right rib cage, the bilateral shoulders and neck. Pulmonary hyperinflation. Normal cardiomediastinal silhouette. Bony structures are intact. XR/XR chest 1V portable [id number] IMPRESSION: 1. RIGHT upper lobe pneumothorax estimated at 10% showing little change since p rior study. Extensive subcu emphysema. 2. Probable COPD.
[2025-01-29] MEDS: NON-FORMULARY MEDICATION (Methenamine Hippurate 1 gram tablet) 1 EACH PO ×2 (07:48→17:19)
[2025-01-29] MEDS: VITAMIN C 1 EACH PO ×2 (07:48→17:19)
[2025-01-29] MEDS: cefTRIAXone 1,000 mg SDV 1000 MG IVP (11:50)
--- NOTE | 2025-01-29 14:26 | P.PN_ITS ---
Subjective 2 Subjective: chest tube in place on 5L pain controlled Vitals/I&O/Wt Last Vital Signs Temp 98.5 F 01/29/25 12:00 Pulse 110 H 01/29/25 12:00 Resp 20 H 01/29/25 11:15 BP 131/59 01/29/25 12:00 Pulse Ox 94 01/29/25 12:00 O2 Del Method High Flow Nasal Cannula 01/29/25 11:15 O2 Flow Rate 5 01/29/25 11:15 01/28/25 01/29/25 01/29/25 22:59 06:59 14:59 Intake Total 1330 / 2180 600 / 600 Output Total 1260 / 1960 4002 / 5962 Balance 70 / 220 -4002 / -3782 600 / 600 Weight last 48 hrs Weight 116 lb 12.8 oz Weight 116 lb 11.2 oz Physical Exam 2 Narrative: General:NAD HEENT: PERRLA, pupils bilaterally equal and reactive, pallors not present Chest: Bilateral coarse breath sounds, no wheezing or crackles CVS: S1-S2 regular, no murmurs, no tachycardia, no gallops, no rubs Abdomen: Soft, nontender, no organomegaly, bowel sounds present Neuro: No focal deficits, no facial deformity, AO x3, power 5/5 in all limbs Extremities: No edema or cyanosis Urinary Catheter Management: Egan: Cath Placed During This Visit: yes Reason for Continuing Indwelling Catheter: Accurate Measurement of Urinary Output in Critically Ill Patients Urinary Catheter Date of Insertion: 01/26/25 Urinary Catheter Time of Insertion: 01:00 Data 01/29/25 04:45 01/29/25 04:45 Micro: Microbiology 01/26/25 19:36 Gram Stain - Final Sputum - Expectorated Sputum Sputum Culture - Preliminary Gram Negative Rods A&P Assessment and plan 1. Acute hypoxemic respiratory failure: 2. Persistent air leak: 3. Pneumothorax: 4. COPD (chronic obstructive pulmonary disease): Plan: 1. Spontaneous pneumothorax: 69M with COPD chronically on home 02 presenting with weeks of worsening dyspnea, found to have a right spontaneous pneumothorax. S/p placement of a right pigtail in ER with re expansion of lung. residual PTX at 10% pulmonology service has been consulted from the ER for pigtail management monitor O2, imaging 2. Chronic obstructive pulmonary disease, unspecified COPD type: Scheduled nebulization with Duoneb q6h and budesonide 0.5 mg BID to continue during hospital stay no current indication for systemic steroids supplemental 02 to keep sat 88-92% 3. Non-ischemic cardiomyopathy: last known EF 51% from 2023 Currently clinically euvolemic 4. Chronic respiratory failure with hypoxia and hypercapnia: related to COPD ABG reveiwed with compensated resp acidosis PDMP PDMP Reviewed: Not Reviewed Attestations 2 Medical Necessity Statement*: O2 , treatment of respiratory failure, pulmonary eval Coding Level of Care Code 86382 Diagnoses Acute hypoxemic respiratory failure J96.01 Persistent air leak Pneumothorax J93.9 COPD (chronic obstructive pulmonary disease) J44.9
--- NOTE | 2025-01-29 15:09 | PC.SOCIAL ---
IMM updated IMM dated and initialed, Copy placed in chart and copy given to patient
--- NOTE | 2025-01-29 15:11 | PC.NURSE ---
Patient educated on importance of mobility. Patient sat up in recliner for roughly 45 minutes before wanting transferred back to bed.
[2025-01-29] MEDS: ATORVASTATIN 10 MG TABLET 20 MG PO (17:18)
--- NOTE | 2025-01-29 17:38 | PC.NURSE ---
Irrigated chest tube with a total of 30MLS. Calculated on I&O.
--- NOTE | 2025-01-29 19:14 | USCV_ITS ---
Lawrence Carreon Age: 69 Gender: M : 1955 Exam Date: 01/29/2025 21:04 Ordering Phys: Huey Gonzalez MD Technologist: CAMILLA Exam Location: [facility] [place] Indication: assess LV/RV function and pulm pressure, do echo even if tachycardic BP: 126 / 64 HR: 108 Rhythm: Sinus tachycardia Technical Quality: Adequate MEASUREMENTS (Male / Female) Normal Values 2D ECHO LV Diastolic Diameter PLAX 3.2 cm 4.2 - 5.9 / 3.9 - 5.3 cm IVS Diastolic Thickness 1.4 cm 0.6 - 1.0 / 0.6 - 0.9 cm IVS Systolic Thickness 1.6 cm LVPW Diastolic Thickness 1.5 cm 0.6 - 1.0 / 0.6 - 0.9 cm LVPW Systolic Thickness 1.7 cm LVOT Diameter 2.1 cm LV Ejection Fraction 2D Teich 60.0 % LV Ejection Fraction MOD 4C 66.5 % LV Ejection Fraction MOD 2C 63.6 % LV Ejection Fraction 2C AL 62.0 % LA Diameter 2.3 cm Aorta at Sinotubular Diameter 2.9 cm IVC Diameter 1.5 cm M-MODE LA Ao Ratio MM 0.6 AV Cusp Separation MM 1.8 cm DOPPLER AV Peak Velocity 138.0 cm/s LVOT Peak Velocity 74.0 cm/s AV Area Cont Eq vti 2.2 cm squared AV Area Cont Eq pk 1.9 cm squared MV Peak Velocity 93.0 cm/s MV Area PHT 7.6 cm squared TV Peak Velocity 266.5 cm/s TR Peak Velocity 288.0 cm/s TR Peak Gradient 33.2 mmHg TV Peak E Velocity 81.0 cm/s PV Peak Velocity 152.0 cm/s FINDINGS Left Ventricle Normal left ventricular size and systolic function, EF 65%.no regional wall motion abnormalities. . Mild left ventricular hypertrophy. Right Ventricle Normal right ventricular size and systolic function. Right Atrium The right atrium is normal in size. Left Atrium The left atrium is normal in size. Mitral Valve No gross abnormalities noted Aortic Valve No gross abnormalities noted Tricuspid Valve Mild tricuspid valve regurgitation. Estimated pulmonary artery peak systolic pressure 37 mmHg Pulmonic Valve Trace pulmonary valve regurgitation. Minimally thickened pulmonic valve with some restriction of mobility. Pericardium Trivial pericardial effusion. Aorta Mild diffuse plaque in the descending aorta. The aortic root could not be visualized well IVC Normal inferior vena cava. CONCLUSIONS Normal left ventricular size and systolic function, EF 65%.no regional wall motion abnormalities. Mild left ventricular hypertrophy. Normal right ventricular size and systolic function. Mild tricuspid valve regurgitation. Estimated pulmonary artery peak systolic pressure 37 mmHg. Trace pulmonary valve regurgitation. Minimally thickened pulmonic valve with some restriction of mobility. Trivial pericardial effusion. Mild diffuse plaque in the descending aorta. Comparison with the previous study is difficult because of the difference in the technical quality. Dr Jeannie Polk MD [facility] (Electronically Signed) Final Date: 30 January 2025 09:51 S
--- NOTE | 2025-01-29 20:04 | P.PN_ITS ---
Subjective 2 Subjective: No acute events overnight. Patient remained hemodynamic stable. Respiratory status is improving and is currently on 5 L of oxygen. Right chest tube continues to be to suction at -20 with ongoing airleak. Over the weekend waterseal was trialed unfortunately patient had worsening subcutaneous emphysema then chest tube was put to -10 suction but with persistent subcutaneous emphysema chest tube was placed to -20 suction. Vitals/I&O/Wt Last Vital Signs Temp 98.9 F 01/29/25 16:00 Pulse 95 01/29/25 16:00 Resp 18 01/29/25 15:50 BP 126/64 01/29/25 16:00 Pulse Ox 96 01/29/25 16:00 O2 Del Method High Flow Nasal Cannula 01/29/25 15:50 O2 Flow Rate 5 01/29/25 15:50 01/29/25 01/29/25 01/29/25 06:59 14:59 22:59 Intake Total 600 / 600 30 / 630 Output Total 4002 / 5962 3532 / 3532 Balance -4002 / -3782 600 / 600 -3502 / -2902 Weight last 48 hrs Weight 116 lb 12.8 oz Weight 116 lb 11.2 oz Physical Exam 2 Narrative: General: Alert, or iented, and in mil d acute distress. Appears well-jeff shed and well-deve loped. Head: Normo cephalic and atrau matic. Eyes: Pupil s equal, round, an d reactive to ligh t. Ears/Nose/Throa t: Nasal mucosa is moist without dis charge. Oropharynx is clear without erythema or exudat e. Dentition intac t. No lesions or t hrush. Neck: Suppl e. Cardiovascular: Regular rate and rhythm. Normal S1 and S2. No periphe ral edema. Respira tory: Severely dec reased air entry b ilaterally. Scatt ered expiratory wh eezes. Minimal us e of accessory mus cles. Abdomen: Sof t, non-tender, non -distended. Normoa ctive bowel sounds . Extremities: No cyanosis, clubbin g, or edema. Full range of motion. P eripheral pulses p alpable and symmet yossi. Skin: Warm an d dry. No rashes, lesions, or ulcers . Neurology: Alert and oriented to p erson, place, and time. Grossly inta ct with no focal d eficit. Psychiatr y: Good mood with Appropriate affect . Urinary Catheter Management: Egan: Cath Placed During This Visit: yes Reason for Continuing Indwelling Catheter: Accurate Measurement of Urinary Output in Critically Ill Patients Urinary Catheter Date of Insertion: 01/26/25 Urinary Catheter Time of Insertion: 01:00 Data 01/29/25 04:45 01/29/25 04:45 Micro: Microbiology 01/26/25 19:36 Gram Stain - Final Sputum - Expectorated Sputum Sputum Culture - Preliminary Gram Negative Rods A&P Assessment and plan 1. Persistent air leak: 2. COPD (chronic obstructive pulmonary disease): 3. Chronic hypoxemic respiratory failure: Plan: The patient was seen and examined today. He has evidence of an air leak from the Pleur-evac, approximately grade 2 ( with 1 column). Patient failed waterseal over the weekend. He continues to have subcutaneous emphysema. Given his ongoing airleak and subcutaneous emphysema patient is not a candidate for clamp trial and I think even the water seal trial will be risky given he did not tolerated over the weekend. Today is day #6 since chest tube placement with an ongoing air leak which meets the criteria for a leak syndrome. I had an extensive discussion with the patient and and his family regarding his condition and management options. Unfortunately, the patient remains an active smoker, is cachectic, and has end- stage COPD. He continues to require a high level of supplemental oxygen (5 L). Patient would like to try conservative management for now without transferring out for thoracic surgery. I think the airleak is coming from the right upper lobe which is a good target for possible endobronchial valve. I had an extensive discussion with the patient and his brother (retired family physician) about the risk and the benefits of endobronchial valve which includes worsening hypoxemia, persistent respiratory failure, valve migration, infection and airway injury and there is a possibility that endobronchial valves may not work. Patient voiced understanding and he still would like to proceed forward with the procedure if feasible. I explained to the patient that endobronchial valve may not completely cease the airleak but could help decrease it to go to waterseal and he could go home with a chest tube with Heimlich valve for more time for the hole to heal. Other option if the valve does not work we could try pleurodesis. Patient consented for the endobronchial valve that he would like to proceed forward tomorrow. Please make patient n.p.o. after midnight and obtain an echocardiogram in the morning. Huey Gonzalez MD, FACP, FASN Interventional Pulmonary PDMP PDMP Reviewed: Not Reviewed Attestations 2 Medical Necessity Statement*: Patient continues to have air leak syndrome requiring chest tube to suction Coding Level of Care Code Acute Code for Chg Fwd Diagnoses Persistent air leak COPD (chronic obstructive pulmonary disease) J44.9 Chronic hypoxemic respiratory failure J96.11 Time Spent (min) 60
[2025-01-30] VITALS (33 sets, daily range): BP systolic 100–147; BP diastolic 53–117; PULSE 88–125; RESP 11–24; TEMP 36.2–36.8; O2SAT 87–96; BMI 15.0
[2025-01-30] MEDS: HYDROcodone-acetaminophen 10-325 mg Tablet 1 TAB PO ×5 (00:01→22:29)
--- NOTE | 2025-01-30 00:33 | PC.NURSE ---
Anxiety: patient was complaining of severe anxiety, said his breathing is getting harder . Dr. Padron gave telephone orders to give dose of 0.25mg xanax PO before going NPO.
--- NOTE | 2025-01-30 03:33 | PC.NURSE ---
Kink: Patient's subcutaneous emphysema appeared to be slightly increased on right side of chest. After assessment, chest tube tubing was found to be slighly kinked under patient's side from repositioning. Tubing was repositioned, no further kinks were found.
[2025-01-30] MEDS: HYDROmorphone 0.5 MG/0.5 ML INJ 1 MG IVP ×4 (08:29→21:00)
--- NOTE | 2025-01-30 09:17 | W.PM.OPSUD ---
Surgery/Procedure H&P Update DATE OF PROCEDURE: January 30, 2025 DATE H&P PERFORMED: 01/24/25 CHANGES TO PREVIOUS DOCUMENTATION: Patient was seen and examined this morning. He continues to have air leak. Discussed the benefits and the risk with the patient and he agreed to proceed forward with bronchoscopy PLANNED PROCEDURE: Operation Date: 01/30/25 12:10 Proposed Procedures p Bronchoscopy w/ valve placement(Not Applicable) - Huey Gonzalez MD
--- NOTE | 2025-01-30 11:19 | P.ANESASSM_ITS ---
Pre-Anesthetic Assessment Height/Weight: Height 6 ft Weight 111 lb 3 oz Temp Pulse Resp BP Pulse Ox O2 Del Method O2 Flow Rate 97.2 F L 93 12 100/59 92 High Flow Nasal Cannula 5 01/30/25 09:00 01/30/25 09:00 01/30/25 09:00 01/30/25 09:00 01/30/25 09:00 01/30/25 07:35 01/30/25 07:35 Preop Diagnosis: Pneumothorax Operation Date: 01/30/25 12:20 Proposed Procedures p Bronchoscopy(Not Applicable) - Huey Gonzalez MD s Bronchoscopy with Insertion Valve Bronch(Not Applicable) - Huey Gonzalez MD Was Beta Oral taken within 24 hours: N/A Was Clonidine taken within 24 hours: N/A Social Tobacco and No alcohol Exam alert, oriented x 3 and regular rate & rhythm Airway Submandibular: within normal limits Cervical ROM: within normal limits Mallampati: Class III Dentition: full Anesthetic Plan ASA status: 4 Anesthesia: General Other: Patient initially admitted to the hospital on 01/24/2025 with pneumothorax. Chest tube was placed at that time and continues to be in place. Patient continues to have an air leak Patient remains on supplemental O2 Patient states that he uses 5 L O2 at baseline prior to all of this for COPD History of nonischemic cardiomyopathy, echo performed yesterday showing EF of 65% with PA pressures of 37 Labs reviewed from yesterday and acceptable for procedure Plan for general anesthesia Medications/Allergies Home Medications ?Medication ?Instructions ?Recorded ?Confirmed ?Last Taken ?Type aspirin 81 mg tablet,delayed 81 mg PO DAILY 07/14/19 0 01/24/25 01/23/25 20:00 History release (Adult Low Dose Aspirin) carisoprodol 350 mg tablet 350 mg PO QID PRN Spasms 01/24/25 10/13/24 History hydrocodone 10 mg-acetaminophen 1 - 2 tab PO Q4H PRN P ain 02/06/20 01/24/25 01/24/25 10:00 History 325 mg tablet morphine 15 mg immediate release 15 mg PO BID 02/13/20 01/24/25 01/23/25 History tablet rosuvastatin 20 mg tablet 20 mg PO QPM 10/10/2001/23/25 History pantoprazole 40 mg tablet,delayed 40 mg PO BID 1 01/24/25 01/22/25 History release methenamine hippurate 1 gram tablet See Rx Instruction s .Route 04/01/22 01/24/25 01/22/25 Rx .COMPLEX #180 tabs testosterone cypionate 200 mg/mL 200 mg IM .every 10 d ays 04/28/22 01/24/25 2 Months Ago History intramuscular oil ~09/04/23 (Depo-Testosterone) gabapentin 300 mg capsule 600 mg PO TID elbow neuralgi a 04/19/23 01/24/25 01/22/25 History fluticasone fur. 100 mcg-umeclid 1 inh inhalation QPM 12/14/23 01/24/25 01/22/25 History 62.5 mcg-vilant 25 mcg inhalat.powder (Trelegy Ellipta) albuterol sulfate 1.25 mg/3 mL 1.25 mg (3 mL) inhalati on Q6H PRN 12/16/23 01/24/25 01/24/25 Rx solution for nebulization shortness of breath or wheez ing #90 mL metformin 500 mg tablet 500 mg PO DAILY 04/27/2401/22/25 History furosemide 20 mg tablet 20 mg PO BID #180 tabs 09/2201/24/25 01/22/25 Rx potassium chloride 10 mEq 10 meq PO DAILY 10/17/2401/22/25 History tablet,extended release ascorbic acid (vitamin C) 1,000 mg 1,000 mg PO BID 01/24/25 01/22/25 History tablet (Vitamin C) calcium 600 mg (as carbonate)-vit 1 tab PO DAILY 01/2401/24/25 01/22/25 History D3 20 mcg (800 unit) chewable tablet (Caltrate plus D) cholecalciferol (vitamin D3) 125 125 mcg PO DAILY 01/0601/24/25 01/22/25 History mcg (5,000 unit) tablet (Vitamin D3) fluticasone propionate 50 50 mcg intranasal DAILY PRN 01/24/25 01/24/25 Unknown History mcg/actuation nasal allergies spray,suspension guaifenesin 1,200 mg tablet, 1,200 - 2,400 mg PO Q12H 01/24/25 01/24/25 01/22/25 History extended release 12 hr (Mucinex) ketoconazole 2 % shampoo See Rx Instructions .Route . COMPLEX 01/24/25 01/24/25 Unknown History sodium chloride 0.65 % nasal spray 2 spray intranasal Q4H PRN 01/24/25 01/24/25 Unknown History aerosol (Saline Nasal) allergies Allergies Allergy/AdvReac Type Severity Reaction Status Date / Time adhesive Allergy ALGY-Bliste Verified 06/19/24 13:10 r azithromycin Allergy ADR-Itching Verified 01/27/25 12:43 Current Medications Generic Name Dose Route Start Last Admin Trade Name Freq PRN Reason Stop Dose Admin Hydrocodone Bitart/Acetaminophen 1 tab 01/25/25 12:39 01/30/25 10:41 Hydrocodone-Acetaminophen 10-325 Mg Tablet PO 1 tab Q3H PRN Administration PAIN Albuterol Sulfate 2.5 mg 01/24/25 17:18 01/24/25 23:08 Albuterol 2.5 Mg/0.5 Ml Neb INHALATION 2.5 mg Q4H.RESPIRATORY PRN Administration WHEEZING Albuterol/Ipratropium 3 ml 01/26/25 20:00 01/30/25 07:43 Ipratropium-Albuterol 3 Ml Neb INHALATION 3 ml Q4H.RESPIRATORY TIAGO Administration Alprazolam 0.25 mg 01/27/25 18:20 01/29/25 19:32 Alprazolam 0.5 Mg Tablet PO 0.25 mg BID PRN Administration ANXIETY Atorvastatin Calcium 20 mg 01/24/25 18:00 01/29/25 17:18 Atorvastatin 10 Mg Tablet PO 20 mg QPM TIAGO Administration Azithromycin 250 mg 01/27/25 12:24 01/30/25 08:35 Azithromycin 250 Mg Tablet PO 01/30/25 12:00 250 mg DAILY TIAGO Administration Protocol Benzonatate 100 mg 01/27/25 12:15 01/30/25 08:36 Benzonatate 100 Mg Capsule PO Not Given TID TIAGO Budesonide 0.5 mg 01/24/25 20:00 01/30/25 07:43 Budesonide 0.5 Mg/2 Ml Neb INHALATION 0.5 mg BID.RESPIRATORY TIAGO Administration Ceftriaxone Sodium 1,000 mg 01/25/25 12:45 01/29/25 11:50 Ceftriaxone 1,000 Mg Sdv IVP 1,000 mg Q24H TIAGO Administration Protocol Fentanyl 1 patch 01/26/25 12:00 01/29/25 11:50 Fentanyl 25 Mcg Patch TRANSDERMA 1 patch Q72H TIAGO Administration Furosemide 20 mg 01/25/25 11:45 01/30/25 10:41 Furosemide 20 Mg Tablet PO 20 mg Q12H TIAGO Administration Gabapentin 600 mg 01/24/25 21:00 01/30/25 09:34 Gabapentin 300 Mg Capsule PO Not Given TID TIAGO Hydromorphone HCl 1 mg 01/25/25 12:39 01/30/25 08:29 Hydromorphone 0.5 Mg/0.5 Ml Inj IVP 1 mg Q3H PRN Administration PAIN Methylprednisolone Sodium Succinate 40 mg 01/28/25 12:00 01/29/25 11:50 Methylprednisolone Sod Succ 40 Mg/Ml Inj IVP 40 mg Q24H TIAGO Administration Non-Formulary Medication 1 gm 01/27/25 18:00 01/30/25 08:36 Methenamine Hippurate PO Not Given BID [facility] Non-Formulary 1 each 01/27/25 18:00 01/30/25 08:35 Medication (Vitamin PO Not Given C Supplement 1000 Mg BID [facility] ) Ondansetron HCl 4 mg 01/24/25 17:14 01/27/25 17:23 Ondansetron 2 Mg/Ml Sdv 2 Ml IVP 4 mg Q8H PRN Administration vomiting, or N/V if npo Pantoprazole Sodium 40 mg 01/24/25 18:00 01/30/25 08:[address] 40 Mg Tablet PO 40 mg BID TIAGO Administration Phenol 3 spray 01/29/25 00:23 01/29/25 00:38 Phenol Oral Mifflin 177 Ml MUCOUS MEM 3 spray Q2H PRN Administration SORE THROAT Sodium Chloride 2 spray 01/24/25 17:21 01/25/25 19:52 Saline Nasal Mifflin 44ml Btl NASAL 2 spray Q4H PRN Administration allergies PFSH Anesthesia Medical History (Updated 01/26/25 @ 15:11 by Huey Gonzalez MD) History of nonmelanoma skin cancer Hx MRSA infection Elevated brain natriuretic peptide (BNP) level Chronic back pain Hypertension Hyponatremia Recurrent UTI AAA (abdominal aortic aneurysm) without rupture Non-ischemic cardiomyopathy Pulmonary nodule 1 cm or greater in diameter Intervertebral disc disorders with radiculopathy, 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 Easton January 23, 2019. With thoracic spinal cord stimulator placement History of lumbar fusion Dr. Easton February 15, 2017 L4-S1 History of umbilical hernia repair History of colon resection Due to cancer History of arthroscopy of both knees Family History Mother Diabetes Father , AT AGE 87 Diabetes CAD (coronary artery disease) Hypertension Myocardial infarction Cancer Brother Cancer Gastroesophageal cancer CAD (coronary artery disease) Diabetes Sister Diabetes Denies family history of Clotting disorder Dementia Chronic kidney disease (CKD) Suicide Anesthesia complication Bleeding disorder Lung disease Stroke Social History Smoking and tobacco/nicotine status: current every day tobacco/nicotine user cigarettes Packs smoked per day: 2 Years cigarettes smoked: 53 [ Other cigarette details: Started 1969] Quit status (tobacco/nicotine): considering quitting Second hand smoke exposure: Yes Alcohol intake: never Substance/Drug Use: never Lives independently: Yes Household members: spouse Housing: House Marital status: service: Yes branch: [employer] Current occupational status: employed Current occupational exposures/hazards: No Pets and animals: Yes Do you think of yourself as: Straight/Heterosexual Current gender identity: Male Special syeda needs: No Data Anesthesia 01/29/25 04:45 01/29/25 04:45 Short CBC 01/29/25 Range/Units 04:45 WBC 8.24 (3.29-11.43) 10^3/uL Hgb 12.30 (11.27-16.99) g/dL Hct 37.2 (37-53) % MCV 98.7 (82-101) fl Plt Count 233 (157-399) 10^3/cmm Neut % (Auto) 72.8 % Neut # (Auto) 5.99 (1.8-7.7) 10^3/uL BMP 01/29/25 04:45 Sodium 133 L Potassium 4.0 Chloride 93 L Carbon Dioxide 34 H BUN 18 Creatinine 0.4 L Glucose 107 Calcium 8.5 Liver Function 01/29/25 Range/Units 04:45 Total Bilirubin 0.2 (0.15-1.2) mg/dL AST 45 H (0-40) U/L ALT 65 H (0-41) U/L Alkaline Phosphatase 54 (40-130) U/L Albumin 3.3 L (3.5-5.2) g/dL Microbiology 01/26/25 19:36 Gram Stain - Final Sputum - Expectorated Sputum Sputum Culture - Preliminary Gram Negative Rods Cardiac Studies: 2 Echocardiogram 01/29/25 Echocardiogram Ultrasound 10/04/20
[2025-01-30] MEDS: lidocaine 2% INJ 20 mL 40 ML (13:17)
--- NOTE | 2025-01-30 13:29 | XR_ITS ---
WS: [id number] Exam: XR chest 1V portable [id number] Date/Time of Exam: 01/30/2025 1:38 PM Reason For Exam: POST BRONCH Comparison 01/29/2025. Increasing right pneumothorax. Pneumothorax estimated at 25 to 30%. LEFT lung is fully expanded and clear. Extensive subcu emphysema over the right chest and shoulder. Small amount also seen along the LEFT shoulder. No midline shift or tension. Normal heart size. The mediastinum is normal in contour. Small bore right chest tube in place unchanged. Instrumentation of the RIGHT hilum. XR/XR chest 1V portable [id number] IMPRESSION: 1. Increasing RIGHT pneumothorax estimated between 25 and 30%. No tension or mi dline shift. Extensive subcu emphysema as detailed above.
--- NOTE | 2025-01-30 13:38 | P.BOP_ITS ---
Interventional Pulmonary Immediate Brief Operative Note: * Date of Procedure:?01/27/2025 * Preoperative Diagnosis:?Right air leak syndrome * Postoperative Diagnosis:?[Same as pre-op] * Procedures Performed: Segmental balloon occlusion with right upper lobe endobronchial valves placement x 4 * Surgeon / Section Gang Worker:?Huey Gonzalez MD * Anesthesia: * ?General anesthesia * Findings: Moderate endobronchial secretions status post therapeutics suctioning. Right airleak syndrome * Estimated Blood Loss (EBL):?[Minimal] * Specimens: * Bronchial wash for Gram stain and culture * Complications:?None * Disposition:?Transferred to ICU in stable condition. Huey Gonzalez MD, FACP Interventional Pulmonogist
--- NOTE | 2025-01-30 13:38 | W.PM.BPON ---
Interventional Pulmonary Immediate Brief Operative Note: Date of Procedure:?01/27/2025 Preoperative Diagnosis:?Right air leak syndrome Postoperative Diagnosis:?[Same as pre-op] Procedures Performed: Segmental balloon occlusion with right upper lobe endobronchial valves placement x 4 Surgeon / Senior Catering Sales Manager:?Huey Gonzalez MD Anesthesia: ?General anesthesia Findings: Moderate endobronchial secretions status post therapeutics suctioning. Right airleak syndrome Estimated Blood Loss (EBL):?[Minimal] Specimens: Bronchial wash for Gram stain and culture Complications:?None Disposition:?Transferred to ICU in stable condition. Huey Gonzalez MD, FACP Interventional Pulmonogist
--- NOTE | 2025-01-30 13:55 | ANE.PACU2 ---
Inpatient post-anesthesia follow up: Airway intact: Yes Vital signs: Temperature 98.2 F Pulse Rate 118 Respiratory Rate 16 Blood Pressure 103/60 Pulse Oximetry 90 Oxygen Delivery Me thod High Flow Nasal Ca nnula Oxygen Flow Rate 5 Fraction of Inspir ed Oxygen Hydration adequate: Yes Nausea and vomiting: No Pain level: 2 Mental status: Baseline
--- NOTE | 2025-01-30 14:33 | PC.NURSE ---
Patient arrived back from surgery, Dr Josue chavez and placed heimlich valve and monitor crepitus. Gave orders to eat and drink as prior.
--- NOTE | 2025-01-30 14:35 | P.PN_ITS ---
Subjective 2 Subjective: chest tube in place Awaiting procedure Vitals/I&O/Wt Last Vital Signs Temp 98.2 F 01/30/25 14:00 Pulse 118 H 01/30/25 14:00 Resp 16 01/30/25 14:00 BP 103/60 01/30/25 14:00 Pulse Ox 90 01/30/25 14:00 O2 Del Method High Flow Nasal Cannula 01/30/25 07:35 O2 Flow Rate 5 01/30/25 07:35 01/29/25 01/30/25 01/30/25 22:59 06:59 14:59 Intake Total 740 / 1340 0 / 0 Output Total 3532 / 3532 2850 / 6382 Balance -2792 / -2192 -2850 / -5042 0 / 0 Weight last 48 hrs Weight 111 lb 3 oz Weight 116 lb 12.8 oz Physical Exam 2 Narrative: General:NAD HEENT: PERRLA, pupils bilaterally equal and reactive, pallors not present Chest: Bilateral coarse breath sounds, no wheezing or crackles CVS: S1-S2 regular, no murmurs, no tachycardia, no gallops, no rubs Abdomen: Soft, nontender, no organomegaly, bowel sounds present Neuro: No focal deficits, no facial deformity, AO x3, power 5/5 in all limbs Extremities: No edema or cyanosis Urinary Catheter Management: Egan: Cath Placed During This Visit: yes Reason for Continuing Indwelling Catheter: Accurate Measurement of Urinary Output in Critically Ill Patients Urinary Catheter Date of Insertion: 01/26/25 Urinary Catheter Time of Insertion: 01:00 Data 01/29/25 04:45 01/29/25 04:45 Micro: Microbiology 01/26/25 19:36 Gram Stain - Final Sputum - Expectorated Sputum Sputum Culture - Preliminary Gram Negative Rods A&P Assessment and plan 1. Acute hypoxemic respiratory failure: 2. Persistent air leak: 3. Pneumothorax: 4. COPD (chronic obstructive pulmonary disease): Plan: 1. Spontaneous pneumothorax: 69M with COPD chronically on home 02 presenting with weeks of worsening dyspnea, found to have a right spontaneous pneumothorax. S/p placement of a right pigtail in ER with re expansion of lung. residual PTX at 10% pulmonology service has been consulted from the ER for pigtail management monitor O2, imaging. Plan for procedure today 2. Chronic obstructive pulmonary disease, unspecified COPD type: Scheduled nebulization with Duoneb q6h and budesonide 0.5 mg BID to continue during hospital stay no current indication for systemic steroids supplemental 02 to keep sat 88-92% 3. Non-ischemic cardiomyopathy: last known EF 51% from 2023 Currently clinically euvolemic 4. Chronic respiratory failure with hypoxia and hypercapnia: related to COPD ABG reveiwed with compensated resp acidosis PDMP PDMP Reviewed: Not Reviewed Attestations 2 Medical Necessity Statement*: Oxygen chest tube treatment Coding Level of Care Code 43280 Diagnoses Acute hypoxemic respiratory failure J96.01 Persistent air leak Pneumothorax J93.9 COPD (chronic obstructive pulmonary disease) J44.9
--- NOTE | 2025-01-30 15:17 | PM.OP ---
Operative Report Date of procedure: January 30, 2025 <Huey Gonzalez MD - Last Filed: 01/30/25 22:30> Pre-op diagnosis: Persistent right air leak syndrome <Huey Gonzalez MD - Last Filed: 01/30/25 22:30> Post-op diagnosis: Same <Huey Gonzalez MD - Last Filed: 01/30/25 22:30> Procedure done: Bronchoscopy with endobronchial valve placement <Huey Gonzalez MD - Last Filed: 01/30/25 22:30> Implants: Endobronchial valves?spiration valve <Huey Gonzalez MD - Last Filed: 01/30/25 22:30> Surgeon: Huey Gonzalez MD <Huey Gonzalez MD - Last Filed: 01/30/25 22:30> Estimated blood loss: None <Huey Gonzalez MD - Last Filed: 01/30/25 22:30> Complications: None <Huey Gonzalez MD - Last Filed: 01/30/25 22:30> Findings: Procedure: Pre-Anesthesia Assessment [place] Protocol: Pre-procedure Verification: Prior to the procedure, the patient's identity was confirmed using full name, date of , and medical record number. Identity verification included a review of all relevant medical records, history, physical examination, medications, allergies, and previous anesthesia tolerance. Risks, benefits, sedation options, and associated risks were reviewed with the patient, and informed consent was obtained after addressing all questions. Time-Out: Immediately before the procedure, a time-out was conducted to confirm patient identification, procedure details, consent, image labeling, and the need for prophylactic antibiotics. This was verified by the physician, nurse, anesthesiologist, and refuse and recycling worker. Outcome: The procedure was completed without difficulty, and the patient tolerated it well. A thorough airway exam was performed after passage of the bronchoscope. Therapeutic scope was advanced through the endotracheal tube. The trachea was anatomically normal. The right sided airway was anatomically normal without endobronchial lesions. The left sided airway was anatomically normal without endobronchial lesions. Bilateral airways had moderate amount of the thick mucoid secretions that required therapeutic aspiration (96266). Prior to intubation patient had evidence of air leak on the Pleur-evac but once he was intubated the airleak became very intermittent and infrequent despite high tidal volume and higher PEEP. Then I used Gilles balloons tosize 4 and 6 to occlude the right sided airway segmentally and individually including right upper lobe, right upper lobe subsegments, right middle lobe and right lower lobe and it seems the leak improved upon occlusion of the right upper lobe but because it was very infrequent while the patient intubated it was very hard to conclude though based on the CAT scan the most likely chance of this being from the right upper lobe is very high. The decision was made to proceed forward with placing endobronchial valve to the right upper lobe especially it was the most diseased part of the right lung. Placement details: Right upper lobe apical segment size 7 spiration valve Right upper lobe posterior segment size 6 spiration valve Right upper lobe anterior superior segment size 7 spiration valve Right upper lobe anterior inferior segment size 7 spiration valve Following successful placement of all endobronchial valves into the target lobe, saline was gently flushed over each occluded orifice. No bubbling of air was noted. Following completion of all diagnostic and therapeutic procedures, hemostasis was verified. The scope was removed and procedure concluded. Successful bronchoscopy. In summary, the following procedures were performed: 52686 Therapeutic aspiration of secretions, 95307 balloon occlusion with assessment of air leak 49379 EBV for airleak, (Endobronchial valve for airleak, first lobe), C1601 endoscope, single use (disposable) pulmonary, imaging/illumination device (as insertable) Huey Gonzalez MD, FACP, [facility] Interventional pulmonary <Huey Gonzalez MD - Last Filed: 01/30/25 22:30> Procedure: <ERIN Gomez - Last Filed: 01/30/25 15:48>
--- NOTE | 2025-01-30 16:30 | XRR_ITS ---
PROCEDURE INFORMATION: Exam: XR Chest Exam date and time: 01/30/2025 4:24 PM Age: 69 years old Clinical indication: Device placement; Other: Post bronch; Prior surgery; Surgery date: Post-operative (0-2 days); Additional info: Post surgery, 1630 xray exactly per drs. [place] TECHNIQUE: Imaging protocol: Radiologic exam of the chest. Views: 1 view. COMPARISON: CR XR chest 1V portable [id number] 01/30/2025 1:41 PM FINDINGS: Lungs: Interval slight repositioning of the right-sided pigtail pleural drainage catheter which terminates at the level of the right infrahilar region. Pleural spaces: Stable pneumothorax. Heart/Mediastinum: Cardiomediastinal contours within limits. No mediastinal shift. Bones/joints: Unremarkable. Soft tissues: Stable extensive subcutaneous emphysema in the right chest wall. XR/XR chest 1V portable [id number] IMPRESSION: 1. Interval slight repositioning of the right-sided pigtail pleural drainage catheter which terminates at the level of the right infrahilar region. 2. Stable pneumothorax. 3. Stable extensive subcutaneous emphysema in the right chest wall.
--- NOTE | 2025-01-30 17:39 | P.PN_ITS ---
Vitals/I&O/Wt Last Vital Signs Temp 98.2 F 01/30/25 14:00 Pulse 109 H 01/30/25 16:00 Resp 20 H 01/30/25 16:00 BP 123/61 01/30/25 16:00 Pulse Ox 87 L 01/30/25 16:00 O2 Del Method High Flow Nasal Cannula 01/30/25 15:05 O2 Flow Rate 5 01/30/25 15:05 01/30/25 01/30/25 01/30/25 06:59 14:59 22:59 Intake Total 0 / 0 Output Total 2850 / 6382 2250 / 2250 Balance -2850 / -5042 -2250 / -2250 Weight last 48 hrs Weight 111 lb 3 oz Weight 116 lb 12.8 oz Physical Exam 2 Urinary Catheter Management: Egan: Cath Placed During This Visit: yes Reason for Continuing Indwelling Catheter: Accurate Measurement of Urinary Output in Critically Ill Patients Urinary Catheter Date of Insertion: 01/26/25 Urinary Catheter Time of Insertion: 01:00 Data 01/29/25 04:45 01/29/25 04:45 Micro: Microbiology 01/26/25 19:36 Mycobacterial Smear - Preliminary Sputum - Expectorated Sputum 01/30/25 12:27 Gram Stain - Final Lung Right Lower Lobe A&P PDMP PDMP Reviewed: Not Reviewed Coding Level of Care Code Acute Code for [facility]
[2025-01-30] MEDS: ATORVASTATIN 10 MG TABLET 20 MG PO (17:59)
[2025-01-30] MEDS: NON-FORMULARY MEDICATION (Methenamine Hippurate 1 gram tablet) 1 EACH PO (18:01)
[2025-01-30] MEDS: VITAMIN C 1 EACH PO (18:01)
[2025-01-31] VITALS (34 sets, daily range): BP systolic 112–147; BP diastolic 54–90; PULSE 84–124; RESP 12–20; TEMP 36.5–36.7; O2SAT 89–99
[2025-01-31] MEDS: HYDROmorphone 0.5 MG/0.5 ML INJ 1 MG IVP ×7 (00:35→20:43)
--- NOTE | 2025-01-31 01:03 | PC.NURSE ---
Addendum entered by Bebe Hong RN 01/31/25 04:53: Spoke with Dr Odonnell who contacted Dr Goodman, received order to place chest tube back to suction at -20. Chest tube to suction, confirmed suction indicator was expanded. Addendum entered by Bebe Hong RN 01/31/25 04:11: Again notified Dr Padron of increasing subcutaneous emphysema. Dr Odonnell to floor to see patient. No new orders received at this time. Original Note: Physician notification Notified Dr Odonnell of patient's increasing subcutaneous emphysema. Patient saturating 92% on 5 L nasal cannula at the time of notification. Informed physician that patient's chest tube was to dry seal with a Heimlich valve. Dr Odonnell gave orders to monitor patient.
[2025-01-31] MEDS: HYDROcodone-acetaminophen 10-325 mg Tablet 1 TAB PO ×5 (01:49→19:07)
[2025-01-31 04:45] LABS: Hematocrit 37.7 % (37-53); Hemoglobin 12.20 g/dL (11.27-16.99); Mean Corpuscular HGB Conc 32.4 g/dL (30-55); Mean Corpuscular Hemoglobin 31.9 pg (27-33); Mean Corpuscular Volume 98.7 fl (82-101); Nucleated Red Blood Cells % 0 %; Platelet Count 254 10^3/cmm (157-399); Red Blood Count 3.82 10^6/uL (3.85-5.65); White Blood Count 14.86 10^3/uL (3.29-11.43)
[2025-01-31 05:15] LABS: Alanine Aminotransferase 51 U/L (0-41); Albumin Level 3.3 g/dL (3.5-5.2); Alkaline Phosphatase 56 U/L (40-130); Anion Gap 8.9 (5-19); Aspartate Amino Transferase 18 U/L (0-40); Blood Urea Nitrogen 16 mg/dL (8-23); Calcium 8.5 mg/dL (8.5-10.5); Carbon Dioxide 36 mmol/L (22-29); Chloride 91 mmol/L (98-107); Creatinine Clr Calc Pharmacy 60.4157; Globulin 2.2 g/dL (1.3-4.6); Glucose 190 mg/dL (65-115); Osmolality Calculated 280 mOsm/kg (285-295); Potassium 3.9 mmol/L (3.5-5.1); Sodium 132 mmol/L (136-145); Total Protein 5.5 g/dL (6.6-8.7)
[2025-01-31 05:16] LABS: Lactate (Lactic Acid level) 1.4 mmol/L (0.5-2.2)
--- NOTE | 2025-01-31 06:00 | XRR_ITS ---
PROCEDURE INFORMATION: Exam: XR Chest Exam date and time: 01/31/2025 6:02 AM Age: 69 years old Clinical indication: Device placement; Chest tube; Prior surgery; Surgery date: 3-7 days post-operative; Surgery type: Bronch TECHNIQUE: Imaging protocol: Radiologic exam of the chest. Views: 1 view. COMPARISON: CR XR chest 1V portable [id number] 01/30/2025 4:24 PM FINDINGS: Tubes, catheters and devices: Right thoracostomy tube. Midthoracic nerve stimulator. Lungs: Unremarkable. No consolidation. Pleural spaces: Small right apical pneumothorax appears stable. Heart/Mediastinum: Unremarkable. No cardiomegaly. Bones/joints: Unremarkable. Soft tissues: Extensive subcutaneous emphysema along the right chest wall and the bilateral lower neck. XR/XR chest 1V portable [id number] IMPRESSION: 1. No significant change. 2. Stable right pneumothorax.
[2025-01-31] MEDS: NON-FORMULARY MEDICATION (Methenamine Hippurate 1 gram tablet) 1 EACH PO ×2 (08:34→17:29)
[2025-01-31] MEDS: VITAMIN C 1 EACH PO ×2 (08:35→17:29)
--- NOTE | 2025-01-31 09:43 | P.PCN_ITS ---
Procedure/Consent Time out: Time Out Performed: Yes Consent: Consent for Procedure: Consent obtained from patient Procedure Narrative: Procedure Note: Autologous Blood Patch via Right Chest Tube Date: 01/31/2025 Ticket Sales Agent: Dr. Huey Gonzalez Indication: Persistent air leak secondary to secondary spontaneous pneumothorax in the setting of emphysematous lung disease, refractory to conservative management and after endobronchial valve placement with residual grade 1 air leak. Procedure: An autologous blood patch was performed at the bedside in a patient with a persistent low-grade air leak (grade 1) despite prior endobronchial valve placement. The patient had a right-sided chest tube in place connected to a water seal system. After informed consent was obtained and time-out was performed, the patient was positioned comfortably in a semi-upright position. The skin over the right upper extremity was prepped and draped in a sterile fashion. Using sterile technique, approximately 100 mL of autologous blood was drawn from a peripheral vein (left antecubital vein) using a large-bore syringe. Immediately, the blood was injected aseptically through the right-sided chest tube using a sterile syringe and port connector without delay to avoid clotting. Care was taken to prevent introduction of air during the process. Following instillation, the chest tube with pleruavac was elevated on IV pole for 1 hour to allow for pleural adherence and sealing of the air leak. The patient was kept in supine position with minimal movement for 1 hour. Afterward, the clamp was released and the chest tube was placed back to water seal (no suction unless patient become symptomatic). The patient remained hemodynamically stable and comfortable throughout the procedure. Estimated Blood Volume Instilled: 100 mL Chest Tube Side: Right Post-Procedure Status: Stable Complications: None observed Plan: Monitor for reduction/resolution of air leak. Repeat chest X-ray to assess for pneumothorax or tube position. Continue water seal for now. Consider additional blood patch or surgical consultation if leak persists. CPT code 72620. Huey Gonzalez MD, FACP, FASN Interventional Pulmoanry Acute Procedures Epistaxis Control: Time out performed: Yes
[2025-01-31] MEDS: ondansetron 2 mg/ML SDV 2 mL 4 MG IVP (10:56)
--- NOTE | 2025-01-31 10:58 | PM.CONSULT ---
Providers/Reason For Consult Consulting Physician/Specialty*: General Surgery Reason for Consult*: Large subcutaneous emphysema Attending Physician: Deb Elizabeth MD Primary Care Provider: Carolyn Ireland DO History of Present Illness History of Present Illness Lawrence Carreon is a 69 year old male with COPD who was admitted with the large right pneumothorax, chest tube was placed noted to have an air leak, he underwent endobronchial valve placement and today blood patch by pulmonology team. He has noted to have worsening subcutaneous emphysema I have been requested by pulmonology team to perform a infraclavicular incision on the right side to allow for evacuation of the subcutaneous emphysema as there is high likelihood of bleeding increasing after recent intervention as the chest tube was no longer going to be on suction after the blood patch. Review of Systems General: Reports: 10 or more systems reviewed and unremarkable except in HPI and below Medications/Allergies Home Medications ?Medication ?Instructions ?Recorded ?Confirmed ?Last Taken ?Type aspirin 81 mg tablet,delayed 81 mg PO DAILY 07/14/19 01/24/25 01/23/25 20:00 History release (Adult Low Dose Aspirin) carisoprodol 350 mg tablet 350 mg PO QID PRN Spasms 07/14/19 01/24/25 10/13/24 History hydrocodone 10 mg-acetaminophen 1 - 2 tab PO Q4H PRN Pain 02/06/20 01/24/25 01/24/25 10:00 History 325 mg tablet morphine 15 mg immediate release 15 mg PO BID 02/13/20 01/24/25 01/23/25 History tablet rosuvastatin 20 mg tablet 20 mg PO QPM 10/10/20 01/24/25 01/23/25 History pantoprazole 40 mg tablet,delayed 40 mg PO BID 03/20/21 01/24/25 01/22/25 History release methenamine hippurate 1 gram tablet See Rx Instructions .Route 04/01/22 01/24/25 01/22/25 Rx .COMPLEX #180 tabs testosterone cypionate 200 mg/mL 200 mg IM .every 10 days 04/28/22 01/24/25 2 Months Ago History intramuscular oil ~09/04/23 (Depo-Testosterone) gabapentin 300 mg capsule 600 mg PO TID elbow neuralgia 04/19/23 01/24/25 01/22/25 History fluticasone fur. 100 mcg-umeclid 1 inh inhalation QPM 12/14/23 01/24/25 01/22/25 History 62.5 mcg-vilant 25 mcg inhalat.powder (Trelegy Ellipta) albuterol sulfate 1.25 mg/3 mL 1.25 mg (3 mL) inhalation Q6H PRN 12/16/23 01/24/25 01/24/25 Rx solution for nebulization shortness of breath or wheezing #90 mL metformin 500 mg tablet 500 mg PO DAILY 04/27/24 01/24/25 01/22/25 History furosemide 20 mg tablet 20 mg PO BID #180 tabs 09/22/24 01/24/25 01/22/25 Rx potassium chloride 10 mEq 10 meq PO DAILY 10/17/24 01/24/25 01/22/25 History tablet,extended release ascorbic acid (vitamin C) 1,000 mg 1,000 mg PO BID 01/24/25 01/24/25 01/22/25 History tablet (Vitamin C) calcium 600 mg (as carbonate)-vit 1 tab PO DAILY 01/24/25 01/24/25 01/22/25 History D3 20 mcg (800 unit) chewable tablet (Caltrate plus D) cholecalciferol (vitamin D3) 125 125 mcg PO DAILY 01/24/25 01/24/25 01/22/25 History mcg (5,000 unit) tablet (Vitamin D3) fluticasone propionate 50 50 mcg intranasal DAILY PRN 01/24/25 01/24/25 Unknown History mcg/actuation nasal allergies spray,suspension guaifenesin 1,200 mg tablet, 1,200 - 2,400 mg PO Q12H 01/24/25 01/24/25 01/22/25 History extended release 12 hr (Mucinex) ketoconazole 2 % shampoo See Rx Instructions .Route .COMPLEX 01/24/25 01/24/25 Unknown History sodium chloride 0.65 % nasal spray 2 spray intranasal Q4H PRN 01/24/25 01/24/25 Unknown History aerosol (Saline Nasal) allergies Allergies Allergy/AdvReac Type Severity Reaction Status Date / Time adhesive Allergy ALGY-Bliste Verified 06/19/24 13:10 r azithromycin Allergy ADR-Itching Verified 01/27/25 12:43 Current Medications Generic Name Dose Route Start Last Admin Trade Name Freq PRN Reason Stop Dose Admin Hydrocodone Bitart/Acetaminophen 1 tab 01/25/25 12:39 01/31/25 08:34 Hydrocodone-Acetaminophen 10-325 Mg Tablet PO 1 tab Q3H PRN Administration PAIN Albuterol Sulfate 2.5 mg 01/24/25 17:18 01/24/25 23:08 Albuterol 2.5 Mg/0.5 Ml Neb INHALATION 2.5 mg Q4H.RESPIRATORY PRN Administration WHEEZING Albuterol/Ipratropium 3 ml 01/26/25 20:00 01/31/25 07:40 Ipratropium-Albuterol 3 Ml Neb INHALATION 3 ml Q4H.RESPIRATORY TIAGO Administration Atorvastatin Calcium 20 mg 01/24/25 18:00 01/30/25 17:59 Atorvastatin 10 Mg Tablet PO 20 mg QPM TIAGO Administration Benzonatate 100 mg 01/27/25 12:15 01/31/25 08:34 Benzonatate 100 Mg Capsule PO 100 mg TID TIAGO Administration Budesonide 0.5 mg 01/24/25 20:00 01/31/25 07:40 Budesonide 0.5 Mg/2 Ml Neb INHALATION 0.5 mg BID.RESPIRATORY TIAGO Administration Ceftriaxone Sodium 1,000 mg 01/25/25 12:45 01/30/25 14:02 Ceftriaxone 1,000 Mg Sdv IVP Not Given Q24H TIAGO Protocol Fentanyl 1 patch 01/26/25 12:00 01/29/25 11:50 Fentanyl 25 Mcg Patch TRANSDERMA 1 patch Q72H TIAGO Administration Furosemide 20 mg 01/25/25 11:45 01/31/25 00:35 Furosemide 20 Mg Tablet PO 20 mg Q12H TIAGO Administration Gabapentin 600 mg 01/24/25 21:00 01/31/25 08:34 Gabapentin 300 Mg Capsule PO 600 mg TID TIAGO Administration Hydromorphone HCl 1 mg 01/25/25 12:39 01/31/25 09:19 Hydromorphone 0.5 Mg/0.5 Ml Inj IVP 1 mg Q3H PRN Administration PAIN Methylprednisolone Sodium Succinate 40 mg 01/28/25 12:00 01/30/25 14:01 Methylprednisolone Sod Succ 40 Mg/Ml Inj IVP Not Given Q24H TIAGO Non-Formulary Medication 1 gm 01/27/25 18:00 01/31/25 08:34 Methenamine Hippurate PO 1 gm BID TIAGO Administration Non-Formulary 1 each 01/27/25 18:00 01/31/25 08:35 Medication (Vitamin PO 1 each C Supplement 1000 Mg BID TIAGO Administration ) Ondansetron HCl 4 mg 01/24/25 17:14 01/31/25 10:56 Ondansetron 2 Mg/Ml Sdv 2 Ml IVP 4 mg Q8H PRN Administration vomiting, or N/V if npo Pantoprazole Sodium 40 mg 01/24/25 18:00 01/31/25 08:[address] 40 Mg Tablet PO 40 mg BID TIAGO Administration Phenol 3 spray 01/29/25 00:23 01/29/25 00:38 Phenol Oral [place] 177 Ml MUCOUS MEM 3 spray Q2H PRN Administration SORE THROAT Sodium Chloride 2 spray 01/24/25 17:21 01/25/25 19:52 Saline Nasal [place] 44ml Btl NASAL 2 spray Q4H PRN Administration allergies PFSH Acute PFSH: Medical History (Updated 01/31/25 @ 11:02 by Alejandro Clayton MD) History of nonmelanoma skin cancer Hx MRSA infection Elevated brain natriuretic peptide (BNP) level Chronic back pain Hypertension Hyponatremia Recurrent UTI AAA (abdominal aortic aneurysm) without rupture Non-ischemic cardiomyopathy Pulmonary nodule 1 cm or greater in diameter Intervertebral disc disorders with radiculopathy, 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 Easton January 23, 2019. With thoracic spinal cord stimulator placement History of lumbar fusion Dr. Easton February 15, 2017 L4-S1 History of umbilical hernia repair History of colon resection Due to cancer History of arthroscopy of both knees Family History Mother Diabetes Father , AT AGE 87 Diabetes CAD (coronary artery disease) Hypertension Myocardial infarction Cancer Brother Cancer Gastroesophageal cancer CAD (coronary artery disease) Diabetes Sister Diabetes Denies family history of Clotting disorder Dementia Chronic kidney disease (CKD) Suicide Anesthesia complication Bleeding disorder Lung disease Stroke Social History Smoking and tobacco/nicotine status: current every day tobacco/nicotine user cigarettes Packs smoked per day: 2 Years cigarettes smoked: 53 [ Other cigarette details: Started 1970] Quit status (tobacco/nicotine): considering quitting Second hand smoke exposure: Yes Alcohol intake: never Substance/Drug Use: never Lives independently: Yes Household members: spouse Housing: House Marital status: service: Yes branch: [employer] Current occupational status: employed Current occupational exposures/hazards: No Pets and animals: Yes Do you think of yourself as: Straight/Heterosexual Current gender identity: Male Special syeda needs: No Vitals/I&O/Wt Last Vital Signs Temp 97.7 F 01/31/25 08:00 Pulse 87 01/31/25 08:00 Resp 17 01/31/25 08:00 BP 131/59 01/31/25 08:00 Pulse Ox 99 01/31/25 08:00 O2 Del Method High Flow Nasal Cannula 01/31/25 07:25 O2 Flow Rate 5 01/31/25 07:25 01/30/25 01/31/25 01/31/25 22:59 06:59 14:59 Intake Total 1200 / 1200 360 / 360 Output Total 700 / 2950 2650 / 5600 Balance 500 / -1750 -2650 / -4400 360 / 360 Weight last 48 hrs Weight 116 lb 12.8 oz Weight 111 lb 3 oz Physical Exam Chest: OTHER: There is large amount of subcutaneous emphysema on the right chest extending all the way up to the lower aspect of the neck minimal subcutaneous emphysema on the left. There is a chest tube on the right side. Urinary Catheter Management: Egan: Cath Placed During This Visit: yes Reason for Continuing Indwelling Catheter: Accurate Measurement of Urinary Output in Critically Ill Patients Urinary Catheter Date of Insertion: 01/26/25 Urinary Catheter Time of Insertion: 01:00 Data 01/31/25 04:42 01/31/25 04:42 Micro: Microbiology 01/26/25 19:36 Mycobacterial Smear - Preliminary Sputum - Expectorated Sputum 01/30/25 12:27 Gram Stain - Final Lung Right Lower Lobe A&P Assessment and plan 1. Subcutaneous emphysema: Plan: After complete history physical examination and review of all available clinical data I have offered the patient to proceed with a right infraclavicular incision to allow subcutaneous emphysema to escape. I discussed all risk benefits including the risk of bleeding infection poor wound healing significant scarring need for additional interventions. All other management per pulmonology and primary team PDMP PDMP Reviewed: Not Reviewed Coding Level of Care Code Acute Code for [facility] Diagnoses Subcutaneous emphysema T79.7XXA
--- NOTE | 2025-01-31 11:12 | PC.NURSE ---
Dr. Salas bedside for procedure, Bloodpatch to chest tube. Consent obtained from provider see chart. Time out performed at 1038. Patient tolerated procedure well.
--- NOTE | 2025-01-31 12:03 | PM.ACPR ---
Procedure/Consent Time out: Time Out Performed: Yes Consent: Consent for Procedure: Consent obtained from patient, Risks & Benefits reviewed and Agrees to proceed with procedure Procedure Narrative: After the consent has been obtained and with the patient in a supine position a timeout was conducted. The right upper chest was prepped and draped in the usual sterile fashion. 10 cc of 1% lidocaine with epinephrine was infiltrated in the area inferior to the right clavicle. A 2 cm incision was then made the incision was deepened into subcutaneous tissue and to the superficial fascia which was opened with the Metzenbaum. Immediate relief of the subcutaneous emphysema was achieved hemostasis was achieved with #3-0 Vicryl sutures for some small venous branches in the skin. Once hemostasis was verified the wound was left open with a week of gauze inside to prevent early closure, nonocclusive dressing was applied. The patient tolerated well the procedure remained in the ICU in stable condition Acute Procedures Epistaxis Control: Time out performed: Yes
[2025-01-31] MEDS: lidocaine-epi 1% PF 1:200,000 30 mL SDV INJECTION (12:15)
[2025-01-31] MEDS: methylPREDNISolone sod succ 40 mg/mL INJ IVP (12:29)
[2025-01-31] MEDS: cefTRIAXone 1,000 mg SDV 1000 MG IVP (12:29)
--- NOTE | 2025-01-31 13:12 | XR_ITS ---
WS: [id number] Exam: XR chest 1V portable [id number] Date/Time of Exam: 01/31/2025 1:14 PM Reason For Exam: Post Bates Comparison 01/31/2025. RIGHT upper lobe pneumothorax is unchanged. Right-sided chest tube is unchanged in location. LEFT lung is clear. Cardiomediastinal silhouette is unremarkable. Extensive subcutaneous emphysema noted bilaterally showing little change. XR/XR chest 1V portable [id number] IMPRESSION: 1. RIGHT upper lobe pneumothorax unchanged. No significant new finding.
--- NOTE | 2025-01-31 14:02 | P.PN_ITS ---
Subjective 2 Subjective: chest tube in place requesting increasing dose of xanax at night for sleep and anxiety Vitals/I&O/Wt Last Vital Signs Temp 97.7 F 01/31/25 08:00 Pulse 99 01/31/25 13:00 Resp 14 01/31/25 13:00 BP 132/56 01/31/25 13:00 Pulse Ox 93 01/31/25 13:00 O2 Del Method High Flow Nasal Cannula 01/31/25 11:04 O2 Flow Rate 5 01/31/25 11:04 01/30/25 01/31/25 01/31/25 22:59 06:59 14:59 Intake Total 1200 / 1200 720 / 720 Output Total 700 / 2950 2650 / 5600 Balance 500 / -1750 -2650 / -4400 720 / 720 Weight last 48 hrs Weight 116 lb 12.8 oz Weight 111 lb 3 oz Physical Exam 2 Narrative: General:NAD HEENT: PERRLA, pupils bilaterally equal and reactive, pallors not present Chest: Bilateral coarse breath sounds, no wheezing or crackles CVS: S1-S2 regular, no murmurs, no tachycardia, no gallops, no rubs Abdomen: Soft, nontender, no organomegaly, bowel sounds present Neuro: No focal deficits, no facial deformity, AO x3, power 5/5 in all limbs Extremities: No edema or cyanosis Urinary Catheter Management: Egan: Cath Placed During This Visit: yes Reason for Continuing Indwelling Catheter: Accurate Measurement of Urinary Output in Critically Ill Patients Urinary Catheter Date of Insertion: 01/26/25 Urinary Catheter Time of Insertion: 01:00 Data 01/31/25 04:42 01/31/25 04:42 Micro: Microbiology 01/30/25 12:27 Gram Stain - Final Lung Right Lower Lobe Bronchial Washings Culture - Preliminary Gram Negative Rods 01/26/25 19:36 Mycobacterial Smear - Preliminary Sputum - Expectorated Sputum A&P Assessment and plan 1. Acute hypoxemic respiratory failure: 2. Persistent air leak: 3. Pneumothorax: 4. COPD (chronic obstructive pulmonary disease): Plan: 1. Spontaneous pneumothorax: 69M with COPD chronically on home 02 presenting with weeks of worsening dyspnea, found to have a right spontaneous pneumothorax. S/p placement of a right pigtail in ER with re expansion of lung. residual PTX at 10% pulmonology service has been consulted from the ER for pigtail management monitor O2, imaging. s/p Bronchoscopy with endobronchial valve placemen 2. Chronic obstructive pulmonary disease, unspecified COPD type: Scheduled nebulization with Duoneb q6h and budesonide 0.5 mg BID to continue during hospital stay no current indication for systemic steroids supplemental 02 to keep sat 88-92% 3. Non-ischemic cardiomyopathy: last known EF 51% from 2023 Currently clinically euvolemic 4. Chronic respiratory failure with hypoxia and hypercapnia: related to COPD ABG reveiwed with compensated resp acidosis 5. chronic pain consider weaning medications PDMP PDMP Reviewed: Not Reviewed Attestations 2 Medical Necessity Statement*: hypoxemia, chest tube management , chonic pain Coding Level of Care Code 87171 Diagnoses Acute hypoxemic respiratory failure J96.01 Persistent air leak Pneumothorax J93.9 COPD (chronic obstructive pulmonary disease) J44.9
--- NOTE | 2025-01-31 15:20 | PC.SOCIAL ---
IMM UPDATED IMM dated and initialed copy given to patient and copy placed in chart.
[2025-01-31] MEDS: ATORVASTATIN 10 MG TABLET 20 MG PO (17:27)
--- NOTE | 2025-01-31 19:13 | P.PN_ITS ---
Subjective 2 Subjective: Patient did not tolerate waterseal overnight and he has worsening subcutaneous emphysema and chest tube was placed to suction. Unfortunately, patient continues to have air leak grade 2. Patient remained hemodynamic stable and he reports stability of his breathing status. Vitals/I&O/Wt Last Vital Signs Temp 97.7 F 01/31/25 08:00 Pulse 101 H 01/31/25 16:00 Resp 18 01/31/25 15:15 BP 135/58 01/31/25 16:00 Pulse Ox 93 01/31/25 16:00 O2 Del Method High Flow Nasal Cannula 01/31/25 15:15 O2 Flow Rate 5 01/31/25 15:15 01/31/25 01/31/25 01/31/25 06:59 14:59 22:59 Intake Total 1440 / 1440 360 / 1800 Output Total 2650 / 5600 1900 / 1900 1100 / 3000 Balance -2650 / -4400 -460 / -460 -740 / -1200 Weight last 48 hrs Weight 116 lb 12.8 oz Weight 111 lb 3 oz Physical Exam 2 Narrative: General: Alert, oriented, and in no acute distress. Appears well-nourished and well-developed. Head: Normocephalic and atraumatic. Eyes: Pupils equal, round, and reactive to light. Extraocular movements intact. No scleral icterus or conjunctival injection. Ears/Nose/Throat: Nasal mucosa is moist without discharge. Oropharynx is clear without erythema or exudate. Dentition intact. No lesions or thrush. Neck: Supple. Chest: Evidence of worsening subcutaneous emphysema Cardiovascular: Regular rate and rhythm. Normal S1 and S2. No murmurs, gallops, or rubs. No peripheral edema. Respiratory: Decreased air entry bilaterally with scattered rhonchi. Chest tube with a grade 2 airleak Abdomen: Soft, non-tender, non-distended. Normoactive bowel sounds. Extremities: No cyanosis, clubbing, or edema. Full range of motion. Peripheral pulses palpable and symmetric. Skin: Warm and dry. No rashes, lesions, or ulcers. Neurology: Alert and oriented to person, place, and time. Grossly intact with no focal deficit. Psychiatry: Good mood with Appropriate affect. Urinary Catheter Management: Egan: Cath Placed During This Visit: yes Reason for Continuing Indwelling Catheter: Accurate Measurement of Urinary Output in Critically Ill Patients Urinary Catheter Date of Insertion: 01/26/25 Urinary Catheter Time of Insertion: 01:00 Data 01/31/25 04:42 01/31/25 04:42 Micro: Microbiology 01/30/25 12:27 Gram Stain - Final Lung Right Lower Lobe Bronchial Washings Culture - Preliminary Gram Negative Rods 01/26/25 19:36 Mycobacterial Smear - Preliminary Sputum - Expectorated Sputum A&P Assessment and plan 1. COPD (chronic obstructive pulmonary disease): 2. Persistent air leak: 3. Chronic hypoxemic respiratory failure: 4. Subcutaneous emphysema: Plan: Despite some improvement in the air leak following endobronchial valve placement on 01/30/2025, the patient did not tolerate water seal overnight and developed worsening subcutaneous emphysema, necessitating return of the chest tube to suction. There is no significant pneumothorax; however, each attempt at water seal results in progression of subcutaneous emphysema. The general surgery team performed Bates?s procedure on the right side to facilitate evacuation of subcutaneous emphysema. I discussed with the patient the option of autologous blood patch to help seal the air leak. Risks and benefits were reviewed, and the patient consented to proceed, understanding that the procedure may need to be repeated for effectiveness. I also explained that if multiple blood patches are unsuccessful, further options would include chemical pleurodesis through the chest tube or referral to thoracic surgery at an outside facility for possible VATS. The patient expressed a strong preference to avoid major surgery and continue with conservative management at this time. Huey Gonzalez MD, FACP, FASN Interventional Pulmonary PDMP PDMP Reviewed: Not Reviewed Attestations 2 Medical Necessity Statement*: Patient continues to have chest tube to suction With evidence of ongoing air leak Coding Level of Care Code Acute Code for Chg Fwd Diagnoses COPD (chronic obstructive pulmonary disease) J44.9 Persistent air leak Chronic hypoxemic respiratory failure J96.11 Subcutaneous emphysema T79.7XXA Time Spent (min) 55
[2025-02-01] VITALS (34 sets, daily range): BP systolic 93–151; BP diastolic 48–80; PULSE 85–126; RESP 8–25; TEMP 36.5–36.9; O2SAT 92–99
[2025-02-01 05:24] LABS: Hematocrit 34.0 % (37-53); Hemoglobin 10.80 g/dL (11.27-16.99); Mean Corpuscular HGB Conc 31.8 g/dL (30-55); Mean Corpuscular Hemoglobin 31.4 pg (27-33); Mean Corpuscular Volume 98.8 fl (82-101); Nucleated Red Blood Cells % 0 %; Platelet Count 248 10^3/cmm (157-399); Red Blood Count 3.44 10^6/uL (3.85-5.65); White Blood Count 12.03 10^3/uL (3.29-11.43)
[2025-02-01 05:45] LABS: Lactate (Lactic Acid level) 0.8 mmol/L (0.5-2.2)
[2025-02-01 05:49] LABS: Alanine Aminotransferase 58 U/L (0-41); Albumin Level 3.1 g/dL (3.5-5.2); Alkaline Phosphatase 47 U/L (40-130); Anion Gap 7.9 (5-19); Aspartate Amino Transferase 25 U/L (0-40); Blood Urea Nitrogen 14 mg/dL (8-23); Calcium 8.6 mg/dL (8.5-10.5); Carbon Dioxide 38 mmol/L (22-29); Chloride 95 mmol/L (98-107); Creatinine Clr Calc Pharmacy 63.4656; Globulin 2.1 g/dL (1.3-4.6); Glucose 130 mg/dL (65-115); Osmolality Calculated 286 mOsm/kg (285-295); Potassium 3.9 mmol/L (3.5-5.1); Sodium 137 mmol/L (136-145); Total Protein 5.2 g/dL (6.6-8.7)
[2025-02-01] MEDS: HYDROmorphone 0.5 MG/0.5 ML INJ 1 MG IVP ×5 (06:18→21:09)
--- NOTE | 2025-02-01 07:32 | PC.NURSE ---
Dr. Call came to bedside, took chest tube off suction to water seal, order to get cxr in one hour at 0830
--- NOTE | 2025-02-01 07:33 | PC.NURSE ---
Dr. Call gave order to attach hymlic valve to chest tube
[2025-02-01] MEDS: HYDROcodone-acetaminophen 10-325 mg Tablet 1 TAB PO ×5 (08:07→22:26)
[2025-02-01] MEDS: NON-FORMULARY MEDICATION (Methenamine Hippurate 1 gram tablet) 1 EACH PO ×2 (08:08→17:08)
[2025-02-01] MEDS: VITAMIN C 1 EACH PO ×2 (08:08→17:08)
--- NOTE | 2025-02-01 08:30 | XR_ITS ---
WS: [id number] Exam: XR chest 1V portable [id number] Date/Time of Exam: 02/01/2025 8:23 AM Reason For Exam: checking pnumo Comparison 01/31/2025. Small right upper and lower lobe pneumothoraces noted. Estimated between 5 and 10%. Small bore RIGHT thoracostomy tube is unchanged in location. LEFT lung is fully expanded. There are no consolidated infiltrates. Cardiomediastinal silhouette is unremarkable for technique. Extensive subcu emphysema over the RIGHT chest as well as the LEFT neck and shoulder region. Monitoring leads superimpose the chest. Neurostimulator electrodes seen in the midthoracic region. XR/XR chest 1V portable [id number] IMPRESSION: 1. Small pneumothoraces involving the upper and lower lobes of the RIGHT lung. Estimated between 5 and 10%. 2. Extensive subcu emphysema unchanged.
[2025-02-01] MEDS: methylPREDNISolone sod succ 40 mg/mL INJ IVP (11:15)
--- NOTE | 2025-02-01 11:34 | P.PN_ITS ---
Subjective 2 Subjective: 69-year-old male who is known to my serv ice for extensive subcutaneous emphysema requiring gills procedure. I was asked to reevaluate the patient this morning to check if gills procedure was being effective as he is starting to reaccumulate subcutaneous emphysema. Patient is doing okay, continues to have a large air leak Vitals/I&O/Wt Last Vital Signs Temp 98.5 F 02/01/25 05:48 Pulse 103 H 02/01/25 11:18 Resp 20 H 02/01/25 11:10 BP 123/55 02/01/25 11:00 Pulse Ox 94 02/01/25 11:10 O2 Del Method High Flow Nasal Cannula 02/01/25 11:10 O2 Flow Rate 5 02/01/25 11:10 01/31/25 02/01/25 02/01/25 22:59 06:59 14:59 Intake Total 840 / 2280 300 / 300 Output Total 1100 / 3000 1650 / 4650 Balance -260 / -720 -1650 / -2370 300 / 300 Weight last 48 hrs Weight 113 lb 6.4 oz Weight 116 lb 12.8 oz Physical Exam 2 Chest: OTHER: Right chest incision noted, I was able to push significant amount of air through the incision, no evidence of early closure or need for additional intervention Urinary Catheter Management: Egan: Cath Placed During This Visit: yes Reason for Continuing Indwelling Catheter: Accurate Measurement of Urinary Output in Critically Ill Patients Urinary Catheter Date of Insertion: 01/26/25 Urinary Catheter Time of Insertion: 01:00 Data 02/01/25 05:04 02/01/25 05:04 Micro: Microbiology 01/30/25 12:27 Gram Stain - Final Lung Right Lower Lobe Bronchial Washings Culture - Final Pseudomonas aeruginosa 01/26/25 19:36 Mycobacterial Smear - Preliminary Sputum - Expectorated Sputum 01/26/25 19:36 Gram Stain - Final Sputum - Expectorated Sputum Sputum Culture - Final Pseudomonas aeruginosa 01/30/25 12:27 Fungal Smear - Preliminary Other Source 01/30/25 12:27 Mycobacterial Smear - Preliminary Body Fluids - Bronchial A&P Assessment and plan 1. Subcutaneous emphysema: Plan: I reevaluated the patient, right chest incision is working fine I am able to remove air through the incision with no problem. He does still have a large air leak. At this point, the patient continues to have a large air leak, as guided by primary team and pulmonology additional interventions should be considered including the possibility of removal of endobronchial valves versus evaluation by thoracic surgeon for possible video-assisted thoracoscopy to control the source of the airleak. From the general surgery standpoint there is no further intervention required at this time. I will continue to follow the patient as needed, will additional management per primary PDMP PDMP Reviewed: Not Reviewed Attestations 2 Medical Necessity Statement*: Per medical team Coding Level of Care Code Acute Code for Chg Fwd Diagnoses Subcutaneous emphysema T79.7XXA
[2025-02-01] MEDS: cefTRIAXone 1,000 mg SDV 1000 MG IVP (12:28)
--- NOTE | 2025-02-01 14:29 | P.PCN_ITS ---
Procedure/Consent Time out: Time Out Performed: Yes Consent: Consent for Procedure: Consent obtained from patient Procedure Narrative: Procedure Note: Autologous Blood Patch via Right Chest Tube Date: 02/01/2025 Office Sweeper: Dr. Huey Gonzalez Indication: Persistent air leak secondary to secondary spontaneous pneumothorax in the setting of emphysematous lung disease, refractory to conservative management and after endobronchial valve placement with residual grade 1 air leak. Procedure: An autologous blood patch was performed at the bedside in a patient with a persistent low-grade air leak (grade 1) despite prior endobronchial valve placement. The patient had a right-sided chest tube in place connected to a water seal system. After informed consent was obtained and time-out was performed, the patient was positioned comfortably in a semi-upright position. The skin over the right upper extremity was prepped and draped in a sterile fashion. Using sterile technique, approximately 100 mL of autologous blood was drawn from a peripheral vein (left antecubital vein) using a large-bore syringe. Immediately, the blood was injected aseptically through the right-sided chest tube using a sterile syringe and port connector without delay to avoid clotting. Care was taken to prevent introduction of air during the process. Following instillation, the chest tube with pleruavac was elevated on IV pole for 1 hour to allow for pleural adherence and sealing of the air leak. The patient was kept in supine position with minimal movement for 1 hour. Afterward, the clamp was released and the chest tube was placed back to water seal (no suction unless patient become symptomatic). The patient remained hemodynamically stable and comfortable throughout the procedure. Estimated Blood Volume Instilled: 100 mL Chest Tube Side: Right Post-Procedure Status: Stable Complications: None observed Plan: Monitor for reduction/resolution of air leak. Repeat chest X-ray to assess for pneumothorax or tube position. Continue water seal for now. Consider additional blood patch or surgical consultation if leak persists. CPT code 83253. Huey Gonzalez MD, FACP, FASN Interventional Pulmoanry Acute Procedures Epistaxis Control: Time out performed: Yes
--- NOTE | 2025-02-01 14:30 | P.PN_ITS ---
Subjective 2 Subjective: No acute events overnight. Patient continues to have air leak. Subcutaneous emphysema improved post Gills procedure. Vitals/I&O/Wt Last Vital Signs Temp 98.5 F 02/01/25 05:48 Pulse 95 02/01/25 12:00 Resp 12 02/01/25 12:00 BP 93/55 02/01/25 12:00 Pulse Ox 94 02/01/25 12:00 O2 Del Method High Flow Nasal Cannula 02/01/25 11:10 O2 Flow Rate 5 02/01/25 11:10 01/31/25 02/01/25 02/01/25 22:59 06:59 14:59 Intake Total 840 / 2280 650 / 650 Output Total 1100 / 3000 1650 / 4650 Balance -260 / -720 -1650 / -2370 650 / 650 Weight last 48 hrs Weight 113 lb 6.4 oz Weight 116 lb 12.8 oz Physical Exam 2 Narrative: General: Alert, oriented, and in no acute distress. Appears well-nourished and well-developed. Head: Normocephalic and atraumatic. Eyes: Pupils equal, round, and reactive to light. Extraocular movements intact. No scleral icterus or conjunctival injection. Ears/Nose/Throat: Nasal mucosa is moist without discharge. Oropharynx is clear without erythema or exudate. Dentition intact. No lesions or thrush. Neck: Supple. Chest: Evidence of worsening subcutaneous emphysema Cardiovascular: Regular rate and rhythm. Normal S1 and S2. No murmurs, gallops, or rubs. No peripheral edema. Respiratory: Decreased air entry bilaterally with scattered rhonchi. Chest tube with a grade 2 airleak Abdomen: Soft, non-tender, non-distended. Normoactive bowel sounds. Extremities: No cyanosis, clubbing, or edema. Full range of motion. Peripheral pulses palpable and symmetric. Skin: Warm and dry. No rashes, lesions, or ulcers. Neurology: Alert and oriented to person, place, and time. Grossly intact with no focal deficit. Psychiatry: Good mood with Appropriate affect. Urinary Catheter Management: Egan: Cath Placed During This Visit: yes Reason for Continuing Indwelling Catheter: Accurate Measurement of Urinary Output in Critically Ill Patients Urinary Catheter Date of Insertion: 01/26/25 Urinary Catheter Time of Insertion: 01:00 Data 02/01/25 05:04 02/01/25 05:04 Micro: Microbiology 01/30/25 12:27 Gram Stain - Final Lung Right Lower Lobe Bronchial Washings Culture - Final Pseudomonas aeruginosa 01/26/25 19:36 Mycobacterial Smear - Preliminary Sputum - Expectorated Sputum 01/26/25 19:36 Gram Stain - Final Sputum - Expectorated Sputum Sputum Culture - Final Pseudomonas aeruginosa 01/30/25 12:27 Fungal Smear - Preliminary Other Source 01/30/25 12:27 Mycobacterial Smear - Preliminary Body Fluids - Bronchial A&P Assessment and plan 1. Persistent air leak: 2. Pneumothorax: 3. Chronic hypoxemic respiratory failure: Plan: The patient is a known case of end-stage COPD, complicated by chronic hypoxemic respiratory failure requiring 5 L/min nasal cannula oxygen at home. He was an active smoker until the current admission. He presented with a right-sided secondary spontaneous pneumothorax, for which a chest tube was placed by the ED staff. The course was complicated by a persistent air leak syndrome, necessitating continuous suction. Attempts at water seal failed, resulting in significant subcutaneous emphysema. On Thursday, January 30, 2025, the patient was taken to the OR for segmental balloon occlusion testing and subsequently underwent placement of four endobronchial valves in the right upper lobe. This led to only minimal improvement, likely due to excessive collateral ventilation. He again failed water seal post-procedure and required a right-sided Bates?s procedure to manage subcutaneous emphysema. On January 31, the patient underwent a blood patch, but by the afternoon of February 01, there was no significant improvement. A repeat blood patch was performed later that day, with plans to observe for 48?72 hours for potential reduction in the air leak. If no improvement is noted, another blood patch will be considered on Wednesday, February 05, 2025. The patient has been counseled regarding transfer for thoracic surgery and is amenable if conservative measures fail over the next 2?3 days. An alternative option of slurry pleurodesis was also discussed, but this is reserved as a last resort since it may interfere with future thoracic surgical intervention. If the patient stabilizes and tolerates water seal, he may be discharged home with a chest tube connected to a Heimlich valve, with close follow-up in clinic for further management. Huey Gonzalez MD, FACP, FASN Interventional Pulmonary PDMP PDMP Reviewed: Not Reviewed Attestations 2 Medical Necessity Statement*: Chest tube managment Coding Level of Care Code Acute Code for Chg Fwd Diagnoses Persistent air leak Pneumothorax J93.9 Chronic hypoxemic respiratory failure J96.11 Time Spent (min) 65
--- NOTE | 2025-02-01 15:22 | P.PN_ITS ---
Subjective 2 Subjective: Patient feeling much better today. Denies worsening shortness of breath. He notes his subcu emphysema is improved. Vitals/I&O/Wt Last Vital Signs Temp 98.5 F 02/01/25 05:48 Pulse 95 02/01/25 12:00 Resp 12 02/01/25 12:00 BP 93/55 02/01/25 12:00 Pulse Ox 94 02/01/25 12:00 O2 Del Method High Flow Nasal Cannula 02/01/25 11:10 O2 Flow Rate 5 02/01/25 11:10 02/01/25 02/01/25 02/01/25 06:59 14:59 22:59 Intake Total 650 / 650 Output Total 1650 / 4650 Balance -1650 / -2370 650 / 650 Weight last 48 hrs Weight 51.437 kg Weight 52.98 kg Physical Exam 2 Narrative: Thin elderly man who appears older than his stated age. No acute distress Heart regular S1-S2 without loud murmur Lungs severely diminished poor inspiratory and expiratory effort. Expiratory wheezing heard in the upper lung [place] Abdomen concave normal active bowel sounds no hepatosplenomegaly Extremities no clubbing cyanosis or edema. Subcutaneous emphysema felt throughout his right neck and extending through his arm on the right Urinary Catheter Management: Egan: Cath Placed During This Visit: yes Reason for Continuing Indwelling Catheter: Accurate Measurement of Urinary Output in Critically Ill Patients Urinary Catheter Date of Insertion: 01/26/25 Urinary Catheter Time of Insertion: 01:00 Data 02/01/25 05:04 02/01/25 05:04 Micro: Microbiology 01/30/25 12:27 Gram Stain - Final Lung Right Lower Lobe Bronchial Washings Culture - Final Pseudomonas aeruginosa 01/26/25 19:36 Mycobacterial Smear - Preliminary Sputum - Expectorated Sputum 01/26/25 19:36 Gram Stain - Final Sputum - Expectorated Sputum Sputum Culture - Final Pseudomonas aeruginosa 01/30/25 12:27 Fungal Smear - Preliminary Other Source 01/30/25 12:27 Mycobacterial Smear - Preliminary Body Fluids - Bronchial A&P Assessment and plan 1. Acute hypoxemic respiratory failure: 2. Persistent air leak: 3. Pneumothorax: 4. COPD (chronic obstructive pulmonary disease): Plan: 1. pneumothorax: 69M with COPD chronically on home 02 presenting with weeks of worsening dyspnea, found to have a right pneumothorax. Initially patient had a right pigtail catheter placed in the ER. Subsequently he had a chest tube placed by pulmonary. He has had bronchoscopy with endobronchial valve placement x 3 and now 2 blood patches. Last 1 done this afternoon monitor O2, imaging. 2. Chronic obstructive pulmonary disease, unspecified COPD type: Scheduled nebulization with Duoneb q6h and budesonide 0.5 mg BID to continue during hospital stay no current indication for systemic steroids supplemental 02 to keep sat 88-92% 3.. Chronic respiratory failure with hypoxia and hypercapnia: related to COPD PDMP PDMP Reviewed: Not Reviewed Attestations 2 Medical Necessity Statement*: Patient with hypoxia acute on chronic respiratory failure chest tube with persistent air leak requiring multiple procedures by pulmonary interventionalist Coding Level of Care Code 54228 Diagnoses Acute hypoxemic respiratory failure J96.01 Persistent air leak Pneumothorax J93.9 COPD (chronic obstructive pulmonary disease) J44.9
[2025-02-01] MEDS: ATORVASTATIN 10 MG TABLET 20 MG PO (17:07)
--- NOTE | 2025-02-01 17:22 | PC.NURSE ---
Shift Summary, Dr. benedict performed blood patch patient repositioned q15 as ordered x2 hours. Dr. Clayton assess [place] procedure site no n.o., sub q air remains with no significant change during shift.
--- NOTE | 2025-02-01 17:50 | PC.NURSE ---
Dr Mckeon called, gave t.o. for cxr in [place] pt ot consult. if patient declines or gets into distress place back on suction at -20 on [facility]
[2025-02-02] VITALS (16 sets, daily range): BP systolic 96–126; BP diastolic 53–87; PULSE 85–118; RESP 10–25; TEMP 36.6–36.8; O2SAT 88–97
[2025-02-02] MEDS: HYDROmorphone 0.5 MG/0.5 ML INJ 1 MG IVP ×5 (00:15→13:30)
[2025-02-02] MEDS: HYDROcodone-acetaminophen 10-325 mg Tablet 1 TAB PO ×4 (01:30→12:11)
--- NOTE | 2025-02-02 06:00 | XR_ITS ---
WS: [email or web address] Exam: XR chest 1V portable [id number] Date/Time of Exam: 02/02/2025 6:41 AM Reason For Exam: checking pnumo 15% pneumothorax of the RIGHT upper lobe with small RIGHT lower lobe pneumothorax. Extensive subcu emphysema unchanged. Small bore thoracostomy tube on the RIGHT showing no positional change. Normal cardiomediastinal silhouette. Bony structures are intact. XR/XR chest 1V portable [id number] IMPRESSION: 1. 15% pneumothorax of the upper lobe of the RIGHT lung. Small RIGHT lower lobe pneumothorax also noted. Remaining aspects of the chest are unchanged.
[2025-02-02] MEDS: NON-FORMULARY MEDICATION (Methenamine Hippurate 1 gram tablet) 1 EACH PO (09:10)
[2025-02-02] MEDS: VITAMIN C 1 EACH PO (09:11)
--- NOTE | 2025-02-02 09:39 | PM.PN ---
Subjective Subjective: No acute events overnight. Patient remained on water seal but chest Xary should worsening subcutaneous airway and chest tube placed on suction. Patient reported that he slept well overnight and his symtpoms are at baseline. Afebrile. Vitals/I&O/Wt Last Vital Signs Temp 97.9 F 02/02/25 09:18 Pulse 107 H 02/02/25 09:18 Resp 18 02/02/25 09:18 BP 120/56 02/02/25 09:18 Pulse Ox 92 02/02/25 09:18 O2 Del Method Nasal Cannula 02/02/25 09:18 O2 Flow Rate 5 02/02/25 09:18 02/01/25 02/02/25 02/02/25 22:59 06:59 14:59 Output Total 2650 / 2650 2550 / 5200 Balance -2650 / -2000 -2550 / -4550 Weight last 48 hrs Weight 106 lb 9 oz Weight 113 lb 6.4 oz Physical Exam Narrative: Exam was limited by tele and it was performed by the beside pulmonary [employer]. No acute distress Alert and oriented x 3 Pursed lip breathing. Decrease air entry bilaterally with scattered rhonchi and wheezes. Urinary Catheter Management: Egan: Cath Placed During This Visit: yes Reason for Continuing Indwelling Catheter: Accurate Measurement of Urinary Output in Critically Ill Patients Urinary Catheter Date of Insertion: 01/26/25 Urinary Catheter Time of Insertion: 01:00 Data 02/01/25 05:04 02/01/25 05:04 Micro: Microbiology 01/30/25 12:27 Gram Stain - Final Lung Right Lower Lobe Bronchial Washings Culture - Final Pseudomonas aeruginosa 01/26/25 19:36 Mycobacterial Smear - Preliminary Sputum - Expectorated Sputum 01/26/25 19:36 Gram Stain - Final Sputum - Expectorated Sputum Sputum Culture - Final Pseudomonas aeruginosa 01/30/25 12:27 Fungal Smear - Preliminary Other Source 01/30/25 12:27 Mycobacterial Smear - Preliminary Body Fluids - Bronchial A&P Assessment and plan 1. Chronic hypoxemic respiratory failure: 2. Persistent air leak: 3. End stage COPD: 4. Cachexia: Plan: The patient is a known case of end-stage COPD, complicated by chronic hypoxemic respiratory failure requiring 5 L/min nasal cannula oxygen at home. He was an active smoker until the current admission. Patient has severe cachexia as well. He presented with a right-sided secondary spontaneous pneumothorax, for which a chest tube was placed by the ED staff. The course was complicated by a persistent air leak syndrome, necessitating continuous suction. Attempts at water seal failed, resulting in significant subcutaneous emphysema. On Thursday, January 30, 2025, the patient was taken to the bronchoscopy suite for segmental balloon occlusion and subsequently underwent placement of four endobronchial valves in the right upper lobe. This led to only minimal improvement, likely due to excessive collateral ventilation. He again failed water seal post-procedure and required a right-sided Bates?s procedure to manage subcutaneous emphysema. On January 31, the patient underwent a blood patch, but by the afternoon of February 01, there was no significant improvement. A repeat blood patch was performed later that day, with plans to observe for 48?72 hours for potential reduction in the air leak. The patient has been counseled regarding transfer for thoracic surgery and is amenable if conservative measures fail over the next 2?3 days (by wednesday afternoon). An alternative option of slurry pleurodesis was also discussed, but this is reserved as a last resort since it may interfere with future thoracic surgical intervention. If he deemed to be a non-surgical candidate, we will consider slurry pleurodesis or revisiting EBVs. Ideally, If the patient stabilizes and tolerates water seal, he may be discharged home with a chest tube connected to a Heimlich valve, with close follow-up in clinic for further management. Huey Gonzalez MD, FACP, FASN Interventional Pulmonary PDMP PDMP Reviewed: Not Reviewed Attestations Medical Necessity Statement*: Chest tube managment. Coding Level of Care Code Acute Code for Chg Fwd Diagnoses Chronic hypoxemic respiratory failure J96.11 Persistent air leak End stage COPD J44.9 Cachexia R64 Time Spent (min) 45
[2025-02-02] MEDS: methylPREDNISolone sod succ 40 mg/mL INJ IVP (12:13)
[2025-02-02] MEDS: cefTRIAXone 1,000 mg SDV 1000 MG IVP (12:14)
--- NOTE | 2025-02-02 12:24 | PC.NURSE ---
Report called to Goldy SANTOS at [facility]
--- NOTE | 2025-02-02 12:58 | P.DS_ITS ---
Discharge Providers Date of Admission: 01/24/25 15:46 Date of Discharge: February 02, 2025 Attending Provider at Admission: Aracelis Mortensen MD Attending Provider at Discharge: Jos Jean-Baptiste DO Consults: Interventional pulmonology General Surgery Primary Care Provider: Carolyn Ireland DO Diagnoses at Discharge Discharge Diagnosis 1. Chronic hypoxemic respiratory failure: 2. Persistent air leak: 3. End stage COPD: 4. Cachexia: Reason for Visit Reason for Visit: Resp Distr Brief History: Patient with end-stage COPD and chronic respiratory failure on 5 L nasal cannula at home presented with worsening shortness of breath over the past 3 weeks. In the ER he was found to have a right sided pneumothorax approaching 50%. Hospital Course Hospital Course The patient is a known case of end-stage COPD, complicated by chronic hypoxemic respiratory failure requiring 5 L/min nasal cannula oxygen at home. He was an active smoker until the current admission. Patient has severe cachexia as well. He presented with a right-sided secondary spontaneous pneumothorax, for which a chest tube was placed by the ED staff. The course was complicated by a persistent air leak syndrome, necessitating continuous suction. Attempts at water seal failed, resulting in significant subcutaneous emphysema. He was followed conservatively from 01/24/2025 until first procedure 01/30/2025. On Thursday, January 30, 2025, the patient was taken to the bronchoscopy suite for segmental balloon occlusion and subsequently underwent placement of four endobronchial valves in the right upper lobe. This led to only minimal improvement, likely due to excessive collateral ventilation. He again failed water seal post-procedure and required a right-sided Bates?s procedure to manage subcutaneous emphysema. On January 31, the patient underwent a blood patch, but by the afternoon of February 01, there was no significant improvement. A repeat blood patch was performed later that day, with plans to observe for 48?72 hours for potential reduction in the air leak. Patient remains with continuous airleak for 9 days now despite multiple interventions. Due to the holiday weekend we felt it was prudent to transfer the patient for thoracic surgery backup today instead of if conservative measures would fail. Patient is amenable to this transfer and requested [facility]. Physical Exam Narrative: Thin elderly man who appears older than his stated age. No acute distress Chest: Right infraclavicular incision present to allow subcutaneous emphysema to escape Heart regular S1-S2 without loud murmur Lungs severely diminished poor inspiratory and expiratory lung sounds. Expiratory wheezing heard in the upper lung sherwood Abdomen concave normal active bowel sounds no hepatosplenomegaly Extremities no clubbing cyanosis or edema. Subcutaneous emphysema felt throughout his right neck and chest and extending through his arm on the right and today into the left side of his chest. RN was able to expel most of the air prior to me visiting him this morning however I do notice on transfer examination that it is worsening again Urinary Catheter Management: Egan: Cath Placed During This Visit: yes Reason for Continuing Indwelling Catheter: Accurate Measurement of Urinary Output in Critically Ill Patients Urinary Catheter Date of Insertion: 01/26/25 Urinary Catheter Time of Insertion: 01:00 Discharge Data Studies Completed and Pending Completed Studies During Hospitalization Category Date Time Status CT chest wo con [id number] Routine Cat Scan 01/24/25 18:00 Completed CXRP [XR chest 1V portable [id number]] Routine Exams 01/31/25 06:00 Completed CXRP [XR chest 1V portable [id number]] Routine Exams 02/01/25 08:30 Completed CXRP [XR chest 1V portable [id number]] Routine Exams 02/02/25 06:00 Completed CXRP [XR chest 1V portable [id number]] Stat Exams 01/24/25 12:45 Completed CXRP [XR chest 1V portable [id number]] Stat Exams 01/24/25 14:24 Completed CXRP [XR chest 1V portable [id number]] Stat Exams 01/25/25 12:35 Completed XR chest 1V portable [id number] DAILY Exams 01/26/25 06:00 Completed XR chest 1V portable [id number] DAILY Exams 01/27/25 06:00 Completed XR chest 1V portable [id number] DAILY Exams 01/28/25 06:00 Completed XR chest 1V portable [id number] DAILY Exams 01/29/25 06:00 Completed XR chest 1V portable [id number] Routine Exams 01/25/25 06:00 Completed XR chest 1V portable [id number] Routine Exams 01/30/25 13:29 Completed XR chest 1V portable [id number] Routine Exams 01/30/25 16:30 Completed XR chest 1V portable [id number] Routine Exams 01/31/25 13:12 Completed XR chest 1V portable [id number] Stat Exams 01/24/25 11:27 Completed XR chest 1V portable [id number] Stat Exams 01/25/25 21:59 Completed CV. echo complete* [id number] Urgent Ultrasound 01/29/25 19:14 Completed Pending at discharge Category Date Time Status Fungal Culture not HR/SK/BL Routine Lab 01/30/25 12:27 Results Mycobacteria, Culture w/Fluor Routine Lab 01/26/25 19:36 Results Mycobacteria, Culture w/Fluor Routine Lab 01/30/25 12:27 Results Radiology Impressions Chest CT 01/24/25 18:00 IMPRESSION: 1. Right-sided chest tube is in place with small residual right pneumothorax. 2. Profound emphysematous change. Areas of lung scarring and reticulonodular infiltrate. Follow with pulmonology. For these nodular densities, recommend 3 to 6-month reassessment. 3. A few other chronic/incidental findings above. Overall, similar to the same-day chest x-ray. COMMENTS: The presence of pulmonary emphysema on CT is an independent risk factor for lung cancer. In the absence of a history or active diagnosis of lung cancer, it is recommended that this patient with emphysema be evaluated for enrollment in a low dose CT lung cancer screening program. Chest X-Ray 02/02/25 06:00 IMPRESSION: 1. 15% pneumothorax of the upper lobe of the RIGHT lung. Small RIGHT lower lobe pneumothorax also noted. Remaining aspects of the chest are unchanged. Laboratory Results WBC 12.03 10^3/uL (3.29-11.43) H 02/01/25 05:04 RBC 3.44 10^6/uL (3.85-5.65) L 02/01/25 05:04 Hgb 10.80 g/dL (11.27-16.99) L 02/01/25 05:04 Hct 34.0 % (37-53) L 02/01/25 05:04 MCV 98.8 fl (82-101) 02/01/25 05:04 MCH 31.4 pg (27-33) 02/01/25 05:04 MCHC 31.8 g/dL (30-55) 02/01/25 05:04 RDW 12.6 % (12.1-15.1) 02/01/25 05:04 Plt Count 248 10^3/cmm (157-399) 02/01/25 05:04 MPV 9.2 fL (7.4-10.4) 02/01/25 05:04 Neut % (Auto) 79.6 % 02/01/25 05:04 Lymph % (Auto) 11.6 % 02/01/25 05:04 Blair % (Auto) 7.6 % 02/01/25 05:04 Eos % (Auto) 0.7 % 02/01/25 05:04 Baso % (Auto) 0.1 % 02/01/25 05:04 Neut # (Auto) 9.57 10^3/uL (1.8-7.7) H 02/01/25 05:04 Lymph # (Auto) 1.4 10^3/uL (0.8-4.8) 02/01/25 05:04 Blair # (Auto) 0.9 10^3/uL (0.2-0.9) 02/01/25 05:04 Eos # (Auto) 0.1 10^3/uL (0.0-0.8) 02/01/25 05:04 Baso # (Auto) 0.0 10^3/uL (0.0-0.1) 02/01/25 05:04 Nucleated RBC % (auto) 0 % 02/01/25 05:04 Nucleated RBCs # 0.0 /100WBC 02/01/25 05:04 D-Dimer 0.87 ug/mLFEU (0-0.59) H 01/24/25 11:47 Specimen Type Arterial 01/24/25 15:27 Sample Site Brachial, right 01/24/25 15:27 ABG pH 7.37 (7.35-7.45) 01/24/25 15:27 ABG pCO2 61.9 mmHg (35-45) H* 01/24/25 15:27 ABG pO2 95.6 mmHg (80.0-100.0) 01/24/25 15:27 ABG HCO3 35.6 mmol/L (22-26) H 01/24/25 15:27 ABG Base Excess 8.1 mmol/L (-2.0-2.0) H 01/24/25 15:27 Christopher Test N/a 01/24/25 15:27 Hematocrit 41.3 % (42-52) L 01/24/25 15:27 O2 Delivery Device Nc 01/24/25 15:27 O2 Liters/Min 7.0 % 01/24/25 15:27 Combined Rail Operator ID Amh 01/24/25 15:27 Sodium 137 mmol/L (136-145) 02/01/25 05:04 Potassium 3.9 mmol/L (3.5-5.1) 02/01/25 05:04 Chloride 95 mmol/L (98-107) L 02/01/25 05:04 Carbon Dioxide 38 mmol/L (22-29) H 02/01/25 05:04 Anion Gap 7.9 (5-19) 02/01/25 05:04 BUN 14 mg/dL (8-23) 02/01/25 05:04 Creatinine 0.3 mg/dL (0.7-1.2) L 02/01/25 05:04 GFR Calculation Not Reportable 02/01/25 05:04 Glucose 130 mg/dL (65-115) H 02/01/25 05:04 Calculated Osmolality 286 mOsm/kg (285-295) 02/01/25 05:04 Lactate 0.8 mmol/L (0.5-2.2) 02/01/25 05:04 Calcium 8.6 mg/dL (8.5-10.5) 02/01/25 05:04 Magnesium 1.7 mg/dL (1.7-2.3) 01/29/25 04:45 Total Bilirubin 0.2 mg/dL (0.15-1.2) 02/01/25 05:04 AST 25 U/L (0-40) 02/01/25 05:04 ALT 58 U/L (0-41) H 02/01/25 05:04 Alkaline Phosphatase 47 U/L (40-130) 02/01/25 05:04 NT-Pro-B Natriuret Pep 769 pg/mL (0-125) H 01/24/25 11:47 Total Protein 5.2 g/dL (6.6-8.7) L 02/01/25 05:04 Albumin 3.1 g/dL (3.5-5.2) L 02/01/25 05:04 Globulin 2.1 g/dL (1.3-4.6) 02/01/25 05:04 Lipase 14 U/L (13-60) 01/24/25 11:47 Coronavirus 229E (PCR) Not detected (NOT DETECT) 01/24/25 04:10 SARS-CoV-2 (PCR) Not detected (NOT DETECT) 01/24/25 04:10 Vitals Last Vital Signs Temp 97.9 F 02/02/25 09:18 Pulse 118 H 02/02/25 12:22 Resp 17 02/02/25 12:22 BP 115/63 02/02/25 12:22 Pulse Ox 93 02/02/25 12:22 O2 Del Method Nasal Cannula 02/02/25 12:22 O2 Flow Rate 5 02/02/25 12:22 Discharge Plan Discharge Patient Disposition: Home Condition: Stable Prescriptions: No Action hydrocodone-acetaminophen 10-325 mg tablet 1 - 2 tab PO Q4H MDD 9 tabs PRN (Reason: Pain) aspirin [Adult Low Dose Aspirin] 81 mg tablet,delayed release (DR/EC) 81 mg PO DAILY carisoprodol 350 mg tablet 350 mg PO QID PRN (Reason: Spasms) gabapentin 300 mg capsule 600 mg PO TID Rx Instructions: Need apt metformin 500 mg tablet 500 mg PO DAILY testosterone cypionate [Depo-Testosterone] 200 mg/mL oil 200 mg IM .every 10 days Patient Comments: taking every 3 weeks methenamine hippurate 1 gram tablet See Rx Instructions .ROUTE .COMPLEX Qty: 180 3RF Dose Instruction: TAKE ONE TABLET BY MOUTH TWICE DAILY - TAKE 1000 MG OF VITAMIN C WITH EACH DOSE OF METHENAMINE Rx Instructions: TAKE ONE TABLET BY MOUTH TWICE DAILY - TAKE 1000 MG OF VITAMIN C WITH EACH DOSE OF METHENAMINE furosemide 20 mg tablet 20 mg PO BID Qty: 180 3RF morphine 15 mg tablet 15 mg PO BID rosuvastatin 20 mg tablet 20 mg PO QPM pantoprazole 40 mg tablet,delayed release (DR/EC) 40 mg PO BID Trelegy Ellipta 100-62.5-25 mcg blister with device 1 inh inhalation QPM albuterol sulfate 1.25 mg/3 mL solution for nebulization 1.25 mg inhalation Q6H PRN (Reason: shortness of breath or wheezing) Qty: 90 0RF potassium chloride 10 mEq tablet extended release 10 meq PO DAILY ascorbic acid (vitamin C) [Vitamin C] 1,000 mg Tablet 1,000 mg PO BID Rx Instructions: take with methamine ketoconazole 2 % shampoo See Rx Instructions .ROUTE .COMPLEX Rx Instructions: LATHER ONTO SCALP 2-3 TIMES WEKLY. ALLOW TO SET FIVE MINUTES BEFORE RINSING. fluticasone propionate 50 mcg/actuation spray,suspension 50 mcg INTRANASAL DAILY PRN (Reason: allergies ) guaifenesin [Mucinex] 1,200 mg Tablet Extended Release 12hr 1,200 - 2,400 mg PO Q12H cholecalciferol (vitamin D3) [Vitamin D3] 125 mcg (5,000 unit) Tablet 125 mcg PO DAILY Caltrate 600 plus D 600 mg-20 mcg (800 unit) Tablet,Chewable 1 tab PO DAILY Saline Nasal 0.65 % Aerosol,[place] 2 spray INTRANASAL Q4H PRN (Reason: allergies ) Discharge Order = DC NOW: Discharge Order (Routine); Ordered 02/02/25 Ordered By: Jos Jean-Baptiste Referrals: Carolyn Ireland DO [Primary Care Provider, [facility]] Discharge Diet: Regular Discharge Activity: Increase activity as tolerated Patient Instructions: Opioid Safety, Post Anesthesia Care, Patient Portal & Blessing Instructions, Pulmonology Procedures & Bronchoscopy Discharge Instructions Discharge Attestations Time Spent in Discharge Care*: greater than 30 min Quality Metrics Clinical Quality Measures [ No reported AMI, CVA or VTE this stay] Coding Level of Care Code Acute Code for Chg Fwd Diagnoses Chronic hypoxemic respiratory failure J96.11 Persistent air leak End stage COPD J44.9 Cachexia R64
--- NOTE | 2025-02-02 13:31 | P.MISC_ITS ---
Miscellaneous Note Purpose of Documentation: Decision to transfer for CT surgery care made by myself of the surgeon and the staff. The patient has a continuous airleak for 9 days now and has failed conservative measures including multiple valve placement and 2 blood patches. Patient was agreeable and requested transfer to [facility]. Arrangements have been made and the patient is accepted and he anticipated to leave this afternoon Call placed via the rivet machine operator for a courtesy call to the flatbed owner operator Dr. Barid. The rivet machine operator left a message for him to call back
--- NOTE | 2025-02-02 14:08 | PC.NURSE ---
Patient left with [facility], family at bedside
== END 2025-02-02 14:16 | disposition short-term general hospital (02) | DRG 164 ==
LOC: ER 15:40 → ICU 15:46
PROVIDERS: Internal Medicine; Admitting Provider Student in an Organized Health Care Education/Training Program; Emergency Provider Emergency Medicine; PCP Family Medicine; Visit Provider Internal Medicine
PROC: 0BJ08ZZ Inspection of Tracheobronchial Tree, Via Natural or Artificial Opening Endoscopic (ICD-10-PCS; CPT 31622; principal; 2025-01-30 12:00)
PROC: 0BH Respiratory System, Insertion (ICD-10-PCS; CPT 31647; 2025-01-30 12:00)
DX: J93.83 Other pneumothorax (principal); E87.29 Other acidosis; I42.8 Other cardiomyopathies; J96.12 Chronic respiratory failure with hypercapnia; J96.11 Chronic respiratory failure with hypoxia; R64 Cachexia; Z68.1 Body mass index [BMI] 19.9 or less, adult; I50.20 Unspecified systolic (congestive) heart failure; J44.9 Chronic obstructive pulmonary disease, unspecified; T81.82XA Emphysema (subcutaneous) resulting from a procedure, initial encounter; Y83.8 Other surgical procedures as the cause of abnormal reaction of the patient, or of later complication, without mention of misadventure at the time of the procedure; Y92.239 Unspecified place in hospital as the place of occurrence of the external cause; G89.29 Other chronic pain; R04.0 Epistaxis; F17.210 Nicotine dependence, cigarettes, uncomplicated; I25.10 Atherosclerotic heart disease of native coronary artery without angina pectoris; E78.5 Hyperlipidemia, unspecified; K21.9 Gastro-esophageal reflux disease without esophagitis; E11.42 Type 2 diabetes mellitus with diabetic polyneuropathy; Z79.84 Long term (current) use of oral hypoglycemic drugs; F41.9 Anxiety disorder, unspecified; Z99.81 Dependence on supplemental oxygen; Z79.82 Long term (current) use of aspirin; Z79.891 Long term (current) use of opiate analgesic
CPT/HCPCS: 36415; 36600; 51702; 71045; 71250; 80053; 82803; 83605; 83690; 83735; 83880; 85025; 85378; 87015; 87070; 87077; 87102; 87116; 87186; 87205; 87206; 87635; 87801; 93005; 93306; 94640; 96374; 96375; 97116; 97163; 97167; 99285; 99291; C9725; J0131; J0696; J1100; J1171; J1885; J2270; J2405; J2704; J2919; J3010; J3475; J3490; J7611; J7626; J9999; Q0144